=== PATIENT | female | born 1950 | race Caucasian/White ===

== ENCOUNTER 2023-02-06 12:56 | Outpatient (OUT) | payer OTHER, SELFPAY ==
--- NOTE | 2023-02-06 13:07 | CT_ITS ---
[address] [address] Patient Name: SIVA CASILLAS MRN: [id number] date: 1950 Sex: F Assigned Patient Location: CT Current Patient Location: Accession/Order Number: [id number] Exam Date: 02/06/2023 13:25 Report Date: 02/07/2023 01:29 At the request of: KRISTOPHER MELCHOR Procedure: CT lung screening low-dose EXAMINATION: CT lung screening low-dose HISTORY: History OF Tobacco Abuse Z87.891 COMPARISON: CT chest 02/14/2022 TECHNIQUE: Axial, Coronal, and Sagittal images were created without the administration of IV contrast material. Dose reduction techniques were achieved by using automated exposure control and/or adjustment of mA and/or kV according to patient size and/or use of iterative reconstruction technique. FINDINGS: LUNGS: Marked emphysematous changes. No acute infiltrates or suspicious nodules. PLEURA: No mass, effusion, or pneumothorax. VASCULATURE: No abnormality. TORIBIO: No mass or pathologic adenopathy. MEDIASTINUM: No mass or pathologic adenopathy. CARDIAC: No enlargement, pericardial thickening, or significant calcification. AORTA: No aneurysm or dissection. CHEST WALL: No mass or axillary adenopathy BONES: No bone lesion or fracture. LIMITED ABDOMEN: No suspicious findings. Limited images of the upper abdomen. OTHER: Negative. CT/CT lung screening low-dose IMPRESSION: 1. Lung-RADS Category 1 Negative. No nodules and definitely benign nodules. Continue annual screening with LDCT in 12 months. 2. Marked emphysematous changes. Electronically authenticated by: SVETLANA CHAPMAN Date: 02/07/2023 01:29
== END 2023-02-06 12:57 | disposition home or self-care (01) ==
LOC: CT 12:56
PROVIDERS: PCP Family Medicine; Visit Provider Internal Medicine
DX: Z87.891 Personal history of nicotine dependence (principal)
CPT/HCPCS: 71271

== ENCOUNTER 2024-02-13 10:15 | Outpatient (OUT) | payer OTHER, SELFPAY ==
--- NOTE | 2024-02-13 10:17 | CT_ITS ---
[address] [address] Patient Name: SIVA CASILLAS MRN: [id number] date: 1950 Sex: F Assigned Patient Location: CT Current Patient Location: Accession/Order Number: [id number] Exam Date: 02/13/2024 10:25 Report Date: 02/14/2024 06:15 At the request of: KRISTOPHER MELCHOR Procedure: CT lung screening low-dose EXAMINATION: CT lung screening low-dose HISTORY: Screening For Malignant Neoplasm Respiratory Organ COMPARISON: No relevant comparison available. TECHNIQUE: Axial, Coronal, and Sagittal images were created without the administration of IV contrast material. Dose reduction techniques were achieved by using automated exposure control and/or adjustment of mA and/or kV according to patient size and/or use of iterative reconstruction technique. FINDINGS: LUNGS: Marked emphysematous changes. No suspicious nodules or acute infiltrates. PLEURA: No mass, effusion, or pneumothorax. VASCULATURE: No abnormality. TORIBIO: No mass or pathologic adenopathy. MEDIASTINUM: No mass or pathologic adenopathy. CARDIAC: No enlargement, pericardial thickening, or pericardial effusion. Coronary Artery calcifications: Coronary calcifications are heavy. AORTA: No aneurysm or dissection. CHEST WALL: No mass or axillary adenopathy BONES: No bone lesion or fracture. LIMITED ABDOMEN: No suspicious findings. Limited images of the upper abdomen. OTHER: Negative. CT/CT lung screening low-dose IMPRESSION: 1. Lung-RADS Category 1 Negative. No nodules and definitely benign nodules. Continue annual screening with LDCT in 12 months. 2. Marked emphysematous changes. Electronically authenticated by: SVETLANA CHAPMAN Date: 02/14/2024 06:15
--- OUTSIDE RECORDS SUMMARY | 2024-02-13 10:33 | XMS_ITS | CCD ---
Author Organization [facility] Care Team Providers Care Motion Picture Projectionist Apprentice Name Role Phone Blackwell, Manju Forbes Admitting Unavailable CHANA OBRIEN Attending Unavailable NICOLE GUZMAN Unavailable NICOLE GUZMAN Primary Care Unavailable HARITHA HI Surgeon Unavailable TX Procedure Practitioner Unavailab Nicole Sprague Unavailable Unavailable Unavailable Unavailable Unavailable Renzo Hein Unavailable Nicole Guzman Unavailable DR SVETLANA CHAPMAN Consulting Unavailable THOMAS, DR NICOLE Thakkar Attending Unavailable THOMAS, DR NICOLE Thakkar Admitting Unavailable THOMAS, DR NICOLE Thakkar Primary Care Unavailable THOMAS, DR NICOLE Thakkar Consulting Unavailable THOMAS, DR NICOLE Thakkar Primary Care Unavailable SAMSA ., KRISTOPHER Admitting Unavailable SAMSA ., KRISTOPHER Attending Unavailable THOMAS, DR NICOLE Thakkar Primary Care Unavailable RENOZ HEIN Admitting Unavailable RENZO HEIN Attending Unavailable THOMAS, DR NICOLE Thakkar Primary Care Unavailable THOMAS, DR NICOLE Thakkar Attending Unavailable THOMAS, DR NICOLE Thakkar Admitting Unavailable SAMSA ., KRISTOPHER Admitting Unavailable SAMSA ., KRISTOPHER Consulting Unavailable SAM ., KRISTOPHER Attending Unavailable THOMAS, DR NICOLE Thakkar Primary Care Unavailable THOMAS, DR NICOLE Thakkar Primary Care Unavailable THOMAS, DR NICOLE Thakkar Consulting Unavailable THOMAS, DR NICOLE Thakkar Attending Unavailable THOMAS, DR NICOLE Thakkar Admitting Unavailable Damian Suh Consulting Unavailable THOMAS, DR NICOLE Thakkar Primary Care Unavailable THOMAS, DR NICOLE Thakkar Attending Unavailable THOMAS, DR NICOLE Tahkkar Admitting Unavailable THOMAS, DR NICOLE Thakkar Consulting Unavailable DR SVETLANA CHAPMAN Consulting Unavailable THOMAS, DR NICOLE Thakkar Primary Care Unavailable THOMAS, DR NICOLE Thakkar Attending Unavailable THOMAS, DR NICOLE Thakkar Admitting Unavailable THOMAS, DR NICOLE Thakkar Consulting Unavailable TRABOULFRANKI, DR DALEY Attending Unavailab le TRABOULFRANKI, DR DALEY Admitting Unavailab le EUGENEOULFRANKI, DR DALEY Consulting Unavailab le THOMAS, DR NICOLE Thakkar Primary Care Unavailable SAMSA ., KRISTOPHER Admitting Unavailable SAMSA ., KRISTOPHER Attending Unavailable ARI, DR SVETLANA Alfaro Consulting Unavailable THOMAS, DR NICOLE Thakkar Primary Care Unavailable SAMSA ., KRISTOPHER Consulting Unavailable Alea, Dr. Daley Referring Unavaila ble Traboulfranki, Dr. Daley Attending Unavaila ble Guzman, Dr. Nicole Charles Primary Care Unav ailable Guzman, Dr. Nicole Charles Primary Care Unav ailable Alea, Dr. Daley Referring Unavaila ble Trabizzy, Dr. Daley Attending Unavaila ble MD Jared Rodgers Attending Provider Unavailable MD Nicole Guzman Primary Care Provider MD Edi Cosby Attending Provider MD Nicole Guzman Attending Provider Nicole Guzman Admitting Unavailable Nicole Guzman Attending Unavailable Nicole Guzman Primary Care Unavailable Edi Cosby Admitting Unavailable Edi Cosby Attending Unavailable Nicole Guzman Primary Care Unavailable Nicole Guzman MD Primary Care Provider EDI COSBY Attending Unavailable NICOLE GUZMAN Primary Care Unavailable Allergies Allergy Classification Reported Allergen(s) Allergy Type Date of Onset Reaction(s) Facility (6 sources) Ibuprofen; 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: [IBUPROFEN] Drug Allergy 3 Rash [facility] Repository (3 sources) Naproxen Drug Allergy 5 [facility] Repository (20 sources) Ibuprofen; 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: [Advil] Drug Allergy 9 Rash [facility] 250 DO Work Phone: (20 sources) Naproxen; 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: [Aleve] Drug Allergy Unknown, Rash, Other [facility] 250 DO Work Phone: (1 source) Ibuprofen Drug Allergy 5 [facility] Repository (5 sources) Naproxen; 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: [naproxen] Drug Allergy 9 [facility] (4 sources) Alendronate Drug Allergy 9 [facility] Comment:Freete xt Needs Updated. [facility] Other (4 sources) Allergies Reconciled Propensity to adverse reactions Unknown [facility] Other (4 sources) patient allergy list reviewed by nurse or physicia Propensity to adverse reactions 9 Comment:Done [facility] Other (1 source) Ibuprofen Drug Allergy 9 [facility] Repository (2 sources) Naproxen; 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: [NAPROXEN SODIUM] Drug Allergy 4 [facility] Work Phone: Medications Current Medications Medication Drug Class(es) Dates Sig (Normalized) Sig (Original) 30 ACTUAT fluticasone furoate 0.2 MG/ACTUAT / umeclidinium 0.0625 MG/ACTUAT / vilanterol 0.025 MG/ACTUAT Dry Powder Inhaler [Trelegy] (4 sources) take 1 puff(s) by inhalation once daily Trelegy Ellipta 200-62.5-25 MCG/ACT 1 puff Inhalation Once a day for 90 days Active acetaminophen 325 mg / HYDROcodone bitartrate 5 mg oral tablet (15 sources) Opioid Agonist Start: 06-22-2021 take 1 tablet by mouth twice daily as needed HYDROcodone-Aceta minophen 5-325 MG 1 tablet as needed Orally twice daily for 30 days G89.29 Chronic pain Jun, Active Start: 06-07-2021 HYDROcodone-Ac etaminophen 5-325 MG Oral Tablet Quantity: 28 Refills: 0 Ordered: 07-Jun-2021 DO Start : 07-Jun-2021 Complete [id number] 200 actuat albuterol 0.09 mg/actuat metered dose inhaler (20 sources) beta2-Adrenergic Agonist albuter ol (Ventolin HFA) 90 mcg/actuation inhaler Inhale. As directed. Active Ventolin HFA 108 (90 Base) MCG/ACT Inhalation Aerosol Solution As directed. Quantity: 0 Refills: 0 Ordered: 19-Dec-2021 DO Active Ventolin HFA Act italia apixaban 5 mg oral tablet (20 sources) Factor Xa Inhibitor Start: 08-05-2023 Apixaban ( Eliquis) 5 mg tablet Active 0 .ROUTE .COMPLEX 180 August 05, 2023 11:07am TAKE 1 TABLET 2 TIMES DAILYAS DIRECTED Start: 06-21-2021 End: 08-05-2023 take 5 mg by mouth twice daily Apixaban Discontinued 5 MG PO Twice daily August 05, 2023 1:00am August 05, 2023 11:07am Aspir-81 (14 sources) Aspir-81 Active aspirin 81 mg delayed release oral tablet (12 sources) Platelet Aggregation Inhibitor, Nonsteroidal Anti-inflammatory Drug Start: 06-21-2021 aspirin 81 mg EC tablet Take by mouth 2 times a week. 06/21/2021 Active Start: 01-08-2019 take 81 mg by mouth once daily Aspirin Active 81 MG PO Daily 0 January 08, 2019 12:00am atorvastatin 80 mg oral tablet (20 sources) HMG-CoA Reductase Inhibitor Start: 01-06-2019 End: 11-18-2023 take 80 mg by mouth once daily Atorvastatin Active 80 MG PO Daily 90 November 18, 2023 8:29am Baclofen (9 sources) gamma-Aminobutyri c Acid-ergic Agonist Start: 10-07-2023 Baclofen Active 0 .ROUTE .COMPLEX 135 October 07, 2023 3:23pm TAKE 1 AND 1/2 TABLETS AT BEDTIME NEEDED FOR MUSCLE SPASM Start: 10-07-2023 End: 10-07-2023 take 15 mg by mouth once daily Baclofen Discontinued 1 5 MG PO Daily October 07, 2023 12:00am October 07, 2023 3:23pm Start: 02-02-2021 Baclofen 10 MG Oral Tablet Quantity: 30 Refills: 0 Ordered: 23-Apr-2021 DO Start : 02-Feb-2021 Complete Baclofen 10 MG T SUDARSHAN 1 AND 1/2 TABLETS AT BEDTIME NEEDED FOR MUSCLE SPASM for 90 Active 120 actuat budesonide 0.16 mg/actuat / formoterol fumarate 0.0045 mg/actuat metered dose inhaler (4 sources) Corticosteroid, beta2-Adrenergic Agonist Start: 01-06-2019 Budesonide-Formoterol Active 0 .ROUTE .COMPLEX January 06, 2019 12:00am 4.5 - 160 mcg inhaled cholecalciferol 0.05 mg oral capsule (2 sources) Vitamin D End: 10-08-2023 take 1 capsule by mouth once daily cholecalciferol (Vitamin D-3) 50,000 unit capsule Take 1 capsule (50,000 Units) by mouth once daily. 10/08/2023 Discontinued (Therapy completed) take 1 capsule by mouth in the m orning cholecalciferol (Vitamin D3) 50 mcg (2,000 unit) capsule Take 1 capsule (50 mcg) by mouth early in the morning.. Active oungorahwxo-vnmzueqir-cviqjl er (Trelegy Ellipta) 200-62.5-25 mcg blister with device (1 source) fluticasone-umec lidin-vilanter (Trelegy Ellipta) 200-62.5-25 mcg blister with device Inhale if needed. As directed Active furosemide 40 mg oral tablet (11 sources) Loop Diuretic St ar t: take 40 mg by mouth once daily Furosemide Active 40 MG PO Daily September 16, 2023 12:00am Start: 10-12-2021 take 1 tablet by danisha th once daily Furosemide 20 MG Oral Tablet TAKE 1 TABLET BY MOUTH DAILY Quantity: 7 Refills: 0 Ordered: 12-Oct-2021 DO Start : 12-Oct-2021 Complete hydroCHLOROthiazide 25 mg oral tablet (4 sources) Thiazide Diuretic Start: 01-06-2019 take 25 mg by mouth once daily Hydrochlorothiazide Active 25 MG PO Daily January 06, 2019 12:00am levothyroxine sodium 0.1 mg oral tablet (20 sources) l-Thyroxine Start: 10-29-2023 End: 11-18-2023 take 1 tablet by mouth once daily Levothyroxine (Synthroid) 100 mcg tablet Active 100 MCG PO Daily November 18, 2023 8:29am Start: 12-05-2021 take 1 tablet by danisha th once daily levothyroxine (Synthroid) 100 mcg tablet Take 1 tablet (100 mcg) by mouth once daily. 12/05/2021 Active Start: 12-05-2021 Synthroid 100 MCG Oral Tablet Quantity: 90 Refills: 0 Ordered: 05-Dec-2021 DO Start : 05-Dec-2021 Active Start: 06-08-2021 Levothyroxine Sodium 112 MCG Oral Tablet Quantity: 90 Refills: 0 Ordered: 08-Jun-2021 DO Start : 08-Jun-2021 Active Start: 01-06-2019 End: 10-30-2023 take 112 ug by mouth once daily Levothyroxine Disconti nued 112 MCG PO Daily January 06, 2019 12:00am October 30, 2023 8:46am Synthroid 100 MC G TAKE 1 TABLET DAILY for 90 Active take 1 tablet by danisha th once daily in the morning Levothyroxine Sodium 112 MCG 1 tablet in the morning on an empty stomach Orally daily Active losartan potassium 100 mg oral tablet (20 sources) Angiotensin 2 Receptor Elisabet Start: 12-17-2023 take 50 mg by mouth once daily Losartan Active 50 MG PO Daily December 17, 2023 2:03pm Start: 11-15-2023 End: 12-17-2023 take 100 mg by mouth once daily Losartan Discontinued 100 MG PO Daily December 10, 2023 8:44am December 17, 2023 2:03pm Start: 06-21-2021 take 1 tablet by danisha th once daily losartan (Cozaar) 100 mg tablet Take 1 tablet (100 mg) by mouth once daily. 06/21/2021 Active Start: 01-08-2019 End: 11-15-2023 take 100 mg by mouth once daily Losartan Discontinued 100 MG PO Daily January 08, 2019 12:00am November 15, 2023 4:16pm Losartan Potassi um 50 MG TAKE 1 TABLET DAILY for 90 Active 24 hr metoprolol succinate 25 mg extended release oral tablet (20 sources) beta-Adrenergic Elisabet Start: 09-16-2023 take 25 mg by mouth once daily Metoprolol Succinate Active 25 MG PO Daily September 16, 2023 12:00am Start: 01-08-2019 End: 09-16-2023 take 12.5 mg by mouth twice daily Metoprolol Tartrate Discontinued 12.5 MG PO Twice daily 30 January 08, 2019 12:00am September 16, 2023 2:57pm Start: 01-06-2019 End: 01-08-2019 take 50 mg by mouth twice daily Metoprolol Tartrate Discontinued 50 MG PO Twice daily January 06, 2019 12:00am January 08, 2019 10:00am multivitamin tablet (1 source) take 1 tablet by mouth once daily multivitamin tablet Take 1 tablet by mouth once daily. Active Nebulizer - (10 sources) Nebulizer - as directed Active ondansetron 4 mg disintegrating oral tablet (2 sources) Serotonin-3 Receptor Antagonist Start: 3 take 1 tablet by mouth three times daily as needed Ondansetron 4 MG 1 tablet on the tongue and allow to dissolve Orally tid prn for 5 Apr, Active oxygen (O2) gas therapy (1 source) oxygen (O2) gas therapy Inhale 1 each continuously. 2-3 LPM Active Ozempic (0.25 or 0.5 MG/DOSE) 2 MG/1.5ML (3 sources) Ozempic (0.25 or 0.5 MG/DOSE) 2 MG/1.5ML 1mg Subcutaneous weekly for 90 days Active Ozempic 0.25 mg or 0.5 mg (2 mg/3 mL) pen injector (1 source) Start: Ozempic 0.25 mg or 0.5 mg (2 mg/3 mL) pen injector 1 (one) time per week. 09/16/2023 Active 0.25 mg, 0.5 mg dose 1.5 ml semaglutide 1.34 mg/ml pen injector (6 sources) Start: Ozempic (0.25 or 0.5 MG/DOSE) 2 MG/1.5ML 0.25mg Subcutaneous weekly for 28 days Aug, Active Ozempic (0.25 or 0.5 MG/DOSE) 2 MG/1.5ML 1mg Subcutaneous weekly for 90 days Active Semaglutide (2 sources) Start: 09-16-2023 Semaglutide (Ozempic) 0.25 mg or 0.5 mg (2 mg/3 mL) pen injector Active 0.25 MG SUBCUT every week September 16, 2023 12:00am 0.25mg weekly spironolactone 25 mg oral tablet (20 sources) Aldosterone Antagonist Start: 10-29-2023 End: 11-18-2023 take 12.5 mg by mouth once daily Spironolactone Active 12.5 MG PO Daily November 18, 2023 8:29am take 0.5 tablet by mouth once da bill spironolactone (Aldactone) 25 mg tablet Take 0.5 tablets (12.5 mg) by mouth once daily. Active take 1 tablet by mouth once rupert y Spironolactone 25 MG Oral Tablet TAKE 1 TABLET DAILY. Quantity: 90 Refills: 3 Ordered: 21-Jun-2021 DO Active vit A/vit C/vit E/zinc/coppe r (PRESERVISION AREDS ORAL) (1 source) take 1 capsule by [facility] twice daily vit A/vit C/vit E/zinc/copper (PRESERVISION AREDS ORAL) 1 capsule 2 times a day. Active {20 (nirmatrelvir 150 MG Ora l Tablet) / 10 (ritonavir 100 MG Oral Tablet) } Pack [Paxlovid 5-Day] (2 sources) Paxlovid (300/10 0) 20 x 150 MG & 10 x 100MG as directed Orally for 5 days Active Completed/Discontinued Medications Medication Drug Class(es) Dates Sig (Normalized) Sig (Original) amoxicillin 875 mg / clavulanate 125 mg oral tablet (2 sources) Penicillin-class Antibacterial Start: 07-11-2021 take 1 tablet by mouth twice daily Amoxicillin-Pot Clavulanate 875-125 MG Oral Tablet TAKE 1 TABLET BY MOUTH TWICE A DAY Quantity: 20 Refills: 0 Ordered: 11-Jul-2021 DO Start : 11-Jul-2021 Complete arformoterol 0.0075 mg/ml inhalation solution (3 sources) beta2-Adrenergic Agonist Start: 05-03-2022 take 1 dose by inhalation twice daily in the morning Arformoterol Tartrate 15 MCG/2ML Inhalation Nebulization Solution INHALE THE CONTENTS OF 1 VIAL TWO TIMES DAILY IN THE MORNING AND EVENING VIA STANDARD JET NEBULIZER DIRECTED. Quantity: 0 Refills: 0 Ordered: 03-May-2022 DO Start : 03-May-2022 Active Start: 05-03-2022 Arformoterol T artrate 15 MCG/2ML Inhalation Nebulization Solution Quantity: 120 Refills: 0 Ordered: 03-May-2022 DO Start : 03-May-2022 Complete budesonide 0.25 mg/ml inhalation suspension (3 sources) Corticosteroid Start: 05-03-2022 take 1 [IU] by inhalation twice daily Budesonide 0.5 MG/2ML Inhalation Suspension USE 1 UNIT DOSE VIA NEBULIZER TWO TIMES A DAY Quantity: 0 Refills: 0 Ordered: 03-May-2022 DO Start : 03-May-2022 Active Start: 05-03-2022 Budesonide 0.5 MG/2ML Inhalation Suspension Quantity: 120 Refills: 0 Ordered: 03-May-2022 DO Start : 03-May-2022 Complete citalopram 40 mg oral tablet (20 sources) Serotonin Reuptake Inhibitor Start: 04-27-2022 Citalopram Hydrobrom sara 40 MG Oral Tablet Quantity: 90 Refills: 0 Ordered: 27-Apr-2022 DO Start : 27-Apr-2022 Complete take 1 tablet by mouth once rupert y citalopram (CeleXA) 40 mg tablet Take 1 tablet (40 mg) by mouth once daily. Active take 0.5 tablet by m outh every twenty-four hours Citalopram Hydrobromide 40 MG 0.5 tablet Orally Once a day Active take 1 tablet by mouth once rupert y Citalopram Hydrobromide 20 MG Oral Tablet TAKE 1 TABLET DAILY. Quantity: 0 Refills: 0 Ordered: 19-Dec-2021 DO Active clopidogrel 75 mg oral tablet (4 sources) [id number] Platelet Inhibitor Start: 01-08-2019 End: 09-16-2023 take 75 mg by mouth once daily Clopidogrel Discontinued 75 MG PO Daily January 08, 2019 12:00am September 16, 2023 2:56pm fluconazole 100 mg oral tablet (2 sources) Azole Antifungal Start: 04-16-2022 take 1 tablet by mouth once daily Fluconazole 100 MG Oral Tablet TAKE ONE TABLET BY MOUTH DAILY Quantity: 7 Refills: 0 Ordered: 16-Apr-2022 DO Start : 16-Apr-2022 Complete 30 actuat fluticasone furoate 0.1 mg/actuat / umeclidinium 0.0625 mg/actuat / vilanterol 0.025 mg/actuat dry powder inhaler (7 sources) Anticholinergic, Corticosteroid, beta2-Adrenergic Agonist Start: 06-07-2021 Trelegy Ellipta 100-62.5-25 MCG/INH Inhalation Aerosol Powder Breath Activated As directed. Quantity: 0 Refills: 0 Ordered: 07-Jun-2021 DO Start : 07-Jun-2021 Active take 1 puff(s) by inhalation onc e daily Trelegy Ellipta 100-62.5-25 MCG/INH 1 puff Inhalation Once a day Active metFORMIN hydrochloride 500 mg oral tablet (4 sources) Biguanide Start: 01-06-2019 End: 09-16-2023 take 500 mg by mouth once daily Metformin Discontinued 500 MG PO Daily January 06, 2019 12:00am September 16, 2023 2:55pm Multi Vitamin TABS (5 sources) Multi Vitamin TA BS TAKE 1 TABLET DAILY. Quantity: 0 Refills: 0 Ordered: 19-Dec-2021 DO Active pramipexole dihydrochloride 0.25 mg oral tablet (1 source) Nonergot Dopamine Agonist Start: 01-05-2021 Pramipexole Dihydrochloride 0.25 MG Oral Tablet Quantity: 30 Refills: 0 Ordered: 05-Jan-2021 DO Start : 05-Jan-2021 Complete pregabalin 50 mg oral capsule (15 sources) Start: 07-20-2021 take 1 capsule by mouth twice daily Pregabalin 50 MG Oral Capsule TAKE 1 CAPSULE BY MOUTH TWICE A DAY Quantity: 60 Refills: 0 Ordered: 21-Jul-2021 DO Start : 20-Jul-2021 Complete Trelegy Ellipta 200-62.5-25 MCG/ACT Inhalation Aerosol Powder Breath Activated (2 sources) Start: 12-18-2022 Trelegy Ellipta 200-62.5-25 MCG/ACT Inhalation Aerosol Powder Breath Activated Quantity: 60 Refills: 0 Ordered: 18-Dec-2022 DO Start : 18-Dec-2022 Active valACYclovir 1000 mg oral tablet (3 sources) Herpesvirus Nucleoside Analog DNA Polymerase Inhibitor, Herpes Simplex Virus Nucleoside Analog DNA Polymerase Inhibitor, Herpes Zoster Virus Nucleoside Analog DNA Polymerase Inhibitor Start: 07-20-2021 take 1 tablet by mouth three times daily valACYclovir HCl - 1 GM Oral Tablet TAKE 1 TABLET BY MOUTH 3 TIMES A DAY Quantity: 21 Refills: 0 Ordered: 20-Jul-2021 DO Start : 20-Jul-2021 Complete valACYclovir HCl Active Vitamin D3 CAPS (5 sources) Vitamin D3 CAPS TAKE 1 CAPSULE Daily Quantity: 0 Refills: 0 Ordered: 19-Jad-2022 DO Active warfarin sodium 5 mg oral tablet (8 sources) Vitamin K Antagonist take 1 tablet by mouth every twenty-four hours Warfarin Sodium 5 MG 1 tablet Orally Once a day Not-Taking Problems Active Problems Problem Classification Problem Date Documented Date Episodic/Chronic Abdominal pain (9 sources) Epigastric pain; 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: [Epigastric pain] Onset: 11-11-2021 Episodic Acute myocardial infarction (14 sources) Acute myocardial infarction; 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: [Acute myocardial infarction, unspecified] 01-06-2019 Chronic Aortic; peripheral; and visceral artery aneurysms (3 sources) Abdominal aortic aneurysm without rupture; 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: [Abdominal aortic aneurysm, without rupture, unspecified] Chronic Asthma (4 sources) Uncomplicated asthma; 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: [Unspecified asthma, uncomplicated] Chronic Cardiac dysrhythmias (20 sources) Paroxysmal atrial fibrillation; 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: [Atrial fibrillation] Onset: 01-19-2019 10-08-2023 Chronic Chronic obstructive pulmonary disease and bronchiectasis (20 sources) Chronic obstructive lung disease; 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: [Chronic airway obstruction, not elsewhere classified] Onset: 03-30-2022 Chronic Congestive heart failure; nonhypertensive (4 sources) Chronic systolic heart failure; 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: [Chronic systolic (congestive) heart failure] Chronic Coronary atherosclerosis and other heart disease (20 sources) Multi vessel coronary artery disease; 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: [Coronary atherosclerosis of unspecified type of vessel, [place] or graft] Onset: 08-13-2018 10-08-2023 Chronic Diabetes mellitus with complications (14 sources) Type 2 diabetes mellitus; 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: [Type 2 diabetes mellitus with hyperglycemia] Chronic Diabetes mellitus without complication (20 sources) Diabetes mellitus; 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: [Diabetes mellitus without mention of complication, type II or unspecified type, not stated as uncontrolled] Onset: 08-13-2018 09-16-2023 Chronic Disorders of lipid metabolism (20 sources) Hyperlipidemia; 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: [Other and unspecified hyperlipidemia] Onset: 07-12-2023 Chronic Diverticulosis and diverticulitis (15 sources) Diverticular disease of colon; 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: [Diverticulosis of intestine, part unspecified, without perforation or abscess without bleeding] Onset: 08-13-2018 Chronic Endometriosis (4 sources) Endometriosis, unspecified; 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: [Endometriosis] Onset: 08-13-2018 Chronic Esophageal disorders (14 sources) Gastroesophageal reflux disease; 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: [Gastro-esophageal reflux disease without esophagitis] Onset: 08-13-2018 Chronic Essential hypertension (20 sources) Hypertensive disorder; 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: [Unspecified essential hypertension] Onset: 08-13-2018 10-08-2023 Chronic Fracture of lower limb (10 sources) Closed fracture of ankle; 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: [Other fracture of left lower leg, initial encounter for closed fracture] Episodic Genitourinary symptoms and ill-defined conditions (4 sources) Urinary incontinence; 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: [Unspecified urinary incontinence] Onset: 08-13-2018 Chronic Mood disorders (14 sources) Depressive disorder; 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: [Major depressive disorder, single episode, unspecified] Chronic Mycoses (4 sources) Onychomycosis due to dermatophyte ; 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: [Tinea unguium] Episodic Nausea and vomiting (6 sources) Nausea with vomiting, unspecified; 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: [Nausea and vomiting] Onset: 11-11-2021 Episodic Nonmalignant breast conditions (4 sources) Fibrocystic disease of breast; 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: [Diffuse cystic mastopathy of unspecified breast] Onset: 08-13-2018 Chronic Osteoarthritis (18 sources) Bilateral arthritis of knees; 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: [Bilateral primary osteoarthritis of knee] Onset: 08-13-2018 Chronic Osteoporosis (8 sources) Age-related osteoporosis without current pathological fracture; 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: [Primary osteoporosis] Onset: 02-19-2022 Chronic Other aftercare (9 sources) Drug therapy finding; 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: [Long-term (current) use of anticoagulants] Onset: 07-12-2023 10-08-2023 Episodic Other aftercare (4 sources) Long-term current use of inhaled steroid; 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: [snf (current) use of 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] Episodic Other aftercare (4 sources) Long-term current use of anticoagulant; 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: [buttermaker (current) use of anticoagulants] Episodic Other aftercare (2 sources) snf (current) use of anticoagulants; 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: [snf (current) use of anticoagulants] Onset: 07-12-2023 Episodic Other circulatory disease (4 sources) Elevated blood-pressure reading without diagnosis of hypertension; 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: [Elevated blood-pressure reading, without diagnosis of hypertension] Episodic Other connective tissue disease (14 sources) Trochanteric bursitis; 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: [Trochanteric bursitis, unspecified hip] Episodic Other connective tissue disease (1 source) Radial styloid tenosynovitis [de Quervain] Episodic Other hereditary and degenerative nervous system conditions (4 sources) Restless legs; 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: [Restless legs syndrome] Chronic Other injuries and conditions due to external causes (4 sources) History of fall; 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: [History of falling] Episodic Other lower respiratory disease (4 sources) Solitary nodule of lung; 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: [Solitary pulmonary nodule] Episodic Other lower respiratory disease (4 sources) Pleuritic pain; 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: [Pleurodynia] Episodic Other nervous system disorders (14 sources) Chronic pain; 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: [Other chronic pain] Chronic Other nervous system disorders (4 sources) Other chronic pain Onset: 06-22-2021 Resolved: 08-31-2021 Chronic Other nervous system disorders (4 sources) Lesion of ulnar nerve; 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: [Lesion of ulnar nerve] Onset: 08-13-2018 Chronic Other non-traumatic joint disorders (4 sources) Lower limb joint arthritis; 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: [Osteoarthrosis, unspecified whether generalized or localized, lower leg] Onset: 08-13-2018 Chronic Other non-traumatic joint disorders (14 sources) Pain in right hip joint; 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: [Pain in right hip] Episodic Other nutritional; endocrine; and metabolic disorders (17 sources) Morbid obesity; 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: [Morbid obesity] Chronic Other nutritional; endocrine; and metabolic disorders (17 sources) Body mass index 40+ - severely obese; 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: [Morbid obesity] Onset: 10-08-2023 10-08-2023 Chronic Other nutritional; endocrine; and metabolic disorders (1 source) Morbid (severe) obesity due to excess calories Chronic Other nutritional; endocrine; and metabolic disorders (2 sources) Body mass index (BMI) 45.0-49.9, adult; 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: [Body mass index (BMI) 45.0-49.9, adult (Multi)] Onset: 10-08-2023 Chronic Other screening for suspected conditions (not mental disorders or infectious disease) (5 sources) Screening for malignant neoplasm of respiratory tract; 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: [Encounter for screening for malignant neoplasm of respiratory organs] Episodic Other upper respiratory infections (4 sources) Chronic sinusitis; 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: [Chronic sinusitis, unspecified] Chronic Prolapse of female genital organs (4 sources) Midline cystocele; 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: [Cystocele, midline] Chronic Residual codes; unclassified (12 sources) Sleep apnea; 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: [Unspecified sleep apnea] Onset: 08-13-2018 07-12-2023 Chronic Residual codes; unclassified (4 sources) Obstructive sleep apnea syndrome; 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: [Obstructive sleep apnea (adult) (pediatric)] Chronic Residual codes; unclassified (7 sources) Edema; 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: [Edema] Onset: 07-12-2023 07-12-2023 Episodic Residual codes; unclassified (5 sources) Localized edema; 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: [Localized edema] Onset: 11-11-2021 Episodic Residual codes; unclassified (4 sources) Amnesia; 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: [Other amnesia] Episodic Residual codes; unclassified (4 sources) Tobacco user; 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: [Tobacco use] Episodic Residual codes; unclassified (4 sources) Inadequate sleep hygiene; 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: [Inadequate sleep hygiene] Episodic Respiratory failure; insufficiency; arrest (adult) (4 sources) Chronic respiratory failure; 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: [Chronic respiratory failure with hypoxia] Chronic Retinal detachments; defects; vascular occlusion; and retinopathy (4 sources) Degenerative disorder of macula ; 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: [Unspecified macular degeneration] Chronic Screening and history of mental health and substance abuse codes (15 sources) Ex-smoker; 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: [Personal history of tobacco use] Onset: 10-08-2023 10-08-2023 Episodic Comment on above: quit 2011 1.5 ppd; Skin and subcutaneous tissue infections (4 sources) Cellulitis of right lower limb; 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: [Cellulitis of right lower limb] Episodic Spondylosis; intervertebral disc disorders; other back problems (20 sources) Solitary sacroiliitis; 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: [Sacroiliitis, not elsewhere classified] Onset: 08-13-2018 Resolved: 08-31-2021 Chronic Spondylosis; intervertebral disc disorders; other back problems (20 sources) Backache; 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: [Dorsalgia, unspecified] Onset: 08-13-2018 Resolved: 08-31-2021 Episodic Sprains and strains (14 sources) Sprain of ligament of lumbosacral joint; 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: [Sprain of ligaments of lumbar spine, initial encounter] Episodic Superficial injury; contusion (4 sources) Contusion of breast; 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: [Contusion of breast, unspecified breast, initial encounter] Episodic Thyroid disorders (20 sources) Hypothyroidism; 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: [Hypothyroidism, unspecified] Onset: 08-14-2018 Chronic Unclassified (3 sources) LOW BACK PAIN, UNSPECIFIED; 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: [LOW BACK PAIN, UNSPECIFIED] Onset: 09-06-2021 Unclassified (4 sources) Acute candidiasis of vulva and vagina; 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: [Acute candidiasis of vulva and vagina] Unclassified (1 source) Abdominal aortic aneurysm, without rupture, unspecified; 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: [Abdominal aortic aneurysm, without rupture, unspecified] Unclassified (1 source) Encounter for screening mammogram for malignant neoplasm of breast; 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: [Encounter for screening mammogram for malignant neoplasm of breast] Onset: 03-25-2023 Viral infection (4 sources) Herpes zoster with complication; 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: [Zoster with other complications] Episodic Past or Other Problems Problem Classification Problem Date Documented Da te Episodic/Chronic Allergic reactions (4 sources) Inflammatory dermatosis; 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: [Dermatitis, unspecified] Onset: 08-13-2018 Episodic Nonspecific chest pain (4 sources) Chest pain; 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: [Chest pain, unspecified] Onset: 01-06-2019 Episodic Other bone disease and musculoskeletal deformities (1 source) Other specified disorders of bone density and structure, unspecified site; 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: [OTH D/O BONE DEN STRUCT UNS SITE] Onset: 02-27-2022 Episodic Other bone disease and musculoskeletal deformities (4 sources) Bone density finding; 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: [Other specified disorders of bone density and structure, unspecified site] Onset: 08-13-2018 Episodic Other connective tissue disease (1 source) Abnormal posture; 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: [ABNORMAL POSTURE] Onset: 09-08-2021 Episodic Other connective tissue disease (4 sources) Spasm; 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: [Spasm of muscle] Onset: 09-26-2018 Episodic Other connective tissue disease (4 sources) Plantar fascial fibromatosis; 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: [Plantar fascial fibromatosis] Onset: 08-13-2018 Episodic Other lower respiratory disease (4 sources) Solitary pulmonary nodule; 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: [SOLITARY PULMONARY NODULE] Onset: 02-14-2022 Episodic Other lower respiratory disease (4 sources) Dyspnea; 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: [Other dyspnea and respiratory abnormalities] Onset: 01-06-2019 Episodic Other nervous system disorders (1 source) Other abnormalities of gait and mobility; 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: [OTHER ABNORMALITIES GAIT AND MOBILITY] Onset: 09-08-2021 Episodic Other nervous system disorders (1 source) Unspecified abnormalities of gait and mobility; 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: [UNS ABNORMALITIES GAIT AND MOBILITY] Onset: 04-08-2022 Episodic Residual codes; unclassified (1 source) Edema, unspecified; 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: [EDEMA UNSPECIFIED] Onset: 12-12-2021 Episodic Residual codes; unclassified (4 sources) Other amnesia; 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: [OTHER AMNESIA] Onset: 09-22-2021 Episodic Unclassified (1 source) LOW BACK PAIN, UNSPECIFIED; 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: [LOW BACK PAIN, UNSPECIFIED] Onset: 09-06-2021 Unclassified (4 sources) Urine finding; 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: [Other nonspecific finding on examination of urine] Onset: 01-22-2019 Resolved: 11-02-2020 Unclassified (1 source) Onset: 10-08-2023 10-08-2023 Viral infection (1 source) COVID-19 Results Test Name Value Interpretation Reference Range Facility MM screening mammo BI w/CADo n 03-26-2023 MM screening mammo BI w/CAD [facility] [place] [address] Mammography Report Signed Patient: Siva Nicolas MR#: [id number] : 1950 Acct:[id number] Age/Sex: 72 / F ADM Date: 03/25/23 Loc: [place] Room: Type: [facility] Attending Dr: Nicole Guzman MD Copies to: Nicole Guzman MD Ordering Provider: Nicole Guzman MD Date of Service: 03/25/23 MM/MM screening mammo BI w/CAD: Screening mammogram for breast cancer BILATERAL Screening Full Field digital mammogram with 3-D imaging. Full field digital CC and MLO imaging performed. CAD utilized. COMPARISON: 12/20/2017 HISTORY: Annual screening BREAST COMPOSITION: The breast parenchyma is heterogeneously dense. BENIGN BREAST CALCIFICATIONS: Present VASCULAR CALCIFICATIONS: None DEVELOPING ARCHITECTURAL DISTORTION: None DEVELOPING BREAST NODULE: None DEVELOPING MALIGNANT CALCIFICATIONS: None AXILLARY LYMPH NODES: Normal POSTSURGICAL CHANGES: None MM/MM screening mammo BI w/CAD IMPRESSION: No mammographic evidence of malignancy. Routine follow-up recommended in one year. RESULT CODE: 2 Benign Findings(s) DENSITY CODE: 3 (approximately 51-75% glandular) FOLLOW UP: 1YR THE FALSE-NEGATIVE RATE OF MAMMOGRAPHY IS APPROXIMATELY 10%. IMAGING OF A PALPABLE ABNORMALITY MUST BE BASED ON CLINICAL GROUNDS. PATIENT WAS ENTERED INTO A REMINDER SYSTEM WITH A TARGET DUE DATE FOR THE NEXT MAMMOGRAM. Impression dictated by: Betito Hampton M.D.03/26/2023 9:03 AM Dictation Location: [facility] Transcribed By: [facility] 03/26/23902 Dictated By: Betito Hampton DO 03/26/23856 Signed By: 03/26/23902 [facility] Office Visit (Cardiology)on 01-03-2023 Follow-up visit Diagnoses/Problems Assessed CAD, multiple vessel (414.00) (I25.10) Paroxysmal atrial fibrillation (427.31) (I48.0) Hyperlipidemia (272.4) (E78.5) Hypertension (401.9) (I10) Morbid obesity with BMI of 40.0-44.9, adult (278.01,V85.41) (E66.01,Z68.41) Sleep apnea (780.57) (G47.30) Edema (782.3) (R60.9) Former smoker (V15.82) (Z87.891) quit 2011 1.5 ppd Diabetes mellitus (250.00) (E11.9) COPD (chronic obstructive pulmonary disease) (496) (J44.9) Anticoagulated (V58.61) (Z79.01) Orders CAD, multiple vessel Renew: Aspirin 81 MG Oral Tablet Delayed Release; take one tablet on Sat and only CAD, multiple vessel, Hypertension Renew: Losartan Potassium 100 MG Oral Tablet; TAKE 1 TABLET DAILY Hyperlipidemia Renew: Atorvastatin Calcium 80 MG Oral Tablet; TAKE 1 TABLET AT BEDTIME Morbid obesity with BMI of 40.0-44.9, adult Healthy Weight Tips; Status:Complete - Retrospective Authorization; Done: [id number] Some eating tips that can help you lose weight.; Status:Complete - Retrospective Authorization; Done: [id number] Paroxysmal atrial fibrillation IO EKG Electrocardiogram- 12 Lead; Status:Complete; Done: [id number] SocHx: Former smoker Tobacco Use Screening; Status:Complete; Done: [id number] Patient Instructions Please bring all medicines, vitamins, and herbal supplements with you when you come to the office. Prescriptions will not be filled unless you are compliant with your follow up appointments or have a follow up appointment scheduled as per instruction of your physician. Refills should be requested at the time of your visit. Follow up in 9 months Same meds The provider reviewed the following test(s) and result(s) with the patient: ECG Chief Complaint SIVA NICOLAS is being seen for a 6 month follow-up of. History of Present Illness Patient is here for follow-up to management for history of coronary artery disease prior PCI to the circumflex, paroxysmal atrial fibrillation, morbid obesity, hyperlipidemia and hypertension. Since last time I saw her she reports she is feeling reasonably well. She denies lightheadedness, dizziness or syncope. She has been on diet and exercise and has lost more than 20 pounds. Recent laboratory data noted and reviewed with her. Assessment 1. Coronary artery disease with prior PCI to the left circumflex following presentation with ST segment elevation myocardial infarction with known diffuse disease of the LAD and left circumflex treated medically. She denies any chest pain 2. Paroxysmal atrial fibrillation currently in normal sinus rhythm on Eliquis 3. Morbid obesity with 20 pound weight loss 4. Hyperlipidemia is well controlled, we will continue with current medication. 5. Hypertension controlled 6. Long-term anticoagulation tolerating that without any side effect 7. Sleep apnea 8. COPD with shortness of breath continue to follow with pulmonary 9. Diabetes mellitus she report reasonable control 10. Previous complaint of edema resolved Plan 1. Patient was counseled regarding losing weight and exercise and risk factor modification 2. I reviewed her recent lab work with her 3. I will see Her back in 9 months 3.,, Benefits alternative anticoagulation reviewed with patient at length understood and agreed 4. I congratulated her on her weight loss Surgical History Problems History of Ankle surgery History of Colonoscopy History of Oophorectomy History of Percutaneous transluminal coronary angioplasty Current Meds Medication NameInstruction Aspirin 81 MG Oral Tablet Delayed Releasetake one tablet on Sat and only Atorvastatin Calcium 80 MG Oral TabletTAKE 1 TABLET AT BEDTIME. Citalopram Hydrobromide 40 MG Oral Tablettake 1 tablet by mouth once daily Eliquis 5 MG Oral TabletTAKE ONE TABLET TWO TIMES DAILY Furosemide 40 MG Oral TabletTake 1 tablet daily Losartan Potassium 100 MG Oral TabletTAKE 1 TABLET DAILY. Metoprolol Succinate ER 25 MG Oral Tablet Extended Release 24 HourTAKE 1 TABLET DAILY. Multi Vitamin TABSTAKE 1 TABLET DAILY. Spironolactone 25 MG Oral TabletTAKE 0.5 TABLET Daily Synthroid 100 MCG Oral TabletTAKE 1 TABLET DAILY DIRECTED. Trelegy Ellipta 200-62.5-25 MCG/ACT Inhalation Aerosol Powder Breath Activated Ventolin HFA 108 (90 Base) MCG/ACT Inhalation Aerosol SolutionAs directed. Vitamin D3 CAPSTAKE 1 CAPSULE Daily Patient did not bring medication list or bottles. Updated verbally with patient. Allergies Medication Advil Allergy; burning; Rash; Updated By: Rylee Cevallos; 05/14/2022 2:13:13 PM rash Aleve Allergy; burning; Rash; Updated By: Rylee Cevallos; 05/14/2022 2:13:13 PM rash Social History Problems Caffeine use (V49.89) (Z78.9) 1 cup of caffeine daily Former smoker (V15.82) (Z87.891) quit 2011 1.5 ppd No alcohol use No illicit drug use Vitals Vital Signs Recorded: 03Jan2023 02:50PM Heart Rate62, Apical [id number], LUE, Sitting [id number], LUE, Sit (more content not included)... Normal [facility] Tobacco Screening.on 023 Adult depression screening assessment No [facility] [employer] [facility] [address] DO Work Phone: Fall risk assessment a) No falls within the last year [facility] [address] DO Work Phone: Tobacco use status [facility] b) No [facility] [facility] [employer] [facility] [address] DO Work Phone: Alanine Aminotransferaseon 0 01-01-2023 ALT [Catalytic activity/Vol] 42 U/L Normal [facility] Comment on above: Performed By: #### C BC, AST, BMP, ALT, LIPID #### [facility] [address] Alanine aminotransferase [En zymatic activity/volume] in Serum or PlasmaOrdered By: Edi Cosby on 01-01-2023 ALT [Catalytic activity/Vol] 42 U/L [facility] Aspartate Amino Transferaseo n 01-01-2023 AST [Catalytic activity/Vol] 36 U/L Normal 13-39 [facility] Comment on above: Performed By: #### C BC, AST, BMP, ALT, LIPID #### [facility] [address] Aspartate aminotransferase [ Enzymatic activity/volume] in Serum or PlasmaOrdered By: Edi Cosby on 01-01-2023 AST [Catalytic activity/Vol] 36 U/L 13-39 [facility] Basic Metabolic Panelon 08-0 Anion gap [Moles/Vol] 8.6 mmol/L Normal 6.0-15.0 [facility] Comment on above: Performed By: #### C BC, AST, BMP, ALT, LIPID #### [facility] [address] Calcium [Mass/Vol] 9.4 mg/dL Normal 8.6-10.3 [facility] Comment on above: Performed By: #### C BC, AST, BMP, ALT, LIPID #### [address] Chloride [Moles/Vol] 109 mmol/L High 98-107 [facility] Comment on above: Performed By: #### C BC, AST, BMP, ALT, LIPID #### [address] CO2 [Moles/Vol] 27.0 mmol/L Normal 21.0-31.0 [facility] Comment on above: Performed By: #### C BC, AST, BMP, ALT, LIPID #### [facility] [address] [place] [address] Creatinine [Mass/Vol] 0.91 mg/dL Normal 0.60-1.20 [facility] Comment on above: Performed By: #### C BC, AST, BMP, ALT, LIPID #### [place] [address] [place] GFR/1.73 sq M.predicted MDRD (S/P/Bld) [Vol rate/Area] mL/min/{1.73_m2} [facility] Comment on above: Performed By: #### C BC, AST, BMP, ALT, LIPID #### [address] Glucose [Mass/Vol] 102 mg/dL High 70-100 [facility] Comment on above: Result Comment: [facility] [place] Glucose Reference Range is dependent on time and content of last meal. Glucose of more than 200 mg/dL in a nonstressed, ambulatory subject supports the diagnosis of Diabetes Mellitus. ADA recommended reference range Performed By: #### C BC, AST, BMP, ALT, LIPID #### [facility] [address] Potassium [Moles/Vol] 4.6 mmol/L Normal 3.5-5.1 [facility] Comment on above: Performed By: #### C BC, AST, BMP, ALT, LIPID #### [facility] [address] Sodium [Moles/Vol] 140 mmol/L Normal 136-145 [facility] Comment on above: Performed By: #### C BC, AST, BMP, ALT, LIPID #### [facility] [address] Urea nitrogen [Mass/Vol] 28 mg/dL High 7-25 [facility] Comment on above: Performed By: #### C BC, AST, BMP, ALT, LIPID #### [facility] [address] Basophils Auto (Bld) [#/Vol] Ordered By: Edi Cosby on 01-01-2023 Basophils (Bld) [#/Vol] 0.1 10*3/uL 0.0-0.2 [facility] Basophils/100 WBC Auto (Bld) Ordered By: Edi Cosby on 01-01-2023 Basophils/100 WBC (Bld) 0.6 % . [facility] Calcium [Mass/volume] in Ser um or PlasmaOrdered By: Edi Cosby on 01-01-2023 Calcium [Mass/Vol] 9.4 mg/dL 8.6-10.3 [facility] Carbon dioxide, total [Moles /volume] in Serum or PlasmaOrdered By: Edi Cosby on 01-01-2023 CO2 [Moles/Vol] 27.0 mmol/L 21.0-31.0 [facility] Chloride [Moles/volume] in S anirudh or PlasmaOrdered By: Edi Cosby on 01-01-2023 Chloride [Moles/Vol] 109 mmol/L 98-107 [facility] Cholesterol [Mass/volume] in Serum or PlasmaOrdered By: Edi Cosby on 01-01-2023 Cholesterol [Mass/Vol] 101 mg/dL 140-200 [facility] [place] [facility] Comment on above: Chol less than 200 m g/dl low riskChol 201-239 mg/dl borderline riskChol 240 mg/dl and greater high risk Cholesterol in LDL Calc [Mas s/Vol]Ordered By: Edi Cosby on 01-01-2023 Cholesterol in LDL [Mass/Vol] 43 mg/dL 0-100 [facility] Comment on above: LDL ATP III CLASSIFI CATIONLDL less than 100 mg/dL OptimalLDL 100-129 mg/dL Near or above optimalLDL 130-159 mg/dL Borderline highLDL 160-189 mg/dL HighLDL greater than 189 mg/dL Very high Cholesterol in VLDL Calc [Ma ss/Vol]Ordered By: Edi Cosby on 01-01-2023 Cholesterol in VLDL [Mass/Vol] 17 mg/dL [facility] Complete Blood Count Auto Di ffon 01-01-2023 Basophils (Bld) [#/Vol] 0.1 10*3/uL Normal 0.0-0.2 [facility] Comment on above: Result Comment: PERF ORMED BY: [place] [address] PATHOLOGIST [employer] EUGENE BORDEN M.D. Performed By: #### C BC, AST, BMP, ALT, LIPID #### [facility] [address] [place] [address] [place] Basophils/100 WBC (Bld) 0.6 % Normal . [facility] Comment on above: Performed By: #### C BC, AST, BMP, ALT, LIPID #### [facility] [address] [place] [address] [place] Eosinophils (Bld) [#/Vol] 0.3 10*3/uL Normal 0.0-0.45 [facility] Comment on above: Performed By: #### C BC, AST, BMP, ALT, LIPID #### [address] Eosinophils/100 WBC (Bld) 3.4 % Normal . [facility] Comment on above: Performed By: #### C BC, AST, BMP, ALT, LIPID #### [address] Erythrocyte distribution width (RBC) [Ratio] 14.4 % Normal 11.9-15.3 [facility] Comment on above: Performed By: #### C BC, AST, BMP, ALT, LIPID #### [address] Hematocrit (Bld) [Volume fraction] 40.1 % Normal 34.0-46.4 [facility] Comment on above: Performed By: #### C BC, AST, BMP, ALT, LIPID #### [address] Hemoglobin (Bld) [Mass/Vol] 13.4 g/dL Normal 11.8-15.4 [facility] Comment on above: Performed By: #### C BC, AST, BMP, ALT, LIPID #### [address] Lymphocytes (Bld) [#/Vol] 2.1 10*3/uL Normal 1.00-4.8 [facility] Comment on above: Performed By: #### C BC, AST, BMP, ALT, LIPID #### [place] [address] [place] Lymphocytes/100 WBC (Bld) 23.7 % Normal . [facility] Comment on above: Performed By: #### C BC, AST, BMP, ALT, LIPID #### [address] MCH (RBC) [Entitic mass] 30.1 pg Normal 24.7-34.3 [facility] Comment on above: Performed By: #### C BC, AST, BMP, ALT, LIPID #### [address] MCV (RBC) [Entitic vol] 90.0 fL Normal 80-100 [facility] Comment on above: Performed By: #### C BC, AST, BMP, ALT, LIPID #### [address] Mean Corpuscular HGB Conc 33.5 g/dL Normal 32.0-35.0 [facility] Comment on above: Performed By: #### C BC, AST, BMP, ALT, LIPID #### [address] Monocytes (Bld) [#/Vol] 0.8 10*3/uL Normal 0.0-0.8 [facility] Comment on above: Performed By: #### C BC, AST, BMP, ALT, LIPID #### [address] Monocytes/100 WBC (Bld) 9.3 % Normal . [facility] Comment on above: Performed By: #### C BC, AST, BMP, ALT, LIPID #### [address] Neutrophils (Bld) [#/Vol] 5.5 10*3/uL Normal 1.8-7.7 [facility] Comment on above: Performed By: #### C BC, AST, BMP, ALT, LIPID #### [address] Neutrophils/100 WBC (Bld) 63.0 % Normal . [facility] Comment on above: Performed By: #### C BC, AST, BMP, ALT, LIPID #### [address] NRBC% 0.0 /100{WBC} Normal 0-0.5 [facility] Comment on above: Performed By: #### C BC, AST, BMP, ALT, LIPID #### [address] [place] [address] [place] Platelet mean volume (Bld) [Entitic vol] 8.3 fL Normal 6.3-10.7 [facility] Comment on above: Performed By: #### C BC, AST, BMP, ALT, LIPID #### [facility] [address] Platelets (Bld) [#/Vol] 189 10*3/uL Normal 150-450 [facility] Comment on above: Performed By: #### C BC, AST, BMP, ALT, LIPID #### [facility] [address] RBC (Bld) [#/Vol] 4.45 10*6/uL Normal 3.60-5.00 [facility] Comment on above: Performed By: #### C BC, AST, BMP, ALT, LIPID #### [address] WBC (Bld) [#/Vol] 8.7 10*3/uL Normal 3.8-11.6 [facility] Comment on above: Performed By: #### C BC, AST, BMP, ALT, LIPID #### [address] Creatinine [Mass/volume] in Serum or PlasmaOrdered By: Edi Cosby on 01-01-2023 Creatinine [Mass/Vol] 0.91 mg/dL 0.60-1.20 [facility] Eosinophils Auto (Bld) [#/Vo l]Ordered By: Edi Cosby on 01-01-2023 Eosinophils (Bld) [#/Vol] 0.3 10*3/uL 0.0-0.45 [facility] Eosinophils/100 WBC Auto (Bl d)Ordered By: Edi Cosby on 01-01-2023 Eosinophils/100 WBC (Bld) 3.4 % . [facility] Erythrocyte distribution wid th Auto (RBC) [Ratio]Ordered By: Edi Cosby on 01-01-2023 Erythrocyte distribution width (RBC) [Ratio] 14.4 % 11.9-15.3 [facility] Glucose [Mass/volume] in Ser um or PlasmaOrdered By: Edi Cosby on 01-01-2023 Glucose [Mass/Vol] 102 mg/dL 70-100 [facility] Comment on above: ADA recommended refe rence rangeRandom Glucose Reference Range is dependent on time and content of last meal. Glucose of more than 200 mg/dL in a nonstressed, ambulatory subject supports the diagnosis of Diabetes Mellitus. Hematocrit Auto (Bld) [Volum e fraction]Ordered By: Edi Cosby on 01-01-2023 Hematocrit (Bld) [Volume fraction] 40.1 % 34.0-46.4 [facility] Hemoglobin [Mass/volume] in BloodOrdered By: Edi Cosby on 01-01-2023 Hemoglobin (Bld) [Mass/Vol] 13.4 g/dL 11.8-15.4 [facility] Laboratory - Chemistry and C hemistry - challengeon 01-01-2023 Cholesterol [Mass/Vol] 101\S\101 below low threshold 140-200 [facility] [place] 250 DO Work Phone: Comment on above: Chol less than 200 m g/dl low risk Chol 201-239 mg/dl borderline risk Chol 240 mg/dl and greater high risk Cholesterol in LDL [Mass/Vol] 43\S\43 Normal 0-100 [facility] [place] 250 DO Work Phone: Comment on above: LDL ATP III CLASSIFI CATION LDL less than 100 mg/dL Optimal LDL 100-129 mg/dL Near or above optimal LDL 130-159 mg/dL Borderline high LDL 160-189 mg/dL High LDL greater than 189 mg/dL Very high Leukocytes [#/volume] correc desmond for nucleated erythrocytes in Blood by Automated counOrdered By: Edi Cosby on 01-01-2023 WBC corrected for nucl RBC Auto (Bld) [#/Vol] 8.7 10*3/uL 3.8-11.6 [facility] Lipid Panelon 01-01-2023 Cholesterol [Mass/Vol] 101 mg/dL Low 140-200 [facility] [place] [facility] Comment on above: Result Comment: Chol less than 200 mg/dl low risk Chol 201-239 mg/dl borderline risk Chol 240 mg/dl and greater high risk Performed By: #### C BC, AST, BMP, ALT, LIPID #### [facility] [address] Cholesterol in HDL [Mass/Vol] 41 mg/dL Normal 23-92 [facility] Comment on above: Result Comment: HDL CHOL ATP-III CLASSIFICATION Cardiovascular Risk HDL > or equal to 60 mg/dL LOW HDL < 40 mg/dL HIGH Performed By: #### C BC, AST, BMP, ALT, LIPID #### [facility] [address] Cholesterol.total/Stacey sterol in HDL [Mass ratio] 2.5 {ratio} Normal <5.0 [facility] Comment on above: Result Comment: PERF ORMED BY: [place] [address] PATHOLOGIST [employer]OVERED [employer]SEMBLER EUGENE BORDEN M.D. Performed By: #### C BC, AST, BMP, ALT, LIPID #### [facility] [address] LDL Cholesterol,Calculated 43 mg/dL Normal 0-100 [facility] Comment on above: Result Comment: LDL ATP III CLASSIFICATION LDL less than 100 mg/dL Optimal LDL 100-129 mg/dL Near or above optimal LDL 130-159 mg/dL Borderline high LDL 160-189 mg/dL High LDL greater than 189 mg/dL Very high Performed By: #### C BC, AST, BMP, ALT, LIPID #### [facility] [address] Triglyceride w/Reflex 86 mg/dL Normal 0-149 [facility] Comment on above: Result Comment: TRIG ATP III CLASSIFICATION TRIG less than 150 mg/dL Normal TRIG 150-199 mg/dL Borderline high TRIG 200-500 mg/dL High TRIG greater than 500 mg/dL Very high Standard traceable to the Center for Disease Conrtrol and Prevention (CDC) test method. Performed By: #### C BC, AST, BMP, ALT, LIPID #### [facility] [address] [id number] [facility] VLDL CHOLESTEROL 17 mg/dL Normal [facility] Comment on above: Performed By: #### C BC, AST, BMP, ALT, LIPID #### [facility] [address] [id number] [facility] Lymphocytes Auto (Bld) [#/Vo l]Ordered By: Edi Cosby on 01-01-2023 Lymphocytes (Bld) [#/Vol] 2.1 10*3/uL 1.00-4.8 [facility] Lymphocytes/100 WBC Auto (Bl d)Ordered By: Edi Cosby on 01-01-2023 Lymphocytes/100 WBC (Bld) 23.7 % . [facility] MCH Auto (RBC) [Entitic mass ]Ordered By: Edi Cosby on 01-01-2023 MCH (RBC) [Entitic mass] 30.1 pg 24.7-34.3 [facility] MCHC Auto (RBC) [Mass/Vol]Or dered By: Edi Cosby on 01-01-2023 MCHC (RBC) [Mass/Vol] 33.5 g/dL 32.0-35.0 [facility] MCV Auto (RBC) [Entitic vol] Ordered By: Edi Cosby on 01-01-2023 MCV (RBC) [Entitic vol] 90.0 fL 80-100 [facility] Monocytes Auto (Bld) [#/Vol] Ordered By: Edi Cosby on 01-01-2023 Monocytes (Bld) [#/Vol] 0.8 10*3/uL 0.0-0.8 [facility] Monocytes/100 WBC Auto (Bld) Ordered By: Edi Cosby on 01-01-2023 Monocytes/100 WBC (Bld) 9.3 % . [facility] Neutrophils Auto (Bld) [#/Vo l]Ordered By: Edi Cosby on 01-01-2023 Neutrophils (Bld) [#/Vol] 5.5 10*3/uL 1.8-7.7 [facility] Neutrophils/100 WBC Auto (Bl d)Ordered By: Edi Cosby on 01-01-2023 Neutrophils/100 WBC (Bld) 63.0 % . [facility] No Panel InformationOrdered By: Edi Cosby on 01-01-2023 Estimated GFR (CKD-EPI) > 60.0 mL/Min [facility] Creatinine Clearance (Chem N/A [facility] No Panel Informationon 01-01 0.1\S\0.1 Normal 0.0-0.2 [facility] [address] DO Work Phone: [phone] Comment on above: PERFORMED BY:[address] [address] [place], [place] [id number] MEDICAL DIRECTOREUGENE BORDEN M.D. 0.3\S\0.3 Normal 0.0-0.45 [facility] [address] DO Work Phone: 0.8\S\0.8 Normal 0.0-0.8 [facility] [address] DO Work Phone: 2.1\S\2.1 Normal 1.00-4.8 [facility] [address] DO Work Phone: 5.5\S\5.5 Normal 1.8-7.7 [facility] [address] DO Work Phone: 0.0\S\0.0 Normal 0-0.5 [facility] [address] DO Work Phone: 0.6\S\0.6 Normal . [facility] [address] DO Work Phone: 3.4\S\3.4 Normal . [facility] [address] DO Work Phone: 9.3\S\9.3 Normal . [facility] [address] DO Work Phone: 23.7\S\23.7 Normal . [facility] [address] DO Work Phone: 63.0\S\63.0 Normal . [facility] [address] DO Work Phone: 8.3\S\8.3 Normal 6.3-10.7 [facility] [address] DO Work Phone: 189\S\189 Normal 150-450 [facility] [address] DO Work Phone: 14.4\S\14.4 Normal 11.9-15.3 [facility] [address] DO Work Phone: 33.5\S\33.5 Normal 32.0-35.0 [facility] [address] DO Work Phone: 30.1\S\30.1 Normal 24.7-34.3 [facility] [address] DO Work Phone: 90.0\S\90.0 Normal 80-100 [facility] [address] DO Work Phone: 40.1\S\40.1 Normal 34.0-46.4 [facility] [address] DO Work Phone: 13.4\S\13.4 Normal 11.8-15.4 [facility] [address] DO Work Phone: 4.45\S\4.45 Normal 3.60-5.00 [facility] [address] DO Work Phone: 8.7\S\8.7 Normal 3.8-11.6 [facility] [address] DO Work Phone: > 60.0 Normal [facility] [address] DO Work Phone: 8.6\S\8.6 Normal 6.0-15.0 [facility] [address] DO Work Phone: 9.4\S\9.4 Normal 8.6-10.3 [facility] [place] 250 DO Work Phone: 27.0\S\27.0 Normal 21.0-31.0 [facility] [place] [address] DO Work Phone: 109\S\109 above high threshold 98-107 -[facility] 250 DO Work Phone: 4.6\S\4.6 Normal 3.5-5.1 [facility] [place] 250 DO Work Phone: 140\S\140 Normal 136-145 [facility] Masha [place] 250 DO Work Phone: 0.91\S\0.91 Normal 0.60-1.20 [facility] Masha sibley 250 DO Work Phone: [phone] 28\S\28 above high threshold 7-25 -[facility] Masha s[place]y 250 DO Work Phone: 102\S\102 above high threshold 70-100 -[facility] Masha sibley 250 DO Work Phone: [phone] Comment on above: Random Glucose Refer ence Range is dependent on time and content of last meal. Glucose of more than 200 mg/dL in a nonstressed, ambulatory subject supports the diagnosis of Diabetes Mellitus. ADA recommended reference range 36\S\36 Normal 13-39 [facility] Masha [place]y 250 DO Work Phone: 42\S\42 Normal 7-52 [facility] [place]ha [place] 250 DO Work Phone: 2.5\S\2.5 Normal <5.0 [facility] Heart[facility]ime [place] 250 DO Work Phone: [phone] Comment on above: PERFORMED BY:[address] [address] [place] [id number] MEDICAL DIRECTOREUGENE BORDEN M.D. 17\S\17 Normal [facility] Masha sibley 250 DO Work Phone: 86\S\86 Normal 0-149 -[facility] [address] DO Work Phone: Comment on above: TRIG ATP III CLASSIF ICATION TRIG less than 150 mg/dL Normal TRIG 150-199 mg/dL Borderline high TRIG 200-500 mg/dL High TRIG greater than 500 mg/dL Very high Standard traceable to the Center for Disease Conrtrol and Prevention (CDC) test method. 41\S\41 Normal 23-92 -[facility] [address] DO Work Phone: Comment on above: HDL CHOL ATP-III CLA SSIFICATION Cardiovascular Risk HDL > or equal to 60 mg/dL LOW HDL < 40 mg/dL HIGH Nucleated erythrocytes [Pres ence] in Blood by Automated countOrdered By: Edi Cosby on 01-01-2023 Nucleated RBC Auto Ql (Bld) 0.0 /100{WBC} 0-0.5 [facility] Platelet mean volume Auto (B ld) [Entitic vol]Ordered By: Edi Cosby on 01-01-2023 Platelet mean volume (Bld) [Entitic vol] 8.3 fL 6.3-10.7 [facility] Platelets Auto (Bld) [#/Vol] Ordered By: Edi Cosby on 01-01-2023 Platelets (Bld) [#/Vol] 189 10*3/uL 150-450 [facility] Potassium [Moles/volume] in Serum or PlasmaOrdered By: Edi Cosby on 01-01-2023 Potassium [Moles/Vol] 4.6 mmol/L 3.5-5.1 [facility] RBC Auto (Bld) [#/Vol]Ordere d By: Edi Cosby on 01-01-2023 RBC (Bld) [#/Vol] 4.45 10*6/uL 3.60-5.00 [facility] Serum or plasma anion gap de terminationOrdered By: Edi Cosby on 01-01-2023 Anion gap [Moles/Vol] 8.6 mmol/L 6.0-15.0 [facility] Serum or plasma high density lipoprotein (HDL) cholesterol measurementOrdered By: Edi Cosby on 01-01-2023 Cholesterol in HDL [Mass/Vol] 41 mg/dL 23-92 [facility] Comment on above: HDL CHOL ATP-III CLA SSIFICATION Cardiovascular RiskHDL > or equal to 60 mg/dL LOWHDL < 40 mg/dL HIGH Serum or plasma total choles terol/high density lipoprotein (HDL) cholesterol mass ratOrdered By: Edi Cosby on 01-01-2023 Cholesterol.total/Stacey sterol in HDL [Mass ratio] 2.5 {ratio} <5.0 [facility] Sodium [Moles/volume] in Ser um or PlasmaOrdered By: Edi Cosby on 01-01-2023 Sodium [Moles/Vol] 140 mmol/L 136-145 [facility] Triglyceride [Mass/volume] i n Serum or PlasmaOrdered By: Edi Cosby on 01-01-2023 Triglyceride [Mass/Vol] 86 mg/dL 0-149 [facility] Comment on above: TRIG ATP III CLASSIF ICATIONTRIG less than 150 mg/dL NormalTRIG 150-199 mg/dL Borderline highTRIG 200-500 mg/dL High TRIG greater than 500 mg/dL Very highStandard traceable to the Center for Disease Conrtrol and Prevention (CDC) test method. Urea nitrogen [Mass/volume] in Serum or PlasmaOrdered By: Edi Cosby on 01-01-2023 Urea nitrogen [Mass/Vol] 28 mg/dL 7-25 [facility] WBC Auto (Bld) [#/Vol]Ordere d By: Edi Cosby on 01-01-2023 WBC (Bld) [#/Vol] 8.7 10*3/uL 3.8-11.6 [facility] Office Visit (Cardiology)on 05-14-2022 Follow-up visit Diagnoses/Problems Assessed CAD, multiple vessel (414.00) (I25.10) Paroxysmal atrial fibrillation (427.31) (I48.0) Anticoagulated (V58.61) (Z79.01) Sleep apnea (780.57) (G47.30) Morbid obesity with BMI of 45.0-49.9, adult (278.01,V85.42) (E66.01,Z68.42) Edema (782.3) (R60.9) Former smoker (V15.82) (Z87.891) Hyperlipidemia (272.4) (E78.5) Hypertension (401.9) (I10) COPD (chronic obstructive pulmonary disease) (496) (J44.9) Orders CAD, multiple vessel, Hyperlipidemia, Hypertension, Paroxysmal atrial fibrillation ALT - Alanine Aminotransferase, Serum; Status:Active - Retrospective Authorization; Requested for:[id number]; AST; Status:Active - Retrospective Authorization; Requested for:12Nov2022; Basic Metabolic Panel; Status:Active - Retrospective Authorization; Requested for:12Nov2022; Complete Blood Count; Status:Active - Retrospective Authorization; Requested for:12Nov2022; Lipid Panel; Status:Active - Retrospective Authorization; Requested for:12Nov2022; Morbid obesity with BMI of 45.0-49.9, adult Healthy Weight Tips; Status:Complete - Retrospective Authorization; Done: [id number] Some eating tips that can help you lose weight.; Status:Complete - Retrospective Authorization; Done: [id number] SocHx: Former smoker Tobacco Use Screening; Status:Complete; Done: [id number] Patient Instructions Please bring all medicines, vitamins, and herbal supplements with you when you come to the office. Prescriptions will not be filled unless you are compliant with your follow up appointments or have a follow up appointment scheduled as per instruction of your physician. Refills should be requested at the time of your visit. Follow up in 6 months with EKG labs prior to next Office visit. Chief Complaint SIVA NICOLAS is being seen for a 6 month follow-up of. History of Present Illness Patient is here for follow-up to management for coronary artery disease with prior PCI to the circumflex, paroxysmal atrial fibrillation, obesity, hypertension and hyperlipidemia. Since last time I saw her other than shortness of breath she denies any complaint of lightheadedness, dizziness or syncope. She remains reasonably active. She has maintained her weight. Recent laboratory data noted and reviewed with her. Assessment 1. Coronary artery disease with prior PCI to the left circumflex following presentation with ST segment elevation myocardial infarction with known diffuse disease of the LAD and left circumflex treated medically. She denies any chest pain 2. Paroxysmal atrial fibrillation currently in normal sinus rhythm on Eliquis 3. Morbid obesity with no weight changes 4. Hyperlipidemia is well controlled, we will continue with current medication. 5. Hypertension controlled but at home running a little bit on the higher range 6. Long-term anticoagulation tolerating that without any side effect 7. Sleep apnea 8. COPD with shortness of breath continue to follow with pulmonary 9. Diabetes mellitus she report reasonable control 10. Recent complaint of edema improved with increasing her diuretics Plan 1. Patient was counseled regarding losing weight and exercise and risk factor modification 2. I advised her to continue current medical regimen and to repeat her lab work prior to next office visit 3. will see Her back in 6 months we will plan to repeat her EKG 3.,, Benefits alternative anticoagulation reviewed with patient at length understood and agreed 4. We will see her back in 6-month Current Meds Medication NameInstruction Arformoterol Tartrate 15 MCG/2ML Inhalation Nebulization SolutionINHALE THE CONTENTS OF 1 VIAL TWO TIMES DAILY IN THE MORNING AND EVENING VIA STANDARD JET NEBULIZER DIRECTED. Aspirin 81 MG Oral Tablet Delayed Releasetake one tablet on Sat and only Atorvastatin Calcium 80 MG Oral TabletTAKE 1 TABLET AT BEDTIME. Budesonide 0.5 MG/2ML Inhalation SuspensionUSE 1 UNIT DOSE VIA NEBULIZER TWO TIMES A DAY Citalopram Hydrobromide 40 MG Oral Tablettake 1 tablet by mouth once daily Eliquis 5 MG Oral TabletTAKE ONE TABLET TWO TIMES DAILY Furosemide 40 MG Oral TabletTake 1 tablet daily Losartan Potassium 100 MG Oral TabletTAKE 1 TABLET DAILY. Metoprolol Succinate ER 25 MG Oral Tablet Extended Release 24 HourTAKE 1 TABLET DAILY. Multi Vitamin TABSTAKE 1 TABLET DAILY. Spironolactone 25 MG Oral TabletTAKE 0.5 TABLET Daily Synthroid 100 MCG Oral TabletTAKE 1 TABLET DAILY DIRECTED. Ventolin HFA 108 (90 Base) MCG/ACT Inhalation Aerosol SolutionAs directed. Vitamin D3 CAPSTAKE 1 CAPSULE Daily Allergies Medication Advil Allergy; burning; Rash; Updated By: Rylee Cevallos; 05/14/2022 2:13:13 PM rash Aleve Allergy; burning; Rash; Updated By: Rylee Cevallos; 05/14/2022 2:13:13 PM rash Social History Problems Caffeine use (V49.89) (Z78.9) 1 cup of caffeine daily Former smoker (V15.82) (Z87.891) No alcohol use No illicit drug use Review of Systems Constitu (more content not included)... Normal [facility] Tobacco Screening.on Fall risk assessment a) No falls within the last year [facility] [place] [address] DO Work Phone: Tobacco use status [facility] b) No M [facility] [place] [address] DO Work Phone: HEMOGLOBINon 03-30-2022 Hemoglobin (Bld) [Mass/Vol] 13.9 g/dL Normal 12.0-16.0 [facility] Comment on above: Performed By: #### H GB #### [facility] [address] [place] [address] Dr. Gena Lopes XR DEXA BONE DENSITYon 02-19 XR DEXA BONE DENSITY EXAMINATION: XR DEX A BONE DENSITY, 02/19/2022 9:51 AM EDT HISTORY: Senile osteoporosis COMPARISON: DEXA bone densitometry 10/12/2016 TECHNIQUE: Dual-energy X-ray absorptiometry (DEXA) bone density study performed for the axial skeleton. FINDINGS: FOREARM ANALYSIS: Average bone mineral density is 0.607 g/cm2. T-score (standard deviation relative to young adult mean): -1.5 . -4.8% change since prior study. HIP ANALYSIS: Lowest bone mineral density is within the right femoral neck, 0.703 g/cm2. T-score (standard deviation relative to young adult mean): -2.4 . -8.6% change since prior study. IMPRESSION: World Wei Organization Classification: Osteopenia - Moderate Fracture Risk Electronically authenticated by: SVETLANA CHAPMAN Date: 2022-02-19 10:41 Normal [facility] CT CHEST WO CONon 02-14-2022 CT CHEST WO CON EXAMINATION: CT CHES T WO CON HISTORY: Solitary nodule of lung ; chronic shortness of breath, lung nodule COMPARISON: CT chest 02/22/2021 TECHNIQUE: Axial, Coronal, and Sagittal images were created without the administration of IV contrast material. Dose reduction techniques were achieved by using automated exposure control and/or adjustment of mA and/or kV according to patient size and/or use of iterative reconstruction technique. FINDINGS: LUNGS: Marked emphysematous changes. Previously seen 6 mm nodule within superior segment of left lower lobe is no longer present. No acute infiltrates or new nodules. PLEURA: No mass, effusion, or pneumothorax. VASCULATURE: No abnormality. TORIBIO: No mass or adenopathy. MEDIASTINUM: No mass or adenopathy. CARDIAC: Atherosclerotic coronary artery disease. No enlargement or pericardial thickening. AORTA: Fusiform dilation of the descending thoracic aorta just above the diaphragm, 4.2 cm diameter. CHEST WALL: No mass or axillary adenopathy. BONES: No bone lesion or fracture. LIMITED ABDOMEN: No suspicious findings. Limited images of the upper abdomen. OTHER: Negative. IMPRESSION: 1. Lung-RADS Category 1 Negative. No nodules and definitely benign nodules. Continue annual screening with LDCT in 12 months. 2. Clearing of previously seen 6 mm nodule within left lower lobe superior segment. 3. Marked emphysematous changes.. Electronically authenticated by: SVETLANA CHAPMAN Date: 2022-02-14 14:33 Normal [facility] Tobacco Screening.on 022 Adult depression screening assessment No [facility] [place] [address] DO Work Phone: Fall risk assessment a) No falls within the last year [facility] [place] [facility] [place] Work Phone: Tobacco use status [facility] b) No M [facility] [address] DO Work Phone: BNPon 12-08-2021 Natriuretic peptide B (Bld) [Mass/Vol] 337.0 pg/mL Normal <=900.0 [facility] Comment on above: Performed By: #### B MP, BNP ####[facility] [address] [place] [address]DrAsuncion Lopes PROF CHEM 8 (BAS METB)on Anion gap [Moles/Vol] 10.8 mmol/L Normal [facility] Comment on above: Performed By: #### B MP, BNP ####[facility] [address] [place] [address]DrAsuncion Lopes Calcium [Mass/Vol] 9.1 mg/dL Normal 8.5-10.1 [facility] Comment on above: Performed By: #### B MP, BNP ####[facility] [address] [place] [address]Dr. Gena Lopes Chloride [Moles/Vol] 105 mmol/L Normal 98-107 [facility] Comment on above: Performed By: #### B MP, BNP ####[facility] [address] [place] [address]Dr. Gena Lopes CO2 [Moles/Vol] 27.1 mmol/L Normal 21.0-32.0 [facility] Comment on above: Performed By: #### B MP, BNP ####[facility] [address] [place], [place] [address]Dr. eGna Lopes Creatinine [Mass/Vol] 1.02 mg/dL Normal 0.55-1.02 [facility] Comment on above: Performed By: #### B MP, BNP ####[facility] [address] [place], [place] [address]Dr. Gena Lopes EGFR-AF IVORIAN >60 Normal >=60 [facility] Comment on above: Performed By: #### B MP, BNP ####[facility] [address] [place], [place] [address]Dr. Gena Lopes EGFR-NON AF IVORIAN 53 mL/min/1.73m2 Critically low >=60 [facility] Comment on above: Performed By: #### B MP, BNP ####[facility] [address] [place], [place] [address]Dr. Gena Lopes Glucose [Mass/Vol] 198 mg/dL Critically high 74-106 [facility] Comment on above: Performed By: #### B MP, BNP ####[facility] [address] [place], [place] [address]Dr. Gena Lopes Potassium [Moles/Vol] 3.9 mmol/L Normal 3.5-5.1 [facility] Comment on above: Performed By: #### B MP, BNP ####[facility] [address] [place], [place] [id number]. Gena Lopes Sodium [Moles/Vol] 139 mmol/L Normal 136-145 [facility] Comment on above: Performed By: #### B MP, BNP ####[facility] [address] [place], [place] [address]Hg. Gena Lopes Urea nitrogen [Mass/Vol] 18.0 mg/dL Normal 7.0-18.0 [facility] Comment on above: Performed By: #### B MP, BNP ####[facility] [address] [place], [place] [address]Xh. Gena Lopes Urea nitrogen/Creatinine [Mass ratio] 17.6 mg/mg Normal [facility] Comment on above: Performed By: #### B MP, BNP ####[facility] [address] [place], [place] [address]If. Gena Lopes CT ABD/PELV W CONon 11-18-19 CT ABD/PELV W CON EXAMINATION: CT ABD/PELV W CON HISTORY: Epigastric pain , nausea COMPARISON: CT abdomen and pelvis 03/26/2019 TECHNIQUE: Axial, Coronal, and Sagittal images were created with IV contrast. Dose reduction techniques were achieved by using automated exposure control and/or adjustment of mA and/or kV according to patient size and/or use of iterative reconstruction technique. FINDINGS: LUNG BASES: No visible pulmonary or pleural disease. LIVER: No enlargement, atrophy, suspicious density, or significant focal lesion. BILIARY: No dilatation or calcification. PANCREAS: No lesion, fluid collection, or abnormal duct dilatation. SPLEEN: No enlargement or focal lesion. ADRENALS: No mass or enlargement. KIDNEYS: Tiny benign-appearing cysts. Nonobstructing 2 mm stone within right kidney. BOWEL/MESENTERY: Diverticulosis of sigmoid colon without acute inflammatory changes. No visible mass, obstruction, or bowel wall thickening. AORTA/VASCULAR: No aneurysm or dissection. Moderate atherosclerotic disease. RETROPERITONEUM: No mass or adenopathy. LYMPH NODES: No adenopathy. URINARY BLADDER: No visible focal wall thickening, lesion, or calculus. PELVIC ORGANS: No visible mass. Pelvic organs appropriate for patient age. ABDOMINAL WALL: No mass or hernia. BONES: Posterior mechanical fusion L5-S1. Marked degenerative disc disease L2-L3, L5-S1. OTHER: Negative. IMPRESSION: 1. No acute findings to account for patient's symptoms. 2. Colonic diverticulosis. 3. Multilevel degenerative changes of the lumbar spine. Electronically authenticated by: SVETLANA CHAPMAN Date: 2021-11-17 17:29 Normal [facility] BNPon 11-08-2021 Natriuretic peptide B (Bld) [Mass/Vol] 188.0 pg/mL Normal <=900.0 [facility] Comment on above: Performed By: #### C MP, BNP, TSH #### [facility] [address] [place] [address] Dr. Gena Loeps CBC AUTO DIFFon 11-08-2021 BASO # 0.0 103/ul Normal 0.0-0.1 [facility] Comment on above: Performed By: #### C BC #### [facility] [address] [place] [address] Dr. Gena Lopes Basophils/100 WBC (Bld) 0.5 % Normal 0.2-2.0 [facility] Comment on above: Performed By: #### C BC #### [facility] [address] [place] [address] Dr. Gena Lopes EO # 0.3 103/ul Normal 0.0-0.7 [facility] Comment on above: Performed By: #### C BC #### [facility] [address] [place] [address] Dr. Gena Lopes Eosinophils/100 WBC (Bld) 3.9 % Normal 0.9-7.0 [facility] Comment on above: Performed By: #### C BC #### [facility] [address] [place] [address] Dr. Gena Lopes Erythrocyte distribution width (RBC) [Ratio] 13.2 % Normal 11.0-15.0 [facility] Comment on above: Performed By: #### C BC #### [facility] [address] [place] [address] Dr. Gena Lopes Hematocrit (Bld) [Volume fraction] 42.4 % Normal 36.0-48.0 [facility] Comment on above: Performed By: #### C BC #### [facility] [address] [place] [address] Dr. Gena Lopes Hemoglobin (Bld) [Mass/Vol] 13.6 g/dL Normal 12.0-16.0 [facility] Comment on above: Performed By: #### C BC #### [facility] [facility] [address] [place] [address] Dr. Gena Lopes IG # 0.03 10e3/ul Normal 0.00-0.03 [facility] Comment on above: Performed By: #### C BC #### [facility] [address] [place] [address] Dr. Gena Lopes IG % 0.4 % Normal 0.0-0.5 [facility] Comment on above: Performed By: #### C BC #### [facility] [address] [place] [address] Dr. Gena Lopes LYMPH # 1.7 103/ul Normal 1.2-3.8 [facility] Comment on above: Performed By: #### C BC #### [facility] [address] [place] [address] Dr. Gena Lopes Lymphocytes/100 WBC (Bld) 21.7 % Normal 20.5-60.0 [facility] Comment on above: Performed By: #### C BC #### [facility] [address] [place] [address] Dr. Gena Lopes MANUAL DIFF REQ NO Normal [facility] Comment on above: Performed By: #### C BC #### [facility] [address] [place] [address] Dr. Gena Lopes MCH (RBC) [Entitic mass] 29.8 pg Normal 26.7-34.0 [facility] Comment on above: Performed By: #### C BC #### [facility] [address] [place] [address] Dr. Gena Lopes MCHC (RBC) [Mass/Vol] 32.1 g/dL Normal 29.9-35.2 [facility] Comment on above: Performed By: #### C BC #### [facility] [address] [place] [address] Dr. Gena Lopes MCV (RBC) [Entitic vol] 92.8 fL Normal 81.0-99.0 [facility] Comment on above: Performed By: #### C BC #### [facility] [address] [place] [address] Dr. Gena Lopes MONO # 1.0 103/ul Critically high 0.3-0.8 [facility] Comment on above: Performed By: #### C BC #### [facility] [address] [address] [address] Gena Lopes Monocytes/100 WBC (Bld) 13.4 % Critically high 1.7-12. 0 [facility] Comment on above: Performed By: #### C BC #### [facility] [address] [place] [address] Dr. Gena Lopes NEUT # 4.7 103/ul Normal 1.4-6.5 [facility] Comment on above: Performed By: #### C BC #### [facility] [address] [place] [address] Dr. Gena Lopes Neutrophils/100 WBC (Bld) 60.1 % Normal 43.0-75.0 [facility] Comment on above: Performed By: #### C BC #### [facility] [address] [place] [address] Dr. Gena Lopes Platelet mean volume (Bld) [Entitic vol] 10.0 fL Normal 9.5-13.5 [facility] Comment on above: Performed By: #### C BC #### [facility] [address] [place] [address] Dr. Gena Lopes PLT 231 103/ul Normal 150-450 [facility] Comment on above: Performed By: #### C BC #### [facility] [address] [place] [address] Dr. Gena Lopes RBC 4.57 106/ul Normal 4.20-5.40 [facility] Comment on above: Performed By: #### C BC #### [facility] [address] [place] [address] Dr. Gena Lopes WBC 7.8 103/ul Normal 4.0-11.0 [facility] Comment on above: Performed By: #### C BC #### [facility] [address] [address] [address] Gena Lopes FREE T4on 11-08-2021 Free T4 [Mass/Vol] 2.04 ng/dL Critically high 0.76-1.46 [facility] Comment on above: Performed By: #### F T4 ####[facility] [id number] [address]Dr. Gena Lopes PROF 14(COMP METB)on 022 Albumin [Mass/Vol] 3.2 g/dL Critically low 3.4-5.0 [facility] Comment on above: Performed By: #### C MP, BNP, TSH #### [facility] [address] [place] [address] Dr. Gena Lopes Albumin/Globulin [Mass ratio] 0.8 {ratio} Normal [facility] Comment on above: Performed By: #### C MP, BNP, TSH #### [facility] [address] [place] [address] Dr. Gena Lopes ALP [Catalytic activity/Vol] 134 U/L Critically high 46-116 [facility] Comment on above: Performed By: #### C MP, BNP, TSH #### [facility] [address] [place] [address] Dr. Gena Lopes ALT [Catalytic activity/Vol] 67 U/L Critically high 14-59 [facility] Comment on above: Performed By: #### C MP, BNP, TSH #### [facility] [address] [place] [address] Dr. Gena Lopes Anion gap [Moles/Vol] 12.1 mmol/L Normal [facility] Comment on above: Performed By: #### C MP, BNP, TSH #### [facility] [address] [place] [address] Dr. Gena Lopes AST [Catalytic activity/Vol] 47 U/L Critically high 15-37 [facility] Comment on above: Performed By: #### C MP, BNP, TSH #### [facility] [address] [address] [address] Gena Lopes Bilirubin [Mass/Vol] 0.4 mg/dL Normal 0.2-1.0 [facility] Comment on above: Performed By: #### C MP, BNP, TSH #### [facility] [address] [address] [address] Gena Lopes Calcium [Mass/Vol] 9.5 mg/dL Normal 8.5-10.1 [facility] Comment on above: Performed By: #### C MP, BNP, TSH #### [facility] [address] [address] [address] Gena Lopes Chloride [Moles/Vol] 108 mmol/L Critically high 98-107 [facility] Comment on above: Performed By: #### C MP, BNP, TSH #### [facility] [address] [address] [address] Gena Lopes CO2 [Moles/Vol] 24.1 mmol/L Normal 21.0-32.[address] [facility] Comment on above: Performed By: #### C MP, BNP, TSH #### [facility] [address] [address] [address] eGna Lopes Creatinine [Mass/Vol] 0.98 mg/dL Normal 0.55-1.02 [facility] Comment on above: Performed By: #### C MP, BNP, TSH #### [facility] [address] [place] [address] Dr. Gena Lopes EGFR-AF IVORIAN >60 Normal >=[address] [facility] Comment on above: Performed By: #### C MP, BNP, TSH #### [facility] [address] [address] [address] Gena Lopes EGFR-NON AF IVORIAN 56 mL/min/1.73m2 Critically low >=60 [facility] Comment on above: Performed By: #### C MP, BNP, TSH #### [facility] [address] [address] [address] Gena Lopes Globulin (S) [Mass/Vol] 3.8 g/dL Normal T [facility] Comment on above: Performed By: #### C MP, BNP, TSH #### [facility] [address] [address]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 blacks MDRD (S/P/Bld) [Vol rate/Area] mL/min/{1.73_m2} Normal >=59 [facility] Comment on above: Order Comment: Order added by Discern Expert. Result Comment: eGFR is race adjusted. AA=. Performed By: #### 1 2792389, 82498568, 9561448, 4146989, 6631520, 9113071, 4740398, 1286363, 5165817 ####[address] [place] [address] GFR/1.73 sq M.predicted among non-blacks MDRD (S/P/Bld) [Vol rate/Area] mL/min/{1.73_m2} Normal >=59 [facility] Comment on above: Order Comment: Order added by Discern Expert. Result Comment: Project Leader swati kidney disease could be indicated at eGFR's of less than 60 mL/min/1.73m2. Kidney failure is indicated at less than 15 mL/min/1.73m2. Performed By: #### 1 3758527, 19107225, 7926702, 0191335, 9488384, 3958627, 9073979, 1776641, 7582343 ####[address] [place] [address] CT HEAD WO CONon 09-22-2021 CT HEAD WO CON EXAMINATION: CT HEAD WO CON HISTORY: Amnesia COMPARISON: None. TECHNIQUE: CT examination of the head without IV contrast. Dose reduction techniques were achieved by using automated exposure control and/or adjustment of mA and/or kV according to patient size and/or use of iterative reconstruction technique. FINDINGS: Mild low-density in the parietal-occipital white matter. The steele-white interface is normal. No evidence of mass or mass effect. The ventricles, sulci, and basilar cisterns are otherwise normal. The cerebral hemispheres, brainstem, and cerebellar hemispheres are otherwise normal. No evidence of acute infarct or hemorrhage. Osseous structures are intact. IMPRESSION: No evidence of acute intracranial disease. Electronically authenticated by: Damian SUH Date: 2021-09-22 16:13 Normal [facility] FREE T4on 09-22-2021 Free T4 [Mass/Vol] 1.26 ng/dL Normal 0.78-2.19 [facility] Comment on above: Performed By: #### F T4 ####[facility] [address] [address]Dr. Gena Lopes GLYCOHEMOGLOBIN A1Con 2021 ADA RECOMMENDATION ADA THERAPEUTIC TARGET 6.0 - 7.0 ACTION SUGGESTED > 7.0 Normal [facility] Comment on above: Performed By: #### A 1C #### [facility] [address] [address] [address] Gena Lopes Glucose [Mass/Vol] 128 mg/dL Normal [facility] Comment on above: Performed By: #### A 1C #### [facility] [address] [address] [address] Gena Lopes HbA1c (Bld) [Mass fraction] 6.1 % Critically high <=6.0 [facility] Comment on above: Performed By: #### A 1C #### [facility] [address] [address] [address] Gena Lopes PROF CHEM 8 (BAS METB)on Anion gap [Moles/Vol] 11.7 mmol/L Normal [facility] Comment on above: Performed By: #### T SH, BMP ####[facility] [address] [place] [address]Dr. Gena Lopes Calcium [Mass/Vol] 9.5 mg/dL Normal 8.5-10.1 [facility] Comment on above: Performed By: #### T SH, BMP ####[facility] [address] [place] [address]Dr. Gena Lopes Chloride [Moles/Vol] 104 mmol/L Normal 98-107 [facility] Comment on above: Performed By: #### T WILLIAN, BMP ####[facility] [address] [address]Dr. Gena Lopes CO2 [Moles/Vol] 26.7 mmol/L Normal 21.0-32.0 [facility] Comment on above: Performed By: #### T WILLIAN, BMP ####[facility] [address] [place], [place] [address]Dr. Gena Lopes Creatinine [Mass/Vol] 0.77 mg/dL Normal 0.55-1.02 [facility] Comment on above: Performed By: #### T WILLIAN, BMP ####[facility] [address] [place], [place] [address]Dr. Gena Lopes EGFR-AF IVORIAN >60 Normal >=60 [facility] Comment on above: Performed By: #### T WILLIAN, BMP ####[facility] [address] [place], [place] [address]Dr. Gena Lopes EGFR-NON AF IVORIAN >60 Normal >=60 [facility] Comment on above: Performed By: #### T WILLIAN, BMP ####[facility] [address] [place], [place] [address]Dr. Gena Lopes Glucose [Mass/Vol] 76 mg/dL Normal 74-106 [facility] Comment on above: Performed By: #### T WILLIAN, BMP ####[facility] [address] [place], [place] [address]Dr. Gena Lopes Potassium [Moles/Vol] 4.4 mmol/L Normal 3.4-5.0 [facility] Comment on above: Performed By: #### T WILLIAN, BMP ####[facility] [address] [place], [place] [address]Dr. Gena Lopes Sodium [Moles/Vol] 138 mmol/L Normal 137-145 [facility] Comment on above: Performed By: #### T WILLIAN, BMP ####[facility] [address] [place], [place] [address]Dr. Gena Lopes Urea nitrogen [Mass/Vol] 15.0 mg/dL Normal 7.0-18.0 [facility] Comment on above: Performed By: #### T WILLIAN, BMP ####[facility] [address] [place], [place] [address]Zr. Gena Lopes Urea nitrogen/Creatinine [Mass ratio] 19.5 mg/mg Normal [facility] Comment on above: Performed By: #### T WILLIAN, BMP ####[facility] [address] [place], [place] [address]Sv. Gena Lopes TSHon 09-22-2021 TSH 1.551 uIU/mL Normal 0.470-4.680 [facility] Comment on above: Performed By: #### T WILLIAN, BMP ####[facility] [address] [place], [place] [address]Ws. Gena Lopes TSH RANGE SEE BELOW Normal [facility] Comment on above: Result Comment: <0.3 4 UIU/ml HYPERTHYROID 0.34-5.60 UIU/ml EUTHYROID >5.60 UIU/ml HYPOTHYROID Performed By: #### T WILLIAN, BMP ####[facility] [address] [place], [place] [address]Ej. Gena Lopes Tobacco Screening.on 022 Fall risk assessment b) One or more fall s in the last year [facility] [address] DO Work Phone: Tobacco use status CP b) No M [facility] [address] DO Work Phone: Tobacco Screening. Large [facility] [address] DO Work Phone: POC GLUCOSE LABon 01-12-2019 Glucose [Mass/Vol] 144 mg/dL High 70-100 [facility] Comment on above: Performed By: #### 0 0071, 29207, 56165, 25482, 55260 #### [facility] [address] [place] [address], [place] Glucose [Mass/Vol] 141 mg/dL High 70-100 [facility] Comment on above: Performed By: #### 0 0071, 05414, 03075, 24996, 70267 #### [facility] [address] [place] [address], [place] APTTon 01-11-2019 aPTT Coag (Bld) [Time] 31.1 s Normal 25.0-35.0 Th e [facility] Comment on above: Order Comment: No: D o not add to previous draw Result Comment: ALL RESULTS MUST BE INTERPRETED WITH RESPECT TO BLOOD DRAWING ARTIFACT OR DILUTION ERROR OF ANTICOAGULANT AT THE TIME OF SAMPLING. THE APTT SHOULD NOT BE USED TO MONITOR UNFRACTIONATED HEPARIN THERAPY, THIS LABORATORY NO LONGER HAS AN ESTABLISHED THERAPEUTIC RANGE BASED ON THE APTT. IT IS RECOMMENDED THAT THE [facility] - HEPARIN ASSAY (ANTI-XA ACTIVITY) BE USED FOR THIS PURPOSE. Performed By: #### 0 0071, 23344, 71384, 07460, 67092 #### [facility] [address] [place] [address], [facility] BASIC METABOLIC PANELon 01-01 Calcium [Mass/Vol] 9.1 mg/dL Normal 8.6-10.3 The [facility] Comment on above: Order Comment: No: D o not add to previous draw Performed By: #### 0 0071, 95939, 42809, 38961, 36492 #### [facility] [address] [place] [address], [facility] Chloride [Moles/Vol] 105 mmol/L Normal 98-107 [facility] Comment on above: Order Comment: No: D o not add to previous draw Performed By: #### 0 0071, 74420, 99917, 83254, 74683 #### [facility] [address] [place] [address], [facility] CO2 [Moles/Vol] 24 mmol/L Normal 21-31 The [facility] Comment on above: Order Comment: No: D o not add to previous draw Performed By: #### 0 0071, 47837, 93336, 07630, 72298 #### [facility] [address] [place] [address], [facility] Creatinine [Mass/Vol] 0.85 mg/dL Normal 0.60-1.20 [facility] Comment on above: Order Comment: No: D o not add to previous draw Performed By: #### 0 0071, 93122, 88026, 36718, 01738 #### [facility] [address] [place] [address], [place] GFR/1.73 sq M predicted among blacks MDRD (S/P/Bld) [Vol rate/Area] mL/min/{1.73_m2} Normal >60 [facility] Comment on above: Order Comment: No: D o not add to previous draw Performed By: #### 0 0071, 40457, 45161, 80400, 79132 #### [facility] [address] [place] [address], [place] GFR/1.73 sq M predicted among non-blacks MDRD (S/P/Bld) [Vol rate/Area] mL/min/{1.73_m2} Normal >60 The [facility] Comment on above: Order Comment: No: D o not add to previous draw Performed By: #### 0 0071, 75708, 61867, 20640, 26857 #### [facility] [address] [place] [address], [place] Glucose [Mass/Vol] 115 mg/dL High 70-100 The [facility] Comment on above: Order Comment: No: D o not add to previous draw Performed By: #### 0 0071, 88060, 75928, 84840, 04136 #### [facility] [address] [place] [address], [place] Potassium [Moles/Vol] 4.0 mmol/L Normal 3.5-5.1 The [facility] Comment on above: Order Comment: No: D o not add to previous draw Performed By: #### 0 0071, 24185, 63137, 83169, 12475 #### [facility] [address] [place] [address], [place] Sodium [Moles/Vol] 135 mmol/L Low 136-145 The [facility] Comment on above: Order Comment: No: D o not add to previous draw Performed By: #### 0 0071, 76869, 19891, 28961, 33587 #### [facility] [address] [place] [address], [facility] Urea nitrogen [Mass/Vol] 24 mg/dL Normal 7-25 The [facility] Comment on above: Order Comment: No: D o not add to previous draw Performed By: #### 0 0071, 69150, 22268, 29981, 70659 #### [facility] [address] [place] [address], [facility] CBC COMPLETE BLOOD COUNTon 0 - Erythrocyte distribution width (RBC) [Ratio] 14.2 % Normal 11.5-15.0 The [facility] Comment on above: Order Comment: No: D o not add to previous draw Performed By: #### 0 0071, 36128, 69731, 80597, 40872 #### [facility] [address] [place] [address], [facility] Hematocrit (Bld) [Volume fraction] 35.5 % Low 36.0-45.0 The [facility] Comment on above: Order Comment: No: D o not add to previous draw Performed By: #### 0 0071, 37279, 24875, 45085, 37346 #### [facility] [address] [place] [address], [facility] Hemoglobin (Bld) [Mass/Vol] 11.2 g/dL Low 12.0-15.0 The [facility] Comment on above: Order Comment: No: D o not add to previous draw Performed By: #### 0 0071, 57033, 10719, 10569, 69655 #### [facility] [address] [place] [address], [facility] MCH (RBC) [Entitic mass] 28.1 pg Normal 27.0-33.0 The [facility] Comment on above: Order Comment: No: D o not add to previous draw Performed By: #### 0 0071, 75777, 76934, 03767, 89510 #### [facility] [address] [place] [address], [facility] MCHC (RBC) [Mass/Vol] 31.5 g/dL Low 32.0-35.0 The [facility] Comment on above: Order Comment: No: D o not add to previous draw Performed By: #### 0 0071, 40213, 31525, 58339, 58706 #### [facility] [address] [place] [address], [facility] MCV (RBC) [Entitic vol] 89.0 fL Normal 82.0-98.0 T [facility] Comment on above: Order Comment: No: D o not add to previous draw Performed By: #### 0 0071, 67945, 71213, 51669, 76690 #### [facility] [address] [place] [address], [facility] Nucleated RBC/100 WBC (Bld) [Ratio] 0 % Normal 0-0 The [facility] Comment on above: Order Comment: No: D o not add to previous draw Performed By: #### 0 0071, 18514, 17272, 48149, 92896 #### [facility] [address] [facility] [place] [address], [facility] PLAT CNT 257 10*3/uL Normal 150-400 [facility] Comment on above: Order Comment: No: D o not add to previous draw Performed By: #### 0 0071, 51597, 87713, 47061, 46907 #### [facility] [address] [facility] [place] [address], [facility] RBC (Bld) [#/Vol] 3.99 10*6/uL Normal 3.80-5.00 The [facility] Comment on above: Order Comment: No: D o not add to previous draw Performed By: #### 0 0071, 06209, 48736, 86758, 53068 #### [facility] [address] [place] [address], [place] WBC (Bld) [#/Vol] 8.64 10*3/uL Normal 4.00-10.60 [facility] Comment on above: Order Comment: No: D o not add to previous draw Performed By: #### 0 0071, 41994, 74585, 13369, 15677 #### [facility] [address] [place] [address], [place] POC GLUCOSE LABon 01-11-2019 Glucose [Mass/Vol] 117 mg/dL High 70-100 [facility] Comment on above: Performed By: #### 0 0071, 22938, 04674, 73820, 24150 #### [facility] [address] [place] [address], [place] Glucose [Mass/Vol] 104 mg/dL High 70-100 [facility] Comment on above: Performed By: #### 0 0071, 15740, 61322, 96082, 41487 #### [facility] [address] [place] [address], [place] Glucose [Mass/Vol] 100 mg/dL Normal 70-100 [facility] Comment on above: Performed By: #### 0 0071, 49506, 45465, 13691, 20285 #### [facility] [address] [place] [address], [place] Glucose [Mass/Vol] 106 mg/dL High 70-100 [facility] Comment on above: Performed By: #### 0 0071, 70418, 03112, 77305, 28791 #### [facility] [address] [place] [address], [facility] UFH HEPARIN ASSAYon 01-12-20 19 UNFRACTIONATED HEPARIN >1.00 Critically high 0.30-0.7 0 [facility] Comment on above: Result Comment: [place] roxaban and Apixaban will interfere with the anti Xa assay used to monitor UFH and LMWH. RESULTS CHECKED AND CALLED. ACCURATELY READ BACK BY LINA DAVIDSON RN AT 0540. UFH = 1.99; PATIENT ON ELIQUIS PER LINA JOHNSON AT 0542 Performed By: #### 0 0071, 22599, 00879, 01272, 97566 #### [facility] [address] [place] [address], [place] BASIC METABOLIC PANELon 01-01 Calcium [Mass/Vol] 9.0 mg/dL Normal 8.6-10.3 [facility] Comment on above: Order Comment: No: D o not add to previous draw Performed By: #### 0 0071, 60703, 17885, 48713, 00142 #### [facility] [address] [place] [address], [place] Chloride [Moles/Vol] 104 mmol/L Normal 98-107 [facility] Comment on above: Order Comment: No: D o not add to previous draw Performed By: #### 0 0071, 24067, 68548, 39146, 68801 #### [facility] [address] [place] [address], [place] CO2 [Moles/Vol] 23 mmol/L Normal 21-31 [facility] Comment on above: Order Comment: No: D o not add to previous draw Performed By: #### 0 0071, 04580, 16294, 83252, 74991 #### [facility] [address] [place] [address], [place] Creatinine [Mass/Vol] 1.03 mg/dL Normal 0.60-1.20 [facility] Comment on above: Order Comment: No: D o not add to previous draw Performed By: #### 0 0071, 80667, 20384, 76638, 56331 #### [facility] [address] [place] [address], [place] GFR/1.73 sq M predicted among blacks MDRD (S/P/Bld) [Vol rate/Area] mL/min/{1.73_m2} Normal >60 [facility] Comment on above: Order Comment: No: D o not add to previous draw Performed By: #### 0 0071, 95494, 54807, 90773, 24096 #### [facility] [address] [place] [address], [facility] GFR/1.73 sq M predicted among non-blacks MDRD (S/P/Bld) [Vol rate/Area] 53 ml/min/1.73sq m Abnormal >60 [facility] Comment on above: Order Comment: No: D o not add to previous draw Performed By: #### 0 0071, 44300, 20602, 41391, 55069 #### [facility] [address] [place] [address], [place] Glucose [Mass/Vol] 124 mg/dL High 70-100 [facility] Comment on above: Order Comment: No: D o not add to previous draw Performed By: #### 0 0071, 47136, 57414, 04991, 31796 #### [facility] [address] [place] [address], [place] Potassium [Moles/Vol] 4.4 mmol/L Normal 3.5-5.1 [facility] Comment on above: Order Comment: No: D o not add to previous draw Performed By: #### 0 0071, 13520, 92907, 66240, 67655 #### [facility] [address] [place] [address], [place] Sodium [Moles/Vol] 133 mmol/L Low 136-145 [facility] Comment on above: Order Comment: No: D o not add to previous draw Performed By: #### 0 0071, 23581, 05746, 71460, 61650 #### [facility] [address] [place] [address], [place] Urea nitrogen [Mass/Vol] 28 mg/dL High 7-25 [facility] Comment on above: Order Comment: No: D o not add to previous draw Performed By: #### 0 0071, 82603, 45451, 83267, 97393 #### [facility] [address] [place] [address], [facility] CBC W/DIFFon 01-10-2019 ABS BASOPHILS 0.1 10*3/uL Normal 0.0-0.2 [facility] Comment on above: Order Comment: No: D o not add to previous draw Performed By: #### 0 0071, 16983, 36722, 57572, 51608 #### [facility] [address] [place] [address], [facility] ABS IMM GRANS 0.0 10*3/uL Normal 0.0-0.2 [facility] Comment on above: Order Comment: No: D o not add to previous draw Performed By: #### 0 0071, 82482, 24956, 72242, 36815 #### [facility] [address] [place] [address], [facility] ABS NEUTROPHILS 5.6 10*3/uL Normal 1.6-7.6 [facility] Comment on above: Order Comment: No: D o not add to previous draw Performed By: #### 0 0071, 71734, 93745, 12618, 19628 #### [facility] [address] [place] [address], [facility] Basophils/100 WBC (Bld) 0.7 % Normal 0.0-1.0 T [facility] Comment on above: Order Comment: No: D o not add to previous draw Performed By: #### 0 0071, 91726, 23760, 09977, 08992 #### [facility] [address] [place] [address], [facility] Eosinophils (Bld) [#/Vol] 0.5 10*3/uL Normal 0.0-0.5 [facility] Comment on above: Order Comment: No: D o not add to previous draw Performed By: #### 0 0071, 30364, 60309, 45221, 75851 #### [facility] [address] [place] [address], [facility] Eosinophils/100 WBC (Bld) 5.2 % Normal 0.0-6.0 [facility] Comment on above: Order Comment: No: D o not add to previous draw Performed By: #### 0 0071, 68593, 47441, 47592, 98470 #### [facility] [address] Erythrocyte distribution width (RBC) [Ratio] 14.4 % Normal 11.5-15.0 [facility] Comment on above: Order Comment: No: D o not add to previous draw Performed By: #### 0 0071, 31072, 22949, 72848, 19073 #### [facility] [address] [place] [address], [facility] Hematocrit (Bld) [Volume fraction] 37.8 % Normal 36.0-45.0 [facility] Comment on above: Order Comment: No: D o not add to previous draw Performed By: #### 0 0071, 86280, 82965, 88956, 41918 #### [facility] [address] Hemoglobin (Bld) [Mass/Vol] 12.0 g/dL Normal 12.0-15.0 [facility] Comment on above: Order Comment: No: D o not add to previous draw Performed By: #### 0 0071, 95907, 02143, 18970, 70097 #### [facility] [address] [place] [address], [facility] IMMATURE GRANS 0.3 % Normal 0.0-1.0 [facility] Comment on above: Order Comment: No: D o not add to previous draw Performed By: #### 0 0071, 02684, 12569, 84499, 48250 #### [facility] [address] [place] [address], [facility] Lymphocytes (Bld) [#/Vol] 2.3 10*3/uL Normal 1.2-4.0 [facility] Comment on above: Order Comment: No: D o not add to previous draw Performed By: #### 0 0071, 06470, 27789, 39775, 09590 #### [facility] [address] [place] [address], [facility] Lymphocytes/100 WBC (Bld) 23.9 % Normal 20.0-45.0 [facility] Comment on above: Order Comment: No: D o not add to previous draw Performed By: #### 0 0071, 72295, 96453, 89619, 91795 #### [facility] [address] [place] [address], [facility] MCH (RBC) [Entitic mass] 28.1 pg Normal 27.0-33.0 [facility] Comment on above: Order Comment: No: D o not add to previous draw Performed By: #### 0 0071, 87649, 20183, 60611, 48039 #### [facility] [address] [facility] [place] [address], [facility] MCHC (RBC) [Mass/Vol] 31.7 g/dL Low 32.0-35.0 [facility] Comment on above: Order Comment: No: D o not add to previous draw Performed By: #### 0 0071, 41118, 08090, 32056, 25196 #### [facility] [address] [place] [address], [facility] MCV (RBC) [Entitic vol] 88.5 fL Normal 82.0-98.0 T [facility] Comment on above: Order Comment: No: D o not add to previous draw Performed By: #### 0 0071, 41007, 68548, 30325, 78342 #### [facility] [address] [place] [address], [facility] Monocytes (Bld) [#/Vol] 1.0 10*3/uL Normal 0.1-1.0 [facility] Comment on above: Order Comment: No: D o not add to previous draw Performed By: #### 0 0071, 60024, 52449, 45743, 56097 #### [facility] [address] [place] [address], [place] MONOS 10.9 % Normal 5.0-12.0 [facility] Comment on above: Order Comment: No: D o not add to previous draw Performed By: #### 0 0071, 79047, 66272, 41162, 92552 #### [facility] [address] [place] [address], [place] Neutrophils/100 WBC (Bld) 59.0 % Normal 40.0-72.0 [facility] Comment on above: Order Comment: No: D o not add to previous draw Performed By: #### 0 0071, 96265, 14516, 02518, 12585 #### [facility] [address] [place] [address], [place] Nucleated RBC/100 WBC (Bld) [Ratio] 0 % Normal 0-0 [facility] Comment on above: Order Comment: No: D o not add to previous draw Performed By: #### 0 0071, 46484, 82937, 77018, 97556 #### [facility] [address] [place] [address], [place] PLAT CNT 273 10*3/uL Normal 150-400 [facility] Comment on above: Order Comment: No: D o not add to previous draw Performed By: #### 0 0071, 22793, 79036, 36031, 66619 #### [facility] [address] [place] [address], [place] RBC (Bld) [#/Vol] 4.27 10*6/uL Normal 3.80-5.00 [facility] Comment on above: Order Comment: No: D o not add to previous draw Performed By: #### 0 0071, 98813, 42398, 35115, 84395 #### [facility] [address] [place] [address], [place] WBC (Bld) [#/Vol] 9.48 10*3/uL Normal 4.00-10.60 [facility] Comment on above: Order Comment: No: D o not add to previous draw Performed By: #### 0 0071, 48874, 85572, 64579, 61096 #### [facility] [address] Cardiovascular Lab Reporton 01-10-2019 Cardiovascular Lab Report [facility] Patient Name: Siva Nicolas [facility] MR #: [id number] Department of Physician: Haritha Catalan MD Division of Service Date: 01/09/2019 Cardiology Birthdate: 1950 Adult Cardiovascular Room #: 3AB 201901 [facility] [address] [facility] [place] [address] Cardiovascular Laboratory Report PROCEDURE PERFORMED: Transesophageal echocardiogram and cardioversion. INDICATION: Atrial fibrillation. FELLOW DOCTOR: Tawnya Navarrete M.D. PROCEDURE IN DETAIL: Informed consent was obtained from the patient after explaining indication, risks, benefits, and alternatives. The patient understood and agreed and signed the consent form. The patient was brought to the warehouse general laborer [facility]ELIS[facility]. Transesophageal echocardiogram was performed under conscious sedation. The patient obtained a total of 4 mg of Versed and 100 mcg of fentanyl intravenously during the procedure. Transesophageal echocardiogram did not show any thrombus in the left atrial appendage. Full MEL[facility] report in the chart. After the transesophageal echocardiogram, synchronized biphasic cardioversion was done with 360 joules of energy. The patient was successfully converted to sinus rhythm as evidenced by the EKG done post procedure. No complications throughout the procedure. Electronically Signed by: Haritha Catalan MD 01/10/2019 06:08 P Haritha Catalan MD I was present for the entire procedure. Date Dict: 01/09/2019/04:21 P/Lola Navarrete MD Date Trans: 01/10/2019 07:43 A/kel [id number] Normal [facility] MAGNESIUM BLOODon 01-10-2019 Magnesium [Mass/Vol] 2.2 mg/dL Normal 1.9-2.7 [facility] Comment on above: Order Comment: No: D o not add to previous draw Performed By: #### 0 0071, 41387, 61723, 91279, 54905 #### [facility] [address] [place] [address], [place] POC GLUCOSE LABon 01-10-2019 Glucose [Mass/Vol] 88 mg/dL Normal 70-100 [facility] Comment on above: Performed By: #### 0 0071, 60865, 03308, 72083, 77005 #### [facility] [address] [place] [address], [place] Glucose [Mass/Vol] 91 mg/dL Normal 70-100 [facility] Comment on above: Performed By: #### 0 0071, 34874, 21191, 56547, 56444 #### [facility] [address] [place] [address], [place] Glucose [Mass/Vol] 97 mg/dL Normal 70-100 [facility] Comment on above: Performed By: #### 0 0071, 23366, 22130, 35045, 77567 #### [facility] [address] [place] [address], [place] Glucose [Mass/Vol] 121 mg/dL High 70-100 [facility] Comment on above: Performed By: #### 0 0071, 80568, 99553, 24718, 27787 #### [facility] [address] [place] [address], [place] UFH HEPARIN ASSAYon 01-11-20 19 UNFRACTIONATED HEPARIN 0.55 IU/mL Normal 0.30-0.70 Th e [facility] Comment on above: Result Comment: [place] roxaban and Apixaban will interfere with the anti Xa assay used to monitor UFH and LMWH. Performed By: #### 0 0071, 68110, 40050, 18511, 20028 #### [facility] [address] [place] [address], [facility] APTTon 01-09-2019 aPTT Coag (Bld) [Time] 27.6 s Normal 25.0-35.0 Th e [facility] Comment on above: Order Comment: No: D o not add to previous draw Result Comment: ALL RESULTS MUST BE INTERPRETED WITH RESPECT TO BLOOD DRAWING ARTIFACT OR DILUTION ERROR OF ANTICOAGULANT AT THE TIME OF SAMPLING. THE APTT SHOULD NOT BE USED TO MONITOR UNFRACTIONATED HEPARIN THERAPY, THIS LABORATORY NO LONGER HAS AN ESTABLISHED THERAPEUTIC RANGE BASED ON THE APTT. IT IS RECOMMENDED THAT THE UFH - HEPARIN ASSAY (ANTI-XA ACTIVITY) BE USED FOR THIS PURPOSE. Performed By: #### 5 6101, 62625 #### [facility] [address] [place] [address], [facility] BASIC METABOLIC PANELon Calcium [Mass/Vol] 9.5 mg/dL Normal 8.6-10.3 [facility] Comment on above: Order Comment: No: D o not add to previous draw Performed By: #### 0 0071, 86198, 53670, 61321, 42020 #### [facility] [address] [place] [address], [facility] Chloride [Moles/Vol] 103 mmol/L Normal 98-107 [facility] Comment on above: Order Comment: No: D o not add to previous draw Performed By: #### 0 0071, 78216, 72666, 37847, 47683 #### [facility] [address] [place] [address], [place] CO2 [Moles/Vol] 23 mmol/L Normal 21-31 [facility] Comment on above: Order Comment: No: D o not add to previous draw Performed By: #### 0 0071, 76638, 26912, 42041, 72685 #### [facility] [address] [place] [address], [place] Creatinine [Mass/Vol] 1.04 mg/dL Normal 0.60-1.20 [facility] Comment on above: Order Comment: No: D o not add to previous draw Performed By: #### 0 0071, 20497, 42628, 44963, 46502 #### [facility] [address] [place] [address], [place] GFR/1.73 sq M predicted among blacks MDRD (S/P/Bld) [Vol rate/Area] mL/min/{1.73_m2} Normal >60 [facility] Comment on above: Order Comment: No: D o not add to previous draw Performed By: #### 0 0071, 43342, 89979, 77993, 55828 #### [facility] [address] [place] [address], [place] GFR/1.73 sq M predicted among non-blacks MDRD (S/P/Bld) [Vol rate/Area] 53 ml/min/1.73sq m Abnormal >60 [facility] Comment on above: Order Comment: No: D o not add to previous draw Performed By: #### 0 0071, 26670, 49366, 33764, 62579 #### [facility] [address] [place] [address], [place] Glucose [Mass/Vol] 93 mg/dL Normal 70-100 [facility] Comment on above: Order Comment: No: D o not add to previous draw Performed By: #### 0 0071, 52377, 71497, 34655, 72143 #### [facility] [address] [place] [address], [place] Potassium [Moles/Vol] 4.3 mmol/L Normal 3.5-5.1 [facility] Comment on above: Order Comment: No: D o not add to previous draw Performed By: #### 0 0071, 00803, 26055, 59608, 52158 #### [facility] [address] [place] [address], [place] Sodium [Moles/Vol] 134 mmol/L Low 136-145 [facility] Comment on above: Order Comment: No: D o not add to previous draw Performed By: #### 0 0071, 82415, 46726, 96234, 44729 #### [facility] [address] Urea nitrogen [Mass/Vol] 24 mg/dL Normal 7-25 [facility] Comment on above: Order Comment: No: D o not add to previous draw Performed By: #### 0 0071, 50792, 01073, 99106, 01952 #### [facility] [address] [facility] [address] BNP (B-TYPE NATRIURETIC PEPT SARA)on 01-09-2019 Natriuretic peptide B (Bld) [Mass/Vol] 123 pg/mL High 0-100 [facility] Comment on above: Order Comment: No: D o not add to previous draw Result Comment: Give n the appropriate clinical setting a BNP result of >100 pg/mL indicates congestive heart failure. Performed By: #### 8 5123, 29342 #### [facility] [address] [facility] [place] [place] [address], [facility] CBC W/DIFFon 01-09-2019 ABS BASOPHILS 0.0 10*3/uL Normal 0.0-0.2 [facility] Comment on above: Order Comment: No: D o not add to previous draw Performed By: #### 5 0103 #### [facility] [address] [facility]. [address] ABS IMM GRANS 0.0 10*3/uL Normal 0.0-0.2 [facility] Comment on above: Order Comment: No: D o not add to previous draw Performed By: #### 5 0103 #### [facility] [address] [place] [address], [facility] ABS NEUTROPHILS 6.3 10*3/uL Normal 1.6-7.6 [facility] Comment on above: Order Comment: No: D o not add to previous draw Performed By: #### 5 0103 #### [facility] [address] [place] [address], [facility] Basophils/100 WBC (Bld) 0.4 % Normal 0.0-1.0 T abraham [facility] Comment on above: Order Comment: No: D o not add to previous draw Performed By: #### 5 0103 #### [facility] [address] [place] [address], [facility] Eosinophils (Bld) [#/Vol] 0.4 10*3/uL Normal 0.0-0.5 [facility] Comment on above: Order Comment: No: D o not add to previous draw Performed By: #### 5 0103 #### [facility] [address] [place] [address], [facility] Eosinophils/100 WBC (Bld) 3.6 % Normal 0.0-6.0 [facility] Comment on above: Order Comment: No: D o not add to previous draw Performed By: #### 5 0103 #### [facility] [address] [place] [address], [facility] Erythrocyte distribution width (RBC) [Ratio] 14.5 % Normal 11.5-15.0 [facility] Comment on above: Order Comment: No: D o not add to previous draw Performed By: #### 5 0103 #### [facility] [address] [place] [id number], [facility] Hematocrit (Bld) [Volume fraction] 40.6 % Normal 36.0-45.0 [facility] Comment on above: Order Comment: No: D o not add to previous draw Performed By: #### 5 0103 #### [facility] [address] [place] [address], [facility] Hemoglobin (Bld) [Mass/Vol] 13.1 g/dL Normal 12.0-15.0 [facility] Comment on above: Order Comment: No: D o not add to previous draw Performed By: #### 5 0103 #### [facility] [address] [place] [address], [facility] IMMATURE GRANS 0.3 % Normal 0.0-1.0 [facility] Comment on above: Order Comment: No: D o not add to previous draw Performed By: #### 5 0103 #### [facility] [address] [place] [id number], [facility] Lymphocytes (Bld) [#/Vol] 2.6 10*3/uL Normal 1.2-4.0 [facility] Comment on above: Order Comment: No: D o not add to previous draw Performed By: #### 5 0103 #### [facility] [address] [place] [address], [facility] Lymphocytes/100 WBC (Bld) 24.4 % Normal 20.0-45.0 [facility] Comment on above: Order Comment: No: D o not add to previous draw Performed By: #### 5 0103 #### [facility] [address] [place] [address], [facility] MCH (RBC) [Entitic mass] 28.2 pg Normal 27.0-33.0 [facility] Comment on above: Order Comment: No: D o not add to previous draw Performed By: #### 5 0103 #### [facility] [address] [facility] [place] [address], [facility] MCHC (RBC) [Mass/Vol] 32.3 g/dL Normal 32.0-35.0 [facility] Comment on above: Order Comment: No: D o not add to previous draw Performed By: #### 5 0103 #### [facility] [address] [place] [id number], [facility] MCV (RBC) [Entitic vol] 87.3 fL Normal 82.0-98.0 T he [facility] Comment on above: Order Comment: No: D o not add to previous draw Performed By: #### 5 0103 #### [facility] [address] [facility] [place] [address], [facility] Monocytes (Bld) [#/Vol] 1.2 10*3/uL High 0.1-1.0 [facility] Comment on above: Order Comment: No: D o not add to previous draw Performed By: #### 5 0103 #### [facility] [address] [facility] [place] [address], [facility] MONOS 11.7 % Normal 5.0-12.0 [facility] Comment on above: Order Comment: No: D o not add to previous draw Performed By: #### 5 0103 #### [facility] [address] [place] [address], [facility] Neutrophils/100 WBC (Bld) 59.6 % Normal 40.0-72.0 [facility] Comment on above: Order Comment: No: D o not add to previous draw Performed By: #### 5 0103 #### [facility] [address] [facility] [place] [address], [facility] Nucleated RBC/100 WBC (Bld) [Ratio] 0 % Normal 0-0 [facility] Comment on above: Order Comment: No: D o not add to previous draw Performed By: #### 5 3 #### [facility] [address] [facility] [place] [place] [address], [facility] PLAT CNT 294 10*3/uL Normal 150-400 [facility] Comment on above: Order Comment: No: D o not add to previous draw Performed By: #### 5 3 #### [facility] [address] [facility] [place] [id number], [facility] RBC (Bld) [#/Vol] 4.65 10*6/uL Normal 3.80-5.00 [facility] Comment on above: Order Comment: No: D o not add to previous draw Performed By: #### 5 3 #### [facility] [address] [place] [address], [facility] WBC (Bld) [#/Vol] 10.52 10*3/uL Normal 4.00-10.60 [facility] Comment on above: Order Comment: No: D o not add to previous draw Performed By: #### 5 0103 #### [facility] [address] [place] [address], [facility] HEMOGLOBIN A1Con 01-09-2019 HbA1c (Bld) [Mass fraction] 111 mg/dL Normal 70-126 [facility] Comment on above: Order Comment: No: D o not add to previous draw Performed By: #### 8 5123, 89083 #### [facility] [address] [place] [id number], [facility] HbA1c (Bld) [Mass fraction] 5.5 % Normal 4.0-6.0 [facility] Comment on above: Order Comment: No: D o not add to previous draw Performed By: #### 8 5123, 14266 #### [facility] [address] [place] [address], [facility] LIVER BATTERYon 01-09-2019 Albumin [Mass/Vol] 3.5 g/dL Normal 3.5-5.7 [facility] Comment on above: Order Comment: No: D o not add to previous draw Performed By: #### 0 0071, 20639, 90115, 12486, 00029 #### [facility] [address] [place] [address], [facility] [facility] 84 IU/L Normal 34-104 [facility] Comment on above: Order Comment: No: D o not add to previous draw Performed By: #### 0 0071, 77062, 86664, 46460, 74618 #### [facility] [address] [place] [address], [place] ALT [Catalytic activity/Vol] 17 U/L Normal 7-52 [facility] Comment on above: Order Comment: No: D o not add to previous draw Performed By: #### 0 0071, 16664, 80192, 16322, 68117 #### [facility] [address] [place] [address], [facility] AST [Catalytic activity/Vol] 19 U/L Normal 13-39 [facility] Comment on above: Order Comment: No: D o not add to previous draw Performed By: #### 0 0071, 75889, 63921, 80169, 53052 #### [facility] [address] [place] [address], [place] Bilirubin [Mass/Vol] 0.6 mg/dL Normal 0.3-1.0 [facility] Comment on above: Order Comment: No: D o not add to previous draw Performed By: #### 0 0071, 53408, 59238, 51791, 63829 #### [facility] [address] [place] [address], [facility] Bilirubin.direct [Mass/Vol] 0.2 mg/dL Normal 0.0-0.2 [facility] Comment on above: Order Comment: No: D o not add to previous draw Performed By: #### 0 0071, 54997, 32772, 30054, 43971 #### [facility] [address] [place] [address], [facility] Protein [Mass/Vol] 7.0 g/dL Normal 6.0-8.3 [facility] Comment on above: Order Comment: No: D o not add to previous draw Performed By: #### 0 0071, 92722, 32077, 27544, 17039 #### [facility] [address] [place] [address], [place] MAGNESIUM BLOODon 01-09-2019 Magnesium [Mass/Vol] 2.1 mg/dL Normal 1.9-2.7 [facility] Comment on above: Order Comment: No: D o not add to previous draw Performed By: #### 0 0071, 07307, 80669, 90439, 20609 #### [facility] [address] [place] [address], [facility] POC GLUCOSE LABon 01-09-2019 Glucose [Mass/Vol] 147 mg/dL High 70-100 [facility] Comment on above: Performed By: #### 0 0071, 81322, 34339, 73301, 75858 #### [facility] [address] [place] [address], [place] Glucose [Mass/Vol] 88 mg/dL Normal 70-100 [facility] Comment on above: Performed By: #### 0 0071, 22748, 23223, 37599, 62670 #### [facility] [address] [place] [address], [facility] PORTABLE CHEST 1 VIEWon PORTABLE CHEST 1 VIEW [facility] [address] [place] [address] Patient Name: SIVA NICOLAS : 1950 Sex: F Age: Race: White Pt. Location: [id number] Patient Status: I Ordered Date: 01/09/2019 1:45:00 PM Completed Date: 01/09/2019 06:32 PM Requesting Provider: ELSA BRENNAN Attending Provider: MANJU BLACKWELL Report Copy To: Signs & Symptoms: Chest Pain History: See Comments Comments: R/O Infiltrates, common Exam: PORTABLE CHEST 1 VIEW PORTABLE CHEST 1 VIEW 01/09/2019 6:32 PM EDT SIGNS AND SYMPTOMS: Chest Pain TECHNOLOGIST COMMENTS: Pt. new admit for cough and SOB for always states patient. hx. of past smoking, COPD, HTN, diabetes, and pneumonia QUESTION FOR THE RADIOLOGIST: R/O Infiltrates, common PROTOCOL: AP(PA) view was obtained. COMPARISON: None FINDINGS: Cardiomediastinal silhouette is mildly enlarged, likely accentuated by AP technique. Trachea is midline. No focal parenchymal opacity, pleural effusion or pneumothorax. No acute osseous abnormality. No subdiaphragmatic free air. IMPRESSION: 1. Cardiomediastinal silhouette is mildly enlarged, likely accentuated by AP technique. No radiographic evidence of an infiltrate. Approved by:Linda Carpenter on 01/10/2019 1:03 AM EDT. I, Deneen Nicholas, have reviewed the images and report and concur with these findings. Electronically signed by:Deneen Nicholas. Transcribed by: [id number], User Resident: LINDA CARPENTER Electronically Signed by: DENEEN NICHOLAS @ 01/12/2019 08:56 AM I personally read this/these film(s) with this resident Normal [facility] Comment on above: Order Comment: No: D o not add to previous draw PROTHROMBIN TIMEon 9 INR Coag (PPP) [Relative time] 1.13 {INR} Normal 0.91-1.16 [facility] Comment on above: Order Comment: No: D o not add to previous draw Result Comment: ACCC P RECOMMENDED INR FOR WARFARIN THERAPY ------- CONDITION INR PROPHYLAXIS OF VENOUS THROMBOSIS 2-3 (HIGH-RISK SURGERY) TREATMENT OF VENOUS THROMBOSIS 2-3 TREATMENT OF PULMONARY EMBOLISM 2-3 PREVENTION OF SYSTEMIC EMBOLISM: 2-3 ACUTE MYOCARDIAL INFARCTION TISSUE HEART VALVES VALVULAR HEART DISEASE ATRIAL FIBRILLATION RECURRENT SYSTEMIC EMBOLISM MECHANICAL HEART VALVE 2.5-3.5 FROM: ORAL ANTICOAGULANTS. MECHANISM OF ACTION, CLINICAL EFFECTIVENESS, AND OPTIMAL THERAPEUTIC RANGE. CHEST 1995;108:231S-246S. Performed By: #### 5 6101, 66562 #### [facility] [address] PT Coag (PPP) [Time] 14.6 s Normal 12.3-14.8 [facility] Comment on above: Order Comment: No: D o not add to previous draw Result Comment: ALL RESULTS MUST BE INTERPRETED WITH RESPECT TO BLOOD DRAWING ARTIFACT OR DILUTION ERROR OF ANTICOAGULANT AT THE TIME OF SAMPLING. Performed By: #### 5 6101, 43525 #### [facility] [address] TROPONIN-Ion 01-09-2019 Troponin I.cardiac [Mass/Vol] 0.06 ng/mL High 0.00-0.04 [facility] Comment on above: Order Comment: No: D o not add to previous draw Result Comment: REFE RENCE RANGES: 0.00 - 0.04 ng/ml NORMAL 0.05 - 0.50 ng/ml INDETERMINATE > 0.50 ng/ml CONSISTENT WITH AN M.I. Performed By: #### 0 0071, 40657, 18741, 39341, 27734 #### [facility] [address] [place] [address], [facility] TSH3on 01-09-2019 TSH 3RD GENERATION 3.44 uIU/mL Normal 0.34-5.60 [facility] Comment on above: Order Comment: No: D o not add to previous draw Performed By: #### 0 0071, 35140, 66034, 97934, 88580 #### [facility] [address] UFH HEPARIN ASSAYon 01-10-20 19 UNFRACTIONATED HEPARIN 0.67 IU/mL Normal 0.30-0.70 Th e [facility] Comment on above: Result Comment: [place] roxaban and Apixaban will interfere with the anti Xa assay used to monitor UFH and LMWH. Performed By: #### 0 0071, 12599, 39587, 81511, 66046 #### [facility] [address] Vital Signs Date Time Vital Sign Value Performing Clinician Facility 12-17-2023 13:58-0400 Body height 156.21 cm MD Coleman [facility] 12-17-2023 13:58-0400 Body mass index (BMI) [Ratio] 46.3 kg/m2 [facility] 12-17-2023 13:58-0400 Body weight 112.[address] [facility] 12-17-2023 13:58-0400 Diastolic blood pressure 77 mm[Hg] [facility] 12-17-2023 13:58-0400 Heart rate 60 /min [facility] 12-17-2023 13:58-0400 Systolic blood pressure 130 mm[Hg] [facility] 10-08-2023 14:53-0400 Body height 157.5 cm Edi Cosby MD Work Phone: [facility] 10-08-2023 14:53-0400 Body mass index (BMI) [Ratio] 45.73 kg/m2 Edi Cosby MD Work Phone: [facility] 10-08-2023 14:53-0400 Body weight 113.4 kg Edi Cosby MD Work Phone: [facility] 10-08-2023 14:53-0400 Diastolic blood pressure 80 mm[Hg] Edi Cosby MD Work Phone: [facility] 10-08-2023 14:53-0400 Heart rate 52 /min Edi Cosby MD Work Phone: [facility] 10-08-2023 14:53-0400 Systolic blood pressure 120 mm[Hg] Edi Cosby MD Work Phone: [facility] 09-16-2023 14:33-0400 Body height 156.[address] [facility] 09-16-2023 14:33-0400 Body mass index (BMI) [Ratio] 46.4 kg/m2 [facility] 09-16-2023 14:33-0400 Body weight 113.[address] [facility] 09-16-2023 14:33-0400 Diastolic blood pressure 76 mm[Hg] [facility] 09-16-2023 14:33-0400 Heart rate 52 /min [facility] 09-16-2023 14:33-0400 Systolic blood pressure 118 mm[Hg] [facility] 01-03-2023 14:50-0400 Body height 157.48 cm Nicole Guzman Work Phone: [facility] [address] Work Phone: 01-03-2023 14:50-0400 Body mass index (BMI) [Ratio] 44.63 kg/m2 Nicole Guzman Work Phone: [facility] [address] DO Work Phone: 01-03-2023 14:50-0400 Body surface area Derived from formula 2.08 m2 Nicole Guzman Work Phone: [facility] [address] DO Work Phone: 01-03-2023 14:50-0400 Body weight 110.68 kg Nicole Guzman Work Phone: [facility] [address] DO Work Phone: 01-03-2023 14:50-0400 Diastolic blood pressure 62 mm[Hg] Nicole Guzman Work Phone: [facility] [address] DO Work Phone: 01-03-2023 14:50-0400 Heart rate 62 /min Nicole Guzman Work Phone: [facility] [employer] [address] DO Work Phone: 01-03-2023 14:50-0400 Systolic blood pressure 108 mm[Hg] Nicole Guzman Work Phone: [facility] [employer] [address] DO Work Phone: 11-26-2022 13:45-0400 Body height 156.21 cm Nicole Guzman Other [employer] Other 11-26-2022 13:45-0400 Body mass index (BMI) [Ratio] 46.28 kg/m2 Nicole Guzman Other [employer] Other 11-26-2022 13:45-0400 Body weight 112.95 kg Nicole Guzman Other [employer] Other 11-26-2022 13:45-0400 Diastolic blood pressure 79 mm[Hg] Nicole Guzman Other [employer] Other 11-26-2022 13:45-0400 SaO2% (BldA) [Mass fraction] 89 % Nicole Guzman Other [employer] Other 11-26-2022 13:45-0400 Systolic blood pressure 149 mm[Hg] Nicole Guzman Other [employer] Other 08-23-2022 14:45-0400 Body height 156.21 cm Nicole Guzman Other [employer] Other 08-23-2022 14:45-0400 Body mass index (BMI) [Ratio] 47.95 kg/m2 Nicole Guzman Other [employer] Other 08-23-2022 14:45-0400 Body weight 117.03 kg Nicole Guzman Other [employer] Other 08-23-2022 14:45-0400 Diastolic blood pressure 82 mm[Hg] Nicole Guzman Other [employer] Other 08-23-2022 14:45-0400 SaO2% (BldA) [Mass fraction] 90 % Nicole Guzman Other [employer] Other 08-23-2022 14:45-0400 Systolic blood pressure 114 mm[Hg] Nicole Guzman Other [employer] Other 06-18-2022 14:30-0500 Body height 156.21 cm Nicole Guzman Other [employer] Other 06-18-2022 14:30-0500 Body mass index (BMI) [Ratio] 47.77 kg/m2 Nicole Guzman Other [employer] Other 06-18-2022 14:30-0500 Body weight 116.58 kg Nicole Guzman Other [employer] Other 06-18-2022 14:30-0500 Diastolic blood pressure 70 mm[Hg] Nicole Guzman Other [employer] Other 06-18-2022 14:30-0500 SaO2% (BldA) [Mass fraction] 90 % Nicole Guzman Other [employer] Other 06-18-2022 14:30-0500 Systolic blood pressure 146 mm[Hg] Nicole Guzman Other [employer] Other 05-14-2022 14:14-0500 Body height 157.48 cm Nicole Guzman Work Phone: [facility] [address] DO Work Phone: 05-14-2022 14:14-0500 Body mass index (BMI) [Ratio] 47.74 kg/m2 Nicole Guzman Work Phone: [facility] [address] DO Work Phone: 05-14-2022 14:14-0500 Body surface area Derived from formula 2.14 m2 Nicole Guzman Work Phone: [facility] [address] DO Work Phone: 05-14-2022 14:14-0500 Body weight 118.39 kg Nicole Guzman Work Phone: [facility] [address] DO Work Phone: 05-14-2022 14:14-0500 Diastolic blood pressure 86 mm[Hg] Nicole Guzman Work Phone: [facility] [address] DO Work Phone: 05-14-2022 14:14-0500 Heart rate 62 /min Nicole Guzman Work Phone: [facility] [address] DO Work Phone: 05-14-2022 14:14-0500 Systolic blood pressure 122 mm[Hg] Nicole Guzman Work Phone: [facility] [address] DO Work Phone: 12-19-2021 13:42-0400 Body height 157.48 cm Nicole Guzman Work Phone: [facility] [address] DO Work Phone: 12-19-2021 13:42-0400 Body mass index (BMI) [Ratio] 45.73 kg/m2 Nicole Guzman Work Phone: [facility] [address] DO Work Phone: 12-19-2021 13:42-0400 Body surface area Derived from formula 2.1 m2 Nicole Guzman Work Phone: [facility] [address] DO Work Phone: 12-19-2021 13:42-0400 Body weight 113.4 kg Nicole Guzman Work Phone: [facility] [address] DO Work Phone: 12-19-2021 13:42-0400 Diastolic blood pressure 76 mm[Hg] Nicole Guzman Work Phone: [facility] [address] DO Work Phone: 12-19-2021 13:42-0400 Heart rate 61 /min Nicole Guzman Work Phone: [facility] [address] DO Work Phone: 12-19-2021 13:42-0400 Systolic blood pressure 130 mm[Hg] Nicole Guzman Work Phone: [facility] [address] DO Work Phone: 08-31-2021 16:00-0400 Body height 165.1 cm Renzo Hein Other [employer] [facility] [employer] Other 08-31-2021 16:00-0400 Body mass index (BMI) [Ratio] 41.66 kg/m2 Renzo Hein Other [employer] Other 08-31-2021 16:00-0400 Body weight 113.58 kg Renzo Hein Other [employer] Other 08-31-2021 16:00-0400 Diastolic blood pressure 88 mm[Hg] Renzo Hein Other [employer] Other 08-31-2021 16:00-0400 SaO2% (BldA) [Mass fraction] 88 % Renzo Hein Other [employer] Other 08-31-2021 16:00-0400 Systolic blood pressure 140 mm[Hg] Renzo Hein Other [employer] Other 08-14-2021 14:15-0400 Body height 165.1 cm Renzo Hein Other [employer] Other 08-14-2021 14:15-0400 Body mass index (BMI) [Ratio] 41.56 kg/m2 Renzo Hein Other [employer] Other 08-14-2021 14:15-0400 Body weight 113.31 kg Renzo Hein Other [employer] Other 08-14-2021 14:15-0400 Diastolic blood pressure 80 mm[Hg] Renzo Hein Other [employer] Other 08-14-2021 14:15-0400 SaO2% (BldA) [Mass fraction] 97 % Renzo Hein Other [employer] Other 08-14-2021 14:15-0400 Systolic blood pressure 130 mm[Hg] Renzo Hein Other [employer] Other 07-26-2021 14:15-0500 Body height 165.1 cm Renzo Hein Other [employer] Other 07-26-2021 14:15-0500 Body mass index (BMI) [Ratio] 41.93 kg/m2 Renzo Hein Other [employer] Other 07-26-2021 14:15-0500 Body weight 114.31 kg Renzo Hein Other [employer] Other 07-26-2021 14:15-0500 SaO2% (BldA) [Mass fraction] 91 % Renzo Hein Other [employer] Other 06-22-2021 16:00-0500 Body height 165.1 cm Renzo Hein Other [employer] Other 06-22-2021 16:00-0500 Body mass index (BMI) [Ratio] 42.26 kg/m2 Renzo Hein Other [employer] Other 06-22-2021 16:00-0500 Body weight 115.21 kg Renzo Hein Other [employer] Other 06-22-2021 16:00-0500 Diastolic blood pressure 90 mm[Hg] Renzo Hein Other [employer] Other 06-22-2021 16:00-0500 SaO2% (BldA) [Mass fraction] 93 % Renzo Hein Other [employer] Other 06-22-2021 16:00-0500 Systolic blood pressure 140 mm[Hg] Renzo Hein Other [employer] Other 06-21-2021 13:24-0500 Diastolic blood pressure 76 mm[Hg] Nicole Guzman Work Phone: [facility] 250 DO Work Phone: 06-21-2021 13:24-0500 Systolic blood pressure 139 mm[Hg] Nicole Guzman Work Phone: [facility] [address] DO Work Phone: 06-21-2021 13:11-0500 Body height 157.48 cm Nicole Guzman Work Phone: [facility] 250 DO Work Phone: 06-21-2021 13:11-0500 Body mass index (BMI) [Ratio] 46.46 kg/m2 Nicole Guzman Work Phone: [facility] [address] DO Work Phone: 06-21-2021 13:11-0500 Body surface area Derived from formula 2.12 m2 Nicole Guzman Work Phone: [facility] [address] DO Work Phone: 06-21-2021 13:11-0500 Body weight 115.21 kg Nicole Guzman Work Phone: [facility] 250 DO Work Phone: 06-21-2021 13:11-0500 Diastolic blood pressure 90 mm[Hg] Nicole Guzman Work Phone: [facility] [address] DO Work Phone: 06-21-2021 13:11-0500 Heart rate 55 /min Nicole Guzman Work Phone: [facility] 250 DO Work Phone: 06-21-2021 13:11-0500 Systolic blood pressure 142 mm[Hg] Nicole Guzman Work Phone: [facility] [address] DO Work Phone: Encounters Encounter Date Encounter Type Care Provider Facility Start: 12-17-2023 End: 12-17-2023 ambulatory MD Jared Rodgres [facility] Work Phone: Start: 12-17-2023 End: 12-17-2023 Patient encounter procedure MD Jared Rodgers [facility] Work Phone: Start: 10-08-2023 End: 10-08-2023 ambulatory [facility] Start: 10-08-2023 End: 10-08-2023 Office outpatient visit 25 minutes Edi Cosby MD Work Phone: [facility] Comment on above: CAD, multiple vessel (Primary Dx); Mixed hyperlipidemia; Essential hypertension; Paroxysmal atrial fibrillation (Multi); Anticoagulated; Chronic obstructive pulmonary disease, unspecified COPD type (Multi); BMI 45.0-49.9, adult (Multi); Former smoker Start: 09-16-2023 Patient encounter procedure MD Jared Rodgers [facility] Start: 09-16-2023 End: 09-16-2023 ambulatory MD Jared Rodgers [facility] Work Phone: Start: 09-16-2023 End: 09-16-2023 Patient encounter procedure MD Jared Rodgers [facility] Work Phone: Start: 08-05-2023 Non-patient / Non-visit MD Jared Rodgers [facility] [employer] Work Phone: Start: 04-24-2023 End: 04-24-2023 ambulatory Nicole Guzman [facility] [employer] Other Start: 04-24-2023 Telephone encounter Nicole Guzman [facility] Start: 03-25-2023 End: 03-25-2023 ambulatory Nicole Guzman Facility:[facility] Start: 03-25-2023 End: 03-25-2023 ambulatory MD Nicole Guzman Work Phone: [facility] Work Phone: Start: 03-25-2023 End: 03-25-2023 Patient encounter procedure MD Nicole Guzman Work Phone: [facility] Work Phone: Start: 02-27-2023 End: 02-27-2023 ambulatory Nicole Guzman [facility] [employer] Other Start: 02-27-2023 Telephone encounter Nicole Guzman [facility] Start: 02-13-2023 Rx Renewal Nicole Guzman Work Phone: [facility] 250 DO Work Phone: Start: 02-11-2023 End: 02-11-2023 ambulatory Nicole Guzman [facility] [employer] Other Start: 02-11-2023 Telephone encounter Nicole Guzman [facility] Start: 01-03-[address] Nicole Guzman Facility: Start: 01-03-2023 FUV, Provider: Edi Cosby, Status: Pen, Time: 2:10 PM Nicole Guzman Work Phone: [facility] [address] DO Work Phone: Start: 01-03-2023 Office outpatient vi sit 25 minutes Nicole Guzman Work Phone: [facility] [address] DO Work Phone: Start: 01-01-2023 Chart Update Nicole Guzman Work Phone: [facility] [address] DO Work Phone: Start: 01-01-2023 End: 01-01-2023 ambulatory Edi Cosby Facility:[facility] Start: 01-01-2023 End: 01-01-2023 ambulatory MD Nicole Guzman Work Phone: [facility] Work Phone: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 cough, no? orthopnea, no? wheezing. Cardiovascular: no? chest pain, no? palpitations, no? edema. Gastrointestinal: no? nausea, no? vomiting, no? diarrhea, n (more content not included)...[facility]:Result Comment: Electronically Signed By: Lori Francois PA-C\.br\Date and Time Signed: 09/27/21 13:31 EDT\.br\Electronically Co-Signed By: Param HO, Vesta Lyons\.br\Date and Time Co-Signed: 10/01/21 22:11 [id number] Evaluation note* Encounter Date Diagnosis Assessment Notes Treatment Notes Treatment Clinical Notes Aug, Lumbar radiculopathy (ICD-10 - M54.16) 70 year old female here for follow up status post left L4 and S1 transforaminal epidural steroid injection under fluoroscopic guidance. Patient reports 100% pain relief and improved walking, standing and daily functions following procedure. She voices complaints of tingling to the left lower extremity from the knee to the foot. Different treatment options were discussed in detail with the patient, overall, she appears to be doing very well and does not require further treatment at this time. I recommend she increase her activities as tolerated. She is counseled against any excessive bending or twisting. She is advised to call the office if her pain returns. In the meantime. I will refer her to physical therapy for core muscle strengthening Aug, Lumbosacral spondylosis (ICD-10 - M47.817) In the future if the pain persists, we can consider proceeding with a lumbar facet MBB followed by a RFA if applicable under fluoroscopic guidance. Aug, Chronic pain (ICD-10 - G89.29) Proceed with physical therapy at this time. [facility] Other 03-14-2022 Evaluation note* Encounter Date Diagnosis Assessment Notes Treatment Notes Treatment Clinical Notes Aug, Sacroiliitis (ICD-10 - M46.1) In the future if the pain persists, we can consider proceeding with a bilateral sacroiliac joint injection under fluoroscopic guidance Aug, Failed back syndrome (ICD-10 - M96.1) 70 year old female here for follow up status post caudal epidural steroid injection under fluoroscopic guidance. Patient reports 90% pain relief and improved walking, standing and daily functions for 2 days following the procedure. She voices complaints of low back pain with radiation down the left lower extremity to the foot. She feels her pain is aggravated with increased activity. Anatomy of spine, as well as recent imaging of the lumbar spine which shows degenerative changes as well as facet arthropathy discussed in detail with patient in regard to patients condition. Patient is a candidate for a caudal epidural steroid injection under fluoroscopic guidance. Risks and benefits of procedure explained to patient; patient verbalizes understanding. Aug, Lumbosacral spondylosis (ICD-10 - M47.817) In the future if the pain persists, we can consider proceeding with a bilateral lumbar facet medial branch nerve block followed by a RFA if applicable under fluoroscopic guidance. Aug, Chronic pain (ICD-10 - G89.29) Continue medications as prescribed [facility] Other 02-23-2022 Evaluation note* Encounter Date Diagnosis Assessment Notes Treatment Notes Treatment Clinical Notes Jul, Sacroiliitis (ICD-10 - M46.1) In the future if the pain persists, we can consider proceeding with a bilateral sacroiliac joint injection under fluoroscopic guidance Jul, Failed back syndrome (ICD-10 - M96.1) 70 year old female here for follow up for chronic pain. She voices complaints of low back pain with radiation down the posterior aspect of the left thigh to just below the knee. She feels pain in the leg significantly increases with standing/walking and can negatively impact her ADLs and sleeping pattern. Anatomy of spine, as well as recent imaging of the lumbar spine which shows degenerative changes as well as facet arthropathy discussed in detail with patient in regard to patients condition. Patient is a candidate for a caudal epidural steroid injection under fluoroscopic guidance. Risks and benefits of procedure explained to patient; patient verbalizes understanding. Jul, Lumbosacral spondylosis (ICD-10 - M47.817) In the future if the pain persists, we can consider proceeding with a bilateral lumbar facet medial branch nerve block followed by a RFA if applicable under fluoroscopic guidance. Jul, Chronic pain (ICD-10 - G89.29) Continue medications as prescribed [facility] Other 01-20-2022 Evaluation note* Encounter Date Diagnosis Assessment Notes Treatment Notes Treatment Clinical Notes Jun, Lumbar radiculopathy (ICD-10 - M54.16) 70 year old female here with complaints of low back pain with radiation down the left lower extremity to the foot. She also notes numbness/tingling to the left lower extremity starting below the knee to the foot. She states her pain started many years ago without any known inciting trauma, but has significantly increased in the last 2 months. She notes she is unable to take anti-inflammatory medications due to anti coagulant therapy. She has attempted an exercise program but could not continue due to significantly increased pain. She reports a prior surgery with Dr. Rodgers in 2004. She has been recently seeing pain management in [place] where she is receiving injections. Prior to examining the patient, I reviewed progress notes from patient referring provider Dr Nicole Guzman. I also independently reviewed previous imaging which shows moderate degenerative disc disease L4-L5. History, physical examination and available images are consistent with Lumbar Radiculopathy, Lumbar DDD, Failed back syndrome and Sacroiliitis. Anatomy of spine discussed in detail with patient in regard to patients condition. I will order updated imaging to further evaluate her pain. In the meantime, I will prescribe [place] 5325mg up to twice daily as needed. Jun, Failed back syndrome (ICD-10 - M96.1) Proceed with current treatment plan Jun, Lumbar degenerative disc disease (ICD-10 - M51.36) Continue with current treatment plan Jun, Sacroiliitis (ICD-10 - M46.1) In the future if the pain persists, we can consider proceeding with a bilateral sacroiliac joint injection under fluoroscopic guidance. Jun, Chronic pain (ICD-10 - G89.29) [facility], will await confirmatory results. Patient has continued need for [place]. OARRS report processed and reviewed and shows no violations. 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 Patient is compliant with opioid medication. The patient denies any opioid related side effects. Jun, Other Medical deci mino making shows a new problem to me with further workup planned or suggested with the potential for extensive treatment options that were considered with the most applicable given this patient's situation as noted above. Treatment options considered include a combination of physical therapy approaches, pharmacologic management, and interventional procedures. Those most applicable to the patient were discussed at this time. Risk of complications and/or morbidity and mortality is high given that acute and chronic pain poses a threat to life and bodily function if undertreated, poorly treated or with failure to maintain adequate treatment and timely followup. Given the serious and fluctuating nature of pain with extensive consideration for whenever pain changes, there always remains the possibility of prolonged functional impairment requiring constant patient reassessment and high-level medical decision making. The amount and complexity of data reviewed is high given that patient labs, radiology reports, and other test were obtained, reviewed and summarized as applicable from the physician portal and/or outside medical records. Pertinent positive and negative findings were considered in medical decision-making. [place] [employer] Other Evaluation noteNo assessment information available [facility] Work Phone: Evaluation noteNo InformationNortThomas [facility] Other Evaluation note* Diagnosis Onset Date Resolution Status Medicare annual wellness visit, subsequent acute Type II diabetes mellitus ac [facility] Work Phone: Evaluation note* Diagnosis CAD, multiple vessel- Primary Mixed hyperlipidemia Essential hypertension Unspecified essential hypertension Paroxysmal atrial fibrillation (Multi) Atrial fibrillation Anticoagulated Encounter for long-term (current) use of anticoagulants Chronic obstructive pulmonary disease, unspecified COPD type (Multi) BMI 45.0-49.9, adult (Multi) Former smoker Personal history of tobacco use, presenting hazards to health documented in this encounter [facility] Work Phone: History general Narrative - Reported* Type Description Date Medical History COPD Medical History Diabietes Medical History high cholestrol Medical History hypertension Medical History left ankle fracture Medical History GA Medical History DEPRESSION Medical History HYPERLIPIDEMIA Medical History MORBID OBESITY Medical History hypothyroidism Medical History GERD Medical History DIVERTICULOSIS Medical History OSTEOARTHRITIS KNEE Surgical History heart stents Surgical History right ankle Surgical History lumbar surgery Surgical History right ovary removed Surgical History left tubal removal Hospitalization History see above Hospitalization History GA Hospitalization History hypertension Hospitalization History dehydration [facility] Other History general Narrative - Reported* Type Description Date Medical History COPD (chronic obstructive pulmon hardy disease) Medical History Hypercholesteremia Medical History Hypertension Medical History Fracture of left ankle Medical History Acute myocardial infarction, uns pecified Medical History Depression Medical History Hyperlipidemia Medical History Morbid obesity Medical History Hypothyroidism Medical History GERD (gastroesophageal reflux di sease) Medical History Diverticulosis Medical History Osteoarthritis of both knees Surgical History heart stents Surgical History right ankle Surgical History lumbar surgery Surgical History right ovary removed Surgical History left tubal removal Hospitalization History see above Hospitalization History GA Hospitalization History hypertension Hospitalization History dehydration [facility] Other History of Present illness Narrative* Patient is here for follow-up continue management for history of coronary artery disease with priorPCI to the circumflex and known disease of the LAD treated conservatively, paroxysmal atrial fibrillation, morbid obesity, hypertension and hyperlipidemia. Since last time I saw her she reports has been feeling reasonably well. She denies complaint of chest pain, palpitation, lightheadedness, dizziness or syncope. She described functional class II. * Assessment * 1. Coronary artery disease with prior PCI to the left circumflex following presentation with ST segment elevation myocardial infarction with known diffuse disease of the LAD and left circumflex treated medically. She denies any chest pain * 2. Paroxysmal atrial fibrillation currently in normal sinus rhythm on Coumadin. He had been on Coumadin but request to switch to Eliquis * 3. Morbid obesity with no weight changes * 4. Hyperlipidemia is well controlled, we will continue with current medication. * 5. Hypertension controlled but at home running a little bit on the higher range * 6. Long-term anticoagulation tolerating that without any side effect * 7. Sleep apnea * 8. COPD * 9. Diabetes mellitus she report reasonable control * Plan * 1. Patient was counseled regarding losing weight and exercise and risk factor modification * 2. Patient will be switched from Coumadin to Eliquis. Risk, benefit and alternatives reviewed with patient * 3. I recommended her to continue present medical therapy except increasing losartan to 100 mg dailyto optimize blood pressure control * 3., Advised to repeat her lab work as ordered * 4. We will see her back in 6-month [facility] 250 DO Work Phone: History of Present illness Narrative* Patient is here for follow-up continue management for history of coronary artery disease prior PCI to the left circumflex with known moderate disease of the LAD, paroxysmal atrial fibrillation on Eliquis obesity and hyperlipidemia. She recently called complaining of mild edema and her Lasix was increased with improvement of her edema. She did have her labs done at [facility]. She denies com plaint of chest pain, palpitation, lightheadedness, dizziness or syncope * Assessment * 1. Coronary artery disease with prior PCI to the left circumflex following presentation with ST segment elevation myocardial infarction with known diffuse disease of the LAD and left circumflex treated medically. She denies any chest pain * 2. Paroxysmal atrial fibrillation currently in normal sinus rhythm on Eliquis * 3. Morbid obesity with no weight changes * 4. Hyperlipidemia is well controlled, we will continue with current medication. * 5. Hypertension controlled but at home running a little bit on the higher range * 6. Long-term anticoagulation tolerating that without any side effect * 7. Sleep apnea * 8. COPD * 9. Diabetes mellitus she report reasonable control * 10. Recent complaint of edema improved with increasing her diuretics * Plan * 1. Patient was counseled regarding losing weight and exercise and risk factor modification * 2. Try to retrieve her recent lab work * 3. I recommended her to continue present medical therapy * 3.,, Benefits alternative anticoagulation reviewed with patient at length understood and agreed * 4. We will see her back in 6-month [facility] 250 DO Work Phone: History of Present illness Narrative* Patient is here for follow-up to management for coronary artery disease with prior PCI to the circumflex, paroxysmal atrial fibrillation, obesity, hypertension and hyperlipidemia. Since last time I saw her other than shortness of breath she denies any complaint of lightheadedness, dizziness or syncope. She remains reasonably active. She has maintained her weight. Recent laboratory data noted and reviewed with her. * Assessment * 1. Coronary artery disease with prior PCI to the left circumflex following presentation with ST segment elevation myocardial infarction with known diffuse disease of the LAD and left circumflex treated medically. She denies any chest pain * 2. Paroxysmal atrial fibrillation currently in normal sinus rhythm on Eliquis * 3. Morbid obesity with no weight changes * 4. Hyperlipidemia is well controlled, we will continue with current medication. * 5. Hypertension controlled but at home running a little bit on the higher range * 6. Long-term anticoagulation tolerating that without any side effect * 7. Sleep apnea * 8. COPD with shortness of breath continue to follow with pulmonary * 9. Diabetes mellitus she report reasonable control * 10. Recent complaint of edema improved with increasing her diuretics * Plan * 1. Patient was counseled regarding losing weight and exercise and risk factor modification * 2. I advised her to continue current medical regimen and to repeat her lab work prior to next office visit * 3. will see Her back in 6 months we will plan to repeat her EKG * 3.,, Benefits alternative anticoagulation reviewed with patient at length understood and agreed * 4. We will see her back in 6-month [facility] 250 DO Work Phone: History of Present illness Narrative* Patient is here for follow-up to management for history of coronary artery disease prior PCI to thecircumflex, paroxysmal atrial fibrillation, morbid obesity, hyperlipidemia and hypertension. Since last time I saw her she reports she is feeling reasonably well. She denies lightheadedness, dizziness or syncope. She has been on diet and exercise and has lost more than 20 pounds. Recent laboratory data noted and reviewed with her. * Assessment * 1. Coronary artery disease with prior PCI to the left circumflex following presentation with ST segment elevation myocardial infarction with known diffuse disease of the LAD and left circumflex treated medically. She denies any chest pain * 2. Paroxysmal atrial fibrillation currently in normal sinus rhythm on Eliquis * 3. Morbid obesity with 20 pound weight loss * 4. Hyperlipidemia is well controlled, we will continue with current medication. * 5. Hypertension controlled * 6. Long-term anticoagulation tolerating that without any side effect * 7. Sleep apnea * 8. COPD with shortness of breath continue to follow with pulmonary * 9. Diabetes mellitus she report reasonable control * 10. Previous complaint of edema resolved * Plan * 1. Patient was counseled regarding losing weight and exercise and risk factor modification * 2. I reviewed her recent lab work with her * 3. I will see Her back in 9 months * 3.,, Benefits alternative anticoagulation reviewed with patient at length understood and agreed * 4. I congratulated her on her weight loss -[facility] 250 DO Work Phone: Reason for referral (narrative)* Consultation (Routine) - Authorized Specialty Diagnoses / Procedures Referred By Contac t Referred To Contact Cardiology Diagnoses CAD, multiple vessel Procedures Follow Up In Cardiology Edi Cosby MD [address] [facility] [address], [address] [address] Edi Cosby MD [address] [facility] [address], [address] [address] Referral ID Status Reason Start Date Expiration Date V isits Requested Visits Authorized [id number] Authorized 10/08/2023 10/07/2024 1 1 [facility] Work Phone: Summary Purpose Family History Unknown Family Member Name Dates Details No pertinent family history: Mother(V49.89, Z78.9) Status:Active Unknown Family Member Name Dates Details No pertinent family history: Mother(V49.89, Z78.9) Status:Active Unknown Family Member Name Dates Details No pertinent family history: Mother(V49.89, Z78.9) Status:Active Unknown Family Member Name Dates Details No pertinent family history: Mother(V49.89, Z78.9) Status:Active Unknown Family Member Name Dates Details No pertinent family history: Mother(V49.89, Z78.9) Status:Active Unknown Family Member Name Dates Details No pertinent family history: Mother(V49.89, Z78.9) Status:Active Unknown Family Member Name Dates Details No pertinent family history: Mother(V49.89, Z78.9) Status:Active Relationship Condition Age at Onset Recorded Date/T eddie brother Chronic obstructive pulmonary disease Unk nown Diabetes mellitus Unknown Hypertension Unknown father Unknown Not Specified Unknown Malignant neoplasm Unknown Relationship Condition Age at Onset Recorded Date/T eddie brother Chronic obstructive pulmonary disease Unk nown Diabetes mellitus Unknown Hypertension Unknown father Unknown mother Unknown Malignant neoplasm Unknown Advance Directives Advance Directive Response Recorded Date/ Time Advance Directives No September 25, 019 9:21am Hospital Course Note MR#: [id number] I [facility] Pt. Name: Siav Nicolas Admitted: 01/09/2019 Discharged: 01/12/2019 Date of : 1950 Physician: Chana Obrien MD DISCHARGE SUMMARY PRIMARY DIAGNOSES: 1. Atrial fibrillation with rapid ventricular rate. 2. Recent STEMI with stent placement. 3. Diabetes mellitus type 2. 4. Asthma/chronic obstructive pulmonary disease. 5. Essential hypertension. 6. Hyperlipidemia. 7. Heart failure with reduced ejection fraction. HOSPITAL COURSE: The patient is a 68-year-old female who was recently hospitalized at outside hospital for a STEMI and had cath and stents done. The patient was at Cardiology followup with Dr. Garza for followup and was found to be in atrial fibrillation. She had difficulty breathing, so the patient was sent in for cardioversion, which was done on 01/09/2019. The patient was then started on Eliquis and heparin drip was stopped. The patient's metoprolol was increased to 25 twice a day and the patient's hydrochl (more content not included)... Chief Complaint SIVA NICOLAS is being seen for a 9 month follow-up of.SIVA NICOLAS is being seen for a 6 +EKG month follow-up of.SIVA NICOLAS is being seen for a 6 month follow-up of.SIVA NICOLAS is being seen for a 6 month follow-up of. 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) Referral Organization [facility] Referring Provider First Name Nicoel Referring Provider Last Name Thomas Referring Provider Specialty Family [facility] Referred Organization [facility] Referred Provider Margot Valles Referred Address [address] [facility] [place],[address] Referred Provider Specialty Orthopedic S urgery Referral Priority Routine Referral Appointment Date 2022-11-21 General Notes Mimi Gama 11:11:50 AM >received today, sent P2P Mimi Gama 06/21/2022 08:52:39 AM >pt scheduled Chief Complaint and Reason for Visit Chief Complaint ^ I25.10 E78.5 I48.0 I10 Chief Complaint ^ I25.10 E78.5 I48.0 I10 Z12.31 Chief Complaint ^ Amb Documentation Wellness Reason for Visit Medicare annual well ness visit, subsequent Type II diabetes mellitus Chief Complaint ^ 3 month follow up Additional Source Comments INFORMATION SOURCE (unrecogn ized section and content) DATE CREATED AUTHOR 02/20/2019 [facility] DATE CREATED AUTHOR AUTHOR'S ORGANIZ ATION 10/09/2021 [facility] DATE CREATED AUTHOR AUTHOR'S ORGANIZ ATION 09/05/2022 [facility] DATE CREATED AUTHOR AUTHOR'S ORGANIZ ATION 01/04/2023 [facility] DATE CREATED AUTHOR AUTHOR'S ORGANIZ ATION 01/04/2023 [employer] DATE CREATED AUTHOR AUTHOR'S ORGANIZ ATION 04/06/2023 [facility] DATE CREATED AUTHOR AUTHOR'S ORGANIZ ATION 10/10/2023 [facility] REASON FOR VISIT (unrecogniz ed section and content) Reason Comments Follow-up 9 months Care Teams (unrecognized sec tion and content) Team Status: Active Member Role Status Dates Nicole Guzman MD Primary Care Provider Active Team Status: Active Member Role Status Dates Jared Rodgers MD Attending Provider Active Team Status: Inactive Member Role Status Dates Nicole Guzman MD Primary Care Provider Active Edi Cosby MD Attending Provider Active Team Status: Inactive Member Role Status Dates Nicole Guzman MD Primary Care Provider, Attending Edwardo perez Active Team Status: Active Member Role Status Dates Jared Rodgers MD Attending Provider Active Start: 2003 Team Status: Active Member Role Status Dates Nicole Guzman MD Primary Care Provider Active Start: August 05, 2023 TRISTON Ross Attending Provider Active Start : August 05, 2023 Team Status: Inactive Member Role Status Dates Nicole Guzman MD Primary Care Provide r, Attending Provider Active Start: September 16, 2023 End: September 16, 2023 [employer] 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 This clinical summary was aggregated from multiple sources. Caution should be exercised in using it in the provision of clinical care. This summary normalizes information from multiple sources, and as a consequence, information in this document may materially change the coding, format and clinical context of patient data. In addition, data may be omitted in some cases. CLINICAL DECISIONS SHOULD BE BASED ON THE PRIMARY CLINICAL RECORDS. [facility]. provides no warranty or guarantee of the accuracy or completeness of information in this document.
== END 2024-02-13 10:16 | disposition home or self-care (01) ==
LOC: CT 10:15
PROVIDERS: PCP Family Medicine; Visit Provider Internal Medicine
DX: J43.9 Emphysema, unspecified (principal); Z12.2 Encounter for screening for malignant neoplasm of respiratory organs; Z87.891 Personal history of nicotine dependence
CPT/HCPCS: 71271

== ENCOUNTER 2024-08-13 10:19 | Outpatient (OUT) | payer MEDICARE, SELFPAY ==
--- OUTSIDE RECORDS SUMMARY | 2024-08-13 10:29 | XMS_ITS | CCD ---
Author Organization [facility] CliniSyme Care Team Providers Care Annual Giving Director Name Role Phone Manju Blackwell Admitting Unavailable CHANA OBRIEN Attending Unavailable NICOLE GUZMAN Unavailable NICOLE GUZMAN Primary Care Unavailable HARITHA HI Surgeon Unavailable CO Procedure Practitioner Unavailab Nicole Sprague Unavailable Unavailable Unavailable Unavailable Unavailable Renzo Hein Unavailable Nicole Guzman Unavailable DR SVETLANA CHAPMAN Consulting Unavailable THOMAS, DR NICOLE Thakkar Attending Unavailable THOMAS, DR NICOLE Thakkar Admitting Unavailable THOMAS, DR NICOLE Thakkar Primary Care Unavailable THOMAS, DR NICOLE Thakkar Consulting Unavailable THOMAS, DR NICOLE Thakkar Primary Care Unavailable RUIZ ., KRISTOPHER Admitting Unavailable RUIZ .KRISTOPHER Attending Unavailable THOMAS, DR NICOLE Thakkar Primary Care Unavailable RENZO HEIN Admitting Unavailable RENZO HEIN Attending Unavailable THOMAS, DR NICOLE Thakkar Primary Care Unavailable THOMAS, DR NICOLE Thakkar Attending Unavailable THOMAS, DR NICOLE Thakkar Admitting Unavailable SAMSA ., KRISTOPHER Admitting Unavailable SAMSA .KRISTOPHER Consulting Unavailable RUIZ .KRISTOPHER Attending Unavailable THOMAS, DR NICOLE Thakkar Primary Care Unavailable THOMAS, DR NICOLE Thakkar Primary Care Unavailable THOMAS, DR NICOLE Thakkar Consulting Unavailable THOMAS, DR NICOLE Thakkar Attending Unavailable THOMAS, DR NICOLE Thakkar Admitting Unavailable Damian Suh Consulting Unavailable THOMAS, DR NICOLE Thakkar Primary Care Unavailable THOMAS, DR NICOLE Thakkar Attending Unavailable THOMAS, DR NICOLE Thakkar Admitting Unavailable THOMAS, DR NICOLE Thakkar Consulting Unavailable ARI, DR SVETLANA Alfaro Consulting Unavailable THOMAS, DR NICOLE Thakkar Primary Care Unavailable THOMAS, DR NICOLE Thakkar Attending Unavailable THOMAS, DR NICOLE Thakkar Admitting Unavailable THOMAS, DR NICOLE Thakkar Consulting Unavailable TRABDR EDI BRISENO Attending Unavailab le TRABOULFRANKI, DR DALEY Admitting Unavailab le TRABOULPRIETOI, DR DALEY Consulting Unavailab le THOMAS, DR NICOLE Thakkar Primary Care Unavailable SAMSA ., KRISTOPHER Admitting Unavailable SAMSA ., KRISTOPHER Attending Unavailable ZIEBER, DR SVETLANA Alfaro Consulting Unavailable THOMAS, DR NICOLE Thakkar Primary Care Unavailable SAMSA ., KRISTOPHER Consulting Unavailable Traboulfranki, Dr. Daley Referring Unavaila ble Alea, Dr. Daley Attending Unavaila ble Thomas, Dr. Nicole Charles Primary Care Unav ailable Guzman, Dr. Nicole Charles Primary Care Unav ailable Alea, Dr. Daley Referring Unavaila ble Trabizzy, Dr. Daley Attending Unavaila MD Jared Carlos Attending Provider Unavailable MD Nicole Guzman Primary Care Provider MD Edi Cosby Attending Provider MD Nicole Guzman Attending Provider Nicole Guzman Admitting Unavailable Nicole Guzman Attending Unavailable Nicole Guzman Primary Care Unavailable Edi Cosby Admitting Unavailable Edi Cosby Attending Unavailable Nicole Guzman Primary Care Unavailable Nicole Guzman MD Primary Care Provider Nicole Guzman MD Primary Care Provider EDI COSBY Attending Unavailable NICOLE GUZMAN Primary Care Unavailable EDI COSBY Attending Unavailable EDI COSBY Referring Unavailable NICOLE GUZMAN Primary Care Unavailable Allergies Allergy Classification Reported Allergen(s) Allergy Type Date of Onset Reaction(s) Facility (6 sources) Ibuprofen; 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: [IBUPROFEN] Drug Allergy 3 Rash [facility] Repository (3 sources) Naproxen Drug Allergy 5 [facility] Repository (20 sources) Ibuprofen; 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: [Advil] Drug Allergy 9 [place] [address] DO Work Phone: (20 sources) Naproxen; 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: [Aleve] Drug Allergy Unknown, Rash, Other [facility] [address] DO Work Phone: (1 source) Ibuprofen Drug Allergy 5 [facility] Repository (5 sources) Naproxen; 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: [naproxen] Drug Allergy 9 [facility] (4 sources) Alendronate Drug Allergy 9 [facility] Comment:Freete xt Needs Updated. [employer] Other (4 sources) Allergies Reconciled Propensity to adverse reactions Unknown [employer] Other (4 sources) patient allergy list reviewed by nurse or physicia Propensity to adverse reactions 9 Comment:Done [employer] Other (1 source) Ibuprofen Drug Allergy 9 [facility] Repository (3 sources) Naproxen; 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: [NAPROXEN SODIUM] Drug Allergy 4 [facility] Work Phone: Medications Current Medications Medication [...] Ordered: 07-Jun-2021 DO Start : 07-Jun-2021 Complete [id number] actuat albuterol 0.09 mg/actuat metered dose [...] TIMES DAILYAS DIRECTED Start: 06-21-2021 End: 08-05-2023 apixaban (Eliquis) 5 mg tabl et Take by mouth 2 times a day. 06/21/2021 Active Aspir-81 (14 sources) Aspir-81 Active aspirin 81 mg delayed release oral tablet (13 sources) Platelet Aggregation Inhibitor, Nonsteroidal Anti-inflammatory Drug [...] mcg inhaled cholecalciferol 0.05 mg oral capsule (3 sources) Vitamin D take 1 capsule by mouth in the morning cholecalciferol (Vitamin D3) 50 mcg (2,000 unit) capsule Take 1 capsule (50 mcg) by mouth early in the morning.. Active End: 10-08-2023 take 1 capsule by mouth once daily cholecalciferol (Vitamin D-3) 50,000 unit capsule Take 1 capsule (50,000 Units) by mouth once daily. 10/08/2023 Discontinued (Therapy completed) lrdupnkrgqc-nvgevxexy-prssbv er (Trelegy Ellipta) 200-62.5-25 mcg blister with device (2 sources) fluticasone-umec lidin-vilanter (Trelegy Ellipta) 200-62.5-25 mcg blister with device Inhale if needed. As directed Active furosemide 40 mg oral tablet (12 sources) Loop Diuretic St ar t: take 1 tablet by mouth once daily furosemide (Lasix) 40 mg tablet Take 1 tablet (40 mg) by mouth once daily. 11/14/2021 Active Start: 10-12-2021 take 1 tablet by danisha once daily Furosemide 20 MG Oral Tablet TAKE 1 TABLET BY MOUTH DAILY Quantity: 7 Refills: 0 Ordered: 12-Oct-2021 DO Start : 12-Oct-2021 Complete hydroCHLOROthiazide 25 mg oral tablet (4 sources) Thiazide Diuretic Start: 01-06-2019 take 25 mg by mouth once daily Hydrochlorothiazide Active 25 MG PO Daily January 06, 2019 12:00am levothyroxine sodium 0.1 mg oral tablet (20 sources) l-Thyroxine Start: 12-05-2021 End: 11-18-2023 take 1 tablet by mouth once daily Levothyroxine (Synthroid) 100 mcg tablet Active 100 MCG PO Daily November 18, 2023 8:29am Start: 12-05-2021 Synthroid 100 MCG Oral Tablet [...] PO Daily December 17, 2023 2:03pm Start: 06-21-2021 End: 12-17-2023 take 100 mg by mouth once daily Losartan Discontinued 100 MG PO Daily December 10, 2023 8:44am December 17, 2023 2:03pm Start: 01-08-2019 End: 11-15-2023 take 100 mg by mouth once daily Losartan Discontinued 100 MG PO Daily January 08, 2019 12:00am November 15, 2023 4:16pm Losartan Potassi um 50 MG TAKE 1 TABLET DAILY for 90 Active 24 hr metoprolol succinate 25 mg extended release oral tablet (20 sources) beta-Adrenergic Elisabet Start: 08-10-2024 End: 08-10-2025 take 0.5 tablet by mouth once daily metoprolol succinate XL (Toprol-XL) 25 mg 24 hr tablet Indications: CAD, multiple vessel , Paroxysmal atrial fibrillation (Multi) , Essential hypertension Take 0.5 tablets (12.5 mg) by mouth once daily. 45 tablet 3 08/10/2024 08/10/2025 Active Start: 09-16-2023 End: 08-10-2024 take 25 mg by mouth once daily Metoprolol Succinate Ac tive 25 MG PO Daily September 16, 2023 12:00am Start: 01-08-2019 End: 09-16-2023 take 12.5 mg by mouth twice daily Metoprolol Tartrate Discontinued 12.5 MG PO Twice daily January 08, 2019 12:00am September 16, 2023 2:57pm Start: 01-06-2019 End: 01-08-2019 take 50 mg by mouth twice daily Metoprolol Tartrate Discontinued 50 MG PO Twice daily January 06, 2019 12:00am January 08, 2019 10:00am multivitamin tablet (2 sources) take 1 tablet by mouth once daily [...] 5 Apr, Active oxygen (O2) gas therapy (2 sources) oxygen (O2) gas therapy Inhale 1 each continuously. 2-3 LPM Active Ozempic (0.25 or 0.5 MG/DOSE) 2 MG/1.5ML (3 sources) Ozempic (0.25 or 0.5 MG/DOSE) 2 MG/1.5ML 1mg Subcutaneous weekly for 90 days Active Ozempic 0.25 mg or 0.5 mg (2 mg/3 mL) pen injector (2 sources) Start: End: 5 Ozempic 0.25 mg or 0.5 mg (2 mg/3 mL) pen injector 1 (one) time per week. 09/16/2023 08/10/2024 Discontinued (Discontinued by another clinician) Start: 09-16-2023 Ozempic 0.25 m g or 0.5 mg (2 mg/3 mL) pen injector 1 (one) time per week. 09/16/2023 Active 0.25 mg, 0.5 mg dose 1.5 ml semaglutide 1.34 mg/ml pen injector (6 sources) Start: 08-23-2022 Ozempic (0.25 or 0.5 MG/DOSE) 2 MG/1.5ML 0.25mg Subcutaneous weekly for 28 days Aug, Active Ozempic (0.25 or 0.5 MG/DOSE) 2 MG/1.5ML 1mg Subcutaneous weekly for 90 days Active Semaglutide (2 sources) Start: 09-16-2023 Semaglutide (Ozempic) 0.25 mg or 0.5 mg (2 mg/3 mL) pen injector Active 0.25 MG SUBCUT every week 3 September 16, 2023 12:00am 0.25mg weekly spironolactone [...] A/vit C/vit E/zinc/coppe r (PRESERVISION AREDS ORAL) (2 sources) take [address] [facility] twice daily vit A/vit C/vit E/zinc/copper (PRESERVISION [...] CAPSULE Daily Quantity: 0 Refills: 0 Ordered: 19-Dec-2021 DO Active warfarin sodium 5 mg oral [...] 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: [Atrial fibrillation] Onset: 01-19-2019 10-08-2023 Chronic Cardiac dysrhythmias (4 sources) Bradycardia; 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: [Bradycardia, unspecified] Onset: 08-10-2024 08-10-2024 Episodic Chronic obstructive pulmonary disease and bronchiectasis (20 sources) Chronic obstructive lung disease; 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: [Chronic airway obstruction, not elsewhere classified] Onset: 03-30-2022 Chronic Congestive heart failure; nonhypertensive (4 sources) Chronic systolic heart failure; 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: [Chronic systolic (congestive) heart failure] Chronic Coronary atherosclerosis and other heart disease (20 sources) Multi vessel coronary artery disease; 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: [Coronary atherosclerosis of unspecified type of vessel, [place] or graft] Onset: 08-13-2018 10-08-2023 Chronic Diabetes [...] [Primary osteoporosis] Onset: 02-19-2022 Chronic Other aftercare (11 sources) Drug therapy finding; 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: [Long-term (current) use of anticoagulants] Onset: 07-12-2023 10-08-2023 Episodic Other aftercare (4 sources) Long-term current use of inhaled steroid; 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: [oil 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] Episodic Other aftercare (4 sources) Long-term current use of anticoagulant; 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: [snf (current) use of anticoagulants] Episodic Other circulatory disease (4 sources) Elevated [...] Chronic Other nutritional; endocrine; and metabolic disorders (19 sources) Body mass index 40+ - severely [...] 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: [Cystocele, midline] Chronic Residual codes; unclassified (13 sources) Sleep apnea; 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: [Unspecified sleep apnea] Onset: 08-13-2018 07-12-2023 Chronic Residual codes; unclassified (4 sources) Obstructive sleep apnea syndrome; 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: [Obstructive sleep apnea (adult) (pediatric)] Chronic Residual codes; unclassified (7 sources) Localized edema; 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: [Localized edema] Onset: 11-11-2021 Episodic Residual codes; unclassified (4 sources) Amnesia; 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: [Other amnesia] Episodic Residual codes; unclassified (4 sources) Tobacco user; 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: [Tobacco use] Episodic Residual codes; unclassified (4 sources) Inadequate sleep hygiene; 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: [Inadequate sleep hygiene] Episodic Residual codes; unclassified (1 source) Localized edema; 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: [Localized edema] 08-10-2024 Episodic Respiratory failure; insufficiency; arrest (adult) (4 sources) Chronic respiratory failure; 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: [Chronic respiratory failure with hypoxia] Chronic Retinal detachments; defects; vascular occlusion; and retinopathy (4 sources) Degenerative disorder of macula ; 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: [Unspecified macular degeneration] Chronic Skin and subcutaneous tissue infections (4 sources) [...] [Chest pain, unspecified] Onset: 01-06-2019 Episodic Other aftercare (2 sources) 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; 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: [snf (current) use of anticoagulants] Onset: 07-12-2023 Episodic Other bone disease and musculoskeletal deformities [...] 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: [UNS ABNORMALITIES GAIT AND MOBILITY] Onset: 09-08-2021 Episodic Residual codes; unclassified (8 sources) Edema; 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: [Edema] Onset: 07-12-2023 07-12-2023 Episodic Residual codes; unclassified (1 source) Edema, unspecified; 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: [EDEMA UNSPECIFIED] Onset: 12-12-2021 Episodic Residual codes; unclassified (4 sources) Other amnesia; 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: [OTHER AMNESIA] Onset: 09-22-2021 Episodic Screening and history of mental health and substance abuse codes (17 sources) Ex-smoker; 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: [Personal history of tobacco use] Onset: 10-08-2023 10-08-2023 Episodic Comment on above: quit 2011 1.5 ppd; Unclassified (1 source) LOW BACK PAIN, UNSPECIFIED; 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: [LOW BACK PAIN, UNSPECIFIED] Onset: 09-06-2021 Unclassified (4 sources) Urine finding; 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: [Other nonspecific finding on examination of urine] Onset: 01-22-2019 Resolved: 11-02-2020 Unclassified (2 sources) Onset: 10-08-2023 10-08-2023 Viral infection (1 source) COVID-19 Results Test Name Value Interpretation Reference Range Facility ECG 12 Leadon 08-10-2024 Sinus bradycardia with heart rate 48 [facility] Work Phone: MM screening mammo BI w/CADo n 03-26-2023 MM screening mammo BI w/CAD [facility] [place] [address] Mammography Report Signed Patient: Siva Nicolas MR#: [id number] : 1950 Acct:[id number] Age/Sex: 72 / F ADM Date: 03/25/23 Loc: [place] [facility]: [facility] Attending Dr: Nicole Guzman MD Copies to: [...] Betito Hampton M.D.03/26/2023 9:03 AM Dictation Location: [facility] Transcribed By: [facility] 03/26/23902 Dictated By: Betito Hampton DO 03/26/23 0857 Signed By: 03/26/23 0903 [facility] Office Visit (Cardiology)on 01-03-2023 Follow-up visit [...] Weight Tips; Status:Complete - Retrospective Authorization; Done: 03Jan2023 Some eating tips that can help you lose weight.; Status:Complete - Retrospective Authorization; Done: 03Jan2023 Paroxysmal atrial fibrillation IO EKG Electrocardiogram- 12 Lead; Status:Complete; Done: 03Jan2023 SocHx: Former smoker Tobacco Use Screening; Status:Complete; Done: 03Jan2023 Patient Instructions Please bring all medicines, vitamins, [...] illicit drug use Vitals Vital Signs Recorded: [id number] 02:50PM Heart Rate62, Apical [id number], LUE, Sitting [id number], LUE, Sit (more content not included)... Normal [employer] Tobacco Screening.on 023 Adult depression screening assessment No [facility] [place] 250 DO Work Phone: Fall risk assessment a) No falls within the last year [facility] [place] 250 DO Work Phone: Tobacco use status [facility] b) No [facility] 250 DO Work Phone: [phone] Alanine Aminotransferaseon 0 01-01-2023 ALT [Catalytic activity/Vol] 42 U/L Normal [facility] Comment on above: Performed By: #### C BC, AST, BMP, ALT, LIPID #### [facility] [address] Alanine aminotransferase [En zymatic activity/volume] in Serum or PlasmaOrdered By: Edi Cosby on 01-01-2023 ALT [Catalytic activity/Vol] 42 U/L [facility] Aspartate Amino Transferaseo n 01-01-2023 AST [Catalytic activity/Vol] 36 U/L Normal [facility] Comment on above: Performed By: #### C BC, AST, BMP, ALT, LIPID #### [facility] [address] Aspartate aminotransferase [ Enzymatic activity/volume] in Serum or PlasmaOrdered By: Edi Cosby on 01-01-2023 AST [Catalytic activity/Vol] 36 U/L [facility] Basic Metabolic Panelon Anion gap [Moles/Vol] 8.6 mmol/L Normal 6.0-15.0 [facility] Comment on above: Performed By: #### C BC, AST, BMP, ALT, LIPID #### [facility] [address] [place] [id number] [place] Calcium [Mass/Vol] 9.4 mg/dL Normal 8.6-10.3 [facility] Comment on above: Performed By: #### C BC, AST, BMP, ALT, LIPID #### [facility] [address] [place] [id number] [place] Chloride [Moles/Vol] 109 mmol/L High 98-107 [facility] Comment on above: Performed By: #### C BC, AST, BMP, ALT, LIPID #### [facility] [address] [place] [id number] [place] CO2 [Moles/Vol] 27.0 mmol/L Normal 21.0-31.0 [facility] Comment on above: Performed By: #### C BC, AST, BMP, ALT, LIPID #### [address] Creatinine [Mass/Vol] 0.91 mg/dL Normal 0.60-1.20 [facility] Comment on above: Performed By: #### C BC, AST, BMP, ALT, LIPID #### [place] [address] [place] GFR/1.73 sq M.predicted MDRD (S/P/Bld) [Vol rate/Area] mL/min/{1.73_m2} Normal [facility] Comment on above: Performed By: #### C BC, AST, BMP, ALT, LIPID #### [address] Glucose [Mass/Vol] 102 mg/dL High 70-100 [facility] Comment on above: Result Comment: [place] Glucose Reference Range is dependent on time and content of last meal. Glucose of more than 200 mg/dL in a nonstressed, ambulatory subject supports the diagnosis of Diabetes Mellitus. ADA recommended reference range Performed By: #### C BC, AST, BMP, ALT, LIPID #### [address] Potassium [Moles/Vol] 4.6 mmol/L Normal 3.5-5.1 [facility] Comment on above: Performed By: #### C BC, AST, BMP, ALT, LIPID #### [address] Sodium [Moles/Vol] 140 mmol/L Normal 136-145 [facility] Comment on above: Performed By: #### C BC, AST, BMP, ALT, LIPID #### [address] Urea nitrogen [Mass/Vol] 28 mg/dL High 7-25 [facility] Comment on above: Performed By: #### C BC, AST, BMP, ALT, LIPID #### [address] [place] [address] [facility] Basophils Auto (Bld) [#/Vol] Ordered By: Edi Cosby on 01-01-2023 Basophils (Bld) [#/Vol] 0.1 10*3/uL 0.0-0.2 [facility] Basophils/100 WBC Auto (Bld) Ordered By: Edi Cosby on 01-01-2023 Basophils/100 WBC (Bld) 0.6 % . F [facility] Calcium [Mass/volume] in Ser um or PlasmaOrdered By: Edi Cosby on 01-01-2023 Calcium [Mass/Vol] 9.4 mg/dL 8.6-10.3 [facility] Carbon dioxide, total [Moles /volume] in Serum or PlasmaOrdered By: Edi Cosby on 01-01-2023 CO2 [Moles/Vol] 27.0 mmol/L 21.0-31.0 [facility] Chloride [Moles/volume] in S anirudh or PlasmaOrdered By: Edi Cosby on 01-01-2023 Chloride [Moles/Vol] 109 mmol/L 98-107 [facility] Cholesterol [Mass/volume] in Serum or PlasmaOrdered By: Edi Cosby on 01-01-2023 Cholesterol [Mass/Vol] 101 mg/dL 140-200 [facility] Comment on above: Chol less than 200 m g/dl low riskChol 201-239 mg/dl borderline riskChol 240 mg/dl and greater high risk Cholesterol in LDL Calc [Mas s/Vol]Ordered By: Edi Cosby on 01-01-2023 Cholesterol in LDL [Mass/Vol] 43 mg/dL 0-100 [facility] Comment on above: LDL ATP III CLASSIFI CATIONLDL less than 100 mg/dL OptimalLDL 100-129 mg/dL Near or above optimalLDL 130-159 mg/dL Borderline highLDL 160-189 mg/dL HighLDL greater than 189 mg/dL Very high Cholesterol in VLDL Calc [Ma ss/Vol]Ordered By: Edi Cosby on 01-01-2023 Cholesterol in VLDL [Mass/Vol] 17 mg/dL [facility] Complete Blood Count Auto Di ffon 01-01-2023 Basophils (Bld) [#/Vol] 0.1 10*3/uL Normal 0.0-0.2 [facility] Comment on above: Result Comment: PERF ORMED BY: [place] [address] PATHOLOGIST DISTANCE EDUCATION COORDINATOR EUGENE BORDEN M.D. Performed By: #### C BC, AST, BMP, ALT, LIPID #### [facility] [address] [place] [address] Basophils/100 WBC (Bld) 0.6 % Normal . F [facility] Comment on above: Performed By: #### C BC, AST, BMP, ALT, LIPID #### [facility] [address] [place] [address] Eosinophils (Bld) [#/Vol] 0.3 10*3/uL Normal 0.0-0.45 [facility] Comment on above: Performed By: #### C BC, AST, BMP, ALT, LIPID #### [facility] [address] [place] [address] Eosinophils/100 WBC (Bld) 3.4 % Normal . [facility] Comment on above: Performed By: #### C BC, AST, BMP, ALT, LIPID #### [facility] [address] [place] [address] Erythrocyte distribution width (RBC) [Ratio] 14.4 % Normal 11.9-15.3 [facility] Comment on above: Performed By: #### C BC, AST, BMP, ALT, LIPID #### [facility] [address] [place] [address] Hematocrit (Bld) [Volume fraction] 40.1 % Normal 34.0-46.4 [facility] Comment on above: Performed By: #### C BC, AST, BMP, ALT, LIPID #### [facility] [address] [place] [address] Hemoglobin (Bld) [Mass/Vol] 13.4 g/dL Normal 11.8-15.4 [facility] Comment on above: Performed By: #### C BC, AST, BMP, ALT, LIPID #### [address] Lymphocytes (Bld) [#/Vol] 2.1 10*3/uL Normal 1.00-4.8 [facility] Comment on above: Performed By: #### C BC, AST, BMP, ALT, LIPID #### [address] Lymphocytes/100 WBC (Bld) 23.7 % Normal . [facility] Comment on above: Performed By: #### C BC, AST, BMP, ALT, LIPID #### [address] MCH (RBC) [Entitic mass] 30.1 pg Normal 24.7-34.3 [facility] Comment on above: Performed By: #### C BC, AST, BMP, ALT, LIPID #### [address] MCV (RBC) [Entitic vol] 90.0 fL Normal 80-100 [facility] Comment on above: Performed By: #### C BC, AST, BMP, ALT, LIPID #### [address] Mean Corpuscular HGB Conc 33.5 g/dL Normal 32.0-35.0 [facility] Comment on above: Performed By: #### C BC, AST, BMP, ALT, LIPID #### [address] Monocytes (Bld) [#/Vol] 0.8 10*3/uL Normal 0.0-0.8 [facility] Comment on above: Performed By: #### C BC, AST, BMP, ALT, LIPID #### [address] Monocytes/100 WBC (Bld) 9.3 % Normal . F [facility] Comment on above: Performed By: #### C BC, AST, BMP, ALT, LIPID #### [facility] [address] Neutrophils (Bld) [#/Vol] 5.5 10*3/uL Normal 1.8-7.7 [facility] Comment on above: Performed By: #### C BC, AST, BMP, ALT, LIPID #### [address] Neutrophils/100 WBC (Bld) 63.0 % Normal . [facility] Comment on above: Performed By: #### C BC, AST, BMP, ALT, LIPID #### [address] NRBC% 0.0 /100{WBC} Normal 0-0.5 [facility] Comment on above: Performed By: #### C BC, AST, BMP, ALT, LIPID #### [address] Platelet mean volume (Bld) [Entitic vol] 8.3 fL Normal 6.3-10.7 [facility] Comment on above: Performed By: #### C BC, AST, BMP, ALT, LIPID #### [place] [address] [place] Platelets (Bld) [#/Vol] 189 10*3/uL Normal 150-450 [facility] Comment on above: Performed By: #### C BC, AST, BMP, ALT, LIPID #### [address] RBC (Bld) [#/Vol] 4.45 10*6/uL Normal 3.60-5.00 [facility] Comment on above: Performed By: #### C BC, AST, BMP, ALT, LIPID #### [place] [address] [place] WBC (Bld) [#/Vol] 8.7 10*3/uL Normal 3.8-11.6 [facility] Comment on above: Performed By: #### C BC, AST, BMP, ALT, LIPID #### [address] Creatinine [Mass/volume] in Serum or PlasmaOrdered By: Edi Cosby on 01-01-2023 Creatinine [Mass/Vol] 0.91 mg/dL 0.60-1.20 [facility] Eosinophils Auto (Bld) [#/Vo l]Ordered By: Edi Cosby on 01-01-2023 Eosinophils (Bld) [#/Vol] 0.3 10*3/uL 0.0-0.45 [facility] Eosinophils/100 WBC Auto (Bl d)Ordered By: Edi Cosby on 01-01-2023 Eosinophils/100 WBC (Bld) 3.4 % . [facility] Erythrocyte distribution wid th Auto (RBC) [Ratio]Ordered By: Edi Cosby on 01-01-2023 Erythrocyte distribution width (RBC) [Ratio] 14.4 % 11.9-15.3 [facility] Glucose [Mass/volume] in Ser um or PlasmaOrdered By: Edi Cosby on 01-01-2023 Glucose [Mass/Vol] 102 mg/dL 70-100 [facility] Comment on above: ADA recommended refe rence rangeRandom Glucose Reference Range is dependent on time and content of last meal. Glucose of more than 200 mg/dL in a nonstressed, ambulatory subject supports the diagnosis of Diabetes Mellitus. Hematocrit Auto (Bld) [Volum e fraction]Ordered By: Edi Cosby on 01-01-2023 Hematocrit (Bld) [Volume fraction] 40.1 % 34.0-46.4 [facility] Hemoglobin [Mass/volume] in BloodOrdered By: Edi Cosby on 01-01-2023 Hemoglobin (Bld) [Mass/Vol] 13.4 g/dL 11.8-15.4 [facility] Laboratory - Chemistry and C hemistry - challengeon 01-01-2023 Cholesterol [Mass/Vol] 101\S\101 below low threshold 140-200 [facility] [address] DO Work Phone: Comment on above: Chol less than 200 m g/dl low risk Chol 201-239 mg/dl borderline risk Chol 240 mg/dl and greater high risk Cholesterol in LDL [Mass/Vol] 43\S\43 Normal 0-100 -[facility] [address] DO Work Phone: [...] RBC Auto (Bld) [#/Vol] 8.7 10*3/uL 3.8-11.6 [facility] Lipid Panelon 01-01-2023 Cholesterol [Mass/Vol] 101 mg/dL Low 140-200 [facility] Comment on above: Result Comment: Chol less than 200 mg/dl low risk Chol 201-239 mg/dl borderline risk Chol 240 mg/dl and greater high risk Performed By: #### C BC, AST, BMP, ALT, LIPID #### [facility] [address] Cholesterol in HDL [Mass/Vol] 41 mg/dL Normal 23-92 [facility] Comment on above: Result Comment: HDL CHOL ATP-III CLASSIFICATION Cardiovascular Risk HDL > or equal to 60 mg/dL LOW HDL < 40 mg/dL HIGH Performed By: #### C BC, AST, BMP, ALT, LIPID #### [facility] [address] Cholesterol.total/Stacey sterol in HDL [Mass ratio] 2.5 {ratio} Normal <5.0 [facility] Comment on above: Result Comment: PERF ORMED BY: [facility] [address] [place] [address] PATHOLOGIST DISTANCE EDUCATION COORDINATOR EUGENE BORDEN M.D. Performed By: #### C BC, AST, BMP, ALT, LIPID #### [facility] [address] LDL Cholesterol,Calculated 43 mg/dL Normal 0-100 [facility] Comment on above: Result Comment: LDL ATP III CLASSIFICATION LDL less than 100 mg/dL Optimal LDL 100-129 mg/dL Near or above optimal LDL 130-159 mg/dL Borderline high LDL 160-189 mg/dL High LDL greater than 189 mg/dL Very high Performed By: #### C BC, AST, BMP, ALT, LIPID #### [facility] [address] Triglyceride w/Reflex 86 mg/dL Normal 0-149 [facility] Comment on above: Result Comment: TRIG ATP III CLASSIFICATION TRIG less than 150 mg/dL Normal TRIG 150-199 mg/dL Borderline high TRIG 200-500 mg/dL High TRIG greater than 500 mg/dL Very high Standard traceable to the Center for Disease Conrtrol and Prevention (CDC) test method. Performed By: #### C BC, AST, BMP, ALT, LIPID #### [facility] [address] VLDL CHOLESTEROL 17 mg/dL Normal [facility] Comment on above: Performed By: #### C BC, AST, BMP, ALT, LIPID #### [facility] [address] Lymphocytes Auto (Bld) [#/Vo l]Ordered By: Edi Cosby on 01-01-2023 Lymphocytes (Bld) [#/Vol] 2.1 10*3/uL 1.00-4.8 [facility] Lymphocytes/100 WBC Auto (Bl d)Ordered By: Edi Cosby on 01-01-2023 Lymphocytes/100 WBC (Bld) 23.7 % . [facility] MCH Auto (RBC) [Entitic mass ]Ordered By: Edi Cosby on 01-01-2023 MCH (RBC) [Entitic mass] 30.1 pg 24.7-34.3 [facility] MCHC Auto (RBC) [Mass/Vol]Or dered By: dEi Cosby on 01-01-2023 MCHC (RBC) [Mass/Vol] 33.5 g/dL 32.0-35.0 [facility] MCV Auto (RBC) [Entitic vol] Ordered By: Edi Cosby on 01-01-2023 MCV (RBC) [Entitic vol] 90.0 fL 80-100 [facility] Monocytes Auto (Bld) [#/Vol] Ordered By: Edi Cosby on 01-01-2023 Monocytes (Bld) [#/Vol] 0.8 10*3/uL 0.0-0.8 [facility] Monocytes/100 WBC Auto (Bld) Ordered By: Edi Cosby on 01-01-2023 Monocytes/100 WBC (Bld) 9.3 % . [facility] Neutrophils Auto (Bld) [#/Vo l]Ordered By: Edi Cosby on 01-01-2023 Neutrophils (Bld) [#/Vol] 5.5 10*3/uL 1.8-7.7 [facility] Neutrophils/100 WBC Auto (Bl d)Ordered By: Edi Cosby on 01-01-2023 Neutrophils/100 WBC (Bld) 63.0 % . [facility] No Panel InformationOrdered By: Edi Cosby on 01-01-2023 Estimated GFR (CKD-EPI) > 60.0 mL/Min [facility] Creatinine Clearance (Chem N/A [facility] No Panel Informationon 01-01 0.1\S\0.1 Normal 0.0-0.2 [facility] [address] DO Work Phone: Comment on above: PERFORMED BY:[facility] [place] [id number] MEDICAL DIRECTOREUGENE BORDEN M.D. 0.3\S\0.3 Normal 0.0-0.45 [facility] [address] DO Work Phone: 0.8\S\0.8 Normal 0.0-0.8 [facility] [address] DO Work Phone: 2.1\S\2.1 Normal 1.00-4.8 [facility] [address] DO Work Phone: 5.5\S\5.5 Normal 1.8-7.7 [facility] [address] DO Work Phone: 0.0\S\0.0 Normal 0-0.5 [facility] [address] DO Work Phone: 0.6\S\0.6 Normal . [facility] [address] DO Work Phone: 3.4\S\3.4 Normal . [facility] [address] DO Work Phone: 9.3\S\9.3 Normal . [facility] [address] DO Work Phone: 23.7\S\23.7 Normal . [facility] [address] DO Work Phone: 63.0\S\63.0 Normal . [facility] [address] DO Work Phone: 8.3\S\8.3 Normal 6.3-10.7 [facility] [address] DO Work Phone: 189\S\189 Normal 150-450 [facility] [address] DO Work Phone: 14.4\S\14.4 Normal 11.9-15.3 [facility] [address] DO Work Phone: 33.5\S\33.5 Normal 32.0-35.0 [facility] [address] DO Work Phone: 30.1\S\30.1 Normal 24.7-34.3 [facility] [address] DO Work Phone: 90.0\S\90.0 Normal 80-100 [facility] [address] DO Work Phone: 40.1\S\40.1 Normal 34.0-46.4 [facility] [address] DO Work Phone: 13.4\S\13.4 Normal 11.8-15.4 [facility] [address] DO Work Phone: 4.45\S\4.45 Normal 3.60-5.00 [facility] [place] 250 DO Work Phone: 8.7\S\8.7 Normal 3.8-11.6 [facility] [place] 250 DO Work Phone: > 60.0 Normal [facility] [place] 250 DO Work Phone: 8.6\S\8.6 Normal 6.0-15.0 [facility] [place] 250 DO Work Phone: 9.4\S\9.4 Normal 8.6-10.3 [facility] [place] 250 DO Work Phone: 27.0\S\27.0 Normal 21.0-31.0 [facility] [place] 250 DO Work Phone: 109\S\109 above high threshold 98-107 [facility] [place] 250 DO Work Phone: 4.6\S\4.6 Normal 3.5-5.1 [facility] [place] 250 DO Work Phone: 140\S\140 Normal 136-145 [facility] [place] 250 DO Work Phone: 0.91\S\0.91 Normal 0.60-1.20 [facility] [place] 250 DO Work Phone: 28\S\28 above high threshold 7-25 -[facility] [address] DO Work Phone: [phone] 102\S\102 above high threshold 70-100 [facility]aryjo 250 DO Work Phone: Comment on above: Random Glucose Refer ence Range is dependent on time and content of last meal. Glucose of more than 200 mg/dL in a nonstressed, ambulatory subject supports the diagnosis of Diabetes Mellitus. ADA recommended reference range 36\S\36 Normal 13-39 [facility] [employer]orgAyesha sibley 250 DO Work Phone: [phone] 42\S\42 Normal 7-52 [facility] maryjo 250 DO Work Phone: [phone] 2.5\S\2.5 Normal <5.0 [facility] Work Phone: Comment on above: PERFORMED BY:[facility] [place] [phone] MEDICAL DIRECTOREUGENE BORDEN M.D. 17\S\17 Normal [facility] DO Work Phone: 86\S\86 Normal 0-149 [facility] Sachin DO Work Phone: Comment on above: TRIG ATP III CLASSIF ICATION TRIG less than 150 mg/dL Normal TRIG 150-199 mg/dL Borderline high TRIG 200-500 mg/dL High TRIG greater than 500 mg/dL Very high Standard traceable to the Center for Disease Conrtrol and Prevention (CDC) test method. 41\S\41 Normal 23-92 [facility] Work Phone: Comment on above: HDL CHOL ATP-III CLA SSIFICATION Cardiovascular Risk HDL > or equal to 60 mg/dL LOW HDL < 40 mg/dL HIGH Nucleated erythrocytes [Pres ence] in Blood by Automated countOrdered By: Edi Cosby on 01-01-2023 Nucleated RBC Auto Ql (Bld) 0.0 /100{WBC} 0-0.5 [facility] Platelet mean volume Auto (B ld) [Entitic vol]Ordered By: Edi Cosby on 01-01-2023 Platelet mean volume (Bld) [Entitic vol] 8.3 fL 6.3-10.7 [facility] Platelets Auto (Bld) [#/Vol] Ordered By: Edi Cosby on 01-01-2023 Platelets (Bld) [#/Vol] 189 10*3/uL 150-450 [facility] Potassium [Moles/volume] in Serum or PlasmaOrdered By: Edi Cosby on 01-01-2023 Potassium [Moles/Vol] 4.6 mmol/L 3.5-5.1 [facility] RBC Auto (Bld) [#/Vol]Ordere d By: Edi Cosby on 01-01-2023 RBC (Bld) [#/Vol] 4.45 10*6/uL 3.60-5.00 [facility] Serum or plasma anion gap de terminationOrdered By: Edi Cosby on 01-01-2023 Anion gap [Moles/Vol] 8.6 mmol/L 6.0-15.0 [facility] Serum or plasma high density lipoprotein (HDL) cholesterol measurementOrdered By: Edi Cosby on 01-01-2023 Cholesterol in HDL [Mass/Vol] 41 mg/dL 23-92 [facility] Comment on above: HDL CHOL ATP-III CLA SSIFICATION Cardiovascular RiskHDL > or equal to 60 mg/dL LOWHDL < 40 mg/dL HIGH Serum or plasma total choles terol/high density lipoprotein (HDL) cholesterol mass ratOrdered By: Edi Cosby on 01-01-2023 Cholesterol.total/Stacey sterol in HDL [Mass ratio] 2.5 {ratio} <5.0 [facility] Sodium [Moles/volume] in Ser um or PlasmaOrdered By: Edi Cosby on 01-01-2023 Sodium [Moles/Vol] 140 mmol/L 136-145 [facility] Triglyceride [Mass/volume] i n Serum or PlasmaOrdered By: Edi Cosby on 01-01-2023 Triglyceride [Mass/Vol] 86 mg/dL 0-149 F [facility] Comment on above: TRIG ATP III CLASSIF ICATIONTRIG less than 150 mg/dL NormalTRIG 150-199 mg/dL Borderline highTRIG 200-500 mg/dL High TRIG greater than 500 mg/dL Very highStandard traceable to the Center for Disease Conrtrol and Prevention (CDC) test method. Urea nitrogen [Mass/volume] in Serum or PlasmaOrdered By: Edi Cosby on 01-01-2023 Urea nitrogen [Mass/Vol] 28 mg/dL 12-25 [facility] WBC Auto (Bld) [#/Vol]Ordere d By: Edi Cosby on 01-01-2023 WBC (Bld) [#/Vol] 8.7 10*3/uL 3.8-11.6 [facility] Office Visit (Cardiology)on 05-14-2022 Follow-up visit Diagnoses/Problems [...] Aminotransferase, Serum; Status:Active - Retrospective Authorization; Requested for:12Nov2022; AST; Status:Active - Retrospective Authorization; Requested for:12Nov2022; Basic Metabolic Panel; Status:Active - Retrospective Authorization; Requested for:12Nov2022; Complete Blood Count; Status:Active - Retrospective Authorization; Requested for:12Nov2022; Lipid Panel; Status:Active - Retrospective Authorization; Requested for:12Nov2022; Morbid obesity with BMI of 45.0-49.9, adult Healthy Weight Tips; Status:Complete - Retrospective Authorization; Done: 14May2022 Some eating tips that can help you lose weight.; Status:Complete - Retrospective Authorization; Done: 14May2022 SocHx: Former smoker Tobacco Use Screening; Status:Complete; Done: [id number] Patient Instructions Please bring all medicines, vitamins, [...] Systems Constitu (more content not included)... Normal [employer] Tobacco Screening.on 022 Fall risk assessment a) No falls within the last year [facility] [employer] 250 DO Work Phone: Tobacco use status CPHS b) No M [facility] [place] 250 DO Work Phone: HEMOGLOBINon 03-30-2022 Hemoglobin (Bld) [Mass/Vol] 13.9 g/dL Normal 12.0-16.0 [facility] Comment on above: Performed By: #### H GB #### [facility] [address] [address] [address] Gena Lopes XR DEXA BONE DENSITYon [...] by: SVETLANA CHAPMAN Date: 2022-02-19 10:41 Normal [facility] CT CHEST WO CONon 02-14-2022 CT CHEST [...] by: SVETLANA CHAPMAN Date: 2022-02-14 14:33 Normal [facility] Tobacco Screening.on 022 Adult depression screening assessment No [facility] [employer] [place] 250 DO Work Phone: Fall risk assessment a) No falls within the last year [facility] [facility] DO Work Phone: Tobacco use status CPHS b) No M [facility] [address] DO Work Phone: BNPon 12-08-2021 Natriuretic peptide B (Bld) [Mass/Vol] 337.0 pg/mL Normal <=900.0 [facility] Comment on above: Performed By: #### B MP, BNP ####[facility] [address] [address]Dr. Gena Lopes PROF CHEM 8 (BAS METB)on Anion gap [Moles/Vol] 10.8 mmol/L Normal [facility] Comment on above: Performed By: #### B MP, BNP ####[facility] [address] [place], [place] [address]Dr. Gena Lopes Calcium [Mass/Vol] 9.1 mg/dL Normal 8.5-10.1 [facility] Comment on above: Performed By: #### B MP, BNP ####[facility] [address] [place], [place] [address]Dr. Gena Lopes Chloride [Moles/Vol] 105 mmol/L Normal 98-107 [facility] Comment on above: Performed By: #### B MP, BNP ####[facility] [address] [place], [place] [address]Dr. Gena Lopes CO2 [Moles/Vol] 27.1 mmol/L Normal 21.0-32.0 [facility] Comment on above: Performed By: #### B MP, BNP ####[facility] [address] [address]Dr. Gena Lopes Creatinine [Mass/Vol] 1.02 mg/dL Normal 0.55-1.02 [facility] Comment on above: Performed By: #### B MP, BNP ####[facility] [address] [place], [place] [address]Dr. Gena Lopes EGFR-AF CAMEROONIAN >60 Normal >=60 [facility] Comment on above: Performed By: #### B MP, BNP ####[facility] [address] [address]Dr. Gena Lopes EGFR-NON AF CAMEROONIAN 53 mL/min/1.73m2 Critically low >=60 [facility] Comment on above: Performed By: #### B MP, BNP ####[facility] [address] [address]Dr. Gena Lopes Glucose [Mass/Vol] 198 mg/dL Critically high 74-106 [facility] Comment on above: Performed By: #### B MP, BNP ####[facility] [address] [place], [place] [address]Dr. Gena Lopes Potassium [Moles/Vol] 3.9 mmol/L Normal 3.5-5.1 [facility] Comment on above: Performed By: #### B MP, BNP ####[facility] [address] [place], [place] [address]Dr. Gena Lopes Sodium [Moles/Vol] 139 mmol/L Normal 136-145 [facility] Comment on above: Performed By: #### B MP, BNP ####[facility] [address] [place], [place] [address]Dr. Doradacia Lopes Urea nitrogen [Mass/Vol] 18.0 mg/dL Normal 7.0-18.0 [facility] Comment on above: Performed By: #### B MP, BNP ####[facility] [address] [place], [place] [address]Dr. Gena Lopes Urea nitrogen/Creatinine [Mass ratio] 17.6 mg/mg Normal [facility] Comment on above: Performed By: #### B MP, BNP ####[facility] [address] [place], [place] [address]Dr. Doradacia Lopes CT ABD/PELV W CONon 11-18-19 CT [...] by: SVETLANA CHAPMAN Date: 2021-11-17 17:29 Normal [facility] BNPon 11-08-2021 Natriuretic peptide B (Bld) [Mass/Vol] 188.0 pg/mL Normal <=900.0 [facility] Comment on above: Performed By: #### C MP, BNP, TSH #### [facility] [address] [address] [address] Gena Lopes CBC AUTO DIFFon 11-08-2021 BASO # 0.0 103/ul Normal 0.0-0.1 [facility] Comment on above: Performed By: #### C BC #### [facility] [address] [address] [address] Gena Lopes Basophils/100 WBC (Bld) 0.5 % Normal 0.2-2.0 [facility] Comment on above: Performed By: #### C BC #### [facility] [address] [address] [address] Gena Lopes EO # 0.3 103/ul Normal 0.0-0.7 [facility] Comment on above: Performed By: #### C BC #### [facility] [address] [place] [address] Dr. Gena Lopes Eosinophils/100 WBC (Bld) 3.9 % Normal 0.9-7.0 [facility] Comment on above: Performed By: #### C BC #### [facility] [address] [place] [address] Dr. Gena Lopes Erythrocyte distribution width (RBC) [Ratio] 13.2 % Normal 11.0-15.0 [facility] Comment on above: Performed By: #### C BC #### [facility] [address] [place] [address] Dr. Gena Lopes Hematocrit (Bld) [Volume fraction] 42.4 % Normal 36.0-48.0 [facility] Comment on above: Performed By: #### C BC #### [facility] [address] [place] [address] Dr. Gena Lopes Hemoglobin (Bld) [Mass/Vol] 13.6 g/dL Normal 12.0-16.0 [facility] Comment on above: Performed By: #### C BC #### [facility] [address] [place] [address] Dr. Gena Lopes IG # 0.03 10e3/ul Normal 0.00-0.03 [facility] Comment on above: Performed By: #### C BC #### [facility] [address] [place] [address] Dr. Gena Lopes IG % 0.4 % Normal 0.0-0.5 [facility] Comment on above: Performed By: #### C BC #### [facility] [address] [place] [address] Dr. Gena Lopes LYMPH # 1.7 103/ul Normal 1.2-3.8 [facility] Comment on above: Performed By: #### C BC #### [facility] [address] [place] [address] Dr. Gena Lopes Lymphocytes/100 WBC (Bld) 21.7 % Normal 20.5-60.0 [facility] Comment on above: Performed By: #### C BC #### [facility] [address] [place] [address] Dr. Gena Lopes MANUAL DIFF REQ NO Normal [facility] Comment on above: Performed By: #### C BC #### [facility] [address] [place] [address] Dr. Gena Lopes MCH (RBC) [Entitic mass] 29.8 pg Normal 26.7-34.0 [facility] Comment on above: Performed By: #### C BC #### [facility] [address] [place] [address] Dr. Gena Lopes MCHC (RBC) [Mass/Vol] 32.1 g/dL Normal 29.9-35.2 [facility] Comment on above: Performed By: #### C BC #### [facility] [address] [place] [address] Dr. Gena Lopes MCV (RBC) [Entitic vol] 92.8 fL Normal 81.0-99.0 [facility] Comment on above: Performed By: #### C BC #### [facility] [address] [place] [address] Dr. Gena Lopes MONO # 1.0 103/ul Critically high 0.3-0.8 [facility] Comment on above: Performed By: #### C BC #### [facility] [address] [place] [address] Dr. Gena Lopes Monocytes/100 WBC (Bld) 13.4 % Critically high 1.7-12. 0 [facility] Comment on above: Performed By: #### C BC #### [facility] [address] [place] [address] Dr. Gena Lopes NEUT # 4.7 103/ul Normal 1.4-6.5 [facility] Comment on above: Performed By: #### C BC #### [facility] [address] [place] [address] Dr. Gena Lopes Neutrophils/100 WBC (Bld) 60.1 % Normal 43.0-75.0 [facility] Comment on above: Performed By: #### C BC #### [facility] [address] [address] [address] Gena Lopes Platelet mean volume (Bld) [Entitic vol] 10.0 fL Normal 9.5-13.5 [facility] Comment on above: Performed By: #### C BC #### [facility] [address] [address] [address] Gena Lopes PLT 231 103/ul Normal 150-450 [facility] Comment on above: Performed By: #### C BC #### [facility] [address] [address] [address] Gena Lopes RBC 4.57 106/ul Normal 4.20-5.40 [facility] Comment on above: Performed By: #### C BC #### [facility] [address] [address] [address] Gena Lopes WBC 7.8 103/ul Normal 4.0-11.0 [facility] Comment on above: Performed By: #### C BC #### [facility] [address] [address] [address] Gena Lopes FREE T4on 11-08-2021 Free T4 [Mass/Vol] 2.04 ng/dL Critically high 0.76-1.46 [facility] Comment on above: Performed By: #### F T4 ####[facility] [address] [address]Dr. Gena Lopes PROF 14(COMP METB)on 022 Albumin [Mass/Vol] 3.2 g/dL Critically low 3.4-5.0 [facility] Comment on above: Performed By: #### C MP, BNP, TSH #### [facility] [address] [address] [address] Gena Lopes Albumin/Globulin [Mass ratio] 0.8 {ratio} Normal [facility] Comment on above: Performed By: #### C MP, BNP, TSH #### [facility] [address] [address] [address] Gena Lopes ALP [Catalytic activity/Vol] 134 U/L Critically high 46-116 [facility] Comment on above: Performed By: #### C MP, BNP, TSH #### [facility] [address] [address] [address] Gena Lopes ALT [Catalytic activity/Vol] 67 U/L Critically high 14-59 [facility] Comment on above: Performed By: #### C MP, BNP, TSH #### [facility] [address] [address] [address] Gena Lopes Anion gap [Moles/Vol] 12.1 mmol/L Normal [facility] Comment on above: Performed By: #### C MP, BNP, TSH #### [facility] [address] [address] [address] Gena Lopes AST [Catalytic activity/Vol] 47 U/L Critically high 15-37 [facility] Comment on above: Performed By: #### C MP, BNP, TSH #### [facility] [address] [place] [address] Dr. Gena Lopes Bilirubin [Mass/Vol] 0.4 mg/dL Normal 0.2-1.0 [facility] Comment on above: Performed By: #### C MP, BNP, TSH #### [facility] [address] [place] [address] Dr. Gena Lopes Calcium [Mass/Vol] 9.5 mg/dL Normal 8.5-10.1 [facility] Comment on above: Performed By: #### C MP, BNP, TSH #### [facility] [address] [place] [address] Dr. Gena Lopes Chloride [Moles/Vol] 108 mmol/L Critically high 98-107 [facility] Comment on above: Performed By: #### C MP, BNP, TSH #### [facility] [address] [place] [address] Dr. Gena Lopes CO2 [Moles/Vol] 24.1 mmol/L Normal 21.0-32.0 [facility] Comment on above: Performed By: #### C MP, BNP, TSH #### [facility] [address] [place] [address] Dr. Gena Lopes Creatinine [Mass/Vol] 0.98 mg/dL Normal 0.55-1.02 [facility] Comment on above: Performed By: #### C MP, BNP, TSH #### [facility] [address] [address] [address] Gena Lopes EGFR-AF CAMEROONIAN >60 Normal >=60 [facility] Comment on above: Performed By: #### C MP, BNP, TSH #### [facility] [address] [address] [address] Gena Lopes EGFR-NON AF CAMEROONIAN 56 mL/min/1.73m2 Critically low >=60 [facility] Comment on above: Performed By: #### C MP, BNP, TSH #### [facility] [address] [place] [address] Dr. Gena Lopes Globulin (S) [Mass/Vol] 3.8 g/dL Normal [facility] Comment on above: Performed By: #### C MP, BNP, TSH #### [facility] [address] [address] [address] Gena Lopes Glucose [Mass/Vol] 107 mg/dL Critically high 74-106 [facility] Comment on above: Performed By: #### C MP, BNP, TSH #### [facility] [address] [place] [address] Dr. Gena Lopes Potassium [Moles/Vol] 4.2 mmol/L Normal 3.5-5.1 [facility] Comment on above: Performed By: #### C MP, BNP, TSH #### [facility] [address] [place] [address] Dr. Gena Lopes Protein [Mass/Vol] 7.0 g/dL Normal 6.4-8.[address] [facility] Comment on above: Performed By: #### C MP, BNP, TSH #### [facility] [address] [place] [address] Dr. Gena Lopes Sodium [Moles/Vol] 140 mmol/L Normal 136-145 [facility] Comment on above: Performed By: #### C MP, BNP, TSH #### [facility] [address] [address] [address] Gena Lopes Urea nitrogen [Mass/Vol] 19.0 mg/dL Critically high 7.0-18.0 [facility] Comment on above: Performed By: #### C MP, BNP, TSH #### [facility] [address] [address] [address] Gena Lopes Urea nitrogen/Creatinine [Mass ratio] 19.4 mg/mg Normal [facility] Comment on above: Performed By: #### C MP, BNP, TSH #### [facility] [address] [address] [address] Gena Lopes TSHon 11-08-2021 TSH 0.010 uIU/mL Critically low 0.358-3.740 [facility] Comment on above: Performed By: #### C MP, BNP, TSH #### [facility] [address] [place] [address] Dr. Gena Lopes TSH RANGE SEE BELOW Normal [facility] Comment on above: Result Comment: <0.3 4 UIU/ml HYPERTHYROID 0.34-5.60 UIU/ml EUTHYROID >5.60 UIU/ml HYPOTHYROID Performed By: #### C MP, BNP, TSH #### [facility] [address] [place] [address] Dr. Gena Lopes Coding Summary.on 10-06-2021 Coding Summary. CD:[id number] G h0bWw+PGhlYWQ+JU5NFKZ uH12vrAEwaX8ZU6iQOH2O YSFIKBPOOB4ATX6taNR8Y JzoE3IikpGp RjwtxKPyQB70JIv7TRE4m EyqNQughA9ycSOxC4z8Ue AsSS76dA72PNprLYLuNwV 3LjZpbjsgbWFy V8jlLcIucXCgHxr+PHRhY mxlIHdpZHRoPScxMDAlJy AlkJjnWC3rEe9iABGkVUI vbGxhcHNlOiBj f0vtANNfJAftVL3vuFhaX 3UwjER0YVXkv0z8Zd10yW I+JQOsYIU0lNqjDSrad35 8JnTfx0dmKAL0 nKWiABwaSKR8S75gs1O7N IXxXIUhJVM0lWH2wC9hxV bkaropR9XdvPTxKoZ1ZFS 2qAEsfZ5hbDys qasqlM1vKah+W63QGT9CZ FLDKF0EVda3R6NwTikblR I+XM24OFNgCG37iVDpeDZ di1klzUk7IeOu MKOdCVV4iVwxJXdjb1EkQ GSpY04vgUNze3H3ZRZmfI obeHOoRiUupZC4mT2pENy okscfn7xyssvy Tgkkh8mtkl91yL91W40jZ RjsXPIwONW9QNKjLEFrcC wvlp5xkU5vEa7+RBwue2e wr0lrkJt3AjEs CGJjeqRmyJcjLAC9h9LcI d90Y1HqjMesn3YuYzc2gr 58tGKvu9N5xRR7URwvLBH yuM0gSQxaYkS8 GRYaUqLbeQ38kCQtMPxbD k9rtBcvxVydQI3yXBTmzi uqTBVseQ0cUESkqINnrBf bSN8cZCInaimt j410RgYpTMC1QZDlfUHdW 0HhtF1cDeKwWDLbKNYpV5 QhsBSzXFgaQ107KHdaTbH 3WYNcybVzY4Ar WGDduAsvBzE8e5P7Jm6Sh 7MpvwbbWJL1LCzsGPQ4Ku G9JmMxUyB4G0WsNoq8LDV leIyqYW4zP2Jq DJOnesovmagmnVT0GDJmS KGoqB84zUPjQJseTo4dl8 U1z749KONqLRDbwY48Cd6 udDogMTBwdCBU bP2hftnnl1lcbitrIjEoZ VVrGIr1ZBg9ZCUlzUqiDz JlWJU5BpV5SNA8cQQqrK8 pdIkjszqwoA3u Oyc+Y81jsU6bVYG4BII5c gqhKUGcofMsSX01TU81N9 RyPjwvdGFibGU+PGRpdiB okWgzII7pHpIc l8eep4ZqFGzgL1VkLXMyM JtvYlh2VLOaDXH7bYM4iU 1oEMElTDkrw4T5nKC0I1C qurWitv0sf9ad MBIlNNvdI64ycDBtb7K2M GUbgQK7KNSgrYsbHoOpkP 93Oyc+TOVhkNjqc2HzNhf wg9tum7glsXr0 NnXtZWQjeqJymVamIHM9l 8ByBc29X52wQVdaPNZgIU RySIArIRJghQvglg1wiT9 wIi8+PGNvbCB3 sBF1wY1tJWMyOrB7TMflP 202UsZoyBNvBryzk3xea2 hncBl5JmGxSKYlzzXmcRh vLHZ9b2PoSs07 B10eMYeqCWSdKUZwTVRwQ EAivMmmbj2wqW6iLq3+PC 4rv9kmzn48sZ89cEC+PHR yWBM7eShvMVyt AAAevR1gGMxzNjE7WBNuF yYynH41uGCyVBhtRi5ulN kwxUckAS3pYWEiqstov18 0OoStx0esVXMx sNBcUVlqHKC0M69co8W6R QDaKSReDGK7pCQ1yB7vdE lnbjogbGVmdDsgdmVydGl uKWquYCpzP847 IHRvcDsnPlBhdGllbnQgT mLnNAx7J3AhQtg4PVXqpL pmVQ7hmDGbAQrhGe5xdZb mlZuaFW9kWLVt oyzco149FxAov3exTNGnp TGsJYirQIC7W95hu6S3RQ EhUQQePPV6gPU7sR5hiUf nbjogbGVmdDsg yoWwiLupDLvzNYuzU212T HRvcDsnPkJpcnRoIERhdG X0OP20DY22vPZsq2B8gUZ 3E7QbKPFzepsm eadiaQT3PDKgXJKjkM05S h9qrLlqKn3aTDLsBZW3HH BjvMPxR6BowK2rHqNqVKC fKQWyK2XkbMJg HAecA231EJuhFwV5JVIas tEeY7EhYFOxqEmvSeS5g6 U2Ng7MX4S3UL74EX64lIV sd3L3tKT4U6Ji THFuchprsucueJS4CFPvM GKvqZ66Tf3btMhhWp4rFC UfSSW9XWLsbTWlX0JaoV5 yOiAjMDAwMDAw O9RgsZGfPKblI695DUmwX gP8WCMchiHlB2FwPQPgbK hyNaY6r0A1Mo6UGAr9HS4 3EI54kJUiv6Z9 mPT5I1IoEDRzwsvdbgnac FG8BHGvSAZhjA20Mp2waZ udDx4uUEEkXWR7RPNyeDY oI0JdvF3jOkIp OMZnRNYuJ2VdiZSzURryH 458SGspNfL0SUMlonIsP3 IdVJVkfMpwYoV0n0I6Jo6 BAWGbSY13TQN5 aLO5IF37CA06Y3FjBkbre GFibGU+PHRhYmxlIHdpZH RoPScxMDAlJyBzdHlsZT0 xNo9lWMOuFEXq vHefjCVnLvJgz1wfTRKdG LioUY4ajYbcX7BjlEC7UV Jmf4q6Jm41T31bO4IadTI +EFWdmHY5mBY0 bM8bVmGcFqC7DHfvM218D fXqgKPlSwwkb2qdm7boxF z2DpG6IQMmgwPvmByeKFQ 7j6MaUp24F76f IHdpZHRoPSIxNSUiIHZhb Tzyov5syA0eNn5+PGNvbC U7rKI8sP1vMxZvAlD5AOk jS120LgYaaUIg Rwpho2tok0ujfNq8KdIjO IWymkXksJzkMCL2z2FvWz 95H2HxsMsbn7HiRoj6wb6 5wIMij0E6bXP6 J5ObUOVswoffyXCxlTgeW P3vIXZwnrunQWMohT8nRJ NdG8q0FkApPhI9WGyqL7T oioC2JXSmrSEc UYmxLWL8H93zd1L5XYAcI PWqYMT1tAB5tI0zrXyykg ogbGVmdDsgdmVydGljYWw cJPkxR662AWRt jHenFMWtqH0mIKWetRHia ZzxMO3pLGThnypdBvxHIR 0YL87hWRLIRaTDTS59U1O zUrc6UBDekCeo GH9arGCtHTyvWm4pbMpuq NmnMB7yAGOxsarzSMJigL 1sBKAfcLQnxGppHK0hPKR zszcfh147OtWq AZP3MAQqgXDlQ8KhqP6dK mQkYRBvIHFwR5PvcEEaNK dkK843QOjeRyZ8SPTrikD zF6EaIWGcfItw MiH6a9Z8Ri4vUf8oWD3kP ZT5MO03BC72eKYcg0R7xX K1Y7IkYZVsnfepgmzisUN 6WIPlICNslG33 cBRnQAgmFw1yw0M8x450L YBbDACbdT96Lm7wvXpdQX DscGCGiF6abwdne6qyrwh gIzAwMDAwMDt0 FKf2CPMcjJpkShRdAAG8K gQ6NGD8wRWxnJ9krBmhzx lkkR2mDsu+NzIgWWVhcnM 8P0JdSvu3DLYb pEjmXW5zfXZsKTqpQd9av XiqtHntLF5sIHAtmjetLH TgxH7yDNCjqKPwxWafGH0 wMMSnyqial009 DkNuRST7VCVnyYTbA2Cil T1qAzRbKIHfPRImN2IjdF GkOCyxJ096LTohZfR5QIF fkoSpV1DeHXBr eCdzAsK4d0B8Wj1SGD8ek JL8N1SuWeh4OTCfcDjgXE 9mtYGoBTepLg6joIbuwLo nRC5rTJZauuyp DVVaxJ4qVIIanQJscVllR F1iORPufpukx694IhDoQR K4KOTfiHNzR2MvyN5eUoS dIPXwFRAfB6Xh iFNwLMnsH663UOhmFkT6H HDcoxGiQ9EcJAYyyDjlDn H9f0A1El2UxEAhH2ZhS3m 9U6IvRozjdZZ+ DZ31QHHuFG89eWIrpWLcv 2vkfOx3MxGqQESlUAU0eN yhVRhmf3WlYKMtM54vgTU fm1J9DXLzeQwy lESnOzUfeRW0pG3gGZtjf aplo7wsrvnqFbmzd4qcii 82iZ47Y61fANoeECBgNFF zMCUiIHZhbGln qb9olG9xIr9+OAHtlBY6c EW1cR6dHpCxNuB8AGdwB5 03ZvGcoBYuTnuae3mjq7k hqWy1GxTdJMEd xhLmbAjaHVT5l9JqIf20X 29sIHdpZHRoPSIyMCUiIH PxzZbvyr5tbZ8bBb7+PC9 by0hbgo02lD85 dHI+ZQQgRPL3rEwnLYeoR ENfcH3oCTowXfK1JDOdMr UvfZ65jNLaAGltEp9xmVv amLvvFP1sFYTl rrccc852MfQub1orWTGrl JNbWGxtTAW6L31wi7I6RJ AnPCNuWYH3qSA8uB1ohTf nbjogbGVmdDsg bgVgzVfrIJvoQVglF497K PVhyJbpSrJcnBPwF1kkhv MTXC7dYyeejRE+PHRkIHN 0eWxlPSdwYWRk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 8.6-10.3 [facility] Comment on above: Order Comment: No: D o not add to previous draw Performed By: #### 0 0071, 38595, 50715, 82948, 91302 #### [facility] [address] [place] [address], [facility] Chloride [Moles/Vol] 105 mmol/L Normal 98-107 [facility] Comment on above: Order Comment: No: D o not add to previous draw Performed By: #### 0 0071, 71397, 16489, 59552, 32693 #### [facility] [address] [place] [address], [place] CO2 [Moles/Vol] 24 mmol/L Normal 21-31 [facility] Comment on above: Order Comment: No: D o not add to previous draw Performed By: #### 0 0071, 07450, 90560, 28128, 29644 #### [facility] [address] [place] [address], [place] Creatinine [Mass/Vol] 0.85 mg/dL Normal 0.60-1.20 [facility] Comment on above: Order Comment: No: D o not add to previous draw Performed By: #### 0 0071, 25933, 37445, 01075, 96622 #### [facility] [address] [place] [address], [place] GFR/1.73 sq M predicted among blacks MDRD (S/P/Bld) [Vol rate/Area] mL/min/{1.73_m2} Normal >60 [facility] Comment on above: Order Comment: No: D o not add to previous draw Performed By: #### 0 0071, 31788, 31932, 47571, 86092 #### [facility] [address] [place] [address], [place] GFR/1.73 sq M predicted among non-blacks MDRD (S/P/Bld) [Vol rate/Area] mL/min/{1.73_m2} Normal >60 [facility] Comment on above: Order Comment: No: D o not add to previous draw Performed By: #### 0 0071, 62264, 68763, 16169, 90553 #### [facility] [address] [place] [address], [place] Glucose [Mass/Vol] 115 mg/dL High 70-100 [facility] Comment on above: Order Comment: No: D o not add to previous draw Performed By: #### 0 0071, 39420, 20089, 78808, 55518 #### [facility] [address] [place] [address], [facility] Potassium [Moles/Vol] 4.0 mmol/L Normal 3.5-5.1 [facility] Comment on above: Order Comment: No: D o not add to previous draw Performed By: #### 0 0071, 70771, 32210, 13219, 06748 #### [facility] [address] [place] [address], [facility] Sodium [Moles/Vol] 135 mmol/L Low 136-145 [facility] Comment on above: Order Comment: No: D o not add to previous draw Performed By: #### 0 0071, 94496, 64658, 06965, 23862 #### [facility] [address] [place] [address], [facility] Urea nitrogen [Mass/Vol] 24 mg/dL Normal 7-25 [facility] Comment on above: Order Comment: No: D o not add to previous draw Performed By: #### 0 0071, 90486, 90226, 77602, 32811 #### [facility] [address] CBC COMPLETE BLOOD COUNTon 0 - Erythrocyte distribution width (RBC) [Ratio] 14.2 % Normal 11.5-15.0 [facility] Comment on above: Order Comment: No: D o not add to previous draw Performed By: #### 0 0071, 18313, 71664, 11826, 10506 #### [facility] [address] [place] [id number], [facility] Hematocrit (Bld) [Volume fraction] 35.5 % Low 36.0-45.0 [facility] Comment on above: Order Comment: No: D o not add to previous draw Performed By: #### 0 0071, 71361, 19096, 05517, 87725 #### [facility] [address] [place] [address], [facility] Hemoglobin (Bld) [Mass/Vol] 11.2 g/dL Low 12.0-15.0 [facility] Comment on above: Order Comment: No: D o not add to previous draw Performed By: #### 0 0071, 97984, 19426, 69692, 52027 #### [facility] [address] [place] [address], [facility] MCH (RBC) [Entitic mass] 28.1 pg Normal 27.0-33.0 [facility] Comment on above: Order Comment: No: D o not add to previous draw Performed By: #### 0 0071, 85505, 56787, 51713, 19560 #### [facility] [address] [place] [address], [facility] MCHC (RBC) [Mass/Vol] 31.5 g/dL Low 32.0-35.0 [facility] Comment on above: Order Comment: No: D o not add to previous draw Performed By: #### 0 0071, 91025, 82046, 88578, 04536 #### [facility] [address] [place] [address], [facility] MCV (RBC) [Entitic vol] 89.0 fL Normal 82.0-98.0 [facility] Comment on above: Order Comment: No: D o not add to previous draw Performed By: #### 0 0071, 82670, 02560, 80239, 37874 #### [facility] [address] [place] [address], [facility] Nucleated RBC/100 WBC (Bld) [Ratio] 0 % Normal 0-0 [facility] Comment on above: Order Comment: No: D o not add to previous draw Performed By: #### 0 0071, 21391, 85016, 18093, 56524 #### [facility] [address] [place] [address], [facility] PLAT CNT 257 10*3/uL Normal 150-400 [facility] Comment on above: Order Comment: No: D o not add to previous draw Performed By: #### 0 0071, 21565, 16035, 03925, 88210 #### [facility] [address] [place] [address], [facility] RBC (Bld) [#/Vol] 3.99 10*6/uL Normal 3.80-5.00 [facility] Comment on above: Order Comment: No: D o not add to previous draw Performed By: #### 0 0071, 40517, 76306, 38738, 72735 #### [facility] [address] [place] [address], [facility] WBC (Bld) [#/Vol] 8.64 10*3/uL Normal 4.00-10.60 [facility] Comment on above: Order Comment: No: D o not add to previous draw Performed By: #### 0 0071, 02021, 83622, 98596, 17431 #### [facility] [address] [facility] [place] [address], [facility] POC GLUCOSE LABon 01-11-2019 Glucose [Mass/Vol] 117 mg/dL High 70-100 [facility] Comment on above: Performed By: #### 0 0071, 15435, 41687, 44654, 43044 #### [facility] [address] [facility] [place] [place] [address], [place] Glucose [Mass/Vol] 104 mg/dL High 70-100 [facility] Comment on above: Performed By: #### 0 0071, 26896, 15065, 32209, 61656 #### [facility] [address] [place] [address], [place] Glucose [Mass/Vol] 100 mg/dL Normal 70-100 [facility] Comment on above: Performed By: #### 0 0071, 45675, 40194, 66253, 97321 #### [facility] [address] [place] [address], [facility] Glucose [Mass/Vol] 106 mg/dL High 70-100 [facility] Comment on above: Performed By: #### 0 0071, 90368, 66188, 89899, 75861 #### [facility] [address] [place] [id number], [facility] UFH HEPARIN ASSAYon 01-12-20 19 UNFRACTIONATED HEPARIN >1.00 Critically high 0.30-0.7 0 [facility] Comment on above: Result Comment: [place] roxaban and Apixaban will interfere with the anti Xa assay used to monitor UFH and LMWH. RESULTS CHECKED AND CALLED. ACCURATELY READ BACK BY LINA DAVIDSON RN AT 0540. UFH = 1.99; PATIENT ON ELIQUIS PER LINA RN AT 0542 Performed By: #### 0 0071, 63597, 47791, 29732, 54244 #### [facility] [address] [place] [address], [facility] BASIC METABOLIC PANELon 01-01 Calcium [Mass/Vol] 9.0 mg/dL Normal 8.6-10.3 [facility] Comment on above: Order Comment: No: D o not add to previous draw Performed By: #### 0 0071, 52219, 46585, 19499, 35892 #### [facility] [address] [place] [address], [place] Chloride [Moles/Vol] 104 mmol/L Normal 98-107 [facility] Comment on above: Order Comment: No: D o not add to previous draw Performed By: #### 0 0071, 08824, 34219, 54723, 40338 #### [facility] [address] [place] [address], [place] CO2 [Moles/Vol] 23 mmol/L Normal 21-31 [facility] Comment on above: Order Comment: No: D o not add to previous draw Performed By: #### 0 0071, 94502, 84976, 69344, 76852 #### [facility] [address] [place] [address], [place] Creatinine [Mass/Vol] 1.03 mg/dL Normal 0.60-1.20 [facility] Comment on above: Order Comment: No: D o not add to previous draw Performed By: #### 0 0071, 04363, 36684, 64636, 34807 #### [facility] [address] [place] [address], [place] GFR/1.73 sq M predicted among blacks MDRD (S/P/Bld) [Vol rate/Area] mL/min/{1.73_m2} Normal >60 [facility] Comment on above: Order Comment: No: D o not add to previous draw Performed By: #### 0 0071, 41660, 29572, 33831, 68016 #### [facility] [address] [place] [address], [facility] GFR/1.73 sq M predicted among non-blacks MDRD (S/P/Bld) [Vol rate/Area] 53 ml/min/1.73sq m Abnormal >60 [facility] Comment on above: Order Comment: No: D o not add to previous draw Performed By: #### 0 0071, 74440, 58136, 21770, 48148 #### [facility] [address] [place] [address], [place] Glucose [Mass/Vol] 124 mg/dL High 70-100 [facility] Comment on above: Order Comment: No: D o not add to previous draw Performed By: #### 0 0071, 11112, 32406, 52173, 50354 #### [facility] [address] [place] [address], [place] Potassium [Moles/Vol] 4.4 mmol/L Normal 3.5-5.1 [facility] Comment on above: Order Comment: No: D o not add to previous draw Performed By: #### 0 0071, 29982, 33557, 89831, 51743 #### [facility] [address] Sodium [Moles/Vol] 133 mmol/L Low 136-145 [facility] Comment on above: Order Comment: No: D o not add to previous draw Performed By: #### 0 0071, 70227, 08647, 69138, 60993 #### [facility] [address] Urea nitrogen [Mass/Vol] 28 mg/dL High 7-25 [facility] Comment on above: Order Comment: No: D o not add to previous draw Performed By: #### 0 0071, 49900, 11915, 04314, 73375 #### [facility] [address] [facility]. [address] CBC W/DIFFon 01-10-2019 ABS BASOPHILS 0.1 10*3/uL Normal 0.0-0.2 [facility] Comment on above: Order Comment: No: D o not add to previous draw Performed By: #### 0 0071, 37140, 01267, 00480, 19254 #### [facility] [address] [facility]. [address] ABS IMM GRANS 0.0 10*3/uL Normal 0.0-0.2 [facility] Comment on above: Order Comment: No: D o not add to previous draw Performed By: #### 0 0071, 96837, 95239, 59947, [id number] #### [facility] [address] [facility]. [address] ABS NEUTROPHILS 5.6 10*3/uL Normal 1.6-7.6 [facility] Comment on above: Order Comment: No: D o not add to previous draw Performed By: #### 0 0071, 64205, 45394, 73448, 88783 #### [facility] [address] [facility] [place] [address], [facility] Basophils/100 WBC (Bld) 0.7 % Normal 0.0-1.0 T abraham [facility] Comment on above: Order Comment: No: D o not add to previous draw Performed By: #### 0 0071, 47640, 85093, 68158, 90275 #### [facility] [address] [place] [address], [facility] Eosinophils (Bld) [#/Vol] 0.5 10*3/uL Normal 0.0-0.5 [facility] Comment on above: Order Comment: No: D o not add to previous draw Performed By: #### 0 0071, 09166, 15601, 85681, 87698 #### [facility] [address] [place] [address], [facility] Eosinophils/100 WBC (Bld) 5.2 % Normal 0.0-6.0 [facility] Comment on above: Order Comment: No: D o not add to previous draw Performed By: #### 0 0071, 14246, 49000, 21930, 49771 #### [facility] [address] [facility] [place] [address], [facility] Erythrocyte distribution width (RBC) [Ratio] 14.4 % Normal 11.5-15.0 [facility] Comment on above: Order Comment: No: D o not add to previous draw Performed By: #### 0 0071, 29175, 29517, 23254, 67504 #### [facility] [address] [place] [address], [facility] Hematocrit (Bld) [Volume fraction] 37.8 % Normal 36.0-45.0 [facility] Comment on above: Order Comment: No: D o not add to previous draw Performed By: #### 0 0071, 39613, 04172, 14029, 68878 #### [facility] [address] [place] [address], [facility] Hemoglobin (Bld) [Mass/Vol] 12.0 g/dL Normal 12.0-15.0 [facility] Comment on above: Order Comment: No: D o not add to previous draw Performed By: #### 0 0071, 60003, 00993, 65648, 25523 #### [facility] [address] [place] [address], [facility] IMMATURE GRANS 0.3 % Normal 0.0-1.0 [facility] Comment on above: Order Comment: No: D o not add to previous draw Performed By: #### 0 0071, 92319, 91209, 14310, 51005 #### [facility] [address] [facility] [place] [address], [facility] Lymphocytes (Bld) [#/Vol] 2.3 10*3/uL Normal 1.2-4.0 [facility] Comment on above: Order Comment: No: D o not add to previous draw Performed By: #### 0 0071, 25100, 72703, 28797, 96053 #### [facility] [address] [facility] [place] [address], [facility] Lymphocytes/100 WBC (Bld) 23.9 % Normal 20.0-45.0 [facility] Comment on above: Order Comment: No: D o not add to previous draw Performed By: #### 0 0071, 54292, 52512, 34554, 18539 #### [facility] [address] [facility] [place] [place] [address], [facility] MCH (RBC) [Entitic mass] 28.1 pg Normal 27.0-33.0 [facility] Comment on above: Order Comment: No: D o not add to previous draw Performed By: #### 0 0071, 46618, 96231, 82633, 72196 #### [facility] [address] [facility] [place] [place] [address], [facility] MCHC (RBC) [Mass/Vol] 31.7 g/dL Low 32.0-35.0 [facility] Comment on above: Order Comment: No: D o not add to previous draw Performed By: #### 0 0071, 46347, 12976, 92825, 02275 #### [facility] [address] [place] [address], [facility] MCV (RBC) [Entitic vol] 88.5 fL Normal 82.0-98.0 T abraham [facility] Comment on above: Order Comment: No: D o not add to previous draw Performed By: #### 0 0071, 35387, 60210, 16675, 31819 #### [facility] [address] [place] [address], [facility] Monocytes (Bld) [#/Vol] 1.0 10*3/uL Normal 0.1-1.0 [facility] Comment on above: Order Comment: No: D o not add to previous draw Performed By: #### 0 0071, 77745, 25992, 28714, 62269 #### [facility] [address] [place] [address], [facility] MONOS 10.9 % Normal 5.0-12.0 [facility] Comment on above: Order Comment: No: D o not add to previous draw Performed By: #### 0 0071, 80904, 48939, 90552, 32852 #### [facility] [address] [place] [address], [facility] Neutrophils/100 WBC (Bld) 59.0 % Normal 40.0-72.0 [facility] Comment on above: Order Comment: No: D o not add to previous draw Performed By: #### 0 0071, 84390, 66173, 82475, 05502 #### [facility] [address] [place] [address], [facility] Nucleated RBC/100 WBC (Bld) [Ratio] 0 % Normal 0-0 [facility] Comment on above: Order Comment: No: D o not add to previous draw Performed By: #### 0 0071, 78214, 89547, 87614, 43534 #### [facility] [address] PLAT CNT 273 10*3/uL Normal 150-400 [facility] Comment on above: Order Comment: No: D o not add to previous draw Performed By: #### 0 0071, 23222, 89726, 07759, 67012 #### [facility] [address] RBC (Bld) [#/Vol] 4.27 10*6/uL Normal 3.80-5.00 [facility] Comment on above: Order Comment: No: D o not add to previous draw Performed By: #### 0 0071, 47117, 55338, 27066, 21413 #### [address] WBC (Bld) [#/Vol] 9.48 10*3/uL Normal 4.00-10.60 [facility] Comment on above: Order Comment: No: D o not add to previous draw Performed By: #### 0 0071, 23103, 63799, 74521, 18340 #### [facility] [address] Cardiovascular Lab Reporton 01-10-2019 Cardiovascular Lab Report [facility] MR #: [id number] Department of Physician: Haritha Catalan MD Division of Service Date: 01/09/2019 Cardiology Birthdate: 1950 Adult Cardiovascular Room #: 3AB 390989 Services [place] [address] Cardiovascular Laboratory Report PROCEDURE PERFORMED: Transesophageal echocardiogram and cardioversion. INDICATION: Atrial fibrillation. FELLOW DOCTOR: Tawnya Navarrete M.D. PROCEDURE IN DETAIL: Informed consent was obtained from the patient after explaining indication, risks, benefits, and alternatives. The patient understood and agreed and signed the consent form. The patient was brought to the laboratory administrative director MELISSA. Transesophageal echocardiogram was performed under conscious [...] Navarrete MD Date Trans: 01/10/2019 07:43 A/kel [id number] Normal [facility] MAGNESIUM BLOODon 01-10-2019 Magnesium [Mass/Vol] 2.2 mg/dL Normal 1.9-2.7 [facility] Comment on above: Order Comment: No: D o not add to previous draw Performed By: #### 0 0071, 57855, 04768, 83613, 14155 #### [facility] [address] [place] [address], [place] POC GLUCOSE LABon 01-10-2019 Glucose [Mass/Vol] 88 mg/dL Normal 70-100 [facility] Comment on above: Performed By: #### 0 0071, 11514, 93595, 48100, 29512 #### [facility] [address] [place] [address], [place] Glucose [Mass/Vol] 91 mg/dL Normal 70-100 [facility] Comment on above: Performed By: #### 0 0071, 05694, 93739, 88686, 26597 #### [facility] [address] [place] [address], [place] Glucose [Mass/Vol] 97 mg/dL Normal 70-100 [facility] Comment on above: Performed By: #### 0 0071, 48778, 09809, 27817, 91544 #### [facility] [address] Glucose [Mass/Vol] 121 mg/dL High 70-100 [facility] Comment on above: Performed By: #### 0 0071, 84920, 86647, 09529, 55126 #### [facility] [address] UFH HEPARIN ASSAYon 01-11-20 19 UNFRACTIONATED HEPARIN 0.55 IU/mL Normal 0.30-0.70 Th e [facility] Comment on above: Result Comment: [place] roxaban and Apixaban will interfere with the anti Xa assay used to monitor UFH and LMWH. Performed By: #### 0 0071, 01955, 11499, 53241, 99076 #### [facility] [address] APTTon 01-09-2019 aPTT Coag (Bld) [Time] 27.6 s Normal 25.0-35.0 Th e [facility] Comment on above: Order Comment: No: D [...] THIS PURPOSE. Performed By: #### 5 6101, 50434 #### [facility] [address] BASIC METABOLIC PANELon Calcium [Mass/Vol] 9.5 mg/dL Normal 8.6-10.3 [facility] Comment on above: Order Comment: No: D o not add to previous draw Performed By: #### 0 0071, 10943, 05559, 80428, 16887 #### [facility] [address] [place] [address], [place] Chloride [Moles/Vol] 103 mmol/L Normal 98-107 [facility] Comment on above: Order Comment: No: D o not add to previous draw Performed By: #### 0 0071, 97461, 86808, 28664, 17666 #### [facility] [address] [place] [address], [place] CO2 [Moles/Vol] 23 mmol/L Normal 21-31 [facility] Comment on above: Order Comment: No: D o not add to previous draw Performed By: #### 0 0071, 56496, 98052, 41997, 44019 #### [facility] [address] [place] [address], [place] Creatinine [Mass/Vol] 1.04 mg/dL Normal 0.60-1.20 [facility] Comment on above: Order Comment: No: D o not add to previous draw Performed By: #### 0 0071, 19297, 74302, 18979, 98320 #### [facility] [address] [place] [address], [place] GFR/1.73 sq M predicted among blacks MDRD (S/P/Bld) [Vol rate/Area] mL/min/{1.73_m2} Normal >60 [facility] Comment on above: Order Comment: No: D o not add to previous draw Performed By: #### 0 0071, 40764, 78075, 14428, 44493 #### [facility] [address] [place] [address], [place] GFR/1.73 sq M predicted among non-blacks MDRD (S/P/Bld) [Vol rate/Area] 53 ml/min/1.73sq m Abnormal >60 [facility] Comment on above: Order Comment: No: D o not add to previous draw Performed By: #### 0 0071, 57024, 64679, 48843, 85638 #### [facility] [address] [place] [address], [facility] Glucose [Mass/Vol] 93 mg/dL Normal 70-100 [facility] Comment on above: Order Comment: No: D o not add to previous draw Performed By: #### 0 0071, 96301, 66511, 16052, 49669 #### [facility] [address] [place] [id number], [facility] Potassium [Moles/Vol] 4.3 mmol/L Normal 3.5-5.1 [facility] Comment on above: Order Comment: No: D o not add to previous draw Performed By: #### 0 0071, 68980, 88724, 79664, 01006 #### [facility] [address] [place] [address], [facility] Sodium [Moles/Vol] 134 mmol/L Low 136-145 [facility] Comment on above: Order Comment: No: D o not add to previous draw Performed By: #### 0 0071, 77538, 21824, 34841, 17827 #### [facility] [address] [place] [address], [facility] Urea nitrogen [Mass/Vol] 24 mg/dL Normal 7-25 [facility] Comment on above: Order Comment: No: D o not add to previous draw Performed By: #### 0 0071, 54484, 76923, 51882, 06330 #### [facility] [address] [place] [address], [facility] BNP (B-TYPE NATRIURETIC PEPT SARA)on 01-09-2019 Natriuretic peptide B (Bld) [Mass/Vol] 123 pg/mL High 0-100 [facility] Comment on above: Order Comment: No: D o not add to previous draw Result Comment: Give n the appropriate clinical setting a BNP result of >100 pg/mL indicates congestive heart failure. Performed By: #### 8 5123, 12026 #### [facility] [address] [place] [id number], [facility] CBC W/DIFFon 01-09-2019 ABS BASOPHILS 0.0 10*3/uL Normal 0.0-0.2 [facility] Comment on above: Order Comment: No: D o not add to previous draw Performed By: #### 5 0103 #### [facility] [address] [place] [address], [facility] ABS IMM GRANS 0.0 10*3/uL Normal 0.0-0.2 [facility] Comment on above: Order Comment: No: D o not add to previous draw Performed By: #### 5 0103 #### [facility] [address] [place] [address], [facility] ABS NEUTROPHILS 6.3 10*3/uL Normal 1.6-7.6 [facility] Comment on above: Order Comment: No: D o not add to previous draw Performed By: #### 5 0103 #### [facility] [address] [place] [address], [facility] Basophils/100 WBC (Bld) 0.4 % Normal 0.0-1.0 T he [facility] Comment on above: Order Comment: No: D o not add to previous draw Performed By: #### 5 0103 #### [facility] [address] [place] [address], [facility] Eosinophils (Bld) [#/Vol] 0.4 10*3/uL Normal 0.0-0.5 [facility] Comment on above: Order Comment: No: D o not add to previous draw Performed By: #### 5 0103 #### [facility] [address] [place] [address], [facility] Eosinophils/100 WBC (Bld) 3.6 % Normal 0.0-6.0 [facility] Comment on above: Order Comment: No: D o not add to previous draw Performed By: #### 5 0103 #### [facility] [address] [place] [address], [facility] Erythrocyte distribution width (RBC) [Ratio] 14.5 % Normal 11.5-15.0 [facility] Comment on above: Order Comment: No: D o not add to previous draw Performed By: #### 5 0103 #### [facility] [address] [place] [address], [facility] Hematocrit (Bld) [Volume fraction] 40.6 % Normal 36.0-45.0 [facility] Comment on above: Order Comment: No: D o not add to previous draw Performed By: #### 5 0103 #### [facility] [address] [place] [address], [facility] Hemoglobin (Bld) [Mass/Vol] 13.1 g/dL Normal 12.0-15.0 [facility] Comment on above: Order Comment: No: D o not add to previous draw Performed By: #### 5 0103 #### [facility] [address] [place] [address], [facility] IMMATURE GRANS 0.3 % Normal 0.0-1.0 [facility] Comment on above: Order Comment: No: D o not add to previous draw Performed By: #### 5 0103 #### [facility] [address] [place] [address], [facility] Lymphocytes (Bld) [#/Vol] 2.6 10*3/uL Normal 1.2-4.0 [facility] Comment on above: Order Comment: No: D o not add to previous draw Performed By: #### 5 0103 #### [facility] [address] [place] [address], [facility] Lymphocytes/100 WBC (Bld) 24.4 % Normal 20.0-45.0 [facility] Comment on above: Order Comment: No: D o not add to previous draw Performed By: #### 5 3 #### [facility] [address] [place] [address], [facility] MCH (RBC) [Entitic mass] 28.2 pg Normal 27.0-33.0 [facility] Comment on above: Order Comment: No: D o not add to previous draw Performed By: #### 5 0103 #### [facility] [address] [place] [id number], [facility] MCHC (RBC) [Mass/Vol] 32.3 g/dL Normal 32.0-35.0 [facility] Comment on above: Order Comment: No: D o not add to previous draw Performed By: #### 5 0103 #### [facility] [address] [place] [address], [facility] MCV (RBC) [Entitic vol] 87.3 fL Normal 82.0-98.0 T he [facility] Comment on above: Order Comment: No: D o not add to previous draw Performed By: #### 5 0103 #### [facility] [address] [place] [address], [facility] Monocytes (Bld) [#/Vol] 1.2 10*3/uL High 0.1-1.0 [facility] Comment on above: Order Comment: No: D o not add to previous draw Performed By: #### 5 0103 #### [facility] [address] [place] [address], [facility] MONOS 11.7 % Normal 5.0-12.0 [facility] Comment on above: Order Comment: No: D o not add to previous draw Performed By: #### 5 0103 #### [facility] [address] [place] [id number], [facility] Neutrophils/100 WBC (Bld) 59.6 % Normal 40.0-72.0 [facility] Comment on above: Order Comment: No: D o not add to previous draw Performed By: #### 5 0103 #### [facility] [address] [place] [id number], [facility] Nucleated RBC/100 WBC (Bld) [Ratio] 0 % Normal 0-0 [facility] Comment on above: Order Comment: No: D o not add to previous draw Performed By: #### 5 0103 #### [facility] [address] [place] [address], [facility] PLAT CNT 294 10*3/uL Normal 150-400 [facility] Comment on above: Order Comment: No: D o not add to previous draw Performed By: #### 5 0103 #### [facility] [address] [place] [address], [facility] RBC (Bld) [#/Vol] 4.65 10*6/uL Normal 3.80-5.00 [facility] Comment on above: Order Comment: No: D o not add to previous draw Performed By: #### 5 0103 #### [facility] [address] [place] [address], [place] WBC (Bld) [#/Vol] 10.52 10*3/uL Normal 4.00-10.60 [facility] Comment on above: Order Comment: No: D o not add to previous draw Performed By: #### 5 0103 #### [facility] [address] [place] [address], [facility] HEMOGLOBIN A1Con 01-09-2019 HbA1c (Bld) [Mass fraction] 111 mg/dL Normal 70-126 [facility] Comment on above: Order Comment: No: D o not add to previous draw Performed By: #### 8 5123, 47536 #### [facility] [address] [place] [address], [facility] HbA1c (Bld) [Mass fraction] 5.5 % Normal 4.0-6.0 [facility] Comment on above: Order Comment: No: D o not add to previous draw Performed By: #### 8 5123, 57991 #### [facility] [address] [place] [address], [place] LIVER BATTERYon 01-09-2019 Albumin [Mass/Vol] 3.5 g/dL Normal 3.5-5.7 [facility] Comment on above: Order Comment: No: D o not add to previous draw Performed By: #### 0 0071, 76117, 24662, 10786, 06293 #### [facility] [address] [place] [address], [place] ALKALINE PHOSPH 84 IU/L Normal 34-104 [facility] Comment on above: Order Comment: No: D o not add to previous draw Performed By: #### 0 0071, 38931, 56256, 67379, 13909 #### [facility] [address] [place] [address], [place] ALT [Catalytic activity/Vol] 17 U/L Normal 7-52 [facility] Comment on above: Order Comment: No: D o not add to previous draw Performed By: #### 0 0071, 26661, 81185, 67579, 67272 #### [facility] [address] [place] [address], [place] AST [Catalytic activity/Vol] 19 U/L Normal 13-39 [facility] Comment on above: Order Comment: No: D o not add to previous draw Performed By: #### 0 0071, 92972, 48680, 83297, 34560 #### [facility] [address] [place] [address], [place] Bilirubin [Mass/Vol] 0.6 mg/dL Normal 0.3-1.0 [facility] Comment on above: Order Comment: No: D o not add to previous draw Performed By: #### 0 0071, 88513, 26182, 29933, 50952 #### [facility] [address] [place] [address], [place] Bilirubin.direct [Mass/Vol] 0.2 mg/dL Normal 0.0-0.2 [facility] Comment on above: Order Comment: No: D o not add to previous draw Performed By: #### 0 0071, 09347, 95699, 57871, 75969 #### [facility] [address] [place] [address], [facility] Protein [Mass/Vol] 7.0 g/dL Normal 6.0-8.3 [facility] Comment on above: Order Comment: No: D o not add to previous draw Performed By: #### 0 0071, 86043, 36047, 23840, 85241 #### [facility] [address] [facility] [place] [address], [facility] MAGNESIUM BLOODon 01-09-2019 Magnesium [Mass/Vol] 2.1 mg/dL Normal 1.9-2.7 [facility] Comment on above: Order Comment: No: D o not add to previous draw Performed By: #### 0 0071, 62626, 30913, 35071, 04662 #### [facility] [address] [facility] [place] [address], [facility] POC GLUCOSE LABon 01-09-2019 Glucose [Mass/Vol] 147 mg/dL High 70-100 [facility] Comment on above: Performed By: #### 0 0071, 34376, 34360, 66929, 19815 #### [facility] [address] [facility] [place] [address], [facility] Glucose [Mass/Vol] 88 mg/dL Normal 70-100 [facility] Comment on above: Performed By: #### 0 0071, 95325, 64597, 08719, 19776 #### [facility] [address] [facility] [place] [address], [facility] PORTABLE CHEST 1 VIEWon PORTABLE CHEST 1 VIEW [facility] Department of Radiology [address] [place] [address] Patient Name: SIVA NICOLAS : 1950 Sex: F Age: Race: White Pt. Location: [id number] Patient Status: I Ordered Date: 01/09/2019 1:45:00 [...] findings. Electronically signed by:Deneen Nicholas. Transcribed by: [email or web address], User Resident: LINDA CARPENTER Electronically Signed by: DENEEN NICHOLAS @ 01/12/2019 08:56 AM I personally read this/these film(s) with this resident Normal [facility] Comment on above: Order Comment: No: D o not add to previous draw PROTHROMBIN TIMEon 9 INR Coag (PPP) [Relative time] 1.13 {INR} Normal 0.91-1.16 [facility] Comment on above: Order Comment: No: D [...] CHEST 1995;[id number]. Performed By: #### 5 6101, 05476 #### [facility] [address] PT Coag (PPP) [Time] 14.6 s Normal 12.3-14.8 [facility] Comment on above: Order Comment: No: D o not add to previous draw Result Comment: ALL RESULTS MUST BE INTERPRETED WITH RESPECT TO BLOOD DRAWING ARTIFACT OR DILUTION ERROR OF ANTICOAGULANT AT THE TIME OF SAMPLING. Performed By: #### 5 6101, 63240 #### [facility] [address] [place] [address], [facility] TROPONIN-Ion 01-09-2019 Troponin I.cardiac [Mass/Vol] 0.06 ng/mL High 0.00-0.04 [facility] Comment on above: Order Comment: No: D o not add to previous draw Result Comment: REFE RENCE RANGES: 0.00 - 0.04 ng/ml NORMAL 0.05 - 0.50 ng/ml INDETERMINATE > 0.50 ng/ml CONSISTENT WITH AN M.I. Performed By: #### 0 0071, 48336, 47152, 79828, 81897 #### [facility] [address] TSH3on 01-09-2019 TSH 3RD GENERATION 3.44 uIU/mL Normal 0.34-5.60 [facility] Comment on above: Order Comment: No: D o not add to previous draw Performed By: #### 0 0071, 43701, 52460, 56860, 00147 #### [facility] [address] UFH HEPARIN ASSAYon 01-10-20 19 UNFRACTIONATED HEPARIN 0.67 IU/mL Normal 0.30-0.70 Th e [facility] Comment on above: Result Comment: [place] roxaban and Apixaban will interfere with the anti Xa assay used to monitor UFH and LMWH. Performed By: #### 0 0071, 00218, 40572, 16056, 26908 #### [facility] [address] Vital Signs Date Time Vital Sign Value Performing Clinician Facility 08-10-2024 11:04-0400 Body height 157.5 cm Edi Cosby MD Work Phone: [facility] 08-10-2024 11:04-0400 Body mass index (BMI) [Ratio] 46.2 kg/m2 Edi Cosby MD Work Phone: [facility] 08-10-2024 11:04-0400 Body weight 114.58 kg Edi Cosby MD Work Phone: [facility] 08-10-2024 11:04-0400 Diastolic blood pressure 70 mm[Hg] Edi Cosby MD Work Phone: [facility] 08-10-2024 11:04-0400 Heart rate 48 /min Edi Cosby MD Work Phone: [facility] 08-10-2024 11:04-0400 Systolic blood pressure 120 mm[Hg] Edi Cosby MD Work Phone: [facility] 12-17-2023 13:58-0400 Body height 156.21 cm [facility] 12-17-2023 13:58-0400 Body mass index (BMI) [Ratio] 46.3 kg/m2 [facility] 12-17-2023 13:58-0400 Body weight 112.94 kg [facility] 12-17-2023 13:58-0400 Diastolic blood pressure 77 mm[Hg] [facility] 12-17-2023 13:58-0400 Heart rate 60 /min [facility] 12-17-2023 13:58-0400 Systolic blood pressure 130 mm[Hg] [facility] 10-08-2023 14:53-0400 Body height 157.5 cm Edi Cosby MD Work Phone: [facility] 10-08-2023 14:53-0400 Body mass index (BMI) [Ratio] 45.73 kg/m2 Edi Cosby MD Work Phone: [facility] 10-08-2023 14:53-0400 Body weight 113.4 kg Edi Cosby MD Work Phone: [facility] 10-08-2023 14:53-0400 Diastolic blood pressure 80 mm[Hg] Eid Cosby MD Work Phone: [facility] 10-08-2023 14:53-0400 Heart rate 52 /min Edi Cosby MD Work Phone: [facility] 10-08-2023 14:53-0400 Systolic blood pressure 120 mm[Hg] Edi Cosby MD Work Phone: [facility] 09-16-2023 14:33-0400 Body height 156.21 cm [facility] 09-16-2023 14:33-0400 Body mass index (BMI) [Ratio] 46.4 kg/m2 [facility] 09-16-2023 14:33-0400 Body weight 113.39 kg [facility] 09-16-2023 14:33-0400 Diastolic blood pressure 76 mm[Hg] [facility] 09-16-2023 14:33-0400 Heart rate 52 /min [facility] 09-16-2023 14:33-0400 Systolic blood pressure 118 mm[Hg] [facility] 01-03-2023 14:50-0400 Body height 157.48 cm Nicole Guzman Work Phone: [facility] 250 DO Work Phone: 01-03-2023 14:50-0400 Body mass index (BMI) [Ratio] 44.63 kg/m2 Nicole Guzman Work Phone: [facility] 250 DO Work Phone: 01-03-2023 14:50-0400 Body surface area Derived from formula 2.08 m2 Nicole Guzman Work Phone: [facility] 250 DO Work Phone: 01-03-2023 14:50-0400 Body weight 110.68 kg Nicole Guzman Work Phone: [facility] 250 DO Work Phone: 01-03-2023 14:50-0400 Diastolic blood pressure 62 mm[Hg] Nicole Guzman Work Phone: [facility] 250 DO Work Phone: 01-03-2023 14:50-0400 Heart rate 62 /min Nicole Guzman Work Phone: [facility] [employer] 250 DO Work Phone: 01-03-2023 14:50-0400 Systolic blood pressure 108 mm[Hg] Nicole Guzman Work Phone: [facility] [employer] 250 DO Work Phone: 11-26-2022 13:45-0400 Body height 156.21 cm Nicole Guzman Other [employer] Other 11-26-2022 13:45-0400 Body mass index (BMI) [Ratio] 46.28 kg/m2 Nicole Guzman Other [employer] Other 11-26-2022 13:45-0400 Body weight 112.95 kg Nicole Guzman Other [employer] Other 11-26-2022 13:45-0400 Diastolic blood pressure 79 mm[Hg] Nicole Guzman Other [employer] Other 11-26-2022 13:45-0400 SaO2% (BldA) [Mass fraction] 89 % Nicole Guzman Other [employer] Other 11-26-2022 13:45-0400 Systolic blood pressure 149 mm[Hg] Nicole Guzman Other [employer] Other 08-23-2022 14:45-0400 Body height 156.21 cm Nicole Guzman Other [employer] Other 08-23-2022 14:45-0400 Body mass index (BMI) [Ratio] 47.95 kg/m2 Nicole Guzman Other [employer] Other 08-23-2022 14:45-0400 Body weight 117.03 kg Nicole Guzman Other [facility] [email or web address] Other 08-23-2022 14:45-0400 Diastolic blood pressure 82 mm[Hg] Nicole Guzman Other [employer] Other 08-23-2022 14:45-0400 SaO2% (BldA) [Mass fraction] 90 % Nicole Guzman Other [employer] Other 08-23-2022 14:45-0400 Systolic blood pressure 114 mm[Hg] Nicole Guzman Other [employer] Other 06-18-2022 14:30-0500 Body height 156.21 cm Nicole Guzman Other [employer] Other 06-18-2022 14:30-0500 Body mass index (BMI) [Ratio] 47.77 kg/m2 Nicole Guzman Other [employer] Other 06-18-2022 14:30-0500 Body weight 116.58 kg Nicole Guzman Other [employer] Other 06-18-2022 14:30-0500 Diastolic blood pressure 70 mm[Hg] Nicole Guzman Other [employer] Other 06-18-2022 14:30-0500 SaO2% (BldA) [Mass fraction] 90 % Nicole Guzman Other [facility] [email or web address] Other 06-18-2022 14:30-0500 Systolic blood pressure 146 mm[Hg] Nicole Guzman Other [employer] Other 05-14-2022 14:14-0500 Body height 157.48 cm Nicole Guzman Work Phone: [facility] 250 DO Work Phone: 05-14-2022 14:14-0500 Body mass index (BMI) [Ratio] 47.74 kg/m2 Nicole Guzman Work Phone: [facility] 250 DO Work Phone: 05-14-2022 14:14-0500 Body surface area Derived from formula 2.14 m2 Nicole Guzman Work Phone: [facility] 250 DO Work Phone: 05-14-2022 14:14-0500 Body weight 118.39 kg Nicole Guzman Work Phone: [facility] 250 DO Work Phone: 05-14-2022 14:14-0500 Diastolic blood pressure 86 mm[Hg] Nicole Guzman Work Phone: [facility] 250 DO Work Phone: 05-14-2022 14:14-0500 Heart rate 62 /min Nicole Guzman Work Phone: [facility] 250 DO Work Phone: 05-14-2022 14:14-0500 Systolic blood pressure 122 mm[Hg] Nicole Guzman Work Phone: [facility] 250 DO Work Phone: 12-19-2021 13:42-0400 Body height 157.48 cm Nicole Guzman Work Phone: [facility] 250 DO Work Phone: 12-19-2021 13:42-0400 Body mass index (BMI) [Ratio] 45.73 kg/m2 Nicole Guzman Work Phone: [facility] 250 DO Work Phone: 12-19-2021 13:42-0400 Body surface area Derived from formula 2.1 m2 Nicole Guzman Work Phone: [facility] [employer] 250 DO Work Phone: 12-19-2021 13:42-0400 Body weight 113.4 kg Nicole Guzman Work Phone: [facility] [employer] 250 DO Work Phone: 12-19-2021 13:42-0400 Diastolic blood pressure 76 mm[Hg] Nicole Guzman Work Phone: [facility] [employer] 250 DO Work Phone: 12-19-2021 13:42-0400 Heart rate 61 /min Nicole Guzman Work Phone: [facility] [employer] 250 DO Work Phone: 12-19-2021 13:42-0400 Systolic blood pressure 130 mm[Hg] Nicole Guzman Work Phone: [facility] [employer] 250 DO Work Phone: 08-31-2021 16:00-0400 Body height 165.1 cm Renzo Hein Other [employer] Other 08-31-2021 16:00-0400 Body mass index (BMI) [Ratio] 41.66 kg/m2 Renzo Hein Other [employer] Other 08-31-2021 16:00-0400 Body weight 113.58 kg Renzo Hein Other [employer] Other 08-31-2021 16:00-0400 Diastolic blood pressure 88 mm[Hg] Renzo Hein Other [employer] Other 08-31-2021 16:00-0400 SaO2% (BldA) [Mass fraction] 88 % Renzo Hein Other [employer] Other 08-31-2021 16:00-0400 Systolic blood pressure 140 mm[Hg] Renzo Hein Other [employer] Other 08-14-2021 14:15-0400 Body height 165.1 cm Renzo Hein Other [employer] Other 08-14-2021 14:15-0400 Body mass index (BMI) [Ratio] 41.56 kg/m2 Renzo Hein Other [employer] Other 08-14-2021 14:15-0400 Body weight 113.31 kg Renzo Hein Other [employer] Other 08-14-2021 14:15-0400 Diastolic blood pressure 80 mm[Hg] Renzo Hein Other [employer] Other 08-14-2021 14:15-0400 SaO2% (BldA) [Mass fraction] 97 % Renzo Hein Other [employer] Other 08-14-2021 14:15-0400 Systolic blood pressure 130 mm[Hg] Renzo Hein Other [employer] Other 07-26-2021 14:15-0500 Body height 165.1 cm Renzo Hein Other [employer] Other 07-26-2021 14:15-0500 Body mass index (BMI) [Ratio] 41.93 kg/m2 Renzo Hein Other [employer] Other 07-26-2021 14:15-0500 Body weight 114.31 kg Renzo Hein Other [employer] Other 07-26-2021 14:15-0500 SaO2% (BldA) [Mass fraction] 91 % Renzo Hein Other [employer] Other 06-22-2021 16:00-0500 Body height 165.1 cm Renzo Hein Other [employer] Other 06-22-2021 16:00-0500 Body mass index (BMI) [Ratio] 42.26 kg/m2 Renzo Hein Other [employer] Other 06-22-2021 16:00-0500 Body weight 115.21 kg Renzo Hein Other [employer] Other 06-22-2021 16:00-0500 Diastolic blood pressure 90 mm[Hg] Renzo Hein Other [employer] Other 06-22-2021 16:00-0500 SaO2% (BldA) [Mass fraction] 93 % Renzo Hein Other [employer] Other 06-22-2021 16:00-0500 Systolic blood pressure 140 mm[Hg] Renzo Hein Other [employer] Other 06-21-2021 13:24-0500 Diastolic blood pressure 76 mm[Hg] Nicole Guzman Work Phone: [facility] [employer] 250 DO Work Phone: 06-21-2021 13:24-0500 Systolic blood pressure 139 mm[Hg] Nicole Guzman Work Phone: [facility] 250 DO Work Phone: 06-21-2021 13:11-0500 Body height 157.48 cm Nicole Guzman Work Phone: [facility] 250 DO Work Phone: 06-21-2021 13:11-0500 Body mass index (BMI) [Ratio] 46.46 kg/m2 Nicole Guzman Work Phone: [facility] 250 DO Work Phone: 06-21-2021 13:11-0500 Body surface area Derived from formula 2.12 m2 Nicole Guzman Work Phone: [facility] 250 DO Work Phone: 06-21-2021 13:11-0500 Body weight 115.21 kg Nicole Guzman Work Phone: [facility] 250 DO Work Phone: 06-21-2021 13:11-0500 Diastolic blood pressure 90 mm[Hg] Nicole Guzman Work Phone: [facility] 250 DO Work Phone: 06-21-2021 13:11-0500 Heart rate 55 /min Nicole Guzman Work Phone: [facility] 250 DO Work Phone: 06-21-2021 13:11-0500 Systolic blood pressure 142 mm[Hg] Nicole Guzman Work Phone: [facility] 250 DO Work Phone: Encounters Encounter Date Encounter Type Care Provider Facility Start: 08-10-2024 End: 08[facility]10[facility] Start: 08-10-2024 End: 08-10-2024 Office outpatient visit 25 minutes Edi Cosby MD Work Phone: [facility] Comment on above: Paroxysmal atrial fi brillation (Multi) (Primary Dx); CAD, multiple vessel; Mixed hyperlipidemia; Essential hypertension; Anticoagulated; Localized edema; Bradycardia; BMI 45.0-49.9, adult (Multi); Former smoker Start: 12-17-2023 End: 12-17-2023 ambulatory MD Jared Rodgers [facility] Work Phone: Start: 12-17-2023 End: 12-17-2023 Patient encounter procedure MD Jared Rodgers [facility] Work Phone: Start: 10-08-2023 End: 10-08-2023 Office outpatient visit 25 minutes Edi Cosby MD Work Phone: [facility] Comment on above: CAD, multiple vessel (Primary Dx); Mixed hyperlipidemia; Essential hypertension; Paroxysmal atrial fibrillation (Multi); Anticoagulated; Chronic obstructive pulmonary disease, unspecified COPD type (Multi); BMI 45.0-49.9, adult (Multi); Former smoker Start: 10-08-2023 End: 10-08-2023 ambulatory [facility] Ambulatory Start: 09-16-2023 Patient encounter procedure MD Jared Rodgers [facility] Start: 09-16-2023 End: 09-16-2023 ambulatory MD Jared Rodgers [facility] Work Phone: Start: 09-16-2023 End: 09-16-2023 Patient encounter procedure MD Jared Rodgers [facility] Work Phone: Start: 08-05-2023 Non-patient / [facility] Otto Clave Work Phone: Start: 04-24-2023 End: 04-24-2023 ambulatory Nicole Guzman Other [facility] [employer] Other Start: 04-24-2023 Telephone encounter Nicole Guzman [facility] Start: 03-25-2023 End: 03-25-2023 ambulatory Nicole Guzman Facility:[facility] Start: 03-25-2023 End: 03-25-2023 ambulatory MD Nicole Guzman Work Phone: [facility] Work Phone: Start: 03-25-2023 End: 03-25-2023 Patient encounter procedure MD Nicole Guzman Work Phone: [facility] Work Phone: Start: 02-27-2023 End: 02-27-2023 ambulatory Nicole Guzman Other [employer] Other Start: 02-27-2023 Telephone encounter Nicole Guzman [facility] Start: 02-13-2023 Rx Renewal Nicole Guzman Work Phone: [facility] 250 DO Work Phone: Start: 02-11-2023 End: 02-11-2023 ambulatory Nicole Guzman Other [employer] Other Start: 02-11-2023 Telephone encounter Nicole Guzman [facility] Start: 01-03-[address] Nicole Guzman Facility: Start: 01-03-2023 FUV, Provider: Edi Cosby, Status: Pen, Time: 2:10 PM Nicole Guzman Work Phone: [facility] 250 DO Work Phone: Start: 01-03-2023 Office outpatient vi sit 25 minutes Nicole Guzman Work Phone: [facility] 250 DO Work Phone: Start: 01-01-2023 Chart Update Nicole Guzman Work Phone: [facility] 250 DO Work Phone: Start: 01-01-2023 End: 01-01-2023 ambulatory Edi Cosby Facility:[facility] Start: 01-01-2023 End: 01-01-2023 ambulatory MD Nicole Guzman Work Phone: [facility] Work Phone: Start: 01-01-2023 End: 01-01-2023 Patient encounter procedure MD Nicole Guzman Work Phone: [facility] [place] Work Phone: Start: 11-27-2022 End: 11-27-2022 ambulatory Nicole Guzman Other [employer] Other Start: 11-27-2022 Telephone encounter Nicole Guzman [facility] Start: 11-26-2022 End: 11-26-2022 ambulatory Nicole Guzman Other [employer] Other Start: 11-26-2022 Office outpatient vi sit 15 minutes Nicole Guzman [facility] Start: 11-01-[address] NICOLE GUZMAN Facil ity:[facility]1 Start: 10-11-2022 End: 10-11-2022 ambulatory Nicole Guzman Other [employer] Other Start: 10-11-2022 Telephone encounter Nicole Guzman [facility] Start: 10-09-2022 End: 10-09-2022 ambulatory Nicole Guzman Other [employer] Other Start: 10-09-2022 Telephone encounter Nicole Guzman [facility] Start: 08-23-2022 End: 08-23-2022 ambulatory Nicole Guzman Other [employer] Other Start: 08-23-2022 Office outpatient vi sit 15 minutes Nicole Guzman [facility] Start: 06-18-2022 End: 06-18-2022 ambulatory Nicole Guzman Other [employer] Other Start: 06-18-2022 Office outpatient vi sit 15 minutes Nicole Guzman [facility] Start: 05-14-2022 Office outpatient vi sit 25 minutes [facility] Work Phone: Start: 05-14-[address] Edi Cosby Facility: Start: 04-16-[address] NICOLE GUZMAN [facility] ity:[facility] Start: 03-30-2022 End: 03-31-2022 ambulatory KRISTOPHERLIONEL MELCHOR . Facility:[facility] Start: 03-27-2022 Adult health examination Nicole Guzman Other [facility] [employer] Other Start: 02-19-2022 End: 02-19-[address] SVETLANA CHAPMAN Facility:[facility] Start: 02-14-2022 End: 02-15-2022 ambulatory KRISTOPHERLIONEL MELCHOR . Facility:[facility] Start: 12-19-2021 Office outpatient vi sit 25 minutes Nicole Guzman Work Phone: [facility] 250 DO Work Phone: Start: 12-12-2021 Encounter for genera l adult medical examination without abnormal findings DR EDI COSBY [facility] Start: 12-08-2021 End: 12-09-[address] EDI COSBY Facility:[facility] Start: 12-08-2021 End: 12-09-2021 Encounter for general adult medical examination without abnormal findings DR EDI COSBY Facility:[facility] Start: 11-17-2021 End: 11-18-[address] SVETLANA CHAPMAN Facility:[facility] Start: 11-14-2021 Telephone encounter [facility] [place] Work Phone: Start: 11-08-2021 End: 11-09-[address] NICOLE GUZMAN Facility:[facility] Start: 09-22-2021 End: 09-23-[address] NICOLE GUZMAN Facility:[facility] Start: 09-06-2021 End: 09-23-[address] NICOLE GUZMAN Facility:[facility] Start: 08-31-2021 End: 08-31-2021 ambulatory Renzo Angel Luis Other [employer] Other Start: 08-31-2021 Office outpatient vi sit 25 minutes Renzo Angel Luis [facility] Start: 08-14-2021 End: 08-14-2021 ambulatory Renzo Angel Luis Other [employer] Other Start: 08-14-2021 Office outpatient vi sit 25 minutes Renzo Angel Luis [facility] Start: 07-26-2021 End: 07-26-2021 ambulatory Renzo Angel Luis Other [employer] Other Start: 07-26-2021 Office outpatient vi sit 25 minutes Renzo Angel Luis [facility] Start: 06-22-2021 End: 06-22-2021 ambulatory Renzo Angel Luis Other [employer] Other Start: 06-22-2021 Office consultation new/estab patient 60 min Renzo Angel Luis [facility] Start: 06-21-2021 Office outpatient vi sit 25 minutes Nicole Guzman Work Phone: [facility] 250 DO Work Phone: Start: 01-09-2019 End: 01-12-2019 Evaluation and management of inpatient Manju Blackwell Facility:[facility] Start: 12-20-2003 Evaluation and management of inpatient MD Nicole Guzman Work Phone: [facility] Work Phone: Procedures Date Procedure Procedure Detail Performing Clinician Start: 08-10-2024 Ecg routine ecg w/le ast 12 lds w/i&r Edi Cosby MD Work Phone: Start: 01-09-2019 Buddhism of Cardi ac Rhythm, Single MOSHRIK ABD [...] (2 - Td or Tdap) [facility] Start: 06-18-2025 End: 06-18-2025 Patient encounter procedure 06/18/2025 10:20 AM EST Office Visit [facility] [address] [place] [id number] Edi Cosby MD [address] [place] [address] [facility] Start: 07-17-2024 End: 07-17-2024 Patient encounter procedure 07/17/2024 11:20 AM EST Office Visit [facility] [address] [place] [id number] Edi Cosby MD [address] [place] [address] [facility] Start: 02-02-2024 COVID-19 Vaccine () COVID-19 Vaccine () [facility] Start: 10-08-2023 FUV, Provider: Edi Cosby, Status: Pen, Time: 2:40 PM FUV, Provider: Edi Cosby, Status: Pen, Time: 2:40 PM [facility] 250 DO Work Phone: Start: 08-03-2023 COVID-19 Vaccine () COVID-19 Vaccine () [facility] Start: 03-25-2023 Screening mammography of bilateral breasts MM screening mammo BI w/CAD [facility] Start: 11-13-2022 FUV, Provider: Edi Cosby, Status: Pen, Time: 2:50 PM FUV, Provider: Edi Cosby, Status: Pen, Time: 2:50 PM [facility] [employer] 250 DO Work Phone: Start: 05-22-2022 FUV, Provider: Edi Cosby, Status: Pen, Time: 2:20 PM FUV, Provider: Edi Cosby, Status: Pen, Time: 2:20 PM [facility] [employer] 250 DO Work Phone: Start: 12-19-2021 FUV, Provider: Edi Cosby, Status: Pen, Time: 1:30 PM FUV, Provider: Edi Cosby, Status: Pen, Time: 1:30 PM [facility] [employer] 250 DO Work Phone: Start: 1998 Zoster Vaccines (1 of 2) Zoster Vaccines (1 of 2) [facility] Start: 1988 Screening for malignant neoplasm of breast Mammogram [facility] Start: 11-21-1967 Urine screening for protein Diabetes: Urine Protein Screening [facility] Start: 1966 Hepatitis C screening Hepatitis C Screening [facility] Start: 1958 Diabetic foot examination Diabetes: Foot Exam [facility] Start: 1958 Glaucoma screening Diabetes: Retinopathy Screening [facility] Start: 1948 Hemoglobin A1c measurement Diabetes: Hemoglobin A1C [facility] Start: 1948 Lipid panel Lipid Panel [facility] Start: 1948 Medicare Annual Wellness Visit Medicare Annual Wellness Visit (AWV) [facility] Start: 1948 Screening for malignant neoplasm of colon [facility] Start: 1948 Screening for osteoporosis Bone Density Scan [facility] Start: 1948 Thyroid stimulating hormone measurement TSH Level [facility] Start: 1948 Urine screening for protein Diabetes: Urine Protein Screening [facility] Immunizations Immunization Date Immunization Notes Care Provider Rodrick maier 03-03-2024 influenza, seasonal, injectable Edi Cosby MD Work Phone: [facility] 03-13-2022 COVID-19 Pfizer (Pediatric) Nicole Guzman Other [facility] 03-13-2022 Pfizer COVID-19 Vac Bivalent 30 MCG/0.3ML Intramuscular Suspension Nicole E Guzman Work Phone: [facility] 250 DO Work Phone: 03-09-2022 Fluad Quadrivalent 0 .5 ML Intramuscular Prefilled Syringe Nicole E Guzman Work Phone: [facility] 250 DO Work Phone: 03-09-2022 influenza virus vaccine, split virus (incl. purified surface antigen) Nicole Guzman Other [facility] [employer] Other 03-09-2022 influenza virus vaccine, unspecified formulation MD Coleman [facility] 04-17-2021 Moderna COVID-19 Vaccine 100 MCG/0.5ML Intramuscular Suspension Nicole E Guzman Work Phone: [facility] 250 DO Work Phone: 02-21-2021 Fluad Quadrivalent 0 .5 ML Intramuscular Prefilled Syringe Nicole E Guzman Work Phone: [facility] 250 DO Work Phone: 02-21-2021 influenza virus vaccine, split virus (incl. purified surface antigen) Nicole Guzman Other [facility] [employer] Other 02-21-2021 influenza virus vaccine, unspecified formulation MD Coleman [facility] 08-09-2020 Moderna COVID-19 Vaccine 100 MCG/0.5ML Intramuscular Suspension Nicole E Guzman Work Phone: [place] [address] DO Work Phone: 07-11-2020 Moderna COVID-19 Vaccine 100 MCG/0.5ML Intramuscular Suspension Nicole Guzman Work Phone: [place] [address] DO Work Phone: 02-15-2020 influenza virus vaccine, split virus (incl. purified surface antigen) Nicole Guzman Other [facility] [employer] Other 02-15-2020 influenza virus vaccine, unspecified formulation MD Coleman [facility] 02-15-2020 influenza, injectabl e, quadrivalent, preservative free Nicole Guzman Work Phone: [place] [address] DO Work Phone: 02-02-2020 influenza, high dose seasonal, preservative-free Nicole Guzman Work Phone: [place] [address] DO Work Phone: 03-20-2019 Seasonal trivalent influenza vaccine, adjuvanted, preservative free Nicole Guzman Work Phone: [place] [address] DO Work Phone: 05-05-2018 influenza virus vaccine, split virus (incl. purified surface antigen) Nicole Guzman Other [facility] [employer] Other 05-05-2018 influenza virus vaccine, unspecified formulation MD Coleman [facility] 05-05-2018 pneumococcal polysaccharide vaccine, 23 valent Nicole Guzman Work Phone: [facility] 05-05-2018 Seasonal trivalent influenza vaccine, adjuvanted, preservative free Nicole Guzman Work Phone: [place] [address] DO Work Phone: 03-02-2018 pneumococcal conjuga te vaccine, 13 valent Nicole Guzman Work Phone: [facility] 250 DO Work Phone: 04-02-2017 pneumococcal conjuga te vaccine, 13 valjaqueline Guzman Other [facility] 03-15-2017 influenza, high dose seasonal, preservative-free Nicole Guzman Work Phone: [facility] DO Work Phone: 03-15-2017 pneumococcal conjuga te vaccine, 13 valent Nicole Thakkar Guzman Work Phone: [facility] DO Work Phone: 03-15-2016 influenza, high dose seasonal, preservative-free Nicole Guzman Work Phone: [facility] 250 DO Work Phone: Payers Date Payer Category Payer Medicare (Managed Care) [facility] MEDICARE [id number] 2024 Medicare [id number] 2023 Unknown 2023 Self-pay [id number] 2020 Unknown [id number] 1959 Medicare [id number] [id number] 1959 Self-pay [id number] 1948 Unknown [id number] 2.16.840.1.641096.3.579.2. 647 1948 Unknown [id number] 2.16.840.1.733546.3.579.2. 593 1948 Unknown [id number] 2.16.840.1.336785.3.579.2. 593 1948 Unknown [id number] 2.16.840.1.442072.3.579.2. 593 1948 Unknown [id number] 2.16.840.1.589877.3.579.2. 593 1948 Unknown [id number] 2.16.840.1.114048.3.579.2. 593 1948 Unknown [id number] 2..840.1.699469.3.579.2. 593 1948 Unknown [id number] 2..840.1.782290.3.579.2. 593 1948 Unknown [id number] 2.840.1.744378.3.579.2. 593 1948 Unknown [id number] 2..840.1.566873.3.579.2. 593 1948 Unknown [id number] 2..840.1.925096.3.579.2. 356 1948 Unknown [id number] 2.16.840.1.058994.3.579.2. 356 1948 Unknown [id number] 2.16.840.1.114457.3.579.2. 1244 1948 Unknown [id number] 2.16.840.1.233055.3.579.2. 1244 Medicare [id number] Medicare [id number] 2.16.840.1.812195.19 Unknown [id number] Unknown [id number] 2.16.840.1.102803.3.579.2. 593 Unknown [id number] 2.16840.1.694578.3.579.2. 531 Unknown [id number] 2.16.840.1.385599.3.579.2. 531 Unknown Regular Insurance [id number] Social History Date Type Detail Facility Start: 10-08-2023 Social alcohol use Social alcohol us e -[facility] [address] DO Work Phone: Comment on above: 1 cup of caffeine da bill; quit 2011 1.5 ppd; Start: 10-08-2023 Sex Assigned At N [facility] [email or web address] Other Start: 01-06-2019 End: 10-08-2023 Tobacco smoking status NHIS Ex-smoker (finding) [facility] Start: 1950 Sex Assigned At Female F [facility] History of tobacco use Current smoker [facility] Work Phone: History of tobacco use Cigarette Smoker [facility] Work Phone: Start: 10-08-2023 Tobacco use and exposure Smokeless tobacco non-user [facility] Work Phone: Start: 10-08-2023 End: 08-10-2024 Alcoholic beverage intake Lifetime non-drinker (finding) [facility] Work Phone: Start: 1950 Sex assigned at Not on file [facility] Work Phone: Start: 09-28-2023 End: 08-10-2024 Exposure to SARS-CoV-2 (event) Not sure [facility] Medical Equipment Procedure Code Equipment Code Equipment Origin al Text Equipment Identifier Dates CL STENT YUDI 3.5 X 18 FDA Start: 01-06-2019 CL STENT YUDI 3.5 X 18 FDA Start: 01-06-2019 CL STENT YUDI 3.5 X 18 FDA Start: 01-06-2019 CL STENT YUDI 3.5 X 18 FDA Start: 01-06-2019 Clinical Notes 06-22-2021 to 08-10-2024 Edi Cosby MD - 08/10/2024 10:00 AM EDTPatient InstructionsAttachmentsEdi Cosby MD - 10/08/2023 2:40 PM EDTPatient Instructions Note Date & Type Note Facility 08-10-2024 History of Present illness Narrative Subjective Siva Nicolas is a 73 y.o. female Chief Complaint Follow-up HPI Patient is here for follow-up to management for coronary artery disease prior PCI to the circumflex, paroxysmal atrial fibrillation, morbid obesity hypertension hyperlipidemia. Since last time I saw her she denies any change in cardiac status or symptoms. She gained a little bit of weight. No recent lab available. She denies chest pain, lightheadedness, dizziness or syncope. On examination the patient noted to be bradycardic with heart rate of 48. Assessment 1. Coronary artery disease with prior PCI to the left circumflex following presentation with ST segment elevation myocardial infarction with known diffuse disease of the LAD and left circumflex treated medically. She denies any chest pain. Remained stable 2. Paroxysmal atrial fibrillation currently in sinus bradycardia she reports she could not tolerate Ozempic on Eliquis. No recent recurrence 3. Morbid [...] for the next few month 3. I advised her to cut down her metoprolol ER by half 4.,, Benefits alternative anticoagulation reviewed with patient at length understood and agreed 5 I will see her in 9 months and follow-up with an EKG 6. Patient reports she scheduled to have her lab work through her PCP next month Review of Systems Respiratory: Positive for shortness of breath. All other systems reviewed and are negative. Vitals: 08/10/24 1104 BP: 120/70 BP Location: Left arm Patient Position: Sitting Pulse: (!) 48 Weight: 115 kg (252 lb 9.6 oz) Height: 1.575 m (5' 2 ) Objective Physical Exam Constitutional: Appearance: Normal appearance. HENT: Nose: Nose normal. Neck: Vascular: No carotid bruit. Cardiovascular: Rate and Rhythm: Bradycardia present. Pulses: Normal pulses. Heart sounds: Normal heart [...] by mouth once daily., Disp: , Rfl: ystyifzzcxc-viufuyqrc-nlhsmxsx (Trelegy Ellipta) 200-62.5-25 mcg blister with device, [...] each continuously. 2-3 LPM, Disp: , Rfl: spironolactone (Aldactone) 25 mg tablet, Take 0.5 tablets (12.5 mg) by mouth once daily., Disp: , Rfl: vit A/vit C/vit E/zinc/copper (PRESERVISION AREDS ORAL), 1 capsule 2 times a day., Disp: , Rfl: Assessment/Plan 1. Paroxysmal atrial fibrillation (Multi) 2. CAD, multiple vessel Follow Up In Cardiology 3. Mixed hyperlipidemia 4. Essential hypertension 5. Anticoagulated 6. Localized edema 7. Bradycardia 8. BMI 45.0-49.9, adult (Multi) 9. Former smoker Scribe Attestation By signing my name below, I anne M , Scribe attest that this documentation has been prepared [...] plan. documented in this encounter [facility] Work Phone: 08-10-2024 Instructions Rylee Cevallos LPN - 08/10/2024 10:00 AM EDT Please bring all medicines, vitamins, and herbal supplements with you when you come to the office. Prescriptions will not be filled unless you are compliant with your follow up appointments or have a follow up appointment scheduled as per instruction of your physician. Refills should be requested at the time of your visit. BMI was above normal measurement. Current weight: 115 kg (252 lb 9.6 oz) Weight change since last visit (-) denotes wt loss 2.6 lbs Weight loss needed to achieve BMI 25: 116.2 Lbs Weight loss needed to achieve BMI 30: 88.9 Lbs Provided instructions on dietary changes. The following attachments cannot be sent through Care Everywhere.Heart Healthy Diet (Eritrean)documented in this encounter [facility] Work Phone: 10-08-2023 History of Present illness Narrative Subjective [...] by mouth once daily., Disp: , Rfl: klhmkggylrt-fczzusvpb-vrciteqo (Trelegy Ellipta) 200-62.5-25 mcg blister with device, [...] Scribe Attestation By signing my name below, Carey Valerio LPN, Scribe attest that this documentation has been prepared [...] plan. documented in this encounter [facility] Work Phone: 10-08-2023 Instructions Carey Portillo LPN [...] changes. documented in this encounter [facility] Work Phone: 04-24-2023 Evaluation note Encounter Date Diagnosis Assessment Notes Apr, COVID-19 (ICD-10 - U07.1) Apr, Nausea (ICD-10 - R11.0) [employer] Other 09-27-2023 Evaluation note* Encounter Date Diagnosis Assessment Notes Treatment Notes Treatment Clinical Notes Feb, Screening mammogram for breast cancer (ICD-10 - Z12.31) [employer] Other 06-27-2023 Evaluation note* Encounter Date Diagnosis Assessment Notes Treatment Notes Treatment Clinical Notes Nov, Type 2 diabetes mellitus with hyperglycemia, without long-term current use of insulin (ICD-10 - E11.65) [employer] Other 06-26-2023 Evaluation note* Encounter Date Diagnosis [...] exercising at [facility] and as tolerated. [employer] Other 05-11-2023 Evaluation note* Encounter Date Diagnosis Assessment Notes Treatment Notes Treatment Clinical Notes October, Type 2 diabetes mellitus with hyperglycemia, without long-term current use of insulin (ICD-10 - E11.65) [employer] Other 05-09-2023 Evaluation note* Encounter Date Diagnosis Assessment Notes Treatment Notes Treatment Clinical Notes October, Type 2 diabetes mellitus with hyperglycemia, without long-term current use of insulin (ICD-10 - E11.65) [employer] Other 03-23-2023 Evaluation note* Encounter Date Diagnosis Assessment Notes Treatment Notes Treatment Clinical Notes Aug, Type 2 diabetes mellitus with hyperglycemia, without long-term current use of insulin (ICD-10 - E11.65) Start new med - f/u [address] to adminster ozedwinic and gave instructions Aug, Hypothyroidism (ICD-10 - E03.9) due for labs - chronic problem Aug, Hyperlipidemia (ICD-10 - E78.5) has improved diet - check lab Aug, COPD (chronic obstructive pulmonary disease) (ICD-10 - J44.9) doing pulm rehab 3x/week - on O2 - keep followup appt w Dr. Melchor [employer] Other 01-16-2023 Evaluation note* Encounter Date Diagnosis Assessment Notes Treatment Notes Treatment Clinical Notes Jun, De Quervain's tenosynovitis, left (ICD-10 - M65.4) Potential injection and thumb would be helpful Jun, COPD (chronic obstructive pulmonary disease) (ICD-10 - J44.9) Clear on present medicines continue pulmonary rehab as able. Jun, Morbid obesity (ICD-10 - E66.01) Encouraged healthy diet and exercise for weight loss [employer] Other 05-02-2022 NoteTRAUMA CONSULT / H&P Patient [...] Last Charted Temp Oral 36.6 DegC (SEP 27:10) Heart Rate Peripheral L 55bpm (SEP 27:10) SBP H 146mmHg (SEP 27:10) DBP H 91mmHg (SEP 27:10) SpO2 91 % (SEP 27:) Weight 118.7 kg (SEP 27 11:10) BMI [...] quit smoking in 2011 (03/24/2019 14:13 - Varun, Cynthia [employer]) Psychosocial History No active psychosocial history has [...] diarrhea, n (more content not included)...[facility] Center[facility]:Result Comment: Electronically Signed By: Lori Francois PA-C\.br\Date and Time Signed: 09/27/21 13:31 EDT\.br\Electronically Co-Signed By: Param HO, Vesta Lyons\.br\Date and Time Co-Signed: 10/01/21 22:11 [id number] Evaluation note* Encounter Date Diagnosis Assessment Notes [...] Proceed with physical therapy at this time. [employer] Other 03-14-2022 Evaluation note* Encounter Date Diagnosis [...] (ICD-10 - G89.29) Continue medications as prescribed [employer] Other 02-23-2022 Evaluation note* Encounter Date Diagnosis [...] (ICD-10 - G89.29) Continue medications as prescribed [employer] Other 01-20-2022 Evaluation note* Encounter Date Diagnosis [...] has been recently seeing pain management in [place] where she is receiving injections. Prior to [...] pain. In the meantime, I will prescribe Berlin 5325mg up to twice daily as needed. 20 Ray, 2022 Failed back syndrome (ICD-10 - M96.1) Proceed with current treatment plan Jun, Lumbar degenerative disc disease (ICD-10 - M51.36) Continue with current treatment plan Jun, Sacroiliitis (ICD-10 - M46.1) In the future if the pain persists, we can consider proceeding with a bilateral sacroiliac joint injection under fluoroscopic guidance. Jun, Chronic pain (ICD-10 - G89.29) UDS performed through [facility] lab today, will await confirmatory results. Patient has continued need for Berlin. OARRS report processed and reviewed and shows no violations. Patient was educated on the risks and benefits of mcfp opioid use.Berlin was refilled today, opioid risk assessment was [...] negative findings were considered in medical decision-making. [employer] Other Evaluation noteNo assessment information available [facility] Work Phone: Evaluation noteNo InformationNort [email or web address] Other Evaluation note* Diagnosis Onset Date Resolution Status Medicare annual wellness visit, subsequent acute Type II diabetes mellitus ac ryan [facility] Work Phone: Evaluation note* Diagnosis CAD, multiple vessel- Primary Mixed hyperlipidemia Essential hypertension Unspecified essential hypertension Paroxysmal atrial fibrillation (Multi) Atrial fibrillation Anticoagulated Encounter for long-term (current) use of anticoagulants Chronic obstructive pulmonary disease, unspecified COPD type (Multi) BMI 45.0-49.9, adult (Multi) Former smoker Personal history of tobacco use, presenting hazards to health documented in this encounter [facility] Work Phone: Evaluation note* Diagnosis Paroxysmal atrial fibrillation (Multi)- Primary Atrial fibrillation CAD, multiple vessel Mixed hyperlipidemia Essential hypertension Unspecified essential hypertension Anticoagulated Encounter for long-term (current) use of anticoagulants Localized edema Edema Bradycardia Other specified cardiac dysrhythmias BMI 45.0-49.9, adult (Multi) Former smoker Personal history of tobacco use, presenting hazards to health documented in this encounter [facility] Work Phone: History general Narrative - Reported* Type Description Date Medical History COPD Medical History Diabietes Medical History high cholestrol Medical History hypertension Medical History left ankle fracture Medical History SD Medical History DEPRESSION Medical History HYPERLIPIDEMIA Medical History MORBID OBESITY Medical History hypothyroidism Medical History GERD Medical History DIVERTICULOSIS Medical History OSTEOARTHRITIS KNEE Surgical History heart stents Surgical History right ankle Surgical History lumbar surgery Surgical History right ovary removed Surgical History left tubal removal Hospitalization History see above Hospitalization History SD Hospitalization History hypertension Hospitalization History dehydration [employer] Other Hisdcqw general Narrative - Reported* Type Description Date [...] removal Hospitalization History see above Hospitalization History SD Hospitalization History hypertension Hospitalization History dehydration [employer] Other History of Present illness Narrative* Patient [...] We will see her back in 6-month [place] [address] DO Work Phone: History of Present illness [...] She did have her labs done at [facility]. She denies com plaint of chest pain, [...] We will see her back in 6-month [facility] [employer] DO Work Phone: History of Present illness [...] We will see her back in 6-month [facility] 250 DO Work Phone: History of Present [...] I congratulated her on her weight loss [facility] DO Work Phone: Reason for referral (narrative)* Consultation (Routine) - Authorized Specialty Diagnoses / Procedures Referred By Brianna romano Referred To Contact Cardiology Diagnoses CAD, multiple vessel Procedures Follow Up In Cardiology Edi Cosby MD [address] [place] [address] 2, [address] [address] Edi Cosby MD [address] [facility] 2, [address] [address] Referral ID Status Reason Start Date Expiration Date V isits Requested Visits Authorized [id number] Authorized 10/08/2023 10/07/2024 1 1 [facility] Work Phone: Summary Purpose Family History No Family History Records FoundUnknown Family Member Name Dates Details No pertinent [...] mother Unknown Malignant neoplasm Unknown Advance Directives No Advanced Directives Records Found Advance Directive Response Recorded Date/ Time Advance Directives No September 25 019 9:21am Hospital Course Note MR#: [id number] [facility] Pt. Name: Siva Nicolas Admitted: 01/09/2019 Discharged: 01/12/2019 Date of [...] Quervain's tenosy novitis, left (M65.4) Referral Organization [facility] Referring Provider First Name Nicole Referring Provider Last Name Thomas Referring Provider Specialty Family [facility] Referred Organization [facility] Referred Provider Margot Valles Referred Address [address] [place],[phone] Referred Provider Specialty Orthopedic S urgery Referral [...] and content) DATE CREATED AUTHOR 02/20/2019 [facility] DATE CREATED AUTHOR AUTHOR'S ORGANIZ ATION 10/09/2021 [facility] DATE CREATED AUTHOR AUTHOR'S ORGANIZ ATION 09/05/2022 [facility] DATE CREATED AUTHOR AUTHOR'S ORGANIZ ATION 01/04/2023 [facility] DATE CREATED AUTHOR AUTHOR'S ORGANIZ ATION 01/04/2023 [employer] DATE CREATED AUTHOR AUTHOR'S ORGANIZ ATION 04/06/2023 [facility] DATE CREATED AUTHOR AUTHOR'S ORGANIZ ATION 08/11/2024 [facility] REASON FOR VISIT (unrecogniz ed section and content) Reason Comments Follow-up 9 months Reason Comments Follow-up 9m with EKG for CAD Specialty Diagnoses / Procedures Referred By Contac t Referred To Contact Cardiology Diagnoses CAD, multiple vessel Procedures Follow Up In Cardiology Edi Cosby MD [address] [place] [address] [address], [address] [address] Phone: tel: fax: Edi Csoby MD 703 [facility] 2, [address] [address] Phone: tel: fax: Referral ID Status Reason Start Date Expiration Date V isits Requested Visits Authorized [id number] Pending Review 10/08/2023 10/07/2024 1 1 Care Teams (unrecognized sec tion and content) [...] Jared Rodgers MD Attending Provider Active Start: Jesus Manuel [facility] 2003 Team Status: Active Member Role Status Dates Nicole Guzman MD Primary Care Provider Active Start: August 05, 2023 TRISTON Ross Attending Provider Active Start : August 05, 2023 Team Status: Inactive Member Role Status Dates Nicole Guzman MD Primary Care Provide r, Attending Provider Active Start: September 16, 2023 End: September 16, 2023 Annual Giving Director Relationship Specialty Start Date End Date Nicole Guzman MD PCP - General 06/03/99 Team Status: Inactive Member Role Status Dates Nicole Guzman MD Primary Care Provide r, Attending Provider Active Start: December 17, 2023 End: December 17, 2023 Annual Giving Director Relationship Specialty Start Date End Date Nicole Guzman MD [address] [place], [place] [id number] PCP - General 06/03/99 Goals (unrecognized section and content) Goals may [...] BE BASED ON THE PRIMARY CLINICAL RECORDS. [facility] [employer] [facility]. provides no warranty or guarantee of the accuracy or completeness of information in this document.
[2024-08-13 10:53] LABS: Basophils Absolute Auto 0.1 10^3/uL (0.0-0.1); Basophils Percent Auto 0.8 % (0.2-2.0); Eosinophils Absolute Auto 0.3 10^3/uL (0.0-0.7); Hemoglobin 14.3 g/dL (12.0-16.0); Immature Granulocytes Abs Auto 0.03 10^3/uL (0.00-0.03); Immature Granulocytes Pct Auto 0.4 % (0.0-0.5); Lymphocytes Absolute Auto 2.4 10^3/uL (1.2-3.8); Lymphocytes Percent Auto 28.3 % (20.5-60.0); Mean Corpuscular HGB Conc 31.8 g/dL (29.9-35.2); Mean Corpuscular Volume 91.3 fL (81.0-99.0); Mean Platelet Volume 9.7 fL (9.5-13.5); Monocytes Absolute Auto 0.9 10^3/uL (0.3-0.8); Neutrophils Absolute Auto 4.9 10^3/uL (1.4-6.5); Neutrophils Percent Auto 57.5 % (43.0-75.0); Platelet Count 242 10^3/uL (150-450); Red Blood Count 4.93 10^6/uL (4.20-5.40); Red Cell Distribution Width 13.9 % (11.0-15.0); White Blood Count 8.5 10^3/uL (4.0-11.0)
[2024-08-13 11:04] LABS: Estimated Average Glucose 131 mg/dL; Glycohemoglobin A1C 6.2 % (4.5-6.2)
[2024-08-13 11:14] LABS: Creatinine Urine Random 188.99 mg/dL (20.00-300.00); Microalbum Creatinine Ratio Ur 9.5 mg/g (0.0-29.9); Microalbumin Urine Random 1.8 mg/dL (<=30.0)
[2024-08-13 11:35] LABS: Free T4 0.96 ng/dL (0.76-1.46)
[2024-08-13 11:37] LABS: Alanine Aminotransferase 30 U/L (14-59); Albumin Globulin Ratio 0.9; Albumin Level 3.6 g/dL (3.4-5.0); Alkaline Phosphatase 127 U/L (46-116); Anion Gap 13.1; Aspartate Amino Transferase 26 U/L (15-37); BUN Creatinine Ratio 23.6; Bilirubin Total 0.5 mg/dL (0.2-1.0); Calcium 9.5 mg/dL (8.5-10.1); Carbon Dioxide 25.1 mmol/L (21.0-32.0); Chloride 105 mmol/L (98-107); Chol HDL Ratio 2.1; Cholesterol 120 mg/dL (<=200); Estimated GFR (African America >60 (>=60 mL/min/1.73m^2); Estimated GFR (Non-African Ame 51 (>=60 mL/min/1.73m^2); Globulin 3.9 g/dL; Glucose 94 mg/dL (74-106); HDL Cholesterol 58 mg/dL (40-60); Potassium 4.2 mmol/L (3.5-5.1); Sodium 139 mmol/L (136-145); Thyroid Stimulating Hormone 2.553 uIU/mL (0.358-3.740); Total Protein 7.5 g/dL (6.4-8.2); Triglycerides 85 mg/dL (<=150)
== END 2024-08-13 10:20 | disposition home or self-care (01) ==
LOC: LAB 10:23
PROVIDERS: PCP Family Medicine; Visit Provider Family Medicine
DX: Z00.00 Encounter for general adult medical examination without abnormal findings (principal); I10 Essential (primary) hypertension; E11.9 Type 2 diabetes mellitus without complications; E03.9 Hypothyroidism, unspecified
CPT/HCPCS: 36415; 80053; 80061; 82043; 82570; 83036; 84439; 84443; 85025

== ENCOUNTER 2024-08-28 08:51 | Outpatient (OUT) | payer MEDICARE, SELFPAY ==
--- OUTSIDE RECORDS SUMMARY | 2024-08-28 09:15 | XMS_ITS | CCD ---
Author Organization [facility] Care Team Providers Care Cutter Inspector Name Role Phone Blackwell, Manju Forbes Admitting Unavailable CHANA OBRIEN Attending Unavailable NICOLE GUZMAN Unavailable NICOLE GUZMAN Primary Care Unavailable HARITHA HI Surgeon Unavailable [place] Procedure Practitioner Unavailab Nicole Sprague Unavailable Unavailable [...] NICOLE Thakkar Primary Care Unavailable THOMAS, DR NCIOLE Thakkar Attending Unavailable THOMAS, DR NICOLE Thakkar Admitting Unavailable SAMSA ., KRISTOPHER Admitting Unavailable SAMSA ., KRISTOPHER Consulting Unavailable SAMSA ., KRISTOPHER Attending Unavailable THOMAS, [...] le TRABOULFRANKI, DR DALEY Admitting Unavailab le TRABOULFRANKI, DR DALEY Consulting Unavailab le THOMAS, DR [...] ailable Alea, Dr. Daley Referring Unavaila ble Traboulfranki, Dr. Daley Attending Unavaila ble MD Jared Rodgers Attending Provider Unavailable MD Nicole Guzman Primary Care Provider [phone] MD Edi Cosby Attending Provider MD Nicole Guzman Attending Provider [phone] Nicole Guzman Admitting Unavailable Nicole Guzman Attending Unavailable Nicole Guzman Primary Care Unavailable Edi Cosby Admitting Unavailable Edi Cosby Attending Unavailable Nicole Guzman Primary Care Unavailable Nicole Guzman MD Primary Care Provider Nicole Guzman MD Primary Care Provider EDI COSBY Attending Unavailable NICOLE GUZMAN Primary Care Unavailable EDI COSBY Attending Unavailable EDI COSBY Referring Unavailable NICOLE GUZMAN Primary Care Unavailable Jared Rodgers MD Attending Provider Unavailable Allergies Allergy Classification Reported Allergen(s) Allergy Type Date of Onset Reaction(s) Facility (7 sources) Ibuprofen; 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: [IBUPROFEN] Drug Allergy 3 Rash [facility] Repository (3 sources) Naproxen Drug Allergy 5 [facility] Repository (20 sources) Ibuprofen; 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: [Advil] Drug Allergy 9 [facility] Work Phone: (20 sources) Naproxen; 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: [Aleve] Drug Allergy Unknown, Rash, Other [facility] 250 DO Work Phone: (1 source) Ibuprofen Drug Allergy 5 [facility] Repository (6 sources) Naproxen; 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: [naproxen] Drug Allergy 9 [facility] (4 sources) Alendronate Drug Allergy 9 [facility] Comment:Freete xt Needs Updated. [email or web address] Other (4 sources) Allergies Reconciled Propensity to adverse reactions Unknown [email or web address] Other (4 sources) patient allergy list reviewed by nurse or physicia Propensity to adverse reactions 9 Comment:Done [email or web address] Other (1 source) Ibuprofen Drug Allergy 9 [facility] Repository (3 sources) Naproxen; 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: [NAPROXEN SODIUM] Drug Allergy 4 [facility] Work Phone: Medications Current Medications Medication Drug [...] Ordered: 07-Jun-2021 DO Start : 07-Jun-2021 Complete [id number] 200 actuat albuterol 0.09 mg/actuat metered dose inhaler (20 sources) beta2-Adrenergic Agonist albuter ol (Ventolin HFA) 90 mcg/actuation inhaler Inhale. As directed. Active Ventolin HFA 108 (90 Base) MCG/ACT Inhalation Aerosol Solution As directed. Quantity: 0 Refills: 0 Ordered: 19-Dec-2021 DO Active Ventolin HFA Act italia apixaban 5 mg oral tablet (20 sources) Factor Xa Inhibitor Start: 08-05-2023 End: 07-07-2024 Apixaban (Eliquis) 5 mg tablet Active 0 .ROUTE .COMPLEX 180 July 07, 2024 3:35pm TAKE 1 TABLET 2 TIMES DAILYAS DIRECTED Start: 06-21-2021 End: 08-05-2023 take 1 tablet by mouth twice daily Apixaban 5 mg tablet Discontinued 5 MG PO Twice daily August 05, 2023 1:00am August 05, 2023 11:07am Aspir-81 (14 sources) Aspir-81 Active aspirin 81 mg delayed release oral tablet (14 sources) Platelet Aggregation Inhibitor, Nonsteroidal Anti-inflammatory Drug Start: 06-21-2021 aspirin 81 mg EC tablet Take by mouth 2 times a week. 06/21/2021 Active Start: 01-08-2019 take 1 tablet by danisha th once daily Aspirin 81 mg Tablet,Delayed Release (Dr/Ec) Active 81 MG PO Daily 0 January 08, 2019 12:00am atorvastatin 80 mg oral tablet (20 sources) HMG-CoA Reductase Inhibitor Start: 01-06-2019 End: 05-04-2024 take 1 tablet by mouth once daily Atorvastatin 80 mg tablet Active 80 MG PO Daily May 04, 2024 9:41am baclofen 10 mg oral tablet (13 sources) gamma-Aminobutyr ic Acid-ergic Agonist Start: 07-23-2024 End: 08-06-2024 Baclofen 10 mg tablet Active 0 .ROUTE .COMPLEX 90 August 06, 2024 1:58pm TAKE 1 AND 1/2 TABLETS AT BEDTIME NEEDED FOR MUSCLE SPASM Start: 10-07-2023 End: 07-23-2024 Baclofen 10 mg tablet Discon tinued 0 .ROUTE .COMPLEX 135 October 07, 2023 3:23pm July 23, 2024 3:35pm TAKE 1 AND 1/2 TABLETS AT BEDTIME NEEDED FOR MUSCLE SPASM Start: 10-07-2023 Baclofen Activ e 0 .ROUTE .COMPLEX 135 October 07, 2023 3:23pm TAKE 1 AND 1/2 TABLETS AT BEDTIME NEEDED FOR MUSCLE SPASM Start: 10-07-2023 End: 10-07-2023 Baclofen 10 mg tablet Discon tinued 15 MG PO Daily October 07, 2023 12:00am October 07, 2023 3:23pm Start: 10-07-2023 End: 10-07-2023 take 15 mg by mouth once daily Baclofen Discontinued 1 5 MG PO Daily October 07, 2023 12:00am October 07, 2023 3:23pm Start: 02-02-2021 Baclofen 10 MG Oral Tablet Quantity: 30 Refills: 0 Ordered: 23-Apr-2021 DO Start : 02-Feb-2021 Complete Baclofen 10 MG T SUDARSHAN 1 AND 1/2 TABLETS AT BEDTIME NEEDED FOR MUSCLE SPASM for 90 Active Blood-Glucose Sensor (Freest yle Gale 2 Plus Sensor) device (2 sources) Start: 07-07-2024 Blood-Glucose Sensor (Freestyle Gale 2 Plus Sensor) device Active 0 .Route 1 July 07, 2024 3:35pm As directed Start: 07-07-2024 End: 07-07-2024 Blood-Glucose Sensor (Freest yle Gale 2 Plus Sensor) device Discontinued 0 .Route 1 July 07, 2024 1:00am July 07, 2024 3:35pm As directed 120 actuat budesonide 0.16 mg/actuat / formoterol fumarate 0.0045 mg/actuat metered dose inhaler (5 sources) Corticosteroid, beta2-Adrenergic Agonist Start: 01-06-2019 Budesonide-Formoterol 160-4.5 mcg/actuation HFA aerosol inhaler Active 0 .ROUTE .COMPLEX January 06, 2019 12:00am 4.5 - 160 mcg inhaled cefdinir 300 mg oral capsule (1 source) Cephalosporin Antibacterial Start: 05-04-2024 take 1 capsule by mouth twice daily Cefdinir 300 mg capsule Active 300 MG PO Twice daily May 04, 2024 1:00am cholecalciferol 0.05 mg oral capsule (3 sources) [...] mouth once daily. 10/08/2023 Discontinued (Therapy completed) citalopram 40 mg oral tablet (20 sources) Serotonin Reuptake Inhibitor Start: 12-24-2023 Citalopram 40 mg tablet Active 0 .ROUTE .COMPLEX 90 December 24, 2023 10:41am TAKE 1 TABLET DAILY Start: 12-24-2023 End: 12-24-2023 take 1 tablet by mouth once daily Citalopram 40 mg tablet Discontinued 40 MG PO Daily December 24, 2023 12:00am December 24, 2023 10:41am Start: 04-27-2022 Citalopram Hyd robromide 40 MG Oral Tablet Quantity: 90 Refills: 0 Ordered: 27-Apr-2022 DO Start : 27-Apr-2022 Complete take 0.5 tablet by m outh every twenty-four hours Citalopram Hydrobromide 40 MG 0.5 tablet Orally Once a day Active take 1 tablet by danisha th once daily Citalopram Hydrobromide 20 MG Oral Tablet TAKE 1 TABLET DAILY. Quantity: 0 Refills: 0 Ordered: 19-Dec-2021 DO Active Flash Glucose Scanning Reade r (Freestyle Gale 2 [place]) misc (2 sources) Start: 08-11-2024 Flash Glucose Scanning [place] (Freestyle Gale 2 [place]) misc Active 0 .ROUTE .COMPLEX 2 August 11, 2024 10:18am USE DIRECTED Start: 08-10-2024 End: 08-11-2024 Flash Glucose Scanning Reade r (Freestyle Gale 2 [place]) misc Discontinued 0 .Route August 10, 2024 12:00am August 11, 2024 10:18am As directed Flash Glucose Sensor (Freest yle Gale 2 Sensor) kit (1 source) Start: 07-07-2024 Flash Glucose Sensor (Freestyle Gale 2 Sensor) kit Active 0 .Route 1 July 07, 2024 1:00am change q 15 days Fmyzwxstsws-Eqxvsdnnu-Lqrebd er (2 sources) Start: 12-18-2023 Fluticasone-Um eclidin-Vilanter (Trelegy Ellipta) 200-62.5-25 mcg blister with device Active 0 .ROUTE .COMPLEX 60 December 18, 2023 2:17pm USE 1 INHALATION ORALLY DAILY Start: 12-18-2023 End: 12-18-2023 Yhaellhykqd-Kmvtlyamk-Yhdbux er (Trelegy Ellipta) 200-62.5-25 mcg blister with device Discontinued 1 INH INHALATION Daily December 18, 2023 12:00am December 18, 2023 2:17pm wbljwgppuji-hxvedvfqh-fihnlo er (Trelegy Ellipta) 200-62.5-25 mcg blister with device (2 sources) fluticasone-umec lidin-vilanter (Trelegy Ellipta) 200-62.5-25 mcg blister with device Inhale if needed. As directed Active furosemide 40 mg oral tablet (15 sources) Loop Diuretic St ar t: En d: take 1 tablet by mouth once daily Furosemide 40 mg tablet Active 0 .ROUTE .COMPLEX 90 June 24, 2024 9:34am TAKE 1 TABLET BY MOUTH EVERY DAY Start: 11-14-2021 End: 02-21-2024 take 1 tablet by mouth once daily Furosemide 40 mg tablet Discontinued 40 MG PO Daily September 16, 2023 12:00am February 21, 2024 8:21am Start: 10-12-2021 take 1 tablet by danisha th once daily Furosemide 20 MG Oral Tablet TAKE 1 TABLET BY MOUTH DAILY Quantity: 7 Refills: 0 Ordered: 12-Oct-2021 DO Start : 12-Oct-2021 Complete hydroCHLOROthiazide 25 mg oral tablet (5 sources) Thiazide Diuretic Start: 01-06-2019 take 1 tablet by mouth once daily Hydrochlorothiazide 25 mg tablet Active 25 MG PO Daily January 06, 2019 12:00am levothyroxine sodium 0.1 mg oral tablet (20 sources) l-Thyroxine Start: 02-04-2024 End: 05-04-2024 Levothyroxine (Synthroid) 100 mcg tablet Active 0 .ROUTE .COMPLEX 90 May 04, 2024 9:41am TAKE 1 TABLET DAILY Start: 12-05-2021 End: 02-04-2024 take 1 tablet by mouth once daily Levothyroxine (Synthroid) 100 mcg tablet Discontinued 100 MCG PO Daily November 18, 2023 8:29am February 04, 2024 1:14pm Start: 12-05-2021 Synthroid 100 MCG Oral Tablet Quantity: 90 Refills: 0 Ordered: 05-Dec-2021 DO Start : 05-Dec-2021 Active Start: 06-08-2021 Levothyroxine Sodium 112 MCG Oral Tablet Quantity: 90 Refills: 0 Ordered: 08-Jun-2021 DO Start : 08-Jun-2021 Active Start: 01-06-2019 End: 10-30-2023 take 1 tablet by mouth once daily Levothyroxine 112 mcg tablet Discontinued 112 MCG PO Daily January 06, 2019 12:00am October 30, 2023 8:46am Synthroid 100 MC G TAKE 1 TABLET DAILY for 90 Active take 1 tablet by danisha th once daily in the morning Levothyroxine Sodium 112 MCG 1 tablet in the morning on an empty stomach Orally daily Active losartan potassium 100 mg oral tablet (20 sources) Angiotensin 2 Receptor Elisabet Start: 08-13-2024 Losartan 100 mg tablet Active 50 MG PO Daily August 13, 2024 9:33am Start: 05-25-2024 End: 08-13-2024 Losartan 100 mg tablet Disco ntinued 0 .ROUTE .COMPLEX May 25, 2024 10:38pm August 13, 2024 9:34am TAKE 1 TABLET DAILY Start: 12-17-2023 End: 05-25-2024 Losartan 100 mg tablet Disco ntinued 50 MG PO Daily December 17, 2023 2:03pm May 25, 2024 10:38pm Start: 12-17-2023 take 50 mg by mouth once daily Losartan Active 50 MG PO Daily December 17, 2023 2:03pm Start: 06-21-2021 End: 12-17-2023 take 1 tablet by mouth once daily Losartan 100 mg tablet Discontinued 100 MG PO Daily December 10, 2023 8:44am December 17, 2023 2:03pm Start: 01-08-2019 End: 11-15-2023 take 2 tablets by mouth once daily Losartan 50 mg Tablet Discontinued 100 MG PO Daily January 08, 2019 12:00am November 15, 2023 4:16pm Start: 01-08-2019 End: 11-15-2023 take 100 mg by mouth once daily Losartan Discontinued 100 MG PO Daily 60 January 08, 2019 12:00am November 15, 2023 4:16pm Losartan Potassi um 50 MG TAKE 1 TABLET DAILY for 90 Active 24 hr metoprolol succinate 25 mg extended release oral tablet (20 sources) beta-Adrenergic Elisabet Start: 08-13-2024 take 2 tablets by mouth once daily Metoprolol Succinate 25 mg tablet extended release 24 hr Active 12.5 MG PO Daily August 13, 2024 9:33am Start: 08-10-2024 End: 08-10-2025 take 0.5 tablet by mouth once daily metoprolol succinate XL (Toprol-XL) 25 mg 24 hr tablet Indications: CAD, multiple vessel , Paroxysmal atrial fibrillation (Multi) , Essential hypertension Take 0.5 tablets (12.5 mg) by mouth once daily. 45 tablet 3 08/10/2024 08/10/2025 Active Start: 09-16-2023 End: 08-13-2024 take 1 tablet by mouth once daily Metoprolol Succinate 25 mg tablet extended release 24 hr Discontinued 25 MG PO Daily 90 June 24, 2024 9:34am August 13, 2024 9:34am Start: 01-08-2019 End: 09-16-2023 Metoprolol Tartrate 25 mg Ta blet Discontinued 12.5 MG PO Twice daily 30 January 08, 2019 12:00am September 16, 2023 2:57pm Start: 01-08-2019 End: 09-16-2023 take 12.5 mg by mouth twice daily Metoprolol Tartrate Discontinued 12.5 MG PO Twice daily 30 January 08, 2019 12:00am September 16, 2023 2:57pm Start: 01-06-2019 End: 01-08-2019 take 1 tablet by mouth twice daily Metoprolol Tartrate 50 mg tablet Discontinued 50 MG PO Twice daily January [...] 1mg Subcutaneous weekly for 90 days Active spironolactone 25 mg oral tablet (20 sources) Aldosterone Antagonist Start: 10-29-2023 End: 05-04-2024 Spironolactone 25 mg tablet Active 12.5 MG PO Daily May 04, 2024 9:41am Start: 10-29-2023 End: 11-18-2023 take 12.5 mg by mouth once daily Spironolactone Active 12.5 MG PO Daily November 18, 2023 8:29am take 0.5 tablet by m outh once daily spironolactone (Aldactone) 25 mg tablet Take 0.5 tablets (12.5 mg) by mouth once daily. Active take 1 tablet by danisha th once daily Spironolactone 25 MG Oral Tablet TAKE 1 TABLET DAILY. Quantity: 90 Refills: 3 Ordered: 21-Jun-2021 DO Active vit A/vit C/vit E/zinc/coppe r (PRESERVISION AREDS ORAL) (2 sources) take [address] [facility] twice daily vit A/vit C/vit E/zinc/copper (PRESERVISION [...] Ordered: 03-May-2022 DO Start : 03-May-2022 Complete clopidogrel 75 mg oral tablet (5 sources) [id number] Platelet Inhibitor Start: 01-08-2019 End: 09-16-2023 take 1 tablet by mouth once daily Clopidogrel 75 mg Tablet Discontinued 75 MG PO Daily 30 January 08, 2019 12:00am September 16, [...] Active metFORMIN hydrochloride 500 mg oral tablet (5 sources) Biguanide Start: 01-06-2019 End: 09-16-2023 take 1 tablet by mouth once daily Metformin 500 mg tablet Discontinued 500 MG PO Daily January 06, [...] Ordered: 21-Jul-2021 DO Start : 20-Jul-2021 Complete Semaglutide (7 sources) Start: 03-16-2024 End: 05-04-2024 Semaglutide (Ozempic) 0.25 mg or 0.5 mg (2 mg/3 mL) pen injector Discontinued 0.5 MG SUBCUT every week March 16, 2024 12:33pm May 04, 2024 11:14am Start: 01-24-2024 End: 03-16-2024 Semaglutide (Ozempic) 0.25 m g or 0.5 mg (2 mg/3 mL) pen injector Discontinued 0.5 MG SUBCUT every week January 24, 2024 11:32am March 16, 2024 12:33pm Start: 01-03-2024 End: 01-24-2024 Semaglutide (Ozempic) 0.25 m g or 0.5 mg (2 mg/3 mL) pen injector Discontinued 0.25 MG SUBCUT every week January 03, 2024 8:27am January 24, 2024 11:33am 0.25mg weekly Start: 01-03-2024 End: 01-03-2024 Semaglutide (Ozempic) 0.25 m g or 0.5 mg (2 mg/3 mL) pen injector Discontinued 0.25 MG SUBCUT every week January 03, 2024 8:26am January 03, 2024 8:27am 0.25mg weekly Start: 09-16-2023 End: 01-03-2024 Semaglutide (Ozempic) 0.25 m g or 0.5 mg (2 mg/3 mL) pen injector Discontinued 0.25 MG SUBCUT every week September 16, 2023 12:00am January 03, 2024 8:26am 0.25mg weekly Start: 09-16-2023 Semaglutide (O zempic) 0.25 mg or 0.5 mg (2 mg/3 mL) pen injector Active 0.25 MG SUBCUT every week 3 September 16, 2023 12:00am 0.25mg weekly Trelegy Ellipta 200-62.5-25 MCG/ACT Inhalation Aerosol Powder Breath Activated (2 sources) Start: 12-18-2022 Trelegy Ellipt a 200-62.5-25 MCG/ACT Inhalation Aerosol Powder Breath Activated [...] pain] Onset: 11-11-2021 Episodic Acute myocardial infarction (15 sources) Acute myocardial infarction; 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: [Acute myocardial [...] obstruction, not elsewhere classified] Onset: 03-30-2022 Chronic Chronic obstructive pulmonary disease and bronchiectasis (1 source) Bronchitis; 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: [Bronchitis, not specified as acute or chronic] 05-13-2024 Episodic Congestive heart failure; nonhypertensive (4 sources) Chronic systolic heart failure; 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: [Chronic systolic (congestive) heart failure] Chronic Coronary atherosclerosis and other heart disease (20 sources) Multi vessel coronary artery disease; 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: [Coronary atherosclerosis of unspecified type of vessel, [place] or graft] Onset: 08-13-2018 10-08-2023 Chronic Diabetes [...] Long-term current use of inhaled steroid; 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: [FDC (current) use of 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] Episodic Other aftercare (4 sources) Long-term current use of anticoagulant; 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: [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] Episodic Other circulatory [...] conditions (not mental disorders or infectious disease) (6 sources) Screening for malignant neoplasm of respiratory [...] Onset: 01-06-2019 Episodic Other aftercare (2 sources) 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; 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: [FDC (current) use of anticoagulants] Onset: 07-12-2023 Episodic [...] 10-08-2023 10-08-2023 Episodic Comment on above: quit 2012 1.5 ppd; Unclassified (1 source) LOW BACK PAIN, UNSPECIFIED; 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: [LOW BACK PAIN, UNSPECIFIED] Onset: 09-06-2021 Unclassified (4 sources) Urine finding; 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: [Other nonspecific finding on examination of urine] Onset: 01-22-2019 Resolved: 11-02-2020 Unclassified (2 sources) Onset: 10-08-2023 10-08-2023 Viral infection (1 source) COVID-19 Results Test Name Value Interpretation Reference Range Facility ECG 12 [place] 08-10-2024 Sinus bradycardia with heart rate 48 [facility] Work Phone: MM screening mammo BI w/CADo n 03-26-2023 MM screening mammo BI w/CAD [facility] Main [facility] [address] [place] [address] Mammography Report Signed Patient: Siva Nicolas MR#: [id number] : 1950 Acct:[id number] Age/Sex: 72 / F ADM Date: 03/25/23 Loc: [place] Room: Type: [facility] Attending Dr: Nicole Guzman MD Copies to: [...] Betito Hampton M.D.03/26/2023 9:03 AM Dictation Location: [facility] Transcribed By: [facility] 03/26/23902 Dictated By: Betito Hampton DO 03/26/23856 Signed By: 03/26/23902 [facility] Office Visit (Cardiology)on 01-03-2023 Follow-up visit Diagnoses/Problems Assessed CAD, multiple vessel (414.00) (I25.10) Paroxysmal atrial fibrillation (427.31) (I48.0) Hyperlipidemia (272.4) (E78.5) Hypertension (401.9) (I10) Morbid obesity with BMI of 40.0-44.9, adult (278.01,V85.41) (E66.01,Z68.41) Sleep apnea (780.57) (G47.30) Edema (782.3) (R60.9) Former smoker (V15.82) (Z87.891) quit 2012 1.5 ppd Diabetes mellitus (250.00) (E11.9) COPD [...] Weight Tips; Status:Complete - Retrospective Authorization; Done: [id number] Some eating tips that can help you lose weight.; Status:Complete - Retrospective Authorization; Done: [id number] Paroxysmal atrial fibrillation IO EKG Electrocardiogram- 12 Lead; Status:Complete; Done: [id number] SocHx: Former smoker Tobacco Use Screening; Status:Complete; Done: [id number] Patient Instructions Please bring all medicines, vitamins, [...] Signs Recorded: 03Jan2023 02:50PM Heart Rate62, Apical Neufrkxj134, LUE, Sitting Mjbxriaqv89, LUE, Sit (more content not included)... Normal [employer] Tobacco Screening.on 023 Adult depression screening assessment No [facility] [employer] [place] 250 DO Work Phone: Fall risk assessment a) No falls within the last year [facility] [employer] 250 DO Work Phone: Tobacco use status CP b) No [facility] [employer] [place] [facility] DO Work Phone: Alanine Aminotransferaseon 0 01-01-2023 ALT [Catalytic activity/Vol] 42 U/L Normal [facility] Comment on above: Performed By: #### C BC, AST, BMP, ALT, LIPID #### [facility] [address] Alanine aminotransferase [En zymatic activity/volume] in Serum or PlasmaOrdered By: Edi Cosby on 01-01-2023 ALT [Catalytic activity/Vol] 42 U/L [facility] Aspartate Amino Transferaseo n 01-01-2023 AST [Catalytic activity/Vol] 36 U/L Normal [facility] Comment on above: Performed By: #### C BC, AST, BMP, ALT, LIPID #### [facility] [address] Aspartate aminotransferase [ Enzymatic activity/volume] in Serum or PlasmaOrdered By: Edi Cosby on 01-01-2023 AST [Catalytic activity/Vol] 36 U/L [facility] Basic Metabolic Panelon 08 Anion gap [Moles/Vol] 8.6 mmol/L Normal 6.0-15.0 [facility] Comment on above: Performed By: #### C BC, AST, BMP, ALT, LIPID #### [facility] [address] Calcium [Mass/Vol] 9.4 mg/dL Normal 8.6-10.3 [facility] Comment on above: Performed By: #### C BC, AST, BMP, ALT, LIPID #### [facility] [address] Chloride [Moles/Vol] 109 mmol/L High 98-107 [facility] Comment on above: Performed By: #### C BC, AST, BMP, ALT, LIPID #### [facility] [address] CO2 [Moles/Vol] 27.0 mmol/L Normal 21.0-31.0 [facility] Comment on above: Performed By: #### C BC, AST, BMP, ALT, LIPID #### [facility] [address] Creatinine [Mass/Vol] 0.91 mg/dL Normal 0.60-1.20 [facility] Comment on above: Performed By: #### C BC, AST, BMP, ALT, LIPID #### [facility] [address] [place] [address] [place] GFR/1.73 sq M.predicted MDRD (S/P/Bld) [Vol rate/Area] mL/min/{1.73_m2} [facility] Comment on above: Performed By: #### C BC, AST, BMP, ALT, LIPID #### [facility] [address] Glucose [Mass/Vol] 102 mg/dL High 70-100 [facility] Comment on above: Result Comment: [place] Glucose Reference Range is dependent on time and content of last meal. Glucose of more than 200 mg/dL in a nonstressed, ambulatory subject supports the diagnosis of Diabetes Mellitus. ADA recommended reference range Performed By: #### C BC, AST, BMP, ALT, LIPID #### [facility] [address] Potassium [Moles/Vol] 4.6 mmol/L Normal 3.5-5.1 [facility] Comment on above: Performed By: #### C BC, AST, BMP, ALT, LIPID #### [facility] [address] Sodium [Moles/Vol] 140 mmol/L Normal 136-145 [facility] Comment on above: Performed By: #### C BC, AST, BMP, ALT, LIPID #### [facility] [address] Urea nitrogen [Mass/Vol] 28 mg/dL High 7-25 [facility] Comment on above: Performed By: #### C BC, AST, BMP, ALT, LIPID #### [facility] [address] Basophils Auto (Bld) [#/Vol] Ordered By: Edi Cosby on 01-01-2023 Basophils (Bld) [#/Vol] 0.1 10*3/uL 0.0-0.2 [facility] Basophils/100 WBC Auto (Bld) Ordered By: Edi Cosby on 01-01-2023 Basophils/100 WBC (Bld) 0.6 % . [facility] Calcium [Mass/volume] in Ser um or PlasmaOrdered By: Edi Cosby on 01-01-2023 Calcium [Mass/Vol] 9.4 mg/dL 8.6-10.3 [facility] Carbon dioxide, total [Moles /volume] in Serum or PlasmaOrdered By: Edi Cosby on 01-01-2023 CO2 [Moles/Vol] 27.0 mmol/L 21.0-31.0 [facility] Chloride [Moles/volume] in S anirudh or PlasmaOrdered By: Edi Cosby on 01-01-2023 Chloride [Moles/Vol] 109 mmol/L 98-107 [facility] Cholesterol [Mass/volume] in Serum or PlasmaOrdered By: Edi Cosby on 01-01-2023 Cholesterol [Mass/Vol] 101 mg/dL 140-200 [place] Comment on above: Chol less than 200 m g/dl low riskChol 201-239 mg/dl borderline riskChol 240 mg/dl and greater high risk Cholesterol in LDL Calc [Mas s/Vol]Ordered By: Edi Cosby on 01-01-2023 Cholesterol in LDL [Mass/Vol] 43 mg/dL 0-100 [facility] Comment on above: LDL ATP III CLASSIFI CATIONLDL less than 100 mg/dL OptimalLDL 100-129 mg/dL Near or above optimalLDL 130-159 mg/dL Borderline highLDL 160-189 mg/dL HighLDL greater than 189 mg/dL Very high Cholesterol in VLDL Calc [Ma ss/Vol]Ordered By: Edi Cosby on 01-01-2023 Cholesterol in VLDL [Mass/Vol] 17 mg/dL [facility] Complete Blood Count Auto Di ffon 01-01-2023 Basophils (Bld) [#/Vol] 0.1 10*3/uL Normal 0.0-0.2 [facility] Comment on above: Result Comment: PERF ORMED BY: [place] [address] PATHOLOGIST MAINTENANCE CHIEF EUGENE BORDEN M.D. Performed By: #### C BC, AST, BMP, ALT, LIPID #### [address] Basophils/100 WBC (Bld) 0.6 % Normal . [facility] Comment on above: Performed By: #### C BC, AST, BMP, ALT, LIPID #### [facility] [address] [place] [address] [place] Eosinophils (Bld) [#/Vol] 0.3 10*3/uL Normal 0.0-0.45 [facility] Comment on above: Performed By: #### C BC, AST, BMP, ALT, LIPID #### [place] [address] [place] Eosinophils/100 WBC (Bld) 3.4 % Normal . [facility] Comment on above: Performed By: #### C BC, AST, BMP, ALT, LIPID #### [address] Erythrocyte distribution width (RBC) [Ratio] 14.4 % Normal 11.9-15.3 [facility] Comment on above: Performed By: #### C BC, AST, BMP, ALT, LIPID #### [address] Hematocrit (Bld) [Volume fraction] 40.1 % Normal 34.0-46.4 [facility] Comment on above: Performed By: #### C BC, AST, BMP, ALT, LIPID #### [address] Hemoglobin (Bld) [Mass/Vol] 13.4 g/dL Normal 11.8-15.4 [facility] Comment on above: Performed By: #### C BC, AST, BMP, ALT, LIPID #### [address] Lymphocytes (Bld) [#/Vol] 2.1 10*3/uL Normal 1.00-4.8 [facility] Comment on above: Performed By: #### C BC, AST, BMP, ALT, LIPID #### [address] Lymphocytes/100 WBC (Bld) 23.7 % Normal . [facility] Comment on above: Performed By: #### C BC, AST, BMP, ALT, LIPID #### [address] MCH (RBC) [Entitic mass] 30.1 pg Normal 24.7-34.3 [facility] Comment on above: Performed By: #### C BC, AST, BMP, ALT, LIPID #### [address] MCV (RBC) [Entitic vol] 90.0 fL Normal 80-100 F [facility] Comment on above: Performed By: #### C BC, AST, BMP, ALT, LIPID #### [address] Mean Corpuscular HGB Conc 33.5 g/dL Normal 32.0-35.0 [facility] Comment on above: Performed By: #### C BC, AST, BMP, ALT, LIPID #### [facility] [address] [place] [address] [place] Monocytes (Bld) [#/Vol] 0.8 10*3/uL Normal 0.0-0.8 [facility] Comment on above: Performed By: #### C BC, AST, BMP, ALT, LIPID #### [address] Monocytes/100 WBC (Bld) 9.3 % Normal . [facility] Comment on above: Performed By: #### C BC, AST, BMP, ALT, LIPID #### [address] Neutrophils (Bld) [#/Vol] 5.5 10*3/uL Normal 1.8-7.7 [facility] Comment on above: Performed By: #### C BC, AST, BMP, ALT, LIPID #### [address] Neutrophils/100 WBC (Bld) 63.0 % Normal . [facility] Comment on above: Performed By: #### C BC, AST, BMP, ALT, LIPID #### [place] [address] [place] NRBC% 0.0 /100{WBC} Normal 0-0.5 [facility] Comment on above: Performed By: #### C BC, AST, BMP, ALT, LIPID #### [place] [address] [place] Platelet mean volume (Bld) [Entitic vol] 8.3 fL Normal 6.3-10.7 [facility] Comment on above: Performed By: #### C BC, AST, BMP, ALT, LIPID #### [place] [address] [place] Platelets (Bld) [#/Vol] 189 10*3/uL Normal 150-450 [facility] Comment on above: Performed By: #### C BC, AST, BMP, ALT, LIPID #### [facility] [address] RBC (Bld) [#/Vol] 4.45 10*6/uL Normal 3.60-5.00 [facility] Comment on above: Performed By: #### C BC, AST, BMP, ALT, LIPID #### [facility] [address] WBC (Bld) [#/Vol] 8.7 10*3/uL Normal 3.8-11.6 [facility] Comment on above: Performed By: #### C BC, AST, BMP, ALT, LIPID #### [facility] [address] Creatinine [Mass/volume] in Serum or PlasmaOrdered By: Edi Cosby on 01-01-2023 Creatinine [Mass/Vol] 0.91 mg/dL 0.60-1.20 [facility] Eosinophils Auto (Bld) [#/Vo l]Ordered By: Edi Cosby on 01-01-2023 Eosinophils (Bld) [#/Vol] 0.3 10*3/uL 0.0-0.45 [facility] Eosinophils/100 WBC Auto (Bl d)Ordered By: Edi Cosby on 01-01-2023 Eosinophils/100 WBC (Bld) 3.4 % . [facility] Erythrocyte distribution wid th Auto (RBC) [Ratio]Ordered By: Edi Cosby on 01-01-2023 Erythrocyte distribution width (RBC) [Ratio] 14.4 % 11.9-15.3 [facility] Glucose [Mass/volume] in Ser um or PlasmaOrdered By: Edi Cosby on 01-01-2023 Glucose [Mass/Vol] 102 mg/dL 70-100 [facility] Comment on above: ADA recommended refe rence rangeRandom Glucose Reference Range is dependent on time and content of last meal. Glucose of more than 200 mg/dL in a nonstressed, ambulatory subject supports the diagnosis of Diabetes Mellitus. Hematocrit Auto (Bld) [Volum e fraction]Ordered By: Edi Cosby on 01-01-2023 Hematocrit (Bld) [Volume fraction] 40.1 % 34.0-46.4 [facility] Hemoglobin [Mass/volume] in BloodOrdered By: Edi Cosby on 01-01-2023 Hemoglobin (Bld) [Mass/Vol] 13.4 g/dL 11.8-15.4 [facility] Laboratory - Chemistry and C hemistry - challengeon 01-01-2023 Cholesterol [Mass/Vol] 101\S\101 below low threshold 140-200 [facility] [place] [facility] Work Phone: Comment on above: Chol less than 200 m g/dl low risk Chol 201-239 mg/dl borderline risk Chol 240 mg/dl and greater high risk Cholesterol in LDL [Mass/Vol] 43\S\43 Normal 0-100 [facility] [place] [facility] [place] Work Phone: Comment on [...] RBC Auto (Bld) [#/Vol] 8.7 10*3/uL 3.8-11.6 [facility] Lipid Panelon 01-01-2023 Cholesterol [Mass/Vol] 101 mg/dL Low 140-200 [place] Comment on above: Result Comment: Chol less than 200 mg/dl low risk Chol 201-239 mg/dl borderline risk Chol 240 mg/dl and greater high risk Performed By: #### C BC, AST, BMP, ALT, LIPID #### [facility] [address] Cholesterol in HDL [Mass/Vol] 41 mg/dL Normal 23-92 [facility] Comment on above: Result Comment: HDL CHOL ATP-III CLASSIFICATION Cardiovascular Risk HDL > or equal to 60 mg/dL LOW HDL < 40 mg/dL HIGH Performed By: #### C BC, AST, BMP, ALT, LIPID #### [facility] [address] Cholesterol.total/Stacey sterol in HDL [Mass ratio] 2.5 {ratio} Normal <5.0 [facility] Comment on above: Result Comment: PERF ORMED BY: [place] [address] PATHOLOGIST MAINTENANCE CHIEF EUGENE BORDEN M.D. Performed By: #### C BC, AST, BMP, ALT, LIPID #### [facility] [address] LDL Cholesterol,Calculated 43 mg/dL Normal 0-100 [facility] Comment on above: Result Comment: LDL ATP III CLASSIFICATION LDL less than 100 mg/dL Optimal LDL 100-129 mg/dL Near or above optimal LDL 130-159 mg/dL Borderline high LDL 160-189 mg/dL High LDL greater than 189 mg/dL Very high Performed By: #### C BC, AST, BMP, ALT, LIPID #### [facility] [address] Triglyceride w/Reflex 86 mg/dL Normal 0-149 [facility] Comment on above: Result Comment: TRIG ATP III CLASSIFICATION TRIG less than 150 mg/dL Normal TRIG 150-199 mg/dL Borderline high TRIG 200-500 mg/dL High TRIG greater than 500 mg/dL Very high Standard traceable to the Center for Disease Conrtrol and Prevention (CDC) test method. Performed By: #### C BC, AST, BMP, ALT, LIPID #### [facility] [address] VLDL CHOLESTEROL 17 mg/dL Normal [facility] Comment on above: Performed By: #### C BC, AST, BMP, ALT, LIPID #### [address] Lymphocytes Auto (Bld) [#/Vo l]Ordered By: Edi Cosby on 01-01-2023 Lymphocytes (Bld) [#/Vol] 2.1 10*3/uL 1.00-4.8 [facility] Lymphocytes/100 WBC Auto (Bl d)Ordered By: Edi Cosby on 01-01-2023 Lymphocytes/100 WBC (Bld) 23.7 % . [facility] MCH Auto (RBC) [Entitic mass ]Ordered By: Edi Cosby on 01-01-2023 MCH (RBC) [Entitic mass] 30.1 pg 24.7-34.3 [facility] MCHC Auto (RBC) [Mass/Vol]Or dered By: Edi Cosby on 01-01-2023 MCHC (RBC) [Mass/Vol] 33.5 g/dL 32.0-35.0 [facility] MCV Auto (RBC) [Entitic vol] Ordered By: Edi Cosby on 01-01-2023 MCV (RBC) [Entitic vol] 90.0 fL 80-100 F [facility] Monocytes Auto (Bld) [#/Vol] Ordered By: Edi Cosby on 01-01-2023 Monocytes (Bld) [#/Vol] 0.8 10*3/uL 0.0-0.8 [facility] Monocytes/100 WBC Auto (Bld) Ordered By: Edi Cosby on 01-01-2023 Monocytes/100 WBC (Bld) 9.3 % . [facility] Neutrophils Auto (Bld) [#/Vo l]Ordered By: Edi Cosby on 01-01-2023 Neutrophils (Bld) [#/Vol] 5.5 10*3/uL 1.8-7.7 [facility] Neutrophils/100 WBC Auto (Bl d)Ordered By: Edi Cosby on 01-01-2023 Neutrophils/100 WBC (Bld) 63.0 % . [facility] No Panel InformationOrdered By: Edi Cosby on 01-01-2023 Estimated GFR (CKD-EPI) > 60.0 mL/Min [facility] Creatinine Clearance (Chem N/A [facility] No Panel Informationon 01-01 0.1\S\0.1 Normal 0.0-0.2 [facility] [address] DO Work Phone: Comment on above: PERFORMED BY:[facility] [place], [place] [id number] MEDICAL DIRECTOREUGENE BORDEN M.D. 0.3\S\0.3 Normal 0.0-0.45 [facility] [address] DO Work Phone: 0.8\S\0.8 Normal 0.0-0.8 [facility] [address] DO Work Phone: 2.1\S\2.1 Normal 1.00-4.8 [facility] [address] DO Work Phone: 5.5\S\5.5 Normal 1.8-7.7 [facility] [address] DO Work Phone: 0.0\S\0.0 Normal 0-0.5 [facility] [address] DO Work Phone: 0.6\S\0.6 Normal . [facility] [address] DO Work Phone: 3.4\S\3.4 Normal . [facility] [address] DO Work Phone: 9.3\S\9.3 Normal . [facility] [place] [address] DO Work Phone: 23.7\S\23.7 Normal . [facility] [place] [address] DO Work Phone: 63.0\S\63.0 Normal . [facility] [place] [address] DO Work Phone: 8.3\S\8.3 Normal 6.3-10.7 [facility] [place] [address] DO Work Phone: 189\S\189 Normal 150-450 [facility] [address] DO Work Phone: 14.4\S\14.4 Normal 11.9-15.3 [facility] [place] [address] DO Work Phone: 33.5\S\33.5 Normal 32.0-35.0 [facility] [address] DO Work Phone: 30.1\S\30.1 Normal 24.7-34.3 [facility] [place] [address] DO Work Phone: 90.0\S\90.0 Normal 80-100 [facility] [place] [address] DO Work Phone: 40.1\S\40.1 Normal 34.0-46.4 [facility] [place] [address] DO Work Phone: 13.4\S\13.4 Normal 11.8-15.4 [facility] [place] [address] DO Work Phone: 4.45\S\4.45 Normal 3.60-5.00 [facility] [place] [address] DO Work Phone: 8.7\S\8.7 Normal 3.8-11.6 [facility] [place] [address] DO Work Phone: > 60.0 Normal [facility] [place] [address] DO Work Phone: 8.6\S\8.6 Normal 6.0-15.0 [facility] [place] [address] DO Work Phone: 9.4\S\9.4 Normal 8.6-10.3 [facility] [place] [address] DO Work Phone: 27.0\S\27.0 Normal 21.0-31.0 [facility] [place] [address] DO Work Phone: 109\S\109 above high threshold 98-107 [facility] [place] [address] DO Work Phone: 4.6\S\4.6 Normal 3.5-5.1 [facility] Masha sibley 250 DO Work Phone: 140\S\140 Normal 136-145 [facility] Masha sibley 250 DO Work Phone: 0.91\S\0.91 Normal 0.60-1.20 [facility] Masha sibley 250 DO Work Phone: [phone] 28\S\28 above high threshold 7-25 [facility] Masha sibley 250 DO Work Phone: [phone] 102\S\102 above high threshold 70-100 [facility] Masha sibley 250 DO Work Phone: [phone] Comment on above: Random Glucose Refer ence Range is dependent on time and content of last meal. Glucose of more than 200 mg/dL in a nonstressed, ambulatory subject supports the diagnosis of Diabetes Mellitus. ADA recommended reference range 36\S\36 Normal 13-39 [facility] Masha sibley 250 DO Work Phone: [phone] 42\S\42 Normal 7-52 [facility] Masha Stephenson DO Work Phone: [phone] 2.5\S\2.5 Normal <5.0 [facility] Masha Stephenson DO Work Phone: [phone] Comment on above: PERFORMED BY:[address] [place] [address] [place], [place] [id number] MEDICAL DIRECTOREUGENE BORDEN M.D. 17\S\17 Normal [facility] Masha sibley 250 DO Work Phone: [phone] 86\S\86 Normal 0-149 [facility] Masha sibley 250 DO Work Phone: [phone] Comment on above: TRIG ATP III CLASSIF ICATION TRIG less than 150 mg/dL Normal TRIG 150-199 mg/dL Borderline high TRIG 200-500 mg/dL High TRIG greater than 500 mg/dL Very high Standard traceable to the Center for Disease Conrtrol and Prevention (CDC) test method. 41\S\41 Normal 23-92 [facility] Masha sibley 250 DO Work Phone: Comment on above: HDL CHOL ATP-III CLA SSIFICATION Cardiovascular Risk HDL > or equal to 60 mg/dL LOW HDL < 40 mg/dL HIGH Nucleated erythrocytes [Pres ence] in Blood by Automated countOrdered By: Edi Cosby on 01-01-2023 Nucleated RBC Auto Ql (Bld) 0.0 /100{WBC} 0-0.5 [facility] Platelet mean volume Auto (B ld) [Entitic vol]Ordered By: Edi Cosby on 01-01-2023 Platelet mean volume (Bld) [Entitic vol] 8.3 fL 6.3-10.7 [facility] Platelets Auto (Bld) [#/Vol] Ordered By: Edi Cosby on 01-01-2023 Platelets (Bld) [#/Vol] 189 10*3/uL 150-450 [facility] Potassium [Moles/volume] in Serum or PlasmaOrdered By: Edi Cosby on 01-01-2023 Potassium [Moles/Vol] 4.6 mmol/L 3.5-5.1 [facility] RBC Auto (Bld) [#/Vol]Ordere d By: Edi Cosby on 01-01-2023 RBC (Bld) [#/Vol] 4.45 10*6/uL 3.60-5.00 [facility] Serum or plasma anion gap de terminationOrdered By: Edi Cosby on 01-01-2023 Anion gap [Moles/Vol] 8.6 mmol/L 6.0-15.0 [facility] Serum or plasma high density lipoprotein (HDL) cholesterol measurementOrdered By: Edi Cosyb on 01-01-2023 Cholesterol in HDL [Mass/Vol] 41 mg/dL 23-92 [facility] Comment on above: HDL CHOL ATP-III CLA SSIFICATION Cardiovascular RiskHDL > or equal to 60 mg/dL LOWHDL < 40 mg/dL HIGH Serum or plasma total choles terol/high density lipoprotein (HDL) cholesterol mass ratOrdered By: Edi Cosby on 01-01-2023 Cholesterol.total/Tsacey sterol in HDL [Mass ratio] 2.5 {ratio} <5.0 [facility] Sodium [Moles/volume] in Ser um or PlasmaOrdered By: Edi Cosby on 01-01-2023 Sodium [Moles/Vol] 140 mmol/L 136-145 [facility] Triglyceride [Mass/volume] i n Serum or PlasmaOrdered By: Edi Cosby on 01-01-2023 Triglyceride [Mass/Vol] 86 mg/dL 0-149 F [facility] Comment on above: TRIG ATP III CLASSIF ICATIONTRIG less than 150 mg/dL NormalTRIG 150-199 mg/dL Borderline highTRIG 200-500 mg/dL High TRIG greater than 500 mg/dL Very highStandard traceable to the Center for Disease Conrtrol and Prevention (CDC) test method. Urea nitrogen [Mass/volume] in Serum or PlasmaOrdered By: Edi Cosby on 01-01-2023 Urea nitrogen [Mass/Vol] 28 mg/dL 7-25 [facility] WBC Auto (Bld) [#/Vol]Ordere d By: Edi Cosby on 01-01-2023 WBC (Bld) [#/Vol] 8.7 10*3/uL 3.8-11.6 [facility] Office Visit (Cardiology)on 05-14-2022 Follow-up visit Diagnoses/Problems [...] Former smoker Tobacco Use Screening; Status:Complete; Done: [id number] Patient Instructions Please bring all medicines, vitamins, [...] Systems Constitu (more content not included)... Normal [place] Tobacco Screening.on 022 Fall risk assessment a) No falls within the last year [facility] [place] [address] DO Work Phone: Tobacco use status [facility] b) No [facility] [place] [address] DO Work Phone: HEMOGLOBINon 03-30-2022 Hemoglobin (Bld) [Mass/Vol] 13.9 g/dL Normal 12.0-16.0 [facility] Comment on above: Performed By: #### H GB #### [facility] [address] [address] [address] Gena Lopes XR DEXA BONE DENSITYon [...] by: SVETLANA CHAPMAN Date: 2022-02-19 10:41 Normal [facility] CT CHEST WO CONon 02-14-2022 CT [...] by: SVETLANA CHAPMAN Date: 2022-02-14 14:33 Normal [facility] Tobacco Screening.on 022 Adult depression screening assessment No [facility] [place] [address] DO Work Phone: Fall risk assessment a) No falls within the last year [facility] [place] [address] DO Work Phone: Tobacco use status [facility] b) No [facility] [place] [place] [address] DO Work Phone: BNPon 12-08-2021 Natriuretic peptide B (Bld) [Mass/Vol] 337.0 pg/mL Normal <=900.0 [facility] Comment on above: Performed By: #### B MP, BNP ####[facility] [address] [address]DrAsuncion Lopes PROF CHEM 8 (BAS METB)on Anion gap [Moles/Vol] 10.8 mmol/L Normal [facility] Comment on above: Performed By: #### B MP, BNP ####[facility] [address] [address]DrAsuncion Lopes Calcium [Mass/Vol] 9.1 mg/dL Normal 8.5-10.1 [facility] Comment on above: Performed By: #### B MP, BNP ####[facility] [address] [address]DrAsuncion Lopes Chloride [Moles/Vol] 105 mmol/L Normal 98-107 [facility] Comment on above: Performed By: #### B MP, BNP ####[facility] [address] [address]Dr. Gena Lopes CO2 [Moles/Vol] 27.1 mmol/L Normal 21.0-32.0 [facility] Comment on above: Performed By: #### B MP, BNP ####[facility] [address] [address]Dr. Gena Lopes Creatinine [Mass/Vol] 1.02 mg/dL Normal 0.55-1.02 [facility] Comment on above: Performed By: #### B MP, BNP ####[facility] [address] [address]Dr. Gena Lopes EGFR-AF GEORGIAN >60 Normal >=60 [facility] Comment on above: Performed By: #### B MP, BNP ####[facility] [address] [place], [place] [address]Dr. Doradacia Moses EGFR-NON AF GEORGIAN 53 mL/min/1.73m2 Critically low >=60 [facility] Comment on above: Performed By: #### B MP, BNP ####[facility] [address] [place], [place] [address]Dr. Gena Lopes Glucose [Mass/Vol] 198 mg/dL Critically high 74-106 T [facility] Comment on above: Performed By: #### B MP, BNP ####[facility] [address] [place], [place] [address]Dr. Gena Lopes Potassium [Moles/Vol] 3.9 mmol/L Normal 3.5-5.1 [facility] Comment on above: Performed By: #### B MP, BNP ####[facility] [address] [address]Dr. Gena Lopes Sodium [Moles/Vol] 139 mmol/L Normal 136-145 [facility] Comment on above: Performed By: #### B MP, BNP ####[facility] [address] [place], [place] [address]Dr. Doradacia Moses Urea nitrogen [Mass/Vol] 18.0 mg/dL Normal 7.0-18.0 [facility] Comment on above: Performed By: #### B MP, BNP ####[facility] [address] [place], [place] [address]PtAsuncion Lopes Urea nitrogen/Creatinine [Mass ratio] 17.6 mg/mg Normal [facility] Comment on above: Performed By: #### B MP, BNP ####[facility] [address] [place], [place] [address]Wm[address] CT ABD/PELV W CONon 11-18-19 CT [...] SVETLANA CHAPMAN Date: 2021-11-17 17:29 Normal [facility] BNPon 11-08-2021 Natriuretic peptide B (Bld) [Mass/Vol] 188.0 pg/mL Normal <=900.0 [facility] Comment on above: Performed By: #### C MP, BNP, TSH #### [facility] [address] [place] [address] Dr. Gena Lopes CBC AUTO DIFFon 11-08-2021 BASO # 0.0 103/ul Normal 0.0-0.1 [facility] Comment on above: Performed By: #### C BC #### [facility] [address] [place] [address] Dr. Gena Lopes Basophils/100 WBC (Bld) 0.5 % Normal 0.2-2.0 [facility] Comment on above: Performed By: #### C BC #### [facility] [address] [place] [address] Dr. Gena Lopes EO # 0.3 103/ul Normal 0.0-0.7 [facility] Comment on above: Performed By: #### C BC #### [facility] [address] [place] [address] Dr. Gena Lopes Eosinophils/100 WBC (Bld) 3.9 % Normal 0.9-7.0 [facility] Comment on above: Performed By: #### C BC #### [facility] [address] [place] [address] Dr. Gena Lopes Erythrocyte distribution width (RBC) [Ratio] 13.2 % Normal 11.0-15.0 [facility] Comment on above: Performed By: #### C BC #### [facility] [address] [place] [address] Dr. Gena Lopes Hematocrit (Bld) [Volume fraction] 42.4 % Normal 36.0-48.0 [facility] Comment on above: Performed By: #### C BC #### [facility] [address] [place] [address] Dr. Gena Lopes Hemoglobin (Bld) [Mass/Vol] 13.6 g/dL Normal 12.0-16.0 [facility] Comment on above: Performed By: #### C BC #### [facility] [address] [place] [address] Dr. Gena Lopes IG # 0.03 10e3/ul Normal 0.00-0.03 [facility] Comment on above: Performed By: #### C BC #### [facility] [address] [place] [address] Dr. Gena Lopes IG % 0.4 % Normal 0.0-0.5 [facility] Comment on above: Performed By: #### C BC #### [facility] [address] [place] [address] Dr. Gena Lopes LYMPH # 1.7 103/ul Normal 1.2-3.8 [facility] Comment on above: Performed By: #### C BC #### [facility] [address] [place] [address] Dr. Gena Lopes Lymphocytes/100 WBC (Bld) 21.7 % Normal 20.5-60.0 [facility] Comment on above: Performed By: #### C BC #### [facility] [address] [place] [address] Dr. Gena Lopes MANUAL DIFF REQ NO Normal [facility] Comment on above: Performed By: #### C BC #### [facility] [address] [place] [address] Dr. Gena Lopes MCH (RBC) [Entitic mass] 29.8 pg Normal 26.7-34.0 [facility] Comment on above: Performed By: #### C BC #### [facility] [address] [place] [address] Dr. Gena Lopes MCHC (RBC) [Mass/Vol] 32.1 g/dL Normal 29.9-35.2 [facility] Comment on above: Performed By: #### C BC #### [facility] [address] [place] [address] Dr. Gena Lopes MCV (RBC) [Entitic vol] 92.8 fL Normal 81.0-99.0 [facility] Comment on above: Performed By: #### C BC #### [facility] [address] [place] [address] Dr. Gena Lopes MONO # 1.0 103/ul Critically high 0.3-0.8 [facility] Comment on above: Performed By: #### C BC #### [facility] [address] [place] [address] Dr. Gena Lopes Monocytes/100 WBC (Bld) 13.4 % Critically high 1.7-12. 0 [facility] Comment on above: Performed By: #### C BC #### [facility] [address] [place] [address] Dr. Gena Lopes NEUT # 4.7 103/ul Normal 1.4-6.5 [facility] Comment on above: Performed By: #### C BC #### [facility] [address] [place] [address] Dr. Gena Lopes Neutrophils/100 WBC (Bld) 60.1 % Normal 43.0-75.0 [facility] Center Comment on above: Performed By: #### C BC #### [facility] [address] [place] [address] Dr. Gena Lopes Platelet mean volume (Bld) [Entitic vol] 10.0 fL Normal 9.5-13.5 [facility] Comment on above: Performed By: #### C BC #### [facility] [address] [place] [address] Dr. Gena Lopes PLT 231 103/ul Normal 150-450 [facility] Comment on above: Performed By: #### C BC #### [facility] [address] [place] [address] Dr. Gena Lopes RBC 4.57 106/ul Normal 4.20-5.40 [facility] Comment on above: Performed By: #### C BC #### [facility] [address] [place] [address] Dr. Gena Lopes WBC 7.8 103/ul Normal 4.0-11.0 [facility] Comment on above: Performed By: #### C BC #### [facility] [address] [place] [address] Dr. Gena Lopes FREE T4on 11-08-2021 Free T4 [Mass/Vol] 2.04 ng/dL Critically high 0.76-1.46 [facility] Comment on above: Performed By: #### F T4 ####[facility] [address] [address]Dr. Gena Lopes PROF 14(COMP METB)on 022 Albumin [Mass/Vol] 3.2 g/dL Critically low 3.4-5.0 [facility] Comment on above: Performed By: #### C MP, BNP, TSH #### [facility] [address] [address] [address] Gena Lopes Albumin/Globulin [Mass ratio] 0.8 {ratio} Normal [facility] Comment on above: Performed By: #### C MP, BNP, TSH #### [facility] [address] [address] [address] Gena Lopes ALP [Catalytic activity/Vol] 134 U/L Critically high 46-116 [facility] Comment on above: Performed By: #### C MP, BNP, TSH #### [facility] [address] [address] [address] Gena Lopes ALT [Catalytic activity/Vol] 67 U/L Critically high 14-59 [facility] Comment on above: Performed By: #### C MP, BNP, TSH #### [facility] [address] [address] [address] Gena Lopes Anion gap [Moles/Vol] 12.1 mmol/L Normal [facility] Comment on above: Performed By: #### C MP, BNP, TSH #### [facility] [address] [address] [address] Gena Lopes AST [Catalytic activity/Vol] 47 U/L Critically high 15-37 [facility] Comment on above: Performed By: #### C MP, BNP, TSH #### [facility] [address] [address] [address] Gena Lopes Bilirubin [Mass/Vol] 0.4 mg/dL Normal 0.2-1.0 [facility] Comment on above: Performed By: #### C MP, BNP, TSH #### [facility] [address] [address] [address] Gena Lopes Calcium [Mass/Vol] 9.5 mg/dL Normal 8.5-10.1 [facility] Comment on above: Performed By: #### C MP, BNP, TSH #### [facility] [address] [address] [address] Gena Lopes Chloride [Moles/Vol] 108 mmol/L Critically high 98-107 [facility] Comment on above: Performed By: #### C MP, BNP, TSH #### [facility] [address] [address] [address] Gena Lopes CO2 [Moles/Vol] 24.1 mmol/L Normal 21.0-32.0 [facility] Comment on above: Performed By: #### C MP, BNP, TSH #### [facility] [address] [address] [address] Gena Lopes Creatinine [Mass/Vol] 0.98 mg/dL Normal 0.55-1.02 [facility] Comment on above: Performed By: #### C MP, BNP, TSH #### [facility] [address] [place] [address] Dr. Gena Lopes EGFR-AF GEORGIAN >60 Normal >=60 [facility] Comment on above: Performed By: #### C MP, BNP, TSH #### [facility] [address] [address] [address] Gena Lopes EGFR-NON AF GEORGIAN 56 mL/min/1.73m2 Critically low >=60 [facility] Comment on above: Performed By: #### C MP, BNP, TSH #### [facility] [address] [address] [address] Gena Lopes Globulin (S) [Mass/Vol] 3.8 g/dL Normal [facility] Comment on above: Performed By: #### C MP, BNP, TSH #### [facility] [address] [place] [address] Dr. Gena Lopes Glucose [Mass/Vol] 107 mg/dL Critically high 74-106 [facility] Comment on above: Performed By: #### C MP, BNP, TSH #### [facility] [address] [place] [address] Dr. Gena Lopes Potassium [Moles/Vol] 4.2 mmol/L Normal 3.5-5.1 [facility] Comment on above: Performed By: #### C MP, BNP, TSH #### [facility] [address] [place] [address] Dr. Gena Lopes Protein [Mass/Vol] 7.0 g/dL Normal 6.4-8.2 [facility] Comment on above: Performed By: #### C MP, BNP, TSH #### [facility] [address] [place] [address] Dr. Gena Lopes Sodium [Moles/Vol] 140 mmol/L Normal 136-145 [facility] Comment on above: Performed By: #### C MP, BNP, TSH #### [facility] [address] [place] [address] Dr. Gena Lopes Urea nitrogen [Mass/Vol] 19.0 mg/dL Critically high 7.0-18.0 [facility] Comment on above: Performed By: #### C MP, BNP, TSH #### [facility] [address] [place] [address] Dr. Gena Lopes Urea nitrogen/Creatinine [Mass ratio] 19.4 mg/mg Normal [facility] Comment on above: Performed By: #### C MP, BNP, TSH #### [facility] [address] [place] [address] Dr. Gena Lopes TSHon 11-08-2021 TSH 0.010 uIU/mL Critically low 0.358-3.740 [facility] Comment on above: Performed By: #### C MP, BNP, TSH #### [facility] [address] [place] [address] Dr. Gena Lopes TSH RANGE SEE BELOW Normal [facility] Comment on above: Result Comment: <0.3 4 UIU/ml HYPERTHYROID 0.34-5.60 UIU/ml EUTHYROID >5.60 UIU/ml HYPOTHYROID Performed By: #### C MP, BNP, TSH #### [facility] [address] [place] [address] Dr. Gena Lopes Coding Summary.on 10-06-2021 Coding Summary. CD:[id number] G h0bWw+PGhlYWQ+HG5UDFJ yY61fdNMdcY6UT5mDUW7K WJIONEGQTU9HUR0kwQQ5E FtsX9CixqOr BbdivHJtCG43BRw2GDC0e VaiPOrxgO1ioDFpV5t2Fc ZsYQ77bF90ZNesFZWjMgS 3LjZpbjsgbWFy E7iaIyIinIMjVaq+PHRhY mxlIHdpZHRoPScxMDAlJy WxkXkrPH6lXv2hMIToSIH vbGxhcHNlOiBj j0jwXMXiSGtiAM0okQdqG 2CirFV6KDJsc9z3Tv58hJ I+FJVeFUJ6uSnnCBhtc65 6NwVnt9wjOLJ8 cGYkUVfgCKM0D65bz3H1W STpELNyWZJ1yFR7yO2grG llitzgV4RgfBUvGlR2GAI 1xTBezU5emZcw jpyepU4oYld+P53VOM1IZ GBUYZ9AJiu4L7HyLwdnoF I+QI66DJVvWE43lCOstPL rv9wbrTd5EbKv ZJYbBPB7nKnbWQmqz8PqZ YUeT40lwNRky5K1JZTpoJ ecxOIkUnNtcEA8vQ9vKUh jznmnk1lbqubw Iqdfw4ipij72oW28P13zS PypSEOhRHD6MTXmDCLxuG ywsa5wsZ0uVa7+LNfep1p ee8ixaLd8FcUu KTNhqdDxzZnkMYK2w2YeI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 ADA THERAPEUTIC TARGET 6.0 - 7.0 ACTION SUGGESTED > 7.0 Normal [facility] Comment on above: Performed By: #### A 1C #### [facility] [address] [address] [address] Gena Lopes Glucose [Mass/Vol] 128 mg/dL Normal [facility] Comment on above: Performed By: #### A 1C #### [facility] [address] [address] [address] Gena Lopes HbA1c (Bld) [Mass fraction] 6.1 % Critically high <=6.0 [facility] Comment on above: Performed By: #### A 1C #### [facility] [address] [address] [address] Gena Lopes PROF CHEM 8 (BAS METB)on Anion gap [Moles/Vol] 11.7 mmol/L Normal [facility] Comment on above: Performed By: #### T WILLIAN, BMP ####[facility] [address] [place] [address] [address]DrAsuncion Lopes Calcium [Mass/Vol] 9.5 mg/dL Normal 8.5-10.1 [facility] Comment on above: Performed By: #### T WILLIAN, BMP ####[facility] [address] [place] [address]DrAsuncion Lopes Chloride [Moles/Vol] 104 mmol/L Normal 98-107 [facility] Comment on above: Performed By: #### T WILLIAN, BMP ####[facility] [address] [address]DrAsuncion Lopes CO2 [Moles/Vol] 26.7 mmol/L Normal 21.0-32.0 [facility] Comment on above: Performed By: #### T WILLIAN, BMP ####[facility] [address] [address]DrAsuncion Lopes Creatinine [Mass/Vol] 0.77 mg/dL Normal 0.55-1.02 [facility] Comment on above: Performed By: #### T WILLIAN, BMP ####[facility] [address] [place] [address] [address]Dr. Gena Lopes EGFR-AF GEORGIAN >60 Normal >=60 [facility] Comment on above: Performed By: #### T WILLIAN, BMP ####[facility] [address] [place] [address]Dr. Gena Lopes EGFR-NON AF GEORGIAN >60 Normal >=60 [facility] Comment on above: Performed By: #### T WILLIAN, BMP ####[facility] [address] [place] [address]Dr. Gena Lopes Glucose [Mass/Vol] 76 mg/dL Normal 74-106 [facility] Comment on above: Performed By: #### T WILLIAN, BMP ####[facility] [address] [place] [address]Dr. Gena Lopes Potassium [Moles/Vol] 4.4 mmol/L Normal 3.4-5.0 [facility] Comment on above: Performed By: #### T WILLIAN, BMP ####[facility] [address] [place], [place] [address]Dr. Gena Lopes Sodium [Moles/Vol] 138 mmol/L Normal 137-145 [facility] Comment on above: Performed By: #### T WILLIAN, BMP ####[facility] [address] [place], [place] [address]Dr. Gena Lopes Urea nitrogen [Mass/Vol] 15.0 mg/dL Normal 7.0-18.0 [facility] Comment on above: Performed By: #### T WILLIAN, BMP ####[facility] [address] [place] [address] [address]Dr. Gena Lopes Urea nitrogen/Creatinine [Mass ratio] 19.5 mg/mg Normal [facility] Comment on above: Performed By: #### T WILLIAN, BMP ####[facility] [address] [place] [address]Dr. Gena Lopes TSHon 09-22-2021 TSH 1.551 uIU/mL Normal 0.470-4.680 [facility] Comment on above: Performed By: #### T WILLIAN, BMP ####[facility] [address] [place], [place] [address]Px. Gena Lopes TSH RANGE SEE BELOW Normal [facility] Comment on above: Result Comment: <0.3 4 UIU/ml HYPERTHYROID 0.34-5.60 UIU/ml EUTHYROID >5.60 UIU/ml HYPOTHYROID Performed By: #### T SH, BMP ####[facility] [address] [place], [place] [address]Cn. Gena Lopes Tobacco Screening.on 022 Fall risk assessment b) One or more fall s in the last year -[facility] [address] DO Work Phone: Tobacco use status CPHS b) No M -[facility] [address] DO Work Phone: Tobacco Screening. Large MP-[facility] [address] DO Work Phone: POC GLUCOSE LABon 01-12-2019 Glucose [Mass/Vol] 144 mg/dL High 70-100 [facility] Comment on above: Performed By: #### 0 0071, 06341, 69869, 85314, 35378 #### [facility] [address] [place] [address], [facility] Glucose [Mass/Vol] 141 mg/dL High 70-100 [facility] Comment on above: Performed By: #### 0 0071, 00239, 21723, 05233, 11863 #### [facility] [address] [facility] [place] [address], [facility] APTTon 01-11-2019 aPTT Coag (Bld) [Time] 31.1 s Normal 25.0-35.0 [facility] Comment on above: Order Comment: No: [...] THIS PURPOSE. Performed By: #### 0 0071, 34883, 36770, 47829, 25365 #### [facility] [address] [place] [address], [facility] BASIC METABOLIC PANELon 01-01 Calcium [Mass/Vol] 9.1 mg/dL Normal 8.6-10.3 [facility] Comment on above: Order Comment: No: D o not add to previous draw Performed By: #### 0 0071, 18801, 15562, 34815, 75063 #### [facility] [address] [place] [address], [facility] Chloride [Moles/Vol] 105 mmol/L Normal 98-107 [facility] Comment on above: Order Comment: No: D o not add to previous draw Performed By: #### 0 0071, 94412, 34500, 27878, 39818 #### [facility] [address] [place] [address], [facility] CO2 [Moles/Vol] 24 mmol/L Normal 21-31 [facility] Comment on above: Order Comment: No: D o not add to previous draw Performed By: #### 0 0071, 66048, 62842, 33126, 82368 #### [facility] [address] [place] [address], [facility] Creatinine [Mass/Vol] 0.85 mg/dL Normal 0.60-1.20 [facility] Comment on above: Order Comment: No: D o not add to previous draw Performed By: #### 0 0071, 01496, 95476, 93817, 67451 #### [facility] [address] [place] [address], [facility] GFR/1.73 sq M predicted among blacks MDRD (S/P/Bld) [Vol rate/Area] mL/min/{1.73_m2} Normal >60 [facility] Comment on above: Order Comment: No: D o not add to previous draw Performed By: #### 0 0071, 50057, 25293, 82236, 03492 #### [facility] [address] [place] [address], [facility] GFR/1.73 sq M predicted among non-blacks MDRD (S/P/Bld) [Vol rate/Area] mL/min/{1.73_m2} Normal >60 [facility] Comment on above: Order Comment: No: D o not add to previous draw Performed By: #### 0 0071, 40019, 93245, 28414, 33415 #### [facility] [address] [place] [address], [place] Glucose [Mass/Vol] 115 mg/dL High 70-100 [facility] Comment on above: Order Comment: No: D o not add to previous draw Performed By: #### 0 0071, 34113, 59576, 56249, 48852 #### [facility] [address] [place] [address], [place] Potassium [Moles/Vol] 4.0 mmol/L Normal 3.5-5.1 [facility] Comment on above: Order Comment: No: D o not add to previous draw Performed By: #### 0 0071, 20149, 94327, 50134, 22618 #### [facility] [address] [place] [address], [place] Sodium [Moles/Vol] 135 mmol/L Low 136-145 [facility] Comment on above: Order Comment: No: D o not add to previous draw Performed By: #### 0 0071, 21929, 03793, 81591, 92820 #### [facility] [address] [place] [address], [place] Urea nitrogen [Mass/Vol] 24 mg/dL Normal 7-25 [facility] Comment on above: Order Comment: No: D o not add to previous draw Performed By: #### 0 0071, 82422, 15346, 70537, 09249 #### [facility] [address] CBC COMPLETE BLOOD COUNTon 0 01-11-2019 Erythrocyte distribution width (RBC) [Ratio] 14.2 % Normal 11.5-15.0 [facility] Comment on above: Order Comment: No: D o not add to previous draw Performed By: #### 0 0071, 48304, 93229, 75519, 48026 #### [facility] [address] [place] [address], [facility] Hematocrit (Bld) [Volume fraction] 35.5 % Low 36.0-45.0 [facility] Comment on above: Order Comment: No: D o not add to previous draw Performed By: #### 0 0071, 41882, 13573, 27470, 07685 #### [facility] [address] [place] [address], [facility] Hemoglobin (Bld) [Mass/Vol] 11.2 g/dL Low 12.0-15.0 [facility] Comment on above: Order Comment: No: D o not add to previous draw Performed By: #### 0 0071, 13732, 21498, 56811, 74562 #### [facility] [address] [facility] [place] [address], [facility] MCH (RBC) [Entitic mass] 28.1 pg Normal 27.0-33.0 [facility] Comment on above: Order Comment: No: D o not add to previous draw Performed By: #### 0 0071, 79861, 40149, 96836, 38074 #### [facility] [address] [place] [address], [facility] MCHC (RBC) [Mass/Vol] 31.5 g/dL Low 32.0-35.0 [facility] Comment on above: Order Comment: No: D o not add to previous draw Performed By: #### 0 0071, 90639, 60793, 53020, 89942 #### [facility] [address] MCV (RBC) [Entitic vol] 89.0 fL Normal 82.0-98.0 [facility] Comment on above: Order Comment: No: D o not add to previous draw Performed By: #### 0 0071, 95143, 64747, 97563, 98488 #### [facility] [address] [place] [address], [facility] Nucleated RBC/100 WBC (Bld) [Ratio] 0 % Normal 0-0 [facility] Comment on above: Order Comment: No: D o not add to previous draw Performed By: #### 0 0071, 82402, 90334, 74792, 05595 #### [facility] [address] PLAT CNT 257 10*3/uL Normal 150-400 [facility] Comment on above: Order Comment: No: D o not add to previous draw Performed By: #### 0 0071, 84073, 45230, 50325, 22452 #### [facility] [address] [place] [address], [facility] RBC (Bld) [#/Vol] 3.99 10*6/uL Normal 3.80-5.00 [facility] Comment on above: Order Comment: No: D o not add to previous draw Performed By: #### 0 0071, 09655, 92731, 23856, 36385 #### [facility] [address] [place] [address], [facility] WBC (Bld) [#/Vol] 8.64 10*3/uL Normal 4.00-10.60 [facility] Comment on above: Order Comment: No: D o not add to previous draw Performed By: #### 0 0071, 81143, 33328, 35420, 23850 #### [facility] [address] POC GLUCOSE LABon 01-11-2019 Glucose [Mass/Vol] 117 mg/dL High 70-100 [facility] Comment on above: Performed By: #### 0 0071, 53791, 11380, 51239, 02882 #### [facility] [address] [place] [address], [facility] Glucose [Mass/Vol] 104 mg/dL High 70-100 [facility] Comment on above: Performed By: #### 0 0071, 03994, 29720, 72219, 60971 #### [facility] [address] [place] [address], [facility] Glucose [Mass/Vol] 100 mg/dL Normal 70-100 [facility] Comment on above: Performed By: #### 0 0071, 44622, 83744, 25939, 88173 #### [facility] [address] [place] [address], [facility] Glucose [Mass/Vol] 106 mg/dL High 70-100 [facility] Comment on above: Performed By: #### 0 0071, 50336, 65025, 87033, 32053 #### [facility] [address] [place] [address], [facility] UFH HEPARIN ASSAYon 01-12-20 19 UNFRACTIONATED HEPARIN >1.00 Critically high 0.30-0.7 0 [facility] Comment on above: Result Comment: [place] roxaban and Apixaban will interfere with the anti Xa assay used to monitor UFH and LMWH. RESULTS CHECKED AND CALLED. ACCURATELY READ BACK BY LINA DAVIDSON RN AT 0540. UFH = 1.99; PATIENT ON ELIQUIS PER LINA JOHNSON AT 0542 Performed By: #### 0 0071, 72437, 84050, 06747, 83680 #### [facility] [address] [place] [address], [facility] BASIC METABOLIC PANELon 01-01 Calcium [Mass/Vol] 9.0 mg/dL Normal 8.6-10.3 [facility] Comment on above: Order Comment: No: D o not add to previous draw Performed By: #### 0 0071, 24350, 85261, 84429, 64855 #### [facility] [address] [place] [address], [place] Chloride [Moles/Vol] 104 mmol/L Normal 98-107 [facility] Comment on above: Order Comment: No: D o not add to previous draw Performed By: #### 0 0071, 52327, 75528, 10305, 56541 #### [facility] [address] [place] [address], [place] CO2 [Moles/Vol] 23 mmol/L Normal 21-31 [facility] Comment on above: Order Comment: No: D o not add to previous draw Performed By: #### 0 0071, 16866, 88978, 85015, 50690 #### [facility] [address] [place] [address], [place] Creatinine [Mass/Vol] 1.03 mg/dL Normal 0.60-1.20 [facility] Comment on above: Order Comment: No: D o not add to previous draw Performed By: #### 0 0071, 21338, 13938, 99919, 69229 #### [facility] [address] [place] [address], [place] GFR/1.73 sq M predicted among blacks MDRD (S/P/Bld) [Vol rate/Area] mL/min/{1.73_m2} Normal >60 [facility] Comment on above: Order Comment: No: D o not add to previous draw Performed By: #### 0 0071, 19503, 01209, 65892, 67086 #### [facility] [address] [place] [address], [place] GFR/1.73 sq M predicted among non-blacks MDRD (S/P/Bld) [Vol rate/Area] 53 ml/min/1.73sq m Abnormal >60 [facility] Comment on above: Order Comment: No: D o not add to previous draw Performed By: #### 0 0071, 23424, 92455, 57263, 55171 #### [facility] [address] [place] [address], [facility] Glucose [Mass/Vol] 124 mg/dL High 70-100 [facility] Comment on above: Order Comment: No: D o not add to previous draw Performed By: #### 0 0071, 73996, 42730, 79604, 30646 #### [facility] [address] [place] [address], [facility] Potassium [Moles/Vol] 4.4 mmol/L Normal 3.5-5.1 [facility] Comment on above: Order Comment: No: D o not add to previous draw Performed By: #### 0 0071, 97228, 08866, 80557, 46937 #### [facility] [address] [place] [address], [facility] Sodium [Moles/Vol] 133 mmol/L Low 136-145 [facility] Comment on above: Order Comment: No: D o not add to previous draw Performed By: #### 0 0071, 01389, 03264, 16096, 34189 #### [facility] [address] [facility] [place] [address], [facility] Urea nitrogen [Mass/Vol] 28 mg/dL High 7-25 [facility] Comment on above: Order Comment: No: D o not add to previous draw Performed By: #### 0 0071, 53758, 68238, 87149, 72674 #### [facility] [address] [facility] [place] [id number], [facility] CBC W/DIFFon 01-10-2019 ABS BASOPHILS 0.1 10*3/uL Normal 0.0-0.2 [facility] Comment on above: Order Comment: No: D o not add to previous draw Performed By: #### 0 0071, 15505, 05199, 66175, 16702 #### [facility] [address] [place] [address], [facility] ABS IMM GRANS 0.0 10*3/uL Normal 0.0-0.2 [facility] Comment on above: Order Comment: No: D o not add to previous draw Performed By: #### 0 0071, 89060, 47935, 78458, 51475 #### [facility] [address] [place] [address], [facility] ABS NEUTROPHILS 5.6 10*3/uL Normal 1.6-7.6 [facility] Comment on above: Order Comment: No: D o not add to previous draw Performed By: #### 0 0071, 60992, 08690, 77879, 54545 #### [facility] [address] [facility] [place] [address], [facility] Basophils/100 WBC (Bld) 0.7 % Normal 0.0-1.0 [facility] Comment on above: Order Comment: No: D o not add to previous draw Performed By: #### 0 0071, 91933, 15166, 53387, 90469 #### [facility] [address] [facility] [place] [address], [facility] Eosinophils (Bld) [#/Vol] 0.5 10*3/uL Normal 0.0-0.5 [facility] Comment on above: Order Comment: No: D o not add to previous draw Performed By: #### 0 0071, 46493, 15520, 81220, 28560 #### [facility] [address] [place] [address], [facility] Eosinophils/100 WBC (Bld) 5.2 % Normal 0.0-6.0 [facility] Comment on above: Order Comment: No: D o not add to previous draw Performed By: #### 0 0071, 16339, 00565, 65861, 95834 #### [facility] [address] [place] [address], [place] Erythrocyte distribution width (RBC) [Ratio] 14.4 % Normal 11.5-15.0 [facility] Comment on above: Order Comment: No: D o not add to previous draw Performed By: #### 0 0071, 63835, 35141, 29138, 33270 #### [facility] [address] [place] [address], [facility] Hematocrit (Bld) [Volume fraction] 37.8 % Normal 36.0-45.0 [facility] Comment on above: Order Comment: No: D o not add to previous draw Performed By: #### 0 0071, 17212, 89642, 62114, 62072 #### [facility] [address] [place] [address], [facility] Hemoglobin (Bld) [Mass/Vol] 12.0 g/dL Normal 12.0-15.0 [facility] Comment on above: Order Comment: No: D o not add to previous draw Performed By: #### 0 0071, 79210, 67400, 27477, 84404 #### [facility] [address] IMMATURE GRANS 0.3 % Normal 0.0-1.0 [facility] Comment on above: Order Comment: No: D o not add to previous draw Performed By: #### 0 0071, 35638, 75547, 59228, 21977 #### [facility] [address] [place] [address], [facility] Lymphocytes (Bld) [#/Vol] 2.3 10*3/uL Normal 1.2-4.0 [facility] Comment on above: Order Comment: No: D o not add to previous draw Performed By: #### 0 0071, 36777, 66448, 82746, 63639 #### [facility] [address] [place] [address], [facility] Lymphocytes/100 WBC (Bld) 23.9 % Normal 20.0-45.0 [facility] Comment on above: Order Comment: No: D o not add to previous draw Performed By: #### 0 0071, 05453, 72262, 31304, 66774 #### [facility] [address] [place] [address], [facility] MCH (RBC) [Entitic mass] 28.1 pg Normal 27.0-33.0 [facility] Comment on above: Order Comment: No: D o not add to previous draw Performed By: #### 0 0071, 80722, 81053, 25789, 18927 #### [facility] [address] [place] [address], [facility] MCHC (RBC) [Mass/Vol] 31.7 g/dL Low 32.0-35.0 [facility] Comment on above: Order Comment: No: D o not add to previous draw Performed By: #### 0 0071, 59728, 61094, 08172, 94928 #### [facility] [address] [facility] [place] [address], [facility] MCV (RBC) [Entitic vol] 88.5 fL Normal 82.0-98.0 T [facility] Comment on above: Order Comment: No: D o not add to previous draw Performed By: #### 0 0071, 73269, 58755, 96472, 81335 #### [facility] [address] [facility] [place] [address], [facility] Monocytes (Bld) [#/Vol] 1.0 10*3/uL Normal 0.1-1.0 [facility] Comment on above: Order Comment: No: D o not add to previous draw Performed By: #### 0 0071, 32247, 94453, 30875, 38013 #### [facility] [address] [facility] [place] [address], [facility] MONOS 10.9 % Normal 5.0-12.0 [facility] Comment on above: Order Comment: No: D o not add to previous draw Performed By: #### 0 0071, 57045, 37882, 57922, 04353 #### [facility] [address] [place] [id number], [facility] Neutrophils/100 WBC (Bld) 59.0 % Normal 40.0-72.0 [facility] Comment on above: Order Comment: No: D o not add to previous draw Performed By: #### 0 0071, 29271, 76679, 40834, 30893 #### [facility] [address] [place] [address], [place] Nucleated RBC/100 WBC (Bld) [Ratio] 0 % Normal 0-0 [facility] Comment on above: Order Comment: No: D o not add to previous draw Performed By: #### 0 0071, 19307, 65433, 92643, 55005 #### [facility] [address] [place] [id number], [facility] PLAT CNT 273 10*3/uL Normal 150-400 [facility] Comment on above: Order Comment: No: D o not add to previous draw Performed By: #### 0 0071, 22458, 10583, 83237, 19392 #### [facility] [address] [place] [id number], [facility] RBC (Bld) [#/Vol] 4.27 10*6/uL Normal 3.80-5.00 [facility] Comment on above: Order Comment: No: D o not add to previous draw Performed By: #### 0 0071, 33649, 02099, 82907, 58795 #### [facility] [address] [place] [address], [place] WBC (Bld) [#/Vol] 9.48 10*3/uL Normal 4.00-10.60 [facility] Comment on above: Order Comment: No: D o not add to previous draw Performed By: #### 0 0071, 64072, 36088, 95343, 93992 #### [facility] [address] [place] [id number], [facility] Cardiovascular Lab Reporton 01-10-2019 Cardiovascular Lab Report [facility] Patient Name: [facility] MR #: [id number] Department of Physician: Haritha Catalan MD Division of Service Date: 01/09/2019 Cardiology Birthdate: 1950 Adult Cardiovascular Room #: 3AB [id number] [facility] [address] [facility] [place] [address] Cardiovascular Laboratory Report PROCEDURE PERFORMED: Transesophageal echocardiogram and cardioversion. INDICATION: Atrial fibrillation. FELLOW DOCTOR: Tawnya Navarrete M.D. PROCEDURE IN DETAIL: Informed consent was obtained from the patient after explaining indication, risks, benefits, and alternatives. The patient understood and agreed and signed the consent form. The patient was brought to the yard laborer MELISSA. Transesophageal echocardiogram was performed under [...] P/Lola Navarrete MD Date Trans: 01/10/2019 07:43 A/mmo [id number] Normal [facility] MAGNESIUM BLOODon 01-10-2019 Magnesium [Mass/Vol] 2.2 mg/dL Normal 1.9-2.7 [facility] Comment on above: Order Comment: No: D o not add to previous draw Performed By: #### 0 0071, 59820, 02836, 49696, 66332 #### [facility] [address] [place] [address], [facility] POC GLUCOSE LABon 01-10-2019 Glucose [Mass/Vol] 88 mg/dL Normal 70-100 [facility] Comment on above: Performed By: #### 0 0071, 56228, 12254, 66452, 57588 #### [facility] [address] [place] [address], [place] Glucose [Mass/Vol] 91 mg/dL Normal 70-100 [facility] Comment on above: Performed By: #### 0 0071, 08712, 93049, 29282, 44722 #### [facility] [address] [place] [address], [place] Glucose [Mass/Vol] 97 mg/dL Normal 70-100 [facility] Comment on above: Performed By: #### 0 0071, 05232, 87460, 32814, 49353 #### [facility] [address] [place] [address], [place] Glucose [Mass/Vol] 121 mg/dL High 70-100 [facility] Comment on above: Performed By: #### 0 0071, 11591, 54771, 33353, 11987 #### [facility] [address] [place] [address], [facility] UFH HEPARIN ASSAYon 01-11-20 19 UNFRACTIONATED HEPARIN 0.55 IU/mL Normal 0.30-0.70 [facility] Comment on above: Result Comment: [place] roxaban and Apixaban will interfere with the anti Xa assay used to monitor UFH and LMWH. Performed By: #### 0 0071, 46437, 52787, 19825, 57700 #### [facility] [address] [place] [address], [facility] APTTon 01-09-2019 aPTT Coag (Bld) [Time] 27.6 s Normal 25.0-35.0 [facility] Comment on above: Order Comment: No: [...] THIS PURPOSE. Performed By: #### 5 6101, 16168 #### [facility] [address] [place] [address], [facility] BASIC METABOLIC PANELon 08-0 Calcium [Mass/Vol] 9.5 mg/dL Normal 8.6-10.3 [facility] Comment on above: Order Comment: No: D o not add to previous draw Performed By: #### 0 0071, 14710, 33409, 50900, 34087 #### [facility] [address] [place] [address], [facility] Chloride [Moles/Vol] 103 mmol/L Normal 98-107 [facility] Comment on above: Order Comment: No: D o not add to previous draw Performed By: #### 0 0071, 69813, 91341, 49071, 38437 #### [facility] [address] [place] [address], [facility] CO2 [Moles/Vol] 23 mmol/L Normal 21-31 [facility] Comment on above: Order Comment: No: D o not add to previous draw Performed By: #### 0 0071, 19999, 91501, 54613, 66782 #### [facility] [address] [place] [address], [facility] Creatinine [Mass/Vol] 1.04 mg/dL Normal 0.60-1.20 [facility] Comment on above: Order Comment: No: D o not add to previous draw Performed By: #### 0 0071, 85185, 95665, 13812, 38284 #### [facility] [address] [place] [address], [facility] GFR/1.73 sq M predicted among blacks MDRD (S/P/Bld) [Vol rate/Area] mL/min/{1.73_m2} Normal >60 [facility] Comment on above: Order Comment: No: D o not add to previous draw Performed By: #### 0 0071, 19631, 10561, 67326, 19830 #### [facility] [address] [place] [address], [place] GFR/1.73 sq M predicted among non-blacks MDRD (S/P/Bld) [Vol rate/Area] 53 ml/min/1.73sq m Abnormal >60 [facility] Comment on above: Order Comment: No: D o not add to previous draw Performed By: #### 0 0071, 46527, 25231, 29075, 55807 #### [facility] [address] [place] [address], [place] Glucose [Mass/Vol] 93 mg/dL Normal 70-100 [facility] Comment on above: Order Comment: No: D o not add to previous draw Performed By: #### 0 0071, 85047, 46841, 14956, 45510 #### [facility] [address] [place] [address], [place] Potassium [Moles/Vol] 4.3 mmol/L Normal 3.5-5.1 [facility] Comment on above: Order Comment: No: D o not add to previous draw Performed By: #### 0 0071, 14498, 00662, 12545, 27404 #### [facility] [address] [place] [address], [place] Sodium [Moles/Vol] 134 mmol/L Low 136-145 [facility] Comment on above: Order Comment: No: D o not add to previous draw Performed By: #### 0 0071, 34956, 88124, 37622, 94619 #### [facility] [address] [place] [address], [place] Urea nitrogen [Mass/Vol] 24 mg/dL Normal 7-25 [facility] Comment on above: Order Comment: No: D o not add to previous draw Performed By: #### 0 0071, 93998, 76053, 22493, 96123 #### [facility] [address] BNP (B-TYPE NATRIURETIC PEPT JOSE)on 01-09-2019 Natriuretic peptide B (Bld) [Mass/Vol] 123 pg/mL High 0-100 [facility] Comment on above: Order Comment: No: D o not add to previous draw Result Comment: Give n the appropriate clinical setting a BNP result of >100 pg/mL indicates congestive heart failure. Performed By: #### 8 5123, 05796 #### [facility] [address] CBC W/DIFFon 01-09-2019 ABS BASOPHILS 0.0 10*3/uL Normal 0.0-0.2 [facility] Comment on above: Order Comment: No: D o not add to previous draw Performed By: #### 5 0103 #### [facility] [address] ABS IMM GRANS 0.0 10*3/uL Normal 0.0-0.2 [facility] Comment on above: Order Comment: No: D o not add to previous draw Performed By: #### 5 0103 #### [facility] [address] ABS NEUTROPHILS 6.3 10*3/uL Normal 1.6-7.6 [facility] Comment on above: Order Comment: No: D o not add to previous draw Performed By: #### 5 0103 #### [facility] [address] Basophils/100 WBC (Bld) 0.4 % Normal 0.0-1.0 [facility] Comment on above: Order Comment: No: D o not add to previous draw Performed By: #### 5 0103 #### [facility] [address] [place] [address], [facility] Eosinophils (Bld) [#/Vol] 0.4 10*3/uL Normal 0.0-0.5 [facility] Comment on above: Order Comment: No: D o not add to previous draw Performed By: #### 5 0103 #### [facility] [address] [place] [address], [facility] Eosinophils/100 WBC (Bld) 3.6 % Normal 0.0-6.0 [facility] Comment on above: Order Comment: No: D o not add to previous draw Performed By: #### 5 0103 #### [facility] [address] [facility] [address] Erythrocyte distribution width (RBC) [Ratio] 14.5 % Normal 11.5-15.0 [facility] Comment on above: Order Comment: No: D o not add to previous draw Performed By: #### 5 0103 #### [facility] [address] Hematocrit (Bld) [Volume fraction] 40.6 % Normal 36.0-45.0 [facility] Comment on above: Order Comment: No: D o not add to previous draw Performed By: #### 5 0103 #### [facility] [address] [place] [address], [facility] Hemoglobin (Bld) [Mass/Vol] 13.1 g/dL Normal 12.0-15.0 [facility] Comment on above: Order Comment: No: D o not add to previous draw Performed By: #### 5 0103 #### [facility] [address] [place] [address], [facility] IMMATURE GRANS 0.3 % Normal 0.0-1.0 [facility] Comment on above: Order Comment: No: D o not add to previous draw Performed By: #### 5 3 #### [facility] [address] [place], [place] [address] Lymphocytes (Bld) [#/Vol] 2.6 10*3/uL Normal 1.2-4.0 [facility] Comment on above: Order Comment: No: D o not add to previous draw Performed By: #### 5 0103 #### [facility] [address] [place] [address], [facility] Lymphocytes/100 WBC (Bld) 24.4 % Normal 20.0-45.0 [facility] Comment on above: Order Comment: No: D o not add to previous draw Performed By: #### 5 0103 #### [facility] [address] MCH (RBC) [Entitic mass] 28.2 pg Normal 27.0-33.0 [facility] Comment on above: Order Comment: No: D o not add to previous draw Performed By: #### 5 0103 #### [facility] [address] MCHC (RBC) [Mass/Vol] 32.3 g/dL Normal 32.0-35.0 [facility] Comment on above: Order Comment: No: D o not add to previous draw Performed By: #### 5 0103 #### [facility] [address] [place] [address], [facility] MCV (RBC) [Entitic vol] 87.3 fL Normal 82.0-98.0 T [facility] Comment on above: Order Comment: No: D o not add to previous draw Performed By: #### 5 0103 #### [facility] [address] [place] [address], [facility] Monocytes (Bld) [#/Vol] 1.2 10*3/uL High 0.1-1.0 [facility] Comment on above: Order Comment: No: D o not add to previous draw Performed By: #### 5 0103 #### [facility] [address] [place] [address], [facility] MONOS 11.7 % Normal 5.0-12.0 [facility] Comment on above: Order Comment: No: D o not add to previous draw Performed By: #### 5 0103 #### [facility] [address] [place] [address], [facility] Neutrophils/100 WBC (Bld) 59.6 % Normal 40.0-72.0 [facility] Comment on above: Order Comment: No: D o not add to previous draw Performed By: #### 5 0103 #### [facility] [address] [place] [address], [facility] Nucleated RBC/100 WBC (Bld) [Ratio] 0 % Normal 0-0 [facility] Comment on above: Order Comment: No: D o not add to previous draw Performed By: #### 5 0103 #### [facility] [address] [place] [id number], [facility] PLAT CNT 294 10*3/uL Normal 150-400 [facility] Comment on above: Order Comment: No: D o not add to previous draw Performed By: #### 5 0103 #### [facility] [address] [facility] [place] [id number], [facility] RBC (Bld) [#/Vol] 4.65 10*6/uL Normal 3.80-5.00 [facility] Comment on above: Order Comment: No: D o not add to previous draw Performed By: #### 5 0103 #### [facility] [address] [place] [address], [place] WBC (Bld) [#/Vol] 10.52 10*3/uL Normal 4.00-10.60 [facility] Comment on above: Order Comment: No: D o not add to previous draw Performed By: #### 5 0103 #### [facility] [address] [place] [id number], [facility] HEMOGLOBIN A1Con 01-09-2019 HbA1c (Bld) [Mass fraction] 111 mg/dL Normal 70-126 [facility] Comment on above: Order Comment: No: D o not add to previous draw Performed By: #### 8 5123, 99846 #### [facility] [address] [place] [address], [facility] HbA1c (Bld) [Mass fraction] 5.5 % Normal 4.0-6.0 [facility] Comment on above: Order Comment: No: D o not add to previous draw Performed By: #### 8 5123, 78256 #### [facility] [address] [place] [address], [facility] LIVER BATTERYon 01-09-2019 Albumin [Mass/Vol] 3.5 g/dL Normal 3.5-5.7 [facility] Comment on above: Order Comment: No: D o not add to previous draw Performed By: #### 0 0071, 09697, 98246, 79222, 58799 #### [facility] [address] [place] [address], [facility] ALKALINE PHOSPH 84 IU/L Normal 34-104 [facility] Comment on above: Order Comment: No: D o not add to previous draw Performed By: #### 0 0071, 31113, 03082, 26564, 39200 #### [facility] [address] [place] [address], [place] ALT [Catalytic activity/Vol] 17 U/L Normal 7-52 [facility] Comment on above: Order Comment: No: D o not add to previous draw Performed By: #### 0 0071, 40053, 40126, 52611, 96034 #### [facility] [address] [place] [address], [place] AST [Catalytic activity/Vol] 19 U/L Normal 13-39 [facility] Comment on above: Order Comment: No: D o not add to previous draw Performed By: #### 0 0071, 06516, 78208, 35424, 21532 #### [facility] [address] [place] [address], [place] Bilirubin [Mass/Vol] 0.6 mg/dL Normal 0.3-1.0 [facility] Comment on above: Order Comment: No: D o not add to previous draw Performed By: #### 0 0071, 73511, 61817, 11414, 33899 #### [facility] [address] [place] [address], [place] Bilirubin.direct [Mass/Vol] 0.2 mg/dL Normal 0.0-0.2 [facility] Comment on above: Order Comment: No: D o not add to previous draw Performed By: #### 0 0071, 72692, 10509, 76071, 17814 #### [facility] [address] [place] [address], [place] Protein [Mass/Vol] 7.0 g/dL Normal 6.0-8.3 [facility] Comment on above: Order Comment: No: D o not add to previous draw Performed By: #### 0 0071, 32749, 15213, 81727, 74748 #### [facility] [address] [place] [address], [place] MAGNESIUM BLOODon 01-09-2019 Magnesium [Mass/Vol] 2.1 mg/dL Normal 1.9-2.7 [facility] Comment on above: Order Comment: No: D o not add to previous draw Performed By: #### 0 0071, 76770, 12559, 78863, 53890 #### [facility] [address] [place] [address], [place] POC GLUCOSE LABon 01-09-2019 Glucose [Mass/Vol] 147 mg/dL High 70-100 [facility] Comment on above: Performed By: #### 0 0071, 34254, 80845, 74082, 22674 #### [facility] [address] [place] [address], [place] Glucose [Mass/Vol] 88 mg/dL Normal 70-100 [facility] Comment on above: Performed By: #### 0 0071, 34512, 36167, 82596, 80895 #### [address] [address], [facility] PORTABLE CHEST 1 VIEWon PORTABLE CHEST 1 VIEW [facility] Department of Radiology [address] [place] [id number] Patient Name: SIVA NICOLAS : 1950 Sex: F Age: Race: White Pt. Location: [address] [place] [address] Patient Status: I Ordered Date: 01/09/2019 1:45:00 [...] findings. Electronically signed by:Deneen Nicholas. Transcribed by: [email or web address], User Resident: LINDA CARPENTER Electronically Signed by: DENEEN NICHOLAS @ 01/12/2019 08:56 AM I personally read this/these film(s) with this resident Normal [facility] Comment on above: Order Comment: No: D o not add to previous draw PROTHROMBIN TIMEon 9 INR Coag (PPP) [Relative time] 1.13 {INR} Normal 0.91-1.16 [facility] Comment on above: Order Comment: No: [...] CHEST 1995;[id number]. Performed By: #### 5 6101, 17668 #### [facility] [address] PT Coag (PPP) [Time] 14.6 s Normal 12.3-14.8 [facility] Comment on above: Order Comment: No: D o not add to previous draw Result Comment: ALL RESULTS MUST BE INTERPRETED WITH RESPECT TO BLOOD DRAWING ARTIFACT OR DILUTION ERROR OF ANTICOAGULANT AT THE TIME OF SAMPLING. Performed By: #### 5 6101, 17063 #### [facility] [address] TROPONIN-Ion 01-09-2019 Troponin I.cardiac [Mass/Vol] 0.06 ng/mL High 0.00-0.04 [facility] Comment on above: Order Comment: No: D o not add to previous draw Result Comment: REFE RENCE RANGES: 0.00 - 0.04 ng/ml NORMAL 0.05 - 0.50 ng/ml INDETERMINATE > 0.50 ng/ml CONSISTENT WITH AN M.I. Performed By: #### 0 0071, 66450, 88583, 33327, 90689 #### [facility] [address] TSH3on 01-09-2019 TSH 3RD GENERATION 3.44 uIU/mL Normal 0.34-5.60 [facility] Comment on above: Order Comment: No: D o not add to previous draw Performed By: #### 0 0071, 44662, 79606, 88863, 88950 #### [facility] [address] [facility] [address] UFH HEPARIN ASSAYon 01-10-20 19 UNFRACTIONATED HEPARIN 0.67 IU/mL Normal 0.30-0.70 [facility] Comment on above: Result Comment: [place] roxaban and Apixaban will interfere with the anti Xa assay used to monitor UFH and LMWH. Performed By: #### 0 0071, 62918, 81172, 38937, 63263 #### [facility] [address] Vital Signs Date Time Vital Sign Value Performing Clinician Facility 08-13-2024 09:28-0400 Body height 156.21 cm Jared Rodgers MD [facility] 08-13-2024 09:28-0400 Body mass index (BMI) [Ratio] 46.3 kg/m2 Jared Rodgers MD [facility] 08-13-2024 09:28-0400 Body weight 112.94 kg Jared Rodgers MD [facility] 08-13-2024 09:28-0400 Diastolic blood pressure 77 mm[Hg] Jared Rodgers MD [facility] 08-13-2024 09:28-0400 Heart rate 55 /min Jared Rodgers MD [facility] 08-13-2024 09:28-0400 SaO2% (BldA) [Mass fraction] 92 % Jared Rodgers MD [facility] 08-13-2024 09:28-0400 Systolic blood pressure 132 mm[Hg] Jared Rodgers MD [facility] 08-10-2024 11:04-0400 Body height 157.5 cm Edi Cosby MD Work Phone: [facility] 08-10-2024 11:04-0400 Body mass index (BMI) [Ratio] 46.2 kg/m2 Edi Cosby MD Work Phone: [facility] 08-10-2024 11:04-0400 Body weight 114.58 kg Edi Cosby MD Work Phone: [facility] 08-10-2024 11:04-0400 Diastolic blood pressure 70 mm[Hg] Edi Cosby MD Work Phone: [facility] 08-10-2024 11:04-0400 Heart rate 48 /min Edi Cosby MD Work Phone: [facility] 08-10-2024 11:04-0400 Systolic blood pressure 120 mm[Hg] Edi Cosby MD Work Phone: [facility] 12-17-2023 13:58-0400 Body height 156.21 cm MD Jared Rodgers [facility] 12-17-2023 13:58-0400 Body mass index (BMI) [Ratio] 46.3 kg/m2 [facility] 12-17-2023 13:58-0400 Body weight 112.94 kg MD [facility] 12-17-2023 13:58-0400 Diastolic blood pressure 77 mm[Hg] [facility] 12-17-2023 13:58-0400 Heart rate 60 /min MD [facility] 12-17-2023 13:58-0400 Systolic blood pressure 130 mm[Hg] MD [facility] 10-08-2023 14:53-0400 Body height 157.5 cm Edi Cosby MD Work Phone: [facility] 10-08-2023 14:53-0400 Body mass index (BMI) [Ratio] 45.73 kg/m2 Edi Cosby MD Work Phone: [facility] 10-08-2023 14:53-0400 Body weight 113.4 kg Edi Cosby MD Work Phone: [facility] 10-08-2023 14:53-0400 Diastolic blood pressure 80 mm[Hg] Edi Cosby MD Work Phone: [facility] 10-08-2023 14:53-0400 Heart rate 52 /min Edi Cosby MD Work Phone: [facility] 10-08-2023 14:53-0400 Systolic blood pressure 120 mm[Hg] Edi Cosby MD Work Phone: [facility] 09-16-2023 14:33-0400 Body height 156.21 cm MD [facility] 09-16-2023 14:33-0400 Body mass index (BMI) [Ratio] 46.4 kg/m2 [facility] 09-16-2023 14:33-0400 Body weight 113.39 kg [facility] 09-16-2023 14:33-0400 Diastolic blood pressure 76 mm[Hg] [facility] 09-16-2023 14:33-0400 Heart rate 52 /min [facility] 09-16-2023 14:33-0400 Systolic blood pressure 118 mm[Hg] [facility] 01-03-2023 14:50-0400 Body height 157.48 cm Nicole Guzman Work Phone: [facility] 250 DO Work Phone: 01-03-2023 14:50-0400 Body mass index (BMI) [Ratio] 44.63 kg/m2 Nicole Guzman Work Phone: [facility] 250 DO Work Phone: 01-03-2023 14:50-0400 Body surface area Derived from formula 2.08 m2 Nicole Guzman Work Phone: [facility] 250 DO Work Phone: 01-03-2023 14:50-0400 Body weight 110.68 kg Nicole Guzman Work Phone: [facility] 250 DO Work Phone: 01-03-2023 14:50-0400 Diastolic blood pressure 62 mm[Hg] Nicole Guzman Work Phone: [facility] 250 DO Work Phone: 01-03-2023 14:50-0400 Heart rate 62 /min Nicole Guzman Work Phone: [facility] 250 DO Work Phone: 01-03-2023 14:50-0400 Systolic blood pressure 108 mm[Hg] Nicole Guzman Work Phone: [facility] 250 DO Work Phone: 11-26-2022 13:45-0400 Body height 156.21 cm Nicole Guzman Other [email or web address] Other 11-26-2022 13:45-0400 Body mass index (BMI) [Ratio] 46.28 kg/m2 Nicole Guzman Other [email or web address] Other 11-26-2022 13:45-0400 Body weight 112.95 kg Nicole Guzman Other [email or web address] Other 11-26-2022 13:45-0400 Diastolic blood pressure 79 mm[Hg] Nicole Guzman Other [email or web address] Other 11-26-2022 13:45-0400 SaO2% (BldA) [Mass fraction] 89 % Nicole Guzman Other [email or web address] Other 11-26-2022 13:45-0400 Systolic blood pressure 149 mm[Hg] Nicole Guzman Other [email or web address] Other 08-23-2022 14:45-0400 Body height 156.21 cm Nicole Guzman Other [email or web address] Other 08-23-2022 14:45-0400 Body mass index (BMI) [Ratio] 47.95 kg/m2 Nicole Guzman Other [email or web address] Other 08-23-2022 14:45-0400 Body weight 117.03 kg Nicole Guzman Other [email or web address] Other 08-23-2022 14:45-0400 Diastolic blood pressure 82 mm[Hg] Nicole Guzman Other [email or web address] Other 08-23-2022 14:45-0400 SaO2% (BldA) [Mass fraction] 90 % Nicole Guzman Other [email or web address] Other 08-23-2022 14:45-0400 Systolic blood pressure 114 mm[Hg] Nicole Guzman Other [email or web address] Other 06-18-2022 14:30-0500 Body height 156.21 cm Nicole Guzman Other [email or web address] Other 06-18-2022 14:30-0500 Body mass index (BMI) [Ratio] 47.77 kg/m2 Nicole Guzman Other [email or web address] Other 06-18-2022 14:30-0500 Body weight 116.58 kg Nicole Guzman Other [email or web address] Other 06-18-2022 14:30-0500 Diastolic blood pressure 70 mm[Hg] Nicole Guzman Other [email or web address] Other 06-18-2022 14:30-0500 SaO2% (BldA) [Mass fraction] 90 % Nicole Guzman Other [email or web address] Other 06-18-2022 14:30-0500 Systolic blood pressure 146 mm[Hg] Nicole Guzman Other [email or web address] Other 05-14-2022 14:14-0500 Body height 157.48 cm Nicole Guzman Work Phone: [employer] [address] DO Work Phone: 05-14-2022 14:14-0500 Body mass index (BMI) [Ratio] 47.74 kg/m2 Nicole Guzman Work Phone: [facility] 250 DO Work Phone: 05-14-2022 14:14-0500 Body surface area Derived from formula 2.14 m2 Nicole Guzman Work Phone: [facility] 250 DO Work Phone: 05-14-2022 14:14-0500 Body weight 118.39 kg Nicole Guzman Work Phone: [facility] 250 DO Work Phone: 05-14-2022 14:14-0500 Diastolic blood pressure 86 mm[Hg] Nicole Guzman Work Phone: [facility] 250 DO Work Phone: 05-14-2022 14:14-0500 Heart rate 62 /min Nicole Guzman Work Phone: [facility] 250 DO Work Phone: 05-14-2022 14:14-0500 Systolic blood pressure 122 mm[Hg] Nicole Guzman Work Phone: [facility] 250 DO Work Phone: 12-19-2021 13:42-0400 Body height 157.48 cm Nicole Guzman Work Phone: [facility] 250 DO Work Phone: 12-19-2021 13:42-0400 Body mass index (BMI) [Ratio] 45.73 kg/m2 Nicole Guzman Work Phone: [facility] 250 DO Work Phone: 12-19-2021 13:42-0400 Body surface area Derived from formula 2.1 m2 Nicole Guzman Work Phone: [facility] 250 DO Work Phone: 12-19-2021 13:42-0400 Body weight 113.4 kg Nicole Guzman Work Phone: [facility] 250 DO Work Phone: 12-19-2021 13:42-0400 Diastolic blood pressure 76 mm[Hg] Niocle E Thomas Work Phone: [facility] [employer] 250 DO Work Phone: 12-19-2021 13:42-0400 Heart rate 61 /min Nicole Thakkar Thomas Work Phone: [facility] [employer] 250 DO Work Phone: 12-19-2021 13:42-0400 Systolic blood pressure 130 mm[Hg] Nicole E Thomas Work Phone: [facility] [employer] 250 DO Work Phone: 08-31-2021 16:00-0400 Body height 165.1 cm Renzo Hein Other [email or web address] Other 08-31-2021 16:00-0400 Body mass index (BMI) [Ratio] 41.66 kg/m2 Renzo Hein Other [email or web address] Other 08-31-2021 16:00-0400 Body weight 113.58 kg Renzo Hein Other [email or web address] Other 08-31-2021 16:00-0400 Diastolic blood pressure 88 mm[Hg] Renzo Hein Other [email or web address] Other 08-31-2021 16:00-0400 SaO2% (BldA) [Mass fraction] 88 % Renzo Hein Other [email or web address] Other 08-31-2021 16:00-0400 Systolic blood pressure 140 mm[Hg] Renzo Hein Other [email or web address] Other 08-14-2021 14:15-0400 Body height 165.1 cm Renzo Hein Other [email or web address] Other 08-14-2021 14:15-0400 Body mass index (BMI) [Ratio] 41.56 kg/m2 Renzo Hein Other [email or web address] Other 08-14-2021 14:15-0400 Body weight 113.31 kg Renzo Hein Other [email or web address] Other 08-14-2021 14:15-0400 Diastolic blood pressure 80 mm[Hg] Renzo Hein Other [email or web address] Other 08-14-2021 14:15-0400 SaO2% (BldA) [Mass fraction] 97 % Renzo Hein Other [email or web address] Other 08-14-2021 14:15-0400 Systolic blood pressure 130 mm[Hg] Renzo Hein Other [email or web address] Other 07-26-2021 14:15-0500 Body height 165.1 cm Renzo Hein Other [email or web address] Other 07-26-2021 14:15-0500 Body mass index (BMI) [Ratio] 41.93 kg/m2 Renzo Hein Other [email or web address] Other 07-26-2021 14:15-0500 Body weight 114.31 kg Renzo Hein Other [email or web address] Other 07-26-2021 14:15-0500 SaO2% (BldA) [Mass fraction] 91 % Renzo Hein Other [email or web address] Other 06-22-2021 16:00-0500 Body height 165.1 cm Renzo Hein Other [email or web address] Other 06-22-2021 16:00-0500 Body mass index (BMI) [Ratio] 42.26 kg/m2 Renzo Hein Other [email or web address] Other 06-22-2021 16:00-0500 Body weight 115.21 kg Renzo Hein Other [email or web address] Other 06-22-2021 16:00-0500 Diastolic blood pressure 90 mm[Hg] Renzo Hein Other [email or web address] Other 06-22-2021 16:00-0500 SaO2% (BldA) [Mass fraction] 93 % Renzo Hein Other [email or web address] Other 06-22-2021 16:00-0500 Systolic blood pressure 140 mm[Hg] Renzo Hein Other [email or web address] Other 06-21-2021 13:24-0500 Diastolic blood pressure 76 mm[Hg] Nicole Gu[facility]man [facility] Phone: [facility] [employer] 250 DO Work Phone: 06-21-2021 13:24-0500 Systolic blood pressure 139 mm[Hg] Nicole Guz[facility] [employer] 250 DO Work Phone: 06-21-2021 13:11-0500 Body height 157.48 cm Nicole Guzman [facility] [employer] 250 DO Work Phone: 06-21-2021 13:11-0500 Body mass index (BMI) [Ratio] 46.46 kg/m2 Nicole Guzman Work Phone: [facility] 250 DO Work Phone: 06-21-2021 13:11-0500 Body surface area Derived from formula 2.12 m2 Nicole Guzman Work Phone: [facility] 250 DO Work Phone: 06-21-2021 13:11-0500 Body weight 115.21 kg Nicole Guzman Work Phone: [facility] 250 DO Work Phone: 06-21-2021 13:11-0500 Diastolic blood pressure 90 mm[Hg] Nicole Guzman Work Phone: [facility] 250 DO Work Phone: 06-21-2021 13:11-0500 Heart rate 55 /min Nicole Guzman Work Phone: [facility] 250 DO Work Phone: 06-21-2021 13:11-0500 Systolic blood pressure 142 mm[Hg] Nicole Guzman Work Phone: [facility] 250 DO Work Phone: Encounters Encounter Date Encounter Type Care Provider Facility Start: 08-13-2024 Patient encounter status Jared Rodgers MD [facility] Start: 08-13-2024 End: 08-13-2024 ambulatory Jared Rodgers MD [facility] Work Phone: Start: 08-13-2024 End: 08-13-2024 Patient encounter procedure Jared Rodgers MD [facility] Work Phone: Start: 08-10-2024 End: 08-10-[address] [facility] Start: 08-10-2024 End: 08-10-2024 Office outpatient visit 25 minutes Edi Cosby MD Work Phone: [facility] Comment on above: Paroxysmal atrial fi brillation (Multi) (Primary Dx); CAD, multiple vessel; Mixed hyperlipidemia; Essential hypertension; Anticoagulated; Localized edema; Bradycardia; BMI 45.0-49.9, adult (Multi); Former smoker Start: 12-17-2023 End: 12-17-2023 ambulatory MD Jared Rodgers [facility] Work Phone: Start: 12-17-2023 End: 12-17-2023 Patient encounter procedure MD Jared Rodgers [facility] Work Phone: Start: 10-08-2023 End: 10-08-2023 Office outpatient visit 25 minutes Edi Cosby MD Work Phone: [facility] Comment on above: CAD, multiple vessel (Primary Dx); Mixed hyperlipidemia; Essential hypertension; Paroxysmal atrial fibrillation (Multi); Anticoagulated; Chronic obstructive pulmonary disease, unspecified COPD type (Multi); BMI 45.0-49.9, adult (Multi); Former smoker Start: 10-08-2023 End: 10-08-[address] [facility] Start: 09-16-2023 Patient encounter procedure MD Jared Rodgers [facility] Start: 09-16-2023 End: 09-16-2023 ambulatory MD Jared Rodgers [facility] Work Phone: Start: 09-16-2023 End: 09-16-2023 Patient encounter procedure MD Jared Rodgers [facility] Work Phone: Start: 08-05-2023 Non-patient / Non-visit MD Jared Rodgers [facility] Work Phone: Start: 04-24-2023 End: 04-24-2023 ambulatory Nicole Guzman Other [employer] Other Start: 04-24-2023 Telephone encounter Nicole Guzman [facility] Start: 03-25-2023 End: 03-25-2023 ambulatory Nicole Guzman Facility:[facility] Start: 03-25-2023 End: 03-25-2023 ambulatory MD Nicole Guzman Work Phone: [facility] Work Phone: Start: 03-25-2023 End: 03-25-2023 Patient encounter procedure MD Nicole Guzman Work Phone: [facility] Work Phone: Start: 02-27-2023 End: 02-27-2023 ambulatory Nicole Guzman Other [email or web address] Other Start: 02-27-2023 Telephone encounter Nicole Guzman [facility] Start: 02-13-2023 Rx Renewal Nicole Guzman Work Phone: [facility] 250 DO Work Phone: Start: 02-11-2023 End: 02-11-2023 ambulatory Nicole Guzman Other [facility] [employer] Other Start: 02-11-2023 Telephone encounter Nicole Guzman [facility] Start: 01-03-[address] Nicole Guzman Facility: Start: 01-03-2023 FUV, Provider: Edi Cosby, Status: Pen, Time: 2:10 PM Nicole Guzman Work Phone: [facility] 250 DO Work Phone: Start: 01-03-2023 Office outpatient vi sit 25 minutes Nicole Guzman Work Phone: [facility] 250 DO Work Phone: Start: 01-01-2023 Chart Update Nicole Guzman Work Phone: [facility] 250 DO Work Phone: Start: 01-01-2023 End: 01-01-2023 ambulatory Edi Cosby Facility:[facility] Start: 01-01-2023 End: 01-01-2023 ambulatory MD Nicole Guzman Work Phone: [facility] Work Phone: Start: 01-01-2023 End: 01-01-2023 Patient encounter procedure MD Nicole Guzman Work Phone: [facility] Work Phone: Start: 11-27-2022 End: 11-27-2022 ambulatory Nicole Guzman Other [email or web address] Other Start: 11-27-2022 Telephone encounter Nicole Guzman [facility] Start: 11-26-2022 End: 11-26-2022 ambulatory Nicole Guzman Other [email or web address] Other Start: 11-26-2022 Office outpatient vi sit 15 minutes Nicole Guzman [facility] Start: 11-01-[address] NICOLE GUZMAN Facil ity:H1 Start: 10-11-2022 End: 10-11-2022 ambulatory Nicole Guzman Other [email or web address] Other Start: 10-11-2022 Telephone encounter Nicole Guzman [facility] Start: 10-09-2022 End: 10-09-2022 ambulatory Nicole Guzman Other [email or web address] Other Start: 10-09-2022 Telephone encounter Nicole Guzman [facility] Start: 08-23-2022 End: 08-23-2022 ambulatory Nicole Guzman Other [email or web address] Other Start: 08-23-2022 Office outpatient vi sit 15 minutes Nicole Guzman [facility] Start: 06-18-2022 End: 06-18-2022 ambulatory Nicole Guzman Other [email or web address] Other Start: 06-18-2022 Office outpatient vi sit 15 minutes Nicole Guzman [facility] Start: 05-14-2022 Office outpatient vi sit 25 minutes Nicole Guzman Work Phone: [facility] 250 DO Work Phone: Start: 05-14-[address] Edi Cosby Facility:[id number] Start: 04-16-[address] NICOLE GUZMAN [facility] ity:H1 Start: 03-30-2022 End: 03-31-2022 ambulatory KRISTOPHER MELCHOR . Facility:[facility] Start: 03-27-2022 Adult health examination Nicole Guzman Other [facility] [employer] Other Start: 02-19-2022 End: 02-19-[address] SVETLANA CHAPMAN Facility:[facility] Start: 02-14-2022 End: 02-15-2022 ambulatory KRISTOPHER MELCHOR . Facility:[facility] Start: 12-19-2021 Office outpatient vi sit 25 minutes Nicole Guzman Work Phone: [facility] 250 DO Work Phone: Start: 12-12-2021 Encounter for genera l adult medical examination without abnormal findings DR EDI COSBY [facility] Start: 12-08-2021 End: 12-09-[address] EDI COSBY Facility:[facility]1 Start: 12-08-2021 End: 12-09-2021 Encounter for general adult medical examination without abnormal findings DR EDI COSBY Facility:[facility] Start: 11-17-2021 End: 11-18-[address] SVETLANA CHAPMAN Facility:[facility] Start: 11-14-2021 Telephone encounter Nicole [facility]ierrez [facility] [place] Work Phone: Start: 11-08-2021 End: 11-09-[address] NICOLE GUZMAN Facility:[facility] Start: 09-22-2021 End: 09-23-[address] NICOLE GUZMAN Facility:[facility] Start: 09-06-2021 End: 09-23-[address] NICOLE GUZMAN Facility:[facility] Start: 08-31-2021 End: 08-31-2021 ambulatory Renzo Angel Luis Other [email or web address] Other Start: 08-31-2021 Office outpatient vi sit 25 minutes Renzo Angel Luis [facility] Start: 08-14-2021 End: 08-14-2021 ambulatory Renzo Angel Luis Other [email or web address] Other Start: 08-14-2021 Office outpatient vi sit 25 minutes Renzo Angel Luis [facility] Start: 07-26-2021 End: 07-26-2021 ambulatory Renzo Angel Luis Other [email or web address] Other Start: 07-26-2021 Office outpatient vi sit 25 minutes Renzo Angel Luis [facility] Start: 06-22-2021 End: 06-22-2021 ambulatory Renzo Angel Luis Other [email or web address] Other Start: 06-22-2021 Office consultation new/estab patient 60 min Renzo Angel Luis [facility] Start: 06-21-2021 Office outpatient vi sit 25 minutes Nicole Guzman Work Phone: [facility] 250 DO Work Phone: Start: 01-09-2019 End: 01-12-2019 Evaluation and management of inpatient Manju Blackwell Facility:[facility] Start: 12-20-2003 Evaluation and management of inpatient MD Nicole Guzman Work Phone: [facility] Work Phone: Procedures Date Procedure Procedure Detail Performing Clinician Start: 08-10-2024 Ecg routine ecg w/le ast 12 lds w/i&r Edi Cosby MD Work Phone: Start: 01-09-2019 Quaker of Cardi ac Rhythm, Single MOSHRIK ABD ALAMIR Colonoscopy Nicole Guzman Work Phone: Depression screening Nicole Guzman Other Oophorectomy Nicole Guzman Work Phone: Operative procedure on ankle Nicole Thakkar Thomas Work Phone: Percutaneous translu radha coronary angioplasty Nicole Guzman Work Phone: Plan of Treatment Date Care Activity Detail Author Start: 04-04-2033 DTaP/Tdap/Td Vaccines (2 - Td or Tdap) DTaP/Tdap/Td Vaccines (2 - Td or Tdap) [facility] Start: 06-18-2025 End: 06-18-2025 Patient encounter procedure 06/18/2025 10:20 AM EST Office Visit [facility] [address] [place] [id number] Edi Cosby MD [address] [place] [address] [facility] Start: 07-17-2024 End: 07-17-2024 Patient encounter procedure 07/17/2024 11:20 AM EST Office Visit [facility] [address] [place] [id number] Edi Cosby MD [address] [place] [address] [facility] Start: 02-02-2024 COVID-19 Vaccine ( season) COVID-19 Vaccine () [facility] Start: 10-08-2023 FUV, Provider: Edi Cosby, Status: Pen, Time: 2:40 PM FUV, Provider: Edi Cosby, Status: Pen, Time: 2:40 PM [facility] 250 DO Work Phone: Start: 08-03-2023 COVID-19 Vaccine ( season) COVID-19 Vaccine () [facility] Start: 03-25-2023 Screening mammography of bilateral breasts MM screening mammo BI w/CAD [facility] Start: 11-13-2022 FUV, Provider: Edi Cosby, Status: Pen, Time: 2:50 PM FUV, Provider: Edi Cosby, Status: Pen, Time: 2:50 PM [facility] 250 DO Work Phone: Start: 05-22-2022 FUV, Provider: Edi Cosby, Status: Pen, Time: 2:20 PM FUV, Provider: Edi Cosby, Status: Pen, Time: 2:20 PM -[facility] 250 DO Work Phone: Start: 12-19-2021 FUV, Provider: Edi Cosby, Status: Pen, Time: 1:30 PM FUV, Provider: Edi Cosby, Status: Pen, Time: 1:30 PM -[facility] 250 DO Work Phone: Start: 1998 Zoster Vaccines (1 of 2) Zoster Vaccines (1 of 2) [facility] Start: 1988 Screening for malignant neoplasm of breast Mammogram [facility] Start: 11-21-1967 Urine screening for protein Diabetes: Urine Protein Screening [facility] Start: 1966 Hepatitis C screening Hepatitis C Screening [facility] Start: 1958 Diabetic foot examination Diabetes: Foot Exam [facility] Start: 1958 Glaucoma screening Diabetes: Retinopathy Screening [facility] Start: 1948 Hemoglobin A1c measurement Diabetes: Hemoglobin A1C [facility] Start: 1948 Lipid panel Lipid Panel [facility] Start: 1948 Medicare Annual Wellness Visit Medicare Annual Wellness Visit (AWV) [facility] Start: 1948 Screening for malignant neoplasm of colon [facility] Start: 1948 Screening for osteoporosis Bone Density Scan [facility] Start: 1948 Thyroid stimulating hormone measurement TSH Level [facility] Start: 1948 Urine screening for protein Diabetes: Urine Protein Screening [facility] Comprehensive metabo lic 2000 panel - Serum or Plasma [facility] Immunizations Immunization Date Immunization Notes Care Provider Rodrick maier 03-03-2024 influenza, seasonal, injectable Edi Cosby MD Work Phone: [facility] 03-13-2022 COVID-19 Pfizer (Pediatric) Nicole Guzman Other [facility] 03-13-2022 Pfizer COVID-19 Vac Bivalent 30 MCG/0.3ML Intramuscular Suspension Nicole E Guzman Work Phone: [facility] [employer] 250 DO Work Phone: 03-09-2022 Fluad Quadrivalent 0 .5 ML Intramuscular Prefilled Syringe Nicole E Guzman Work Phone: [employer] 250 DO Work Phone: 03-09-2022 influenza virus vaccine, split virus (incl. purified surface antigen) Nicole Guzman Other [employer] [facility] [employer] Other 03-09-2022 influenza virus vaccine, unspecified formulation MD [facility] 04-17-2021 Moderna COVID-19 Vaccine 100 MCG/0.5ML Intramuscular Suspension Nicole E Guzman Work Phone: [facility] 250 DO Work Phone: 02-21-2021 Fluad Quadrivalent 0 .5 ML Intramuscular Prefilled Syringe [facility] Work Phone: 02-21-2021 influenza virus vaccine, split virus (incl. purified surface antigen) Nicole Guzman Other [facility] [employer] Other 02-21-2021 influenza virus vaccine, unspecified formulation MD [facility] 08-09-2020 Moderna COVID-19 Vaccine 100 MCG/0.5ML Intramuscular Suspension Nicole Guzman Work Phone: [place] [address] DO Work Phone: 07-11-2020 Moderna COVID-19 Vaccine 100 MCG/0.5ML Intramuscular Suspension Nicole E hTomas Work Phone: [place] [address] DO Work Phone: 02-15-2020 influenza virus vaccine, split virus (incl. purified surface antigen) Nicole Guzman Other [facility] [employer] Other 02-15-2020 influenza virus vaccine, unspecified formulation MD [facility] 02-15-2020 influenza, injectabl e, quadrivalent, preservative free Nicole Guzman Work Phone: [place] [address] DO Work Phone: 02-02-2020 influenza, high dose seasonal, preservative-free Nicole Guzman Work Phone: [place] [address] DO Work Phone: 03-20-2019 Seasonal trivalent influenza vaccine, adjuvanted, preservative free Nicole Guzman Work Phone: [place] [address] DO Work Phone: 05-05-2018 influenza virus vaccine, split virus (incl. purified surface antigen) Nicole Guzman Other [facility] [employer] Other 05-05-2018 influenza virus vaccine, unspecified formulation MD [facility] 05-05-2018 pneumococcal polysaccharide vaccine, 23 valent Nicole Guzman Work Phone: [facility] 05-05-2018 Seasonal trivalent influenza vaccine, adjuvanted, preservative free Nicole E Thomas Work Phone: [place] [address] DO Work Phone: 03-02-2018 pneumococcal conjuga te vaccine, 13 valent Nicole Guzman Work Phone: [facility] 250 DO Work Phone: 04-02-2017 pneumococcal conjuga te vaccine, 13 valjaqueline Guzman Other [facility] 03-15-2017 influenza, high dose seasonal, preservative-free Nicole Guzman Work Phone: [facility] 250 DO Work Phone: 03-15-2017 pneumococcal conjuga te vaccine, 13 valjaqueline Guzman Work Phone: [facility] 250 DO Work Phone: 03-15-2016 influenza, high dose seasonal, preservative-free Nicole Guzman Work Phone: [facility] 250 DO Work Phone: Payers Date Payer Category Payer Medicare (Managed Care) [facility] [id number] 2024 Medicare [id number] 2023 Unknown 2023 Self-pay [id number] 2020 Unknown [id number] 1959 Medicare [id number] [id number] 1959 Self-pay [id number] 1948 Unknown [id number] 2.16.840.1.416448.3.579.2. 647 1948 Unknown [id number] 2.16.840.1.449967.3.579.2. 593 1948 Unknown [id number] 2.16.840.1.641315.3.579.2. 593 1948 Unknown [id number] 2.16.840.1.014096.3.579.2. 593 1948 Unknown [id number] 2.16.840.1.261340.3.579.2. 593 1948 Unknown [id number] 2.16.840.1.042497.3.579.2. 593 1948 Unknown [id number] 2.16.840.1.094791.3.579.2. 593 1948 Unknown [id number] 2.840.1.507568.3.579.2. 593 1948 Unknown [id number] 2.840.1.949163.3.579.2. 593 1948 Unknown [id number] 2.840.1.606763.3.579.2. 593 1948 Unknown [id number] 2.16840.1.045687.3.579.2. 356 1948 Unknown [id number] 2.840.1.219810.3.579.2. 356 1948 Unknown [id number] 2.16840.1.320850.3.579.2. 1244 1948 Unknown [id number] 2.840.1.986340.3.579.2. 1244 Medicare [id number] Medicare [id number] 2.840.1.329028.19 Private Health Insurance [facility] [id number] Unknown [id number] Unknown [id number] 2..840.1.448461.3.579.2. 593 Unknown [id number] 2.16.840.1.717956.3.579.2. 531 Unknown [id number] 2.16.840.1.288286.3.579.2. 531 Unknown Regular Insurance [id number] Social History Date Type Detail Facility Start: 10-08-2023 Social alcohol use Social alcohol us e -[facility] 250 DO Work Phone: Comment on above: 1 cup of caffeine da bill; quit 2011 1.5 ppd; Start: 10-08-2023 Sex Assigned At N [facility] [employer] Other Start: 01-06-2019 End: 11-26-2022 Tobacco smoking status NHIS Ex-smoker (finding) [facility] Start: 1950 Sex Assigned At Female F [facility] History of tobacco use Current smoker [facility] Work Phone: History of tobacco use Cigarette Smoker [facility] Work Phone: Start: 10-08-2023 Tobacco use and exposure Smokeless tobacco non-user [facility] Work Phone: Start: 10-08-2023 End: 08-10-2024 Alcoholic beverage intake Lifetime non-drinker (finding) [facility] Work Phone: Start: 1950 Sex assigned at Not on file [facility] Work Phone: Start: 09-28-2023 End: 08-10-2024 Exposure to SARS-CoV-2 (event) Not sure [facility] Start: 08-13-2024 Sex Female (finding) [facility] Medical Equipment Procedure Code Equipment Code Equipment [...] by mouth once daily., Disp: , Rfl: kglpleduvnf-slwqplkce-omutsbrr (Trelegy Ellipta) 200-62.5-25 mcg blister with device, [...] Attestation By signing my name below, I, Paris Booker attest that this documentation has been prepared [...] discussion and plan. documented in this encounter [facility] Work Phone: 08-10-2024 Instructions Rylee Cevallos LPN [...] be sent through Care Everywhere.Heart Healthy Diet (Gibraltarian)documented in this encounter [facility] Work Phone: 10-08-2023 History of Present illness [...] by mouth once daily., Disp: , Rfl: limibsdfiqk-ratmoceyw-wjvuuiqo (Trelegy Ellipta) 200-62.5-25 mcg blister with device, [...] discussion and plan. documented in this encounter [facility] Work Phone: 10-08-2023 Instructions Carey Portillo LPN [...] on dietary changes. documented in this encounter [facility] Work Phone: 04-24-2023 Evaluation note Encounter Date Diagnosis Assessment Notes Apr, COVID-19 (ICD-10 - U07.1) Apr, Nausea (ICD-10 - R11.0) [email or web address] Other 09-27-2023 Evaluation note* Encounter Date Diagnosis Assessment Notes Treatment Notes Treatment Clinical Notes Feb, Screening mammogram for breast cancer (ICD-10 - Z12.31) [email or web address] Other 06-27-2023 Evaluation note* Encounter Date Diagnosis Assessment Notes Treatment Notes Treatment Clinical Notes Nov, Type 2 diabetes mellitus with hyperglycemia, without long-term current use of insulin (ICD-10 - E11.65) [email or web address] Other 06-26-2023 Evaluation note* Encounter Date Diagnosis [...] exercising at [facility] and as tolerated. [email or web address] Other 05-11-2023 Evaluation note* Encounter Date Diagnosis Assessment Notes Treatment Notes Treatment Clinical Notes October, Type 2 diabetes mellitus with hyperglycemia, without long-term current use of insulin (ICD-10 - E11.65) [email or web address] Other 05-09-2023 Evaluation note* Encounter Date Diagnosis Assessment Notes Treatment Notes Treatment Clinical Notes October, Type 2 diabetes mellitus with hyperglycemia, without long-term current use of insulin (ICD-10 - E11.65) [email or web address] Other 03-23-2023 Evaluation note* Encounter Date Diagnosis Assessment Notes Treatment Notes Treatment Clinical Notes Aug, Type 2 diabetes mellitus with hyperglycemia, without long-term current use of insulin (ICD-10 - E11.65) Start new med - f/u [address] to adminster alexsander and gave instructions Aug, Hypothyroidism (ICD-10 - E03.9) due for labs - chronic problem Aug, Hyperlipidemia (ICD-10 - E78.5) has improved diet - check lab Aug, COPD (chronic obstructive pulmonary disease) (ICD-10 - J44.9) doing pulm rehab 3x/week - on O2 - keep followup appt w Dr. Melchor [email or web address] Other 01-16-2023 Evaluation note* Encounter Date Diagnosis Assessment Notes Treatment Notes Treatment Clinical Notes Jun, De Quervain's tenosynovitis, left (ICD-10 - M65.4) Potential injection and thumb would be helpful Jun, COPD (chronic obstructive pulmonary disease) (ICD-10 - J44.9) Clear on present medicines continue pulmonary rehab as able. Jun, Morbid obesity (ICD-10 - E66.01) Encouraged healthy diet and exercise for weight loss [email or web address] Other 05-02-2022 NoteTRAUMA CONSULT / H&P Patient [...] vomiting, no? diarrhea, n (more content not included)...[facility]Result Comment: Electronically Signed By: Lori Francois PA-C\.br\Date and Time Signed: 09/27/21 13:31 EDT\.br\Electronically Co-Signed By: Param HO, Vesta Lyons\.br\Date and Time Co-Signed: 10/01/21 22:11 [id number] Evaluation note* Encounter Date Diagnosis Assessment Notes [...] Proceed with physical therapy at this time. [email or web address] Other 03-14-2022 Evaluation note* Encounter Date Diagnosis [...] (ICD-10 - G89.29) Continue medications as prescribed [email or web address] Other 02-23-2022 Evaluation note* Encounter Date Diagnosis [...] (ICD-10 - G89.29) Continue medications as prescribed [email or web address] Other 01-20-2022 Evaluation note* Encounter Date Diagnosis [...] has been recently seeing pain management in [place] where she is receiving injections. Prior to [...] pain. In the meantime, I will prescribe [place] 5325mg up to twice daily as needed. [...] pain (ICD-10 - G89.29) UDS performed through [employer] today, will await confirmatory results. Patient has continued need for [place]. OARRS report processed and reviewed and shows no violations. Patient was educated on the risks and benefits of skilled nursing opioid use.[place] was refilled today, opioid risk assessment was [...] negative findings were considered in medical decision-making. [email or web address] Other Evaluation noteNo assessment information available [facility] Work Phone: Evaluation noteNo InformationNortBrooke [facility] [employer] Other Evaluation note* Diagnosis Onset Date Resolution Status Medicare annual wellness visit, subsequent acute Type II diabetes mellitus ac [place] [facility] Work Phone: Evaluation note* Diagnosis CAD, multiple vessel- Primary Mixed hyperlipidemia Essential hypertension Unspecified essential hypertension Paroxysmal atrial fibrillation (Multi) Atrial fibrillation Anticoagulated Encounter for long-term (current) use of anticoagulants Chronic obstructive pulmonary disease, unspecified COPD type (Multi) BMI 45.0-49.9, adult (Multi) Former smoker Personal history of tobacco use, presenting hazards to health documented in this encounter [facility] Work Phone: Evaluation note* Diagnosis Paroxysmal atrial fibrillation (Multi)- Primary Atrial fibrillation CAD, multiple vessel Mixed hyperlipidemia Essential hypertension Unspecified essential hypertension Anticoagulated Encounter for long-term (current) use of anticoagulants Localized edema Edema Bradycardia Other specified cardiac dysrhythmias BMI 45.0-49.9, adult (Multi) Former smoker Personal history of tobacco use, presenting hazards to health documented in this encounter [facility] Work Phone: Evaluation note* Diagnosis Onset Date Resolution Status Admit Date Hypertension acute August 13, 2024 9:19am Hypothyroidism acute August 9:19am Type II diabetes mellitus acute August 13, 2024 9:19am [facility] Work Phone: His[facility] general Narrative - Reported* Type Description Date Medical History COPD Medical History Diabietes Medical History high cholestrol Medical History hypertension Medical History left ankle fracture Medical History PA Medical History DEPRESSION Medical History HYPERLIPIDEMIA Medical History MORBID OBESITY Medical History hypothyroidism Medical History GERD Medical History DIVERTICULOSIS Medical History OSTEOARTHRITIS KNEE Surgical History heart stents Surgical History right ankle Surgical History lumbar surgery Surgical History right ovary removed Surgical History left tubal removal Hospitalization History see above Hospitalization History PA Hospitalization History hypertension Hospitalization History dehydration [place] [employer] Other [facility] general Narrative - Reported* Type Description Date [...] removal Hospitalization History see above Hospitalization History PA Hospitalization History hypertension Hospitalization History dehydration [email or web address] Other History of Present illness Narrative* Patient [...] We will see her back in 6-month [facility] 250 DO Work Phone: History of Present [...] She did have her labs done at [facility]. She denies com plaint of chest [...] We will see her back in 6-month [facility] 250 DO Work Phone: History of [...] We will see her back in 6-month [place] [address] DO Work Phone: History of Present illness [...] I congratulated her on her weight loss [place] [address] DO Work Phone: Reason for referral (narrative)* Consultation (Routine) - Authorized Specialty Diagnoses / Procedures Referred By Brianna romano Referred To Contact Cardiology Diagnoses CAD, multiple vessel Procedures Follow Up In Cardiology Edi Cosby MD [address] [facility] 2, [address] [address] Edi Cosby MD [facility], [address] [place] [address] Referral ID Status Reason Start Date Expiration Date V isits Requested Visits Authorized [id number] Authorized 10/08/2023 10/07/2024 1 1 [facility] Work Phone: Summary Purpose Family History Unknown [...] Date/ Time Advance Directives No September 25 9:21am Hospital Course Note MR#: [id number] I [facility] Pt. Name: Siva Nicolas Admitted: 01/09/2019 Discharged: [...] Quervain's tenosy novitis, left (M65.4) Referral Organization [facility] fletcher Referring Provider First Name Nicole Referring Provider Last Name Thomas Referring Provider Specialty [facility] Referred Organization [facility] Referred Provider Margot Valles Referred Address [address] [facility],[phone] Referred Provider Specialty Orthopedic S urgery Referral [...] Chief Complaint ^ 3 month follow up Chief Complaint Admit Date ^ December 20, 2003 8:40 am BW Order/Check Up August 13, 2024 9:1 9am Reason for Visit Admit Date Hypertension August 13, 2024 9:1 9am Hypothyroidism August 13, 2024 9:1 9am Type II diabetes mellitus August 13 9:19am Additional Source Comments INFORMATION SOURCE (unrecogn ized section and content) DATE CREATED AUTHOR 02/20/2019 [facility] DATE CREATED AUTHOR AUTHOR'S ORGANIZ ATION 10/09/2021 Martinez Maverick [facility] DATE CREATED AUTHOR AUTHOR'S ORGANIZ ATION 09/05/2022 [facility] DATE CREATED AUTHOR AUTHOR'S ORGANIZ ATION 01/04/2023 [facility] DATE CREATED AUTHOR AUTHOR'S ORGANIZ ATION 01/04/2023 [employer] DATE CREATED AUTHOR AUTHOR'S ORGANIZ ATION 04/06/2023 [facility] DATE CREATED AUTHOR AUTHOR'S ORGANIZ ATION 08/11/2024 [facility] REASON FOR VISIT (unrecogniz ed section and content) Reason Comments Follow-up 9 months Reason Comments Follow-up 9m with EKG for CAD Specialty Diagnoses / Procedures Referred By Brianna t Referred To Contact Cardiology Diagnoses CAD, multiple vessel Procedures Follow Up In Cardiology Edi Cosby MD [address] [place] [address], [place] [address] Phone: tel: fax: Edi Cosby MD [address] [place] [address] 2, [address] [address] Phone: tel: fax: Referral ID Status Reason Start Date Expiration Date V isits Requested Visits Authorized [id number] Pending Review 10/08/2023 10/07/2024 1 1 Care [...] Nicole Guzman MD Primary Care Provider, Attending P rovider Active Team Status: Active Member Role Status [...] September 16, 2023 End: September 16, 2023 Cutter Inspector Relationship Specialty Start Date End Date Nicole Guzman MD PCP - General 06/03/99 Team Status: Inactive Member Role Status Dates Nicole Guzman MD Primary Care Provide r, Attending Provider Active Start: December 17, 2023 End: December 17, 2023 Cutter Inspector Relationship Specialty Start Date End Date Nicole Guzman MD [address] [place] [address] PCP - General 06/03/99 Team Status: Inactive Member Role Status Dates Nicole Guzman MD Primary Care Provide r, Attending Provider Active Start: August 13, 2024 End: August 13, 2024 Goals (unrecognized section and content) Goals may [...] BE BASED ON THE PRIMARY CLINICAL RECORDS. [facility] [employer] provides no warranty or guarantee of the accuracy or completeness of information in this document.
--- NOTE | 2024-08-28 09:56 | RT_ITS ---
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 Findings were considered accurate and reproducible, with exception of DLCO which did not meet ATS standards. Both pre- and post-bronchodilator values utilized for spirometry. Spirometry (based on pre-bronchodilator values): -FEV1/FVC: Reduced @ 58% -FEV1: Normal @ 95% -FVC: Normal @ 121% -CQB55-52%: Reduced @ 48% -There is a positive bronchodilator resposne in ZBW21-62%, but diagnostic and clinical significance is unclear. Lung volumes by plethysmography: -RV: Normal @ 98% -TLC: Normal @ 117% Diffusion capacity: -DLCO: Severe reduction @ 45% when corrected for Hb 14.3g/dL Impressions: -Spirometry suggests mild obstruction without a significant bronchodilator response. Normal lung volumes. Severe diffusion impairment. Overall study is compatible with COPD/emphysema. The decrease in DLCO is out of proportion in relationship to the mild obstruction in spirometry - this may be due to the patient's inability to perform DLCO according to ATS standards. Clinical correlation required. Electronically Signed On 09-03-2024 16:19:51 EDT by Elmo Meyers
[2024-08-28] MEDS: ALBUTEROL SULFATE 2.5 MG/3 ML VIAL NEB IH (09:58)
== END 2024-08-28 08:52 | disposition home or self-care (01) ==
LOC: CARD 08:53
PROVIDERS: PCP Family Medicine; Visit Provider Internal Medicine
DX: J43.2 Centrilobular emphysema (principal)
CPT/HCPCS: 94060; 94726; 94729

== ENCOUNTER 2024-10-01 13:16 | Outpatient (OUT) | payer MEDICARE, SELFPAY ==
--- NOTE | 2024-10-05 12:57 | W.PM.PROCNOT ---
Procedure: 6-Minute Walk (6MW) Date of 6MW: 10/01/2024 Indication: Centrilobular emphysema MMRC: 2 Resting data: -HR: 56 -BP: 152/77 -SpO2: 91% -FiO2: Room air -Ronda: 0.5 Protocol: -6MW was initiated according to standard protocol. After 1 minute of ambulation, SpO2 dropped to 82% on room air. This 6MW was stopped and 3L/min O2 was applied. After resting for 10 minutes, a second 6MW was initiated according to standard protocol, starting at her baseline 3L/min with her POC. She desaturated to 87%, and flow was increased to 4L/min. At 4L/min on her POC, SpO2 dropped to 83%. She was then changed to 2L/min continuous O2. Despite this, she desaturated further, requiring O2 flow up to 6L/min with ambulation to maintain SpO2 >89%. Total walk duration was 6 minutes. Highest Ronda was 5. Recovery data: -HR: 64 -BP: 127/68 -SpO2: 94% -FiO2: 6L/min -Ronda: 0 Number of stops: None Total walk distance: 229m, which is 38% of predicted walk distance. Impressions: -Significant desaturations with ambulation. Her POC is insufficient for her O2 needs, requiring 6L/min O2 continuous. Recommendations: -6L/min O2 continuous. Recommend against continued use of POC. Clinical correlation required.
== END 2024-10-01 13:17 | disposition home or self-care (01) ==
LOC: CARD 13:17
PROVIDERS: PCP Family Medicine; Visit Provider Internal Medicine
DX: J43.2 Centrilobular emphysema (principal)
CPT/HCPCS: 94618

== ENCOUNTER 2025-03-11 10:15 | Outpatient (OUT) | payer MEDICARE, SELFPAY ==
--- NOTE | 2025-03-11 10:19 | CT_ITS ---
[address] [address] Patient Name: SIVA CASILLAS MRN: [id number] date: 1950 Sex: F Assigned Patient Location: CT Current Patient Location: CT Accession/Order Number: [id number] Exam Date: 03/11/2025 11:01 Report Date: 03/11/2025 14:18 At the request of: KRISTOPHER MELCHOR DO Procedure: CT lung screening low-dose CT CHEST WITHOUT CONTRAST, LOW DOSE SCREENING: CLINICAL DATA: A 74-year old former smoker, smoking for 50 pack-years. COMPARISON: None TECHNIQUE: Noncontrast axial CT scan images of the chest were obtained under the low dose screening CT protocol. Coronal and sagittal reconstructed images were also submitted. FINDINGS: Mediastinum : Suboptimal evaluation due to low-dose technique. Thoracic aorta appears normal in caliber. Pulmonary trunk appears nondilated. No pericardial effusion. No lymphadenopathy. The esophagus is grossly unremarkable. Lungs: No focal consolidation, pneumothorax or pleural effusion. Trachea and distal airways appear patent. Emphysema. Diffuse bronchial wall thickening. Mild lung scarring. No suspicious noncalcified pulmonary nodule or mass. Upper abdomen: No acute findings. Bony thorax and chest wall: Soft tissues surrounding the chest wall demonstrate no acute findings. Osseous structures demonstrate degenerative change. CT/CT lung screening low-dose IMPRESSION: NO SUSPICIOUS PULMONARY NODULE OR MASS. LUNG - RADS Version 1.0 Assessment: Category 1, Negative (No nodules and definitely benign nodules). Management: Continue annual lung screening with LDCT in 12 months. Impression dictated by: Saman Benites Jr. DAsuncionOAsuncion 03/11/2025 2:18 PM Dictation Location: [place] [address] Electronically authenticated by: [id number] Y Date: 03/11/2025 14:18
--- OUTSIDE RECORDS SUMMARY | 2025-03-11 10:33 | XMS_ITS | CCD ---
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 Name Role Phone Manju Blackwell Admitting Unavailable CHANA OBRIEN Attending Unavailable NICOLE GUZMAN Unavailable NICOLE GUZMAN Primary Care Unavailable HARITHA HI Surgeon Unavailable AL Procedure Practitioner Unavailab Nicole Sprague Unavailable Unavailable Unavailable Unavailable Unavailable Renzo Hein Unavailable Nicole Guzman Unavailable DR SVETLANA CHAPMAN Consulting Unavailable THOMAS, DR NICOLE Thakkar Attending Unavailable THOMAS, DR NICOLE Thakkar Admitting Unavailable DR NICOLE GUZMAN Primary Care Unavailable DR NICOLE GUZMAN Consulting Unavailable DR NICOLE UGZMAN Primary Care Unavailable SAMSA ., KRISTOPHER Admitting Unavailable SAMSA ., KRISTOPHER Attending Unavailable THOMAS, DR NICOLE Thakkar Primary Care Unavailable RENZO HEIN Admitting Unavailable RENZO HEIN Attending Unavailable THOMAS, DR NICOLE Thakkar Primary Care Unavailable THOMAS, DR NICOLE Thakkar Attending Unavailable THOMAS, DR NICOLE Thakkar Admitting Unavailable SAMSA ., KRISTOPHER Admitting Unavailable SAMSA ., KRISTOPHER Consulting Unavailable RUIZ ., KRISTOPHER Attending Unavailable DR NICOLE GUZMAN Primary Care Unavailable DR NICOLE GUZMAN Primary Care Unavailable DR NICOLE GUZMAN Consulting Unavailable THOMAS, DR NICOLE Thakkar Attending Unavailable DR NICOLE GUZMAN Admitting Unavailable Mikaela, Damian Consulting Unavailable THOMAS, DR NICOLE Thakkar Primary Care Unavailable THOMAS, DR NICOLE Thakkar Attending Unavailable THOMAS, DR NICOLE Thakkar Admitting Unavailable THOMAS, DR NICOLE Thakkar Consulting Unavailable DR SVETLANA CHAPMAN Consulting Unavailable THOMAS, DR NICOLE Thakkar Primary Care Unavailable THOMAS, DR NICOLE Thakkar Attending Unavailable THOMAS, DR NICOLE Thakkar Admitting Unavailable THOMAS, DR NICOLE Thakkar Consulting Unavailable TRABOULSSI, DR DALEY Attending Unavailab le TRABOULSSI, DR DALEY Admitting Unavailab le TRABOULCELIA, DR DALEY Consulting Unavailab le GUZMAN, DR NICOLE Thakkar Primary Care Unavailable SAMSA ., KRISTOPHER Admitting Unavailable SAMSA ., KRISTOPHER Attending Unavailable ZIEBRONALD, DR SVETLANA Alfaro Consulting Unavailable GUZMAN, DR NICOLE Thakkar Primary Care Unavailable SAMSA ., KRISTOPHER Consulting Unavailable Alea, Dr. Daley Referring Unavaila ble Traboulssi, Dr. Daley Attending Unavaila ble Guzman, Dr. Nicole Charles Primary Care Unav ailable Guzman, Dr. Nicole Charles Primary Care Unav ailable Alea, Dr. Daley Referring Unavaila ble Traboulssi, Dr. Daley Attending Unavaila ble MD Jared [...] Unavailable Jared Rodgers MD Attending Provider Unavailable Nicole Guzman MD Primary Care Provider Nicole Guzman MD Attending Provider Allergies Allergy Classification Reported Allergen(s) Allergy Type Date of Onset Reaction(s) Facility (10 sources) Ibuprofen; 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: [IBUPROFEN] Drug Allergy 3 Rash [facility] Repository (3 sources) Naproxen Drug Allergy 5 [facility] Repository (20 sources) Ibuprofen; 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: [Advil] Drug Allergy 9 Rash [facility] [facility] DO Work Phone: (20 sources) Naproxen; 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: [Aleve] Drug Allergy Unknown, Rash, Other [facility] 250 DO Work Phone: (1 source) Ibuprofen Drug Allergy 5 [facility] Repository (9 sources) Naproxen; 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: [naproxen] Drug Allergy 9 [facility] (4 sources) Alendronate Drug Allergy 9 [facility] Comment:Freete xt Needs Updated. [employer] Other (4 sources) Allergies Reconciled Propensity to adverse reactions Unknown [employer] Other (4 sources) patient allergy list reviewed by nurse or physicia Propensity to adverse reactions 9 Comment:Done [employer] Other (1 source) Ibuprofen Drug Allergy 9 [facility] Repository (3 sources) Naproxen; 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: [NAPROXEN SODIUM] Drug Allergy 4 [facility] Work Phone: Medications Current Medications Medication Drug [...] Ordered: 07-Jun-2021 DO Start : 07-Jun-2021 Complete [id number] 200 actuat albuterol 0.09 mg/actuat metered dose inhaler (20 sources) beta2-Adrenergic Agonist Start: 01-25-2025 Albut mark Sulfate (Ventolin Hfa) 90 mcg/actuation HFA aerosol inhaler Active 1 INH INHALATION Every 6 hours January 25, 2025 12:00am Complies with drug therapy albuterol (Ervin leeroy HFA) 90 mcg/actuation inhaler Inhale. As directed. Active Ventolin HFA 108 (90 Base) MCG/ACT Inhalation Aerosol Solution As directed. Quantity: 0 Refills: 0 Ordered: 19-Dec-2021 DO Active Ventolin HFA Act italia Aspir-81 (14 sources) Aspir-81 Active aspirin 81 mg delayed release oral tablet (17 sources) Platelet Aggregation Inhibitor, Nonsteroidal Anti-inflammatory Drug Start: 06-21-2021 aspirin 81 mg EC tablet Take by mouth 2 times a week. 06/21/2021 Active Start: 01-08-2019 take 1 tablet by danisha th once daily Aspirin 81 mg Tablet,Delayed Release (Dr/Ec) Active 81 MG PO Daily 0 January 08, 2019 12:00am Complies with drug therapy atorvastatin 80 mg oral tablet (20 sources) HMG-CoA Reductase Inhibitor Start: 01-06-2019 End: 01-08-2025 take 1 tablet by mouth once daily Atorvastatin 80 mg tablet Active 80 MG PO Daily January 08, 2025 2:03pm Complies with drug therapy baclofen 10 mg oral tablet (20 sources) gamma-Aminobutyr ic Acid-ergic Agonist Start: 10-07-2023 End: 01-19-2025 Baclofen 10 mg tablet Active 0 .ROUTE .COMPLEX January 19, 2025 11:47am TAKE 1 AND 1/2 TABLETS AT BEDTIME NEEDED FOR MUSCLE SPASM Complies with drug therapy Start: 10-07-2023 End: 07-23-2024 Baclofen 10 mg [...] (Freest yle Gale 2 Plus Sensor) device (8 sources) Start: 07-07-2024 Blood-Glucose Sensor (Freestyle Gale 2 Plus Sensor) device Active 0 .Route 1 July 07, 2024 3:35pm As directed Start: 07-07-2024 End: 07-07-2024 Blood-Glucose Sensor (Freest yle Gale 2 Plus Sensor) device Discontinued 0 .Route 1 July 07, 2024 1:00am July 07, 2024 3:35pm As directed cholecalciferol 0.05 mg oral capsule (3 sources) [...] mouth once daily. 10/08/2023 Discontinued (Therapy completed) Ensifentrine (1 source) Start: 09-30-2024 take 1 mL by inhalation twice daily Ensifentrine (Ohtuvayre) 3 mg/2.5 mL suspension for nebulization Active 2.5 ML INHALATION Twice daily September 30, 2024 12:00am Complies with drug therapy Flash Glucose Scanning Colton (Freestyle Gale 2 Colton) misc (9 sources) Start: 12-31-2024 Flash Glucose Scanning Colton (Freestyle Gale 2 Colton) misc Active 0 .ROUTE .COMPLEX 2 December 31, 2024 10:00am USE DIRECTED Start: 08-11-2024 End: 12-31-2024 Flash Glucose Scanning Reade r (Freestyle Gale 2 Colton) misc Discontinued 0 .ROUTE .COMPLEX 2 August 11, 2024 10:18am December 31, 2024 10:00am USE DIRECTED Start: 08-11-2024 Flash Glucose Scanning Colton (Freestyle Gale 2 Colton) misc Active 0 .ROUTE .COMPLEX 2 August 11, 2024 10:18am USE DIRECTED Start: 08-10-2024 End: 08-11-2024 Flash Glucose Scanning Reade r (Freestyle Gale 2 Colton) misc Discontinued 0 .Route 1 August 10, 2024 12:00am August 11, 2024 10:18am As directed Flash Glucose Sensor (Freest yle Gale 2 Sensor) kit (4 sources) Start: 07-07-2024 Flash Glucose Sensor (Freestyle Gale 2 Sensor) kit Active 0 .Route 1 July 07, 2024 1:00am change q 15 days Fwqvnzccrfj-Pnxxarxqn-Yglbqy er (10 sources) Start: 11-19-2024 Fluticasone-Um eclidin-Vilanter (Trelegy Ellipta) 200-62.5-25 mcg blister with device Active 0 .ROUTE .COMPLEX November 19, 2024 8:08am USE 1 INHALATION ORALLY DAILY Complies with drug therapy Start: 10-02-2024 End: 11-19-2024 Rtnkjvvqiod-Jcwfppeme-Zieqas er (Trelegy Ellipta) 200-62.5-25 mcg blister with device Discontinued 0 .ROUTE .COMPLEX October 02, 2024 11:45am November 19, 2024 8:08am USE 1 INHALATION ORALLY DAILY Start: 12-18-2023 End: 10-02-2024 Gbfvatskgof-Aepfywacf-Lhvvsa er (Trelegy Ellipta) 200-62.5-25 mcg blister with device Discontinued 0 .ROUTE .COMPLEX 60 December 18, 2023 2:17pm October 02, 2024 11:45am USE 1 INHALATION ORALLY DAILY Start: 12-18-2023 Fluticasone-Um eclidin-Vilanter (Trelegy Ellipta) 200-62.5-25 mcg blister with device Active 0 .ROUTE .COMPLEX 60 December 18, 2023 2:17pm USE 1 INHALATION ORALLY DAILY Start: 12-18-2023 End: 12-18-2023 Iigjawuvecd-Vosutpfua-Docejf er (Trelegy Ellipta) 200-62.5-25 mcg blister with device Discontinued 1 INH INHALATION Daily December 18, 2023 12:00am December 18, 2023 2:17pm weqmuddovft-dgctfqyrj-qfvnol er (Trelegy Ellipta) 200-62.5-25 mcg blister with device (2 sources) fluticasone-umec lidin-vilanter (Trelegy Ellipta) 200-62.5-25 mcg blister with device Inhale if needed. As directed Active furosemide 40 mg oral tablet (20 sources) Loop Diuretic St ar t: En d: take 1 tablet by mouth once daily Furosemide 40 mg tablet Active 0 .ROUTE .COMPLEX 90 January 04, 2025 2:02pm TAKE 1 TABLET BY MOUTH EVERY DAY Complies with drug therapy Start: 11-14-2021 End: 02-21-2024 take 1 tablet [...] 12-Oct-2021 Complete hydroCHLOROthiazide 25 mg oral tablet (8 sources) Thiazide Diuretic Start: 01-06-2019 take 1 tablet by mouth once daily Hydrochlorothiazide 25 mg tablet Active 25 MG PO Daily January 06, 2019 12:00am Complies with drug therapy levothyroxine sodium 0.1 mg oral tablet (20 sources) l-Thyroxine Start: 12-28-2024 End: 01-08-2025 Levothyroxine (Synthroid) 100 mcg tablet Active 50 MCG PO Daily January 08, 2025 12:55pm Complies with drug therapy Start: 02-04-2024 End: 12-28-2024 Levothyroxine (Synthroid) 10 0 mcg tablet Discontinued 0 .ROUTE .COMPLEX October 07, 2024 2:06pm December 28, 2024 4:33pm TAKE 1 TABLET DAILY Start: 12-05-2021 End: [...] MC G TAKE 1 TABLET DAILY for Active take 1 tablet by danisha once daily in the morning Levothyroxine Sodium 112 MCG 1 tablet in the morning on an empty stomach Orally daily Active losartan potassium 50 mg oral tablet (20 sources) Angiotensin 2 Receptor Elisabet Start: 09-23-2024 take 1 tablet by mouth once daily Losartan 50 mg tablet Active 50 MG PO Daily September 23, 2024 11:12am Complies with drug therapy Start: 08-13-2024 End: 09-23-2024 Losartan 100 mg tablet Disco ntinued 50 MG PO Daily August 13, 2024 9:33am September 23, 2024 11:12am Start: 05-25-2024 End: 08-13-2024 Losartan 100 mg [...] mg Tablet Discontinued 100 MG PO Daily 60 January 08, 2019 12:00am November 15, 2023 4:16pm Start: 01-08-2019 End: 11-15-2023 take 100 mg by mouth once daily Losartan Discontinued 100 MG PO Daily 60 January 08, 2019 12:00am November 15, 2023 4:16pm Losartan Potassi um 50 MG TAKE 1 TABLET DAILY for 90 Active meclizine hydrochloride 12.5 mg oral tablet (1 source) Antiemetic Start: 01-25-2025 take 1 tablet by mouth three times daily as needed for dizziness Meclizine 12.5 mg tablet Active 12.5 MG PO Three times daily as needed for dizziness January 25, 2025 12:00am Complies with drug therapy 24 hr metoprolol succinate 25 mg extended release oral tablet (20 sources) beta-Adrenergic Elisabet Start: 09-21-2024 take 1 tablet by mouth once daily Metoprolol Succinate 25 mg tablet extended release 24 hr Active 0 .ROUTE .COMPLEX 90 September 21, 2024 2:02pm TAKE 1 TABLET BY MOUTH EVERY DAY Complies with drug therapy Start: 08-13-2024 End: 09-21-2024 take 2 tablets by mouth once daily Metoprolol Succinate 25 mg tablet extended release 24 hr Discontinued 12.5 MG PO Daily August 13, 2024 9:33am September 21, 2024 2:03pm Start: 08-10-2024 End: 08-10-2025 take 0.5 tablet [...] 24 hr Discontinued 25 MG PO Daily June 24, 2024 9:34am August 13, 2024 9:34am Start: 01-08-2019 End: 09-16-2023 Metoprolol Tartrate 25 mg Ta blet Discontinued 12.5 MG PO Twice daily January [...] mL) pen injector (2 sources) Start: End: Ozempic 0.25 mg or 0.5 mg (2 [...] 1mg Subcutaneous weekly for 90 days Active Tirzepatide (4 sources) Start: 10-08-2024 Tirzepatide 5 mg/0.5 mL pen injector Active 5 MG SUBCUT every week October 08, 2024 2:24pm Complies with drug therapy Start: 09-16-2024 End: 09-16-2024 Tirzepatide (Mounjaro) 5 mg/ 0.5 mL pen injector Discontinued 5 MG SUBCUT every week September 16, 2024 12:00am September 16, 2024 10:27am vit A/vit C/vit E/zinc/coppe r (PRESERVISION AREDS ORAL) (2 sources) take 1 capsule by [facility] twice daily vit A/vit [...] Ordered: 11-Jul-2021 DO Start : 11-Jul-2021 Complete apixaban 5 mg oral tablet (20 sources) Factor Xa Inhibitor Start: 08-05-2023 End: 09-02-2024 Apixaban (Eliquis) 5 mg tablet Discontinued 0 .ROUTE .COMPLEX 180 July 07, 2024 3:35pm September 02, 2024 11:06am TAKE 1 TABLET 2 TIMES DAILYAS DIRECTED Start: 06-21-2021 End: 08-05-2023 take 1 tablet by mouth twice daily Apixaban 5 mg tablet Discontinued 5 MG PO Twice daily August 05, 2023 1:00am August 05, 2023 11:07am arformoterol 0.0075 mg/ml inhalation solution (3 sources) [...] Ordered: 03-May-2022 DO Start : 03-May-2022 Complete 120 actuat budesonide 0.16 mg/actuat / formoterol fumarate 0.0045 mg/actuat metered dose inhaler (8 sources) Corticosteroid, beta2-Adrenergic Agonist Start: 01-06-2019 End: 10-02-2024 Budesonide-Formoterol 160-4.5 mcg/actuation HFA aerosol inhaler Discontinued 0 .ROUTE .COMPLEX January 06, 2019 12:00am October 02, 2024 11:45am 4.5 - 160 mcg inhaled cefdinir 300 mg oral capsule (4 sources) Cephalosporin Antibacterial Start: 05-04-2024 End: 09-16-2024 take 1 capsule by mouth twice daily Cefdinir 300 mg capsule Discontinued 300 MG PO Twice daily May 04, 2024 1:00am September 16, 2024 10:00am citalopram 40 mg oral tablet (20 sources) Serotonin Reuptake Inhibitor Start: 12-24-2023 End: 09-04-2024 Citalopram 40 mg tablet Discontinued 0 .ROUTE .COMPLEX September 04, 2024 8:29am September 04, 2024 12:22pm TAKE 1 TABLET DAILY Start: 12-24-2023 End: [...] DO Active clopidogrel 75 mg oral tablet (8 sources) [id number] Platelet Inhibitor Start: 01-08-2019 End: [...] Active metFORMIN hydrochloride 500 mg oral tablet (8 sources) Biguanide Start: 01-06-2019 End: 09-16-2023 take [...] 21-Jul-2021 DO Start : 20-Jul-2021 Complete Semaglutide (20 sources) Start: 03-16-2024 End: 05-04-2024 Semaglutide (Ozempic) [...] injector Discontinued 0.25 MG SUBCUT every week 3 January 03, 2024 8:27am January 24, 2024 11:33am 0.25mg weekly Start: 01-03-2024 End: 01-03-2024 Semaglutide (Ozempic) 0.25 m g or 0.5 mg (2 mg/3 mL) pen injector Discontinued 0.25 MG SUBCUT every week 3 January 03, 2024 8:26am January 03, 2024 8:27am 0.25mg weekly Start: 09-16-2023 End: 01-03-2024 Semaglutide (Ozempic) 0.25 m g or 0.5 mg (2 mg/3 mL) pen injector Discontinued 0.25 MG SUBCUT every week 3 September 16, 2023 12:00am January 03, 2024 8:26am 0.25mg weekly Start: 09-16-2023 Semaglutide (O zempic) 0.25 mg or 0.5 mg (2 mg/3 mL) pen injector Active 0.25 MG SUBCUT every week 3 September 16, 2023 12:00am 0.25mg weekly Semaglutide (Weight Loss) (3 sources) Start: 08-14-2024 End: 09-16-2024 Semaglutide (Weight Loss) (Wegovy) 0.25 mg/0.5 mL pen injector Discontinued 0.25 MG SUBCUT every week 2 August 14, 2024 12:00am September 16, 2024 10:03am administer weeks 1 through 4 of therapy spironolactone 25 mg oral tablet (20 sources) Aldosterone Antagonist Start: 10-29-2023 End: 09-01-2024 Spironolactone 25 mg tablet Discontinued 12.5 MG PO Daily May 04, 2024 9:41am September 01, 2024 10:39am Start: 10-29-2023 End: 11-18-2023 take 12.5 mg by mouth once daily Spironolactone Active 12.5 MG PO Daily 90 Ifeoma 17th, 2024 8:29am take 0.5 tablet by m outh once daily spironolactone (Aldactone) 25 mg tablet Take 0.5 tablets (12.5 mg) by mouth once daily. Active take 1 tablet by danisha th once daily Spironolactone 25 MG Oral Tablet TAKE 1 TABLET DAILY. Quantity: 90 Refills: 3 Ordered: 21-Jun-2021 DO Active Tirzepatide (4 sources) Start: 10-07-2024 End: 10-08-2024 Tirzepatide 2.5 mg/0.5 mL pe n injector Discontinued 2.5 MG SUBCUT every week 2 October 07, 2024 2:06pm October 08, 2024 2:25pm Start: 09-16-2024 End: 10-07-2024 Tirzepatide 2.5 mg/0.5 mL pe n injector Discontinued 2.5 MG SUBCUT every week 2 September 16, 2024 10:26am October 07, 2024 2:06pm Start: 09-16-2024 Tirzepatide 2. 5 mg/0.5 mL pen injector Active 2.5 MG SUBCUT every week 2 September 16, 2024 10:26am Trelegy Ellipta 200-62.5-25 MCG/ACT Inhalation Aerosol Powder [...] pain] Onset: 11-11-2021 Episodic Acute myocardial infarction (18 sources) Acute myocardial infarction; 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: [Acute myocardial [...] Chronic Chronic obstructive pulmonary disease and bronchiectasis (4 sources) Bronchitis; 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: [Bronchitis, not specified as acute or chronic] 05-13-2024 Episodic Congestive heart failure; nonhypertensive (4 sources) Chronic systolic heart failure; 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: [Chronic systolic (congestive) heart failure] Chronic Coronary atherosclerosis and other heart disease (20 sources) Multi vessel coronary artery disease; 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: [Coronary atherosclerosis of unspecified type of vessel, [place] or graft] Onset: 08-13-2018 10-08-2023 Chronic Diabetes mellitus with complications (15 sources) Type 2 diabetes mellitus; 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: [Type [...] of unspecified breast] Onset: 08-13-2018 Chronic Osteoarthritis (20 sources) Bilateral arthritis of knees; 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: [Bilateral primary osteoarthritis of knee] Onset: 08-13-2018 09-16-2024 Chronic Osteoporosis (8 sources) Age-related osteoporosis without current pathological fracture; 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: [Primary osteoporosis] Onset: 02-19-2022 Chronic Other aftercare (11 sources) Drug therapy finding; 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: [Long-term (current) use of anticoagulants] Onset: 07-12-2023 10-08-2023 Episodic Other aftercare (4 sources) Long-term current use of inhaled steroid; 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: [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 of 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] Episodic Other aftercare (4 sources) Long-term current use of anticoagulant; 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: [correction (current) use of anticoagulants] Episodic Other circulatory [...] 45.0-49.9, adult (Multi)] Onset: 10-08-2023 Chronic Other nutritional; endocrine; and metabolic disorders (1 source) Severe obesity; 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: [Class 3 severe obesity with body mass index (BMI) of 45.0 to 49.9 in adult] 09-30-2024 Chronic Other nutritional; endocrine; and metabolic disorders (1 source) Obesity caused by energy imbalance; 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: [Morbid (severe) obesity due to excess calories] 09-30-2024 Chronic Other screening for suspected conditions (not mental disorders or infectious disease) (9 sources) Screening for malignant neoplasm of respiratory [...] 08-10-2024 Episodic Respiratory failure; insufficiency; arrest (adult) (7 sources) Chronic respiratory failure; 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: [Chronic respiratory failure with hypoxia] 09-30-2024 Chronic Retinal detachments; defects; vascular occlusion; and [...] Onset: 01-06-2019 Episodic Other aftercare (2 sources) correction (current) use of anticoagulants; 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: [correction (current) use of anticoagulants] Onset: 07-12-2023 Episodic [...] Test Name Value Interpretation Reference Range Facility Basophils Auto (Bld) [#/Vol] on 08-13-2024 Basophils (Bld) [#/Vol] Automated basoph il count 0.0-0.1 [facility] Basophils/100 WBC Auto (Bld) on 08-13-2024 Basophils/100 WBC (Bld) Automated basophil % 0. 2-2.0 [facility] Cholesterol in LDL Calc [Mas s/Vol]on 08-13-2024 Cholesterol in LDL [Mass/Vol] Cholesterol in LDL [Mass/volume] in Serum or Plasma by calculation [facility] Comment on above: <100 mg/dl [id number] 0-129 mg/dl NEAR OR ABOVE [id number] mg/dl BORDERLINE [id number] mg/dl HIGH>190 mg/dl VERY HIGH Cholesterol in VLDL Calc [Ma ss/Vol]on 08-13-2024 Cholesterol in VLDL [Mass/Vol] Cholesterol in VLDL [Mass/volume] in Serum or Plasma by calculation [facility] Eosinophils/100 WBC Auto (Bl d)on 08-13-2024 Eosinophils/100 WBC (Bld) Automated eosinophil % 0.9-7.0 [facility] Erythrocyte distribution wid th Auto (RBC) [Ratio]on 08-13-2024 Erythrocyte distribution width (RBC) [Ratio] Erythrocyte distribution width [Ratio] by Automated count 11.0-15.0 [facility] Estimated glomerular filtrat ion rate (GFR) non- Americanon 08-13-2024 GFR/1.73 sq M.predicted among non-blacks MDRD (S/P/Bld) [Vol rate/Area] Estimated glomerular filtration rate (GFR) non- Low >=60 mL/min/1.73m 2 [facility] Globulin Calc (S) [Mass/Vol] on 08-13-2024 Globulin (S) [Mass/Vol] Serum globulin measurement by calculation (mass/volume) [facility] Glucose mean value [Mass/vol ume] in Blood Estimated from glycated hemoglobinon 08-13-2024 Average glucose Estimated from glycated hemoglobin (Bld) [Mass/Vol] Glucose mean value [Mass/volume] in Blood Estimated from glycated hemoglobin [facility] Hematocrit Auto (Bld) [Volum e fraction]on 08-13-2024 Hematocrit (Bld) [Volume fraction] Hematocrit [Volume Fraction] of Blood by Automated count 36.0-48.0 [facility] Hemoglobin A1c percentageon 08-13-2024 HbA1c (Bld) [Mass fraction] Hemoglobin A1c percentage 4.5-6.2 [facility] Comment on above: ADA RECOMMENDED LIMI T 4.0 - 6.0ADA THERAPEUTIC TARGET < 7.0ACTION SUGGESTED> 7.0 Hemoglobin [Mass/volume] in Bloodon 08-13-2024 Hemoglobin (Bld) [Mass/Vol] Hemoglobin [Mass/volume] in Blood 12.0-16.0 [facility] Laboratory - Chemistry and C hemistry - challengeon 08-13-2024 Albumin [Mass/Vol] 3.6 g/dL 3.4-5.0 [facility] ALP [Catalytic activity/Vol] 127 U/L High 46-116 [facility] ALT [Catalytic activity/Vol] 30 U/L 14-59 [facility] AST [Catalytic activity/Vol] 26 U/L 15-37 [facility] Bilirubin [Mass/Vol] 0.5 mg/dL 0.2-1.0 [facility] Calcium [Mass/Vol] 9.5 mg/dL 8.5-10.1 [facility] Chloride [Moles/Vol] 105 mmol/L 98-107 [facility] Cholesterol [Mass/Vol] 120 mg/dL <=200 [facility] Cholesterol in HDL [Mass/Vol] 58 mg/dL 40-60 [facility] Comment on above: > or =60 mg/dl - LOW CARDIOVASCULAR RISK<40 mg/dl - HIGH CARDIOVASCULAR RISK CO2 [Moles/Vol] 25.1 mmol/L 21.0-32.0 [facility] Creatinine [Mass/Vol] 1.06 mg/dL High 0.55-1.02 [facility] Free T4 [Mass/Vol] 0.96 ng/dL 0.76-1.46 [facility] GFR/1.73 sq M.predicted MDRD (S/P/Bld) [Vol rate/Area] mL/min/{1.73_m2} >=60 mL/min/1.73m 2 [facility] Glucose [Mass/Vol] 94 mg/dL 74-106 [facility] Potassium [Moles/Vol] 4.2 mmol/L 3.5-5.1 [facility] Protein [Mass/Vol] 7.5 g/dL 6.4-8.2 [facility] Sodium [Moles/Vol] 139 mmol/L 136-145 [facility] Triglyceride [Mass/Vol] 85 mg/dL <=[address] [facility] TSH Qn 2.553 m[IU]/L 0.358-3.740 [facility] Urea nitrogen [Mass/Vol] 25.0 mg/dL High 7.0-18.0 [facility] Urea nitrogen/Creatinine [Mass ratio] 23.6 mg/mg [facility] Laboratory - Hematology and Cell countson 08-13-2024 Immature granulocytes/100 WBC (Bld) 0.4 % 0.0-0.5 [facility] Leukocytes [#/volume] correc desmond for nucleated erythrocytes in Blood by Automated counon 08-13-2024 WBC corrected for nucl RBC Auto (Bld) [#/Vol] Leukocytes [#/volume] corrected for nucleated erythrocytes in Blood by Automated coun 4.0-11.0 [facility] Lymphocytes Auto (Bld) [#/Vo l]on 08-13-2024 Lymphocytes (Bld) [#/Vol] Lymphocytes [#/volume] in Blood by Automated count 1.2-3.8 [facility] Lymphocytes/100 WBC Auto (Bl d)on 08-13-2024 Lymphocytes/100 WBC (Bld) Lymphocytes/100 leukocytes in Blood by Automated count 20.5-60.0 [facility] MCH Auto (RBC) [Entitic mass ]on 08-13-2024 MCH (RBC) [Entitic mass] MCH [Entitic mass] by Automated count 26.7-34.0 [facility] MCHC Auto (RBC) [Mass/Vol]on 08-13-2024 MCHC (RBC) [Mass/Vol] MCHC [Mass/volume] by Automated count 29.9-35.2 [facility] MCV Auto (RBC) [Entitic vol] on 08-13-2024 MCV (RBC) [Entitic vol] MCV [Entitic vol ume] by Automated count 81.0-99.0 [facility] Microalbumin [Mass/volume] i n Urineon 08-13-2024 Albumin DL <= 20 mg/L (U) [Mass/Vol] Microalbumin [Mass/volume] in Urine <=30.0 [facility] Monocytes Auto (Bld) [#/Vol] on 08-13-2024 Monocytes (Bld) [#/Vol] Automated blood monocyte count High 0.3-0.8 [facility] Monocytes/100 WBC Auto (Bld) on 08-13-2024 Monocytes/100 WBC (Bld) Automated monocyte % 1. 7-12.0 [facility] Neutrophils Auto (Bld) [#/Vo l]on 08-13-2024 Neutrophils (Bld) [#/Vol] Neutrophils [#/volume] in Blood by Automated count 1.4-6.5 [facility] Neutrophils/100 WBC Auto (Bl d)on 08-13-2024 Neutrophils/100 WBC (Bld) Automated neutrophil % 43.0-75.0 [facility] No Panel Informationon 08-13 Eosinophils # (Auto) 0.3 10 3/uL 0.0-0.7 [facility] Immature Granulocyte # (Auto) 0.03 10 3/uL 0.00-0.03 [facility] Urine Random Creatinine 188.99 mg/dL 20.00-300. 00 [facility] Platelet mean volume Auto (B ld) [Entitic vol]on 08-13-2024 Platelet mean volume (Bld) [Entitic vol] Platelet mean volume [Entitic volume] in Blood by Automated count 9.5-13.5 [facility] Platelets Auto (Bld) [#/Vol] on 08-13-2024 Platelets (Bld) [#/Vol] Platelets [#/vol ume] in Blood by Automated count 150-450 [facility] RBC Auto (Bld) [#/Vol]on RBC (Bld) [#/Vol] Erythrocytes [#/volume] in Blood by Automated count 4.20-5.40 [facility] Serum or plasma albumin/glob ulin mass ratioon 08-13-2024 Albumin/Globulin [Mass ratio] Serum or plasma albumin/globulin mass ratio [facility] Serum or plasma anion gap de terminationon 08-13-2024 Anion gap [Moles/Vol] Serum or plasma an ion gap determination [facility] Serum or plasma total choles terol/high density lipoprotein (HDL) cholesterol mass amado 08-13-2024 Cholesterol.total/Stacey sterol in HDL [Mass ratio] Serum or plasma total cholesterol/high density lipoprotein (HDL) cholesterol mass rat [facility] Comment on above: 3.3 - 4.4 LOW RISK4. 4 - 7.1 AVERAGE RISK7.1 - 11.0 MODERATE RISK>11.0 HIGH RISK Urine microalbumin/creatinin e mass ratioon 08-13-2024 Albumin/Creatinine DL <= 20 mg/L (U) [Mass ratio] Urine microalbumin/creatini ne mass ratio 0.0-29.9 [facility] Comment on above: NO MICROALBUMINURIA 0-29 MG/GCLINICAL MICROALBUMINURIA 30-300 MG/GMACROALBUMINURIA >300 MG/G ECG 12 Leadon 08-10-2024 Sinus bradycardia with heart rate 48 [facility] Work Phone: MM screening mammo BI w/CADo n 03-26-2023 MM screening mammo BI w/CAD [facility] [place] [address] [place] [address] Mammography Report Signed Patient: Siva Nicolas MR#: [id number] : 1950 Acct:[id number] Age/Sex: 72 / F ADM Date: 03/25/23 Loc: [place] Room: Type: [facility] Attending Dr: Nicole Guzman MD Copies [...] Betito Hampton M.D.03/26/2023 9:03 AM Dictation Location: [facility] Transcribed By: DANIELITO 10/24/23 0903 Dictated By: Betito Hampton DO 03/26/23 0857 Signed By: 03/26/23902 [facility] Office Visit (Cardiology)on 01-03-2023 Follow-up visit Diagnoses/Problems [...] Weight Tips; Status:Complete - Retrospective Authorization; Done: [id number] Some eating tips that can help you lose weight.; Status:Complete - Retrospective Authorization; Done: [id number] Paroxysmal atrial fibrillation IO EKG Electrocardiogram- 12 Lead; Status:Complete; Done: [id number] SocHx: Former smoker Tobacco Use Screening; Status:Complete; Done: [id number] Patient Instructions Please bring all medicines, vitamins, [...] Signs Recorded: 03Jan2023 02:50PM Heart Rate62, Apical [id number], LUE, Sitting Kqqrgotqx34, LUE, Sit (more content not included)... Normal [employer] Tobacco Screening.on 023 Adult depression screening assessment [facility] Work Phone: Fall risk assessment a) No falls within the last year [facility] [employer] DO Work Phone: Tobacco use status [facility]PH[facility] b) No [facility] Work Phone: Alanine Aminotransferaseon 0 01-01-2023 ALT [Catalytic activity/Vol] 42 U/L Normal [facility] Comment on above: Performed By: #### C BC, AST, BMP, ALT, LIPID #### [facility] [address] Alanine aminotransferase [En zymatic activity/volume] in Serum or PlasmaOrdered By: Edi Cosby on 01-01-2023 ALT [Catalytic activity/Vol] 42 U/L [facility] Aspartate Amino Transferaseo n 01-01-2023 AST [Catalytic activity/Vol] 36 U/L Normal 13-39 [facility] Comment on above: Performed By: #### C BC, AST, BMP, ALT, LIPID #### [facility] [address] [place] [id number] [facility] Aspartate aminotransferase [ Enzymatic activity/volume] in Serum or PlasmaOrdered By: Edi Cosby on 01-01-2023 AST [Catalytic activity/Vol] 36 U/L 13-39 [facility] Basic Metabolic Panelon 08-0 Anion gap [Moles/Vol] 8.6 mmol/L Normal 6.0-15.0 [facility] Comment on above: Performed By: #### C BC, AST, BMP, ALT, LIPID #### [facility] [address] Calcium [Mass/Vol] 9.4 mg/dL Normal 8.6-10.3 [facility] Comment on above: Performed By: #### C BC, AST, BMP, ALT, LIPID #### [facility] [address] Chloride [Moles/Vol] 109 mmol/L High 98-107 [facility] Comment on above: Performed By: #### C BC, AST, BMP, ALT, LIPID #### [facility] [address] CO2 [Moles/Vol] 27.0 mmol/L Normal 21.0-31.0 [facility] Comment on above: Performed By: #### C BC, AST, BMP, ALT, LIPID #### [facility] [address] Creatinine [Mass/Vol] 0.91 mg/dL Normal 0.60-1.20 [facility] Comment on above: Performed By: #### C BC, AST, BMP, ALT, LIPID #### [place] [address] [place] GFR/1.73 sq M.predicted MDRD (S/P/Bld) [Vol rate/Area] mL/min/{1.73_m2} Normal [facility] Comment on above: Performed By: #### C BC, AST, BMP, ALT, LIPID #### [facility] [address] Glucose [Mass/Vol] 102 mg/dL High 70-100 [facility] Comment on above: Result Comment: [facility] Glucose Reference Range is dependent on time and content of last meal. Glucose of more than 200 mg/dL in a nonstressed, ambulatory subject supports the diagnosis of Diabetes Mellitus. ADA recommended reference range Performed By: #### C BC, AST, BMP, ALT, LIPID #### [facility] [address] Potassium [Moles/Vol] 4.6 mmol/L Normal 3.5-5.1 [facility] Comment on above: Performed By: #### C BC, AST, BMP, ALT, LIPID #### [facility] [address] Sodium [Moles/Vol] 140 mmol/L Normal 136-145 [facility] Comment on above: Performed By: #### C BC, AST, BMP, ALT, LIPID #### [facility] [address] Urea nitrogen [Mass/Vol] 28 mg/dL High 7-25 [facility] Comment on above: Performed By: #### C BC, AST, BMP, ALT, LIPID #### [facility] [address] [place] [address] Basophils Auto (Bld) [#/Vol] Ordered By: Edi Cosby on 01-01-2023 Basophils (Bld) [#/Vol] 0.1 10*3/uL 0.0-0.2 [facility] Basophils/100 WBC Auto (Bld) Ordered By: Edi Cosby on 01-01-2023 Basophils/100 WBC (Bld) 0.6 % . [facility] Calcium [Mass/volume] in Ser um or PlasmaOrdered By: Edi Cosby on 01-01-2023 Calcium [Mass/Vol] 9.4 mg/dL 8.6-10.3 [facility] Carbon dioxide, total [Moles /volume] in Serum or PlasmaOrdered By: Edi Cosby on 01-01-2023 CO2 [Moles/Vol] 27.0 mmol/L 21.0-31.0 [facility] Chloride [Moles/volume] in S anirudh or PlasmaOrdered By: Edi Cosby on 01-01-2023 Chloride [Moles/Vol] 109 mmol/L 98-107 [facility] Cholesterol [Mass/volume] in Serum or PlasmaOrdered By: Edi Cosby on 01-01-2023 Cholesterol [Mass/Vol] 101 mg/dL 140-200 [facility] Comment on above: Chol less than 200 m g/dl low riskChol 201-239 mg/dl borderline riskChol 240 mg/dl and greater high risk Cholesterol in LDL Calc [Mas s/Vol]Ordered By: Edi Cosby on 01-01-2023 Cholesterol in LDL [Mass/Vol] 43 mg/dL 0-100 [facility] Comment on above: LDL ATP III CLASSIFI CATIONLDL less than 100 mg/dL OptimalLDL 100-129 mg/dL Near or above optimalLDL 130-159 mg/dL Borderline highLDL 160-189 mg/dL HighLDL greater than 189 mg/dL Very high Cholesterol in VLDL Calc [Ma ss/Vol]Ordered By: Edi Cosby on 01-01-2023 Cholesterol in VLDL [Mass/Vol] 17 mg/dL [facility] Complete Blood Count Auto Di ffon 01-01-2023 Basophils (Bld) [#/Vol] 0.1 10*3/uL Normal 0.0-0.2 [facility] Comment on above: Result Comment: PERF ORMED BY: [place] [address] PATHOLOGIST GLASS SILVERER EUGENE BORDEN M.D. Performed By: #### C BC, AST, BMP, ALT, LIPID #### [facility] [address] Basophils/100 WBC (Bld) 0.6 % Normal . [facility] Comment on above: Performed By: #### C BC, AST, BMP, ALT, LIPID #### [facility] [address] Eosinophils (Bld) [#/Vol] 0.3 10*3/uL Normal 0.0-0.45 [facility] Comment on above: Performed By: #### C BC, AST, BMP, ALT, LIPID #### [address] Eosinophils/100 WBC (Bld) 3.4 % Normal . [facility] Comment on above: Performed By: #### C BC, AST, BMP, ALT, LIPID #### [address] Erythrocyte distribution width (RBC) [Ratio] 14.4 % Normal 11.9-15.3 [facility] Comment on above: Performed By: #### C BC, AST, BMP, ALT, LIPID #### [address] Hematocrit (Bld) [Volume fraction] 40.1 % Normal 34.0-46.4 [facility] Comment on above: Performed By: #### C BC, AST, BMP, ALT, LIPID #### [address] Hemoglobin (Bld) [Mass/Vol] 13.4 g/dL Normal 11.8-15.4 [facility] Comment on above: Performed By: #### C BC, AST, BMP, ALT, LIPID #### [address] Lymphocytes (Bld) [#/Vol] 2.1 10*3/uL Normal 1.00-4.8 [facility] Comment on above: Performed By: #### C BC, AST, BMP, ALT, LIPID #### [address] Lymphocytes/100 WBC (Bld) 23.7 % Normal . [facility] Comment on above: Performed By: #### C BC, AST, BMP, ALT, LIPID #### [address] MCH (RBC) [Entitic mass] 30.1 pg Normal 24.7-34.3 [facility] Comment on above: Performed By: #### C BC, AST, BMP, ALT, LIPID #### [address] MCV (RBC) [Entitic vol] 90.0 fL Normal 80-[address] [facility] Comment on above: Performed By: #### C BC, AST, BMP, ALT, LIPID #### [address] Mean Corpuscular HGB Conc 33.5 g/dL Normal 32.0-35.0 [facility] Comment on above: Performed By: #### C BC, AST, BMP, ALT, LIPID #### [place] [address] [place] Monocytes (Bld) [#/Vol] 0.8 10*3/uL Normal 0.0-0.8 [facility] Comment on above: Performed By: #### C BC, AST, BMP, ALT, LIPID #### [address] Monocytes/100 WBC (Bld) 9.3 % Normal . [facility] Comment on above: Performed By: #### C BC, AST, BMP, ALT, LIPID #### [address] Neutrophils (Bld) [#/Vol] 5.5 10*3/uL Normal 1.8-7.7 [facility] Comment on above: Performed By: #### C BC, AST, BMP, ALT, LIPID #### [address] Neutrophils/100 WBC (Bld) 63.0 % Normal . [facility] Comment on above: Performed By: #### C BC, AST, BMP, ALT, LIPID #### [place] [address] [place] NRBC% 0.0 /100{WBC} Normal 0-0.5 [facility] Comment on above: Performed By: #### C BC, AST, BMP, ALT, LIPID #### [place] [address] [place] Platelet mean volume (Bld) [Entitic vol] 8.3 fL Normal 6.3-10.7 [facility] Comment on above: Performed By: #### C BC, AST, BMP, ALT, LIPID #### [facility] [address] Platelets (Bld) [#/Vol] 189 10*3/uL Normal 150-450 [facility] Comment on above: Performed By: #### C BC, AST, BMP, ALT, LIPID #### [facility] [address] RBC (Bld) [#/Vol] 4.45 10*6/uL Normal 3.60-5.00 [facility] Comment on above: Performed By: #### C BC, AST, BMP, ALT, LIPID #### [facility] [address] WBC (Bld) [#/Vol] 8.7 10*3/uL Normal 3.8-11.6 [facility] Comment on above: Performed By: #### C BC, AST, BMP, ALT, LIPID #### [facility] [address] Creatinine [Mass/volume] in Serum or PlasmaOrdered By: Edi Cosby on 01-01-2023 Creatinine [Mass/Vol] 0.91 mg/dL 0.60-1.20 [facility] Eosinophils Auto (Bld) [#/Vo l]Ordered By: Edi Cosby on 01-01-2023 Eosinophils (Bld) [#/Vol] 0.3 10*3/uL 0.0-0.45 [facility] Eosinophils/100 WBC Auto (Bl d)Ordered By: Edi Cosby on 01-01-2023 Eosinophils/100 WBC (Bld) 3.4 % . [facility] Erythrocyte distribution wid th Auto (RBC) [Ratio]Ordered By: Edi Cosby on 01-01-2023 Erythrocyte distribution width (RBC) [Ratio] 14.4 % 11.9-15.3 [facility] Glucose [Mass/volume] in Ser um or PlasmaOrdered By: Edi Cosby on 01-01-2023 Glucose [Mass/Vol] 102 mg/dL 70-100 [facility] Comment on above: ADA recommended refe rence rangeRandom Glucose Reference Range is dependent on time and content of last meal. Glucose of more than 200 mg/dL in a nonstressed, ambulatory subject supports the diagnosis of Diabetes Mellitus. Hematocrit Auto (Bld) [Volum e fraction]Ordered By: Edi Cosby on 01-01-2023 Hematocrit (Bld) [Volume fraction] 40.1 % 34.0-46.4 [facility] Hemoglobin [Mass/volume] in BloodOrdered By: Edi Cosby on 01-01-2023 Hemoglobin (Bld) [Mass/Vol] 13.4 g/dL 11.8-15.4 [facility] Laboratory - Chemistry and C hemistry - challengeon 01-01-2023 Cholesterol [Mass/Vol] 101\S\101 below low threshold 140-200 [facility] [place] [address] DO Work Phone: Comment on above: Chol less than 200 m g/dl low risk Chol 201-239 mg/dl borderline risk Chol 240 mg/dl and greater high risk Cholesterol in LDL [Mass/Vol] 43\S\43 Normal 0-100 [facility] [employer] [place] [address] DO Work Phone: Comment on [...] RBC Auto (Bld) [#/Vol] 8.7 10*3/uL 3.8-11.6 [facility] Lipid Panelon 01-01-2023 Cholesterol [Mass/Vol] 101 mg/dL Low 140-200 [facility] Comment on above: Result Comment: Chol less than 200 mg/dl low risk Chol 201-239 mg/dl borderline risk Chol 240 mg/dl and greater high risk Performed By: #### C BC, AST, BMP, ALT, LIPID #### [facility] [address] Cholesterol in HDL [Mass/Vol] 41 mg/dL Normal 23-92 [facility] Comment on above: Result Comment: HDL CHOL ATP-III CLASSIFICATION Cardiovascular Risk HDL > or equal to 60 mg/dL LOW HDL < 40 mg/dL HIGH Performed By: #### C BC, AST, BMP, ALT, LIPID #### [address] Cholesterol.total/Stacey sterol in HDL [Mass ratio] 2.5 {ratio} Normal <5.0 [facility] Comment on above: Result Comment: PERF ORMED BY: [place] [address] PATHOLOGIST GLASS SILVERER EUGENE BORDEN M.D. Performed By: #### C BC, AST, BMP, ALT, LIPID #### [address] LDL Cholesterol,Calculated 43 mg/dL Normal 0-100 [facility] Comment on above: Result Comment: LDL ATP III CLASSIFICATION LDL less than 100 mg/dL Optimal LDL 100-129 mg/dL Near or above optimal LDL 130-159 mg/dL Borderline high LDL 160-189 mg/dL High LDL greater than 189 mg/dL Very high Performed By: #### C BC, AST, BMP, ALT, LIPID #### [address] Triglyceride w/Reflex 86 mg/dL Normal 0-149 [facility] Comment on above: Result Comment: TRIG ATP III CLASSIFICATION TRIG less than 150 mg/dL Normal TRIG 150-199 mg/dL Borderline high TRIG 200-500 mg/dL High TRIG greater than 500 mg/dL Very high Standard traceable to the Center for Disease Conrtrol and Prevention (CDC) test method. Performed By: #### C BC, AST, BMP, ALT, LIPID #### [facility] [address] VLDL CHOLESTEROL 17 mg/dL Normal [facility] Comment on above: Performed By: #### C BC, AST, BMP, ALT, LIPID #### [facility] [address] [place] [address] [facility] Lymphocytes Auto (Bld) [#/Vo l]Ordered By: Edi Cosby on 01-01-2023 Lymphocytes (Bld) [#/Vol] 2.1 10*3/uL 1.00-4.8 [facility] Lymphocytes/100 WBC Auto (Bl d)Ordered By: Edi Cosby on 01-01-2023 Lymphocytes/100 WBC (Bld) 23.7 % . [facility] MCH Auto (RBC) [Entitic mass ]Ordered By: Edi Cosby on 01-01-2023 MCH (RBC) [Entitic mass] 30.1 pg 24.7-34.3 [facility] MCHC Auto (RBC) [Mass/Vol]Or dered By: Edi Cosby on 01-01-2023 MCHC (RBC) [Mass/Vol] 33.5 g/dL 32.0-35.[address] [facility] MCV Auto (RBC) [Entitic vol] Ordered By: Edi Cosby on 01-01-2023 MCV (RBC) [Entitic vol] 90.0 fL 80-[address] [facility] Monocytes Auto (Bld) [#/Vol] Ordered By: Edi Cosby on 01-01-2023 Monocytes (Bld) [#/Vol] 0.8 10*3/uL 0.0-0.8 [facility] Monocytes/100 WBC Auto (Bld) Ordered By: Edi Cosby on 01-01-2023 Monocytes/100 WBC (Bld) 9.3 % . [facility] Neutrophils Auto (Bld) [#/Vo l]Ordered By: Edi Cosby on 01-01-2023 Neutrophils (Bld) [#/Vol] 5.5 10*3/uL 1.8-7.7 [facility] Neutrophils/100 WBC Auto (Bl d)Ordered By: Edi Cosby on 01-01-2023 Neutrophils/100 WBC (Bld) 63.0 % . [facility] No Panel InformationOrdered By: Edi Cosby on 01-01-2023 Estimated GFR (CKD-EPI) > 60.0 mL/Min [facility] Creatinine Clearance (Chem N/A [facility] No Panel Informationon 01-01 0.1\S\0.1 Normal 0.0-0.2 [facility] [place] [address] DO Work Phone: [phone] Comment on above: PERFORMED BY:[facility] [place], [place] [id number] MEDICAL DIRECTOREUGENE BORDEN M.D. 0.3\S\0.3 Normal 0.0-0.45 [facility] [place] [address] DO Work Phone: 0.8\S\0.8 Normal 0.0-0.8 [facility] [place] [address] DO Work Phone: 2.1\S\2.1 Normal 1.00-4.8 [facility] [place] [address] DO Work Phone: 5.5\S\5.5 Normal 1.8-7.7 [facility] [place] [address] DO Work Phone: 0.0\S\0.0 Normal 0-0.5 [facility] [place] [address] DO Work Phone: 0.6\S\0.6 Normal . [facility] [place] [address] DO Work Phone: 3.4\S\3.4 Normal . [facility] [place] [address] DO Work Phone: 9.3\S\9.3 Normal . [facility] [place] [address] DO Work Phone: 23.7\S\23.7 Normal . [facility] [place] [address] DO Work Phone: 63.0\S\63.0 Normal . [facility] [place] [address] DO Work Phone: 8.3\S\8.3 Normal 6.3-10.7 [facility] [place] [address] DO Work Phone: 189\S\189 Normal 150-450 [facility] [place] [address] DO Work Phone: 14.4\S\14.4 Normal 11.9-15.3 [facility] [place] [address] DO Work Phone: 33.5\S\33.5 Normal 32.0-35.0 [facility] [address] DO Work Phone: 30.1\S\30.1 Normal 24.7-34.3 [facility] [place] [address] DO Work Phone: 90.0\S\90.0 Normal 80-100 [facility] [address] DO Work Phone: 40.1\S\40.1 Normal 34.0-46.4 [facility] [place] [address] DO Work Phone: 13.4\S\13.4 Normal 11.8-15.4 [facility] [place] [address] DO Work Phone: 4.45\S\4.45 Normal 3.60-5.00 [facility] [place] [address] DO Work Phone: 8.7\S\8.7 Normal 3.8-11.6 [facility] [address] DO Work Phone: > 60.0 Normal [facility] [address] DO Work Phone: 8.6\S\8.6 Normal 6.0-15.0 [facility] [address] DO Work Phone: 9.4\S\9.4 Normal 8.6-10.3 [facility] [address] DO Work Phone: 27.0\S\27.0 Normal 21.0-31.0 [facility] Masha s[place] 250 DO Work Phone: 109\S\109 above high threshold 98-107 [facility] [place] [place] 250 DO Work Phone: 4.6\S\4.6 Normal 3.5-5.1 [facility] [place] [place] [address] DO Work Phone: 140\S\140 Normal 136-145 [facility] M[address] 250 DO Work Phone: 0.91\S\0.91 Normal 0.60-1.20 [facility] M[address]y 250 DO Work Phone: 28\S\28 above high threshold 7-25 [facility] Masha [address]y 250 DO Work Phone: 102\S\102 above high threshold 70-100 [facility] Masha Stephenson DO Work Phone: Comment on above: Random Glucose Refer ence Range is dependent on time and content of last meal. Glucose of more than 200 mg/dL in a nonstressed, ambulatory subject supports the diagnosis of Diabetes Mellitus. ADA recommended reference range 36\S\36 Normal 13-39 [facility] Masha Stephenson DO Work Phone: 42\S\42 Normal 7-52 [facility] Masha Stephenson DO Work Phone: 2.5\S\2.5 Normal <5.0 [facility] Masha Stephenson DO Work Phone: Comment on above: PERFORMED BY:[place] [address] [place], [place] [phone] MEDICAL DIRECTOREUGENE BORDEN M.D. 17\S\17 Normal [facility] M[address] DO Work Phone: 86\S\86 Normal 0-149 [facility] Masha Stephenson DO Work Phone: Comment on above: TRIG ATP III CLASSIF ICATION TRIG less than 150 mg/dL Normal TRIG 150-199 mg/dL Borderline high TRIG 200-500 mg/dL High TRIG greater than 500 mg/dL Very high Standard traceable to the Center for Disease Conrtrol and Prevention (CDC) test method. 41\S\41 Normal -[facility] [place] [address] DO Work Phone: Comment on above: HDL CHOL ATP-III CLA SSIFICATION Cardiovascular Risk HDL > or equal to 60 mg/dL LOW HDL < 40 mg/dL HIGH Nucleated erythrocytes [Pres ence] in Blood by Automated countOrdered By: Edi Cosby on 01-01-2023 Nucleated RBC Auto Ql (Bld) 0.0 /100{WBC} 0-0.5 [facility] Platelet mean volume Auto (B ld) [Entitic vol]Ordered By: Edi Cosby on 01-01-2023 Platelet mean volume (Bld) [Entitic vol] 8.3 fL 6.3-10.7 [facility] Platelets Auto (Bld) [#/Vol] Ordered By: Edi Cosby on 01-01-2023 Platelets (Bld) [#/Vol] 189 10*3/uL 150-450 [facility] Potassium [Moles/volume] in Serum or PlasmaOrdered By: Edi Cosby on 01-01-2023 Potassium [Moles/Vol] 4.6 mmol/L 3.5-5.1 [facility] RBC Auto (Bld) [#/Vol]Ordere d By: Edi Cosby on 01-01-2023 RBC (Bld) [#/Vol] 4.45 10*6/uL 3.60-5.00 [facility] Serum or plasma anion gap de terminationOrdered By: Edi Cosby on 01-01-2023 Anion gap [Moles/Vol] 8.6 mmol/L 6.0-15.0 [facility] Serum or plasma high density lipoprotein (HDL) cholesterol measurementOrdered By: Edi Cosby on 01-01-2023 Cholesterol in HDL [Mass/Vol] 41 mg/dL [facility] Comment on above: HDL CHOL ATP-III CLA SSIFICATION Cardiovascular RiskHDL > or equal to 60 mg/dL LOWHDL < 40 mg/dL HIGH Serum or plasma total choles terol/high density lipoprotein (HDL) cholesterol mass ratOrdered By: Edi Cosby on 01-01-2023 Cholesterol.total/Stacey sterol in HDL [Mass ratio] 2.5 {ratio} <5.0 [facility] Sodium [Moles/volume] in Ser um or PlasmaOrdered By: Edi Cosby on 01-01-2023 Sodium [Moles/Vol] 140 mmol/L 136-145 [facility] Triglyceride [Mass/volume] i n Serum or PlasmaOrdered By: Edi Cosby on 01-01-2023 Triglyceride [Mass/Vol] 86 mg/dL 0-[address] [facility] Comment on above: TRIG ATP III CLASSIF ICATIONTRIG less than 150 mg/dL NormalTRIG 150-199 mg/dL Borderline highTRIG 200-500 mg/dL High TRIG greater than 500 mg/dL Very highStandard traceable to the Center for Disease Conrtrol and Prevention (CDC) test method. Urea nitrogen [Mass/volume] in Serum or PlasmaOrdered By: Edi Cosby on 01-01-2023 Urea nitrogen [Mass/Vol] 28 mg/dL 7-25 [facility] WBC Auto (Bld) [#/Vol]Ordere d By: Edi Cosby on 01-01-2023 WBC (Bld) [#/Vol] 8.7 10*3/uL 3.8-11.6 [facility] Office Visit (Cardiology)on 05-14-2022 Follow-up [...] Weight Tips; Status:Complete - Retrospective Authorization; Done: [id number] Some eating tips that can help you lose weight.; Status:Complete - Retrospective Authorization; Done: [id number] SocHx: Former smoker Tobacco Use Screening; Status:Complete; Done: [id number] Patient Instructions Please bring all medicines, vitamins, [...] Systems Constitu (more content not included)... Normal [employer] Tobacco Screening.on 022 Fall risk assessment a) No falls within the last year [facility] [email or web address] [address] DO Work Phone: Tobacco use status CPHS b) No [facility] [email or web address] [address] DO Work Phone: HEMOGLOBINon 03-30-2022 Hemoglobin (Bld) [Mass/Vol] 13.9 g/dL Normal 12.0-16.0 [facility] Comment on above: Performed By: #### H GB #### [facility] [address] [address] [address] Gena Lopes XR DEXA BONE DENSITYon [...] SVETLANA CHAPMAN Date: 2022-02-19 10:41 Normal [facility] CT CHEST WO CONon 02-14-2022 CT [...] by: SVETLANA CHAPMAN Date: 2022-02-14 14:33 Normal [facility] Tobacco Screening.on 022 Adult depression screening assessment No [facility] [employer] 250 DO Work Phone: Fall risk assessment a) No falls within the last year [facility] [employer] [place] [employer] DO Work Phone: Tobacco use status CPHS b) No M [facility] [employer] [place] [address] DO Work Phone: BNPon 12-08-2021 Natriuretic peptide B (Bld) [Mass/Vol] 337.0 pg/mL Normal <=900.0 [facility] Comment on above: Performed By: #### B MP, BNP ####[facility] [address] [address]DrAsuncion Lopes PROF CHEM 8 (BAS METB)on Anion gap [Moles/Vol] 10.8 mmol/L Normal [facility] Comment on above: Performed By: #### B MP, BNP ####[facility] [address] [address]Dr. Gena Lopes Calcium [Mass/Vol] 9.1 mg/dL Normal 8.5-10.1 [facility] Comment on above: Performed By: #### B MP, BNP ####[facility] [address] [address]Dr. Gena Lopes Chloride [Moles/Vol] 105 mmol/L Normal 98-107 [facility] Comment on above: Performed By: #### B MP, BNP ####[facility] [address] [address]Dr. Gena Lopes CO2 [Moles/Vol] 27.1 mmol/L Normal 21.0-32.0 [facility] Comment on above: Performed By: #### B MP, BNP ####[facility] [address] [address]Dr. Gena Lopes Creatinine [Mass/Vol] 1.02 mg/dL Normal 0.55-1.02 [facility] Comment on above: Performed By: #### B MP, BNP ####[facility] [address] [place], [place] [address]Dr. Gena Lopes EGFR-AF MAURITIAN >60 Normal >=60 [facility] Comment on above: Performed By: #### B MP, BNP ####[facility] [address] [place], [place] [address]Dr. Gena Lopes EGFR-NON AF MAURITIAN 53 mL/min/1.73m2 Critically low >=60 [facility] Comment on above: Performed By: #### B MP, BNP ####[facility] [address] [place], [place] [address]Dr. Gena Lopes Glucose [Mass/Vol] 198 mg/dL Critically high 74-106 [facility] Comment on above: Performed By: #### B MP, BNP ####[facility] [address] [address]Dr. Gena Lopes Potassium [Moles/Vol] 3.9 mmol/L Normal 3.5-5.1 [facility] Comment on above: Performed By: #### B MP, BNP ####[facility] [address] [place], [place] [address]Dr. Doradacia Lopes Sodium [Moles/Vol] 139 mmol/L Normal 136-145 [facility] Comment on above: Performed By: #### B MP, BNP ####[facility] [address] [place], [place] [address]Yi. Gena Lopes Urea nitrogen [Mass/Vol] 18.0 mg/dL Normal 7.0-18.0 [facility] Comment on above: Performed By: #### B MP, BNP ####[facility] [address] [place], [place] [address]Zv. Gena Lopes Urea nitrogen/Creatinine [Mass ratio] 17.6 mg/mg Normal [facility] Comment on above: Performed By: #### B MP, BNP ####[facility] [address] [place], [place] [address]. [address] ABD/PELV W CONon 11-18-19 [...] by: SVETLANA CHAPMAN Date: 2021-11-17 17:29 Normal [facility] BNPon 11-08-2021 Natriuretic peptide B (Bld) [Mass/Vol] 188.0 pg/mL Normal <=900.0 [facility] Comment on above: Performed By: #### C MP, BNP, TSH #### [facility] [address] [place] [address] Dr. eGna Lopes CBC AUTO DIFFon 11-08-2021 BASO # 0.0 103/ul Normal 0.0-0.1 [facility] Comment on above: Performed By: #### C BC #### [facility] [address] [place] [address] Dr. Gena Lopes Basophils/100 WBC (Bld) 0.5 % Normal 0.2-2.0 [facility] Comment on above: Performed By: #### C BC #### [facility] [address] [place] [address] Dr. Gena Lopes EO # 0.3 103/ul Normal 0.0-0.7 [facility] Comment on above: Performed By: #### C BC #### [facility] [address] [place] [address] Dr. Gena Lopes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 77131, 25675, 04143, 83188 #### [facility] [address] [place] [address], [facility] Nucleated RBC/100 WBC (Bld) [Ratio] 0 % Normal 0-0 [facility] Comment on above: Order Comment: No: D o not add to previous draw Performed By: #### 0 0071, 87072, 43000, 26104, 37152 #### [facility] [address] [facility] [place] [address], [facility] PLAT CNT 273 10*3/uL Normal 150-400 [facility] Comment on above: Order Comment: No: D o not add to previous draw Performed By: #### 0 0071, 07437, 60937, 21959, 37485 #### [facility] [address] [facility] [place] [address], [facility] RBC (Bld) [#/Vol] 4.27 10*6/uL Normal 3.80-5.00 [facility] Comment on above: Order Comment: No: D o not add to previous draw Performed By: #### 0 0071, 57484, 27084, 48524, 72847 #### [facility] [address] [facility] [place] [address], [place] WBC (Bld) [#/Vol] 9.48 10*3/uL Normal 4.00-10.60 [facility] Comment on above: Order Comment: No: D o not add to previous draw Performed By: #### 0 0071, 17073, 22989, 56733, 54063 #### [facility] [address] [facility] Cardiovascular Lab Reporton 01-10-2019 Cardiovascular Lab Report [facility] Patient Name: Siva Nicolas [facility] Shlomo Toribio MR #: [id number] Department of Physician: Haritha Catalan MD Division of Service Date: 01/09/2019 Cardiology Birthdate: 1950 Adult Cardiovascular Room #: 3AB [id number] [facility] [address] [place] [address] Cardiovascular Laboratory Report PROCEDURE PERFORMED: Transesophageal echocardiogram and cardioversion. INDICATION: Atrial fibrillation. FELLOW DOCTOR: Tawnya Navarrete M.D. PROCEDURE IN DETAIL: Informed consent was obtained from the patient after explaining indication, risks, benefits, and alternatives. The patient understood and agreed and signed the consent form. The patient was brought to the senior cytogenetics laboratory director MELISSA. Transesophageal echocardiogram was performed under [...] Navarrete MD Date Trans: 01/10/2019 07:43 A/kel [id number] Normal [facility] MAGNESIUM BLOODon 01-10-2019 Magnesium [Mass/Vol] 2.2 mg/dL Normal 1.9-2.7 [facility] Comment on above: Order Comment: No: D o not add to previous draw Performed By: #### 0 0071, 96352, 61511, 82536, 76040 #### [facility] [address] [place] [address], [facility] POC GLUCOSE LABon 01-10-2019 Glucose [Mass/Vol] 88 mg/dL Normal 70-100 [facility] Comment on above: Performed By: #### 0 0071, 31333, 68877, 57627, 79290 #### [facility] [address] [place] [address], [place] Glucose [Mass/Vol] 91 mg/dL Normal 70-100 [facility] Comment on above: Performed By: #### 0 0071, 03209, 57822, 02115, 68040 #### [facility] [address] [place] [address], [place] Glucose [Mass/Vol] 97 mg/dL Normal 70-100 [facility] Comment on above: Performed By: #### 0 0071, 19612, 23103, 47494, 70376 #### [facility] [address] [place] [address], [place] Glucose [Mass/Vol] 121 mg/dL High 70-100 [facility] Comment on above: Performed By: #### 0 0071, 72242, 41380, 03899, 35342 #### [facility] [address] [facility] [place] [address], [facility] UFH HEPARIN ASSAYon 01-11-20 19 UNFRACTIONATED HEPARIN 0.55 IU/mL Normal 0.30-0.70 [facility] Comment on above: Result Comment: [place] roxaban and Apixaban will interfere with the anti Xa assay used to monitor UFH and LMWH. Performed By: #### 0 0071, 57371, 79166, 44030, 99010 #### [facility] [address] [place] [address], [facility] APTTon 01-09-2019 aPTT Coag (Bld) [Time] 27.6 s Normal 25.0-35.0 [facility] Comment on above: Order Comment: [...] THIS PURPOSE. Performed By: #### 5 6101, 79610 #### [facility] [address] [place] [address], [facility] BASIC METABOLIC PANELon 08-0 Calcium [Mass/Vol] 9.5 mg/dL Normal 8.6-10.3 [facility] Comment on above: Order Comment: No: D o not add to previous draw Performed By: #### 0 0071, 17642, 95309, 01450, 22958 #### [facility] [address] [place] [address], [facility] Chloride [Moles/Vol] 103 mmol/L Normal 98-107 [facility] Comment on above: Order Comment: No: D o not add to previous draw Performed By: #### 0 0071, 86255, 62392, 97670, 33448 #### [facility] [address] [place] [address], [place] CO2 [Moles/Vol] 23 mmol/L Normal 21-31 [facility] Comment on above: Order Comment: No: D o not add to previous draw Performed By: #### 0 0071, 38001, 80343, 09085, 76666 #### [facility] [address] [place] [address], [place] Creatinine [Mass/Vol] 1.04 mg/dL Normal 0.60-1.20 [facility] Comment on above: Order Comment: No: D o not add to previous draw Performed By: #### 0 0071, 50993, 74673, 92782, 14355 #### [facility] [address] [place] [address], [place] GFR/1.73 sq M predicted among blacks MDRD (S/P/Bld) [Vol rate/Area] mL/min/{1.73_m2} Normal >60 [facility] Comment on above: Order Comment: No: D o not add to previous draw Performed By: #### 0 0071, 41563, 84917, 19258, 54243 #### [facility] [address] [place] [address], [place] GFR/1.73 sq M predicted among non-blacks MDRD (S/P/Bld) [Vol rate/Area] 53 ml/min/1.73sq m Abnormal >60 [facility] Comment on above: Order Comment: No: D o not add to previous draw Performed By: #### 0 0071, 95094, 83716, 73347, 27316 #### [facility] [address] [place] [address], [place] Glucose [Mass/Vol] 93 mg/dL Normal 70-100 [facility] Comment on above: Order Comment: No: D o not add to previous draw Performed By: #### 0 0071, 99885, 61527, 66262, 41337 #### [facility] [address] [place] [address], [place] Potassium [Moles/Vol] 4.3 mmol/L Normal 3.5-5.1 [facility] Comment on above: Order Comment: No: D o not add to previous draw Performed By: #### 0 0071, 87685, 04416, 92447, 52379 #### [facility] [address] [place] [address], [place] Sodium [Moles/Vol] 134 mmol/L Low 136-145 [facility] Comment on above: Order Comment: No: D o not add to previous draw Performed By: #### 0 0071, 01748, 48450, 13422, 23968 #### [facility] [address] [place] [address], [facility] Urea nitrogen [Mass/Vol] 24 mg/dL Normal 7-25 [facility] Comment on above: Order Comment: No: D o not add to previous draw Performed By: #### 0 0071, 74272, 87990, 34951, 45209 #### [facility] [address] [facility] BNP (B-TYPE NATRIURETIC PEPT JOSE)on 01-09-2019 Natriuretic peptide B (Bld) [Mass/Vol] 123 pg/mL High 0-100 [facility] Comment on above: Order Comment: No: D o not add to previous draw Result Comment: Give n the appropriate clinical setting a BNP result of >100 pg/mL indicates congestive heart failure. Performed By: #### 8 5123, 07843 #### [facility] [address] [place] [address], [facility] CBC W/DIFFon 01-09-2019 ABS BASOPHILS 0.0 10*3/uL Normal 0.0-0.2 [facility] Comment on above: Order Comment: No: D o not add to previous draw Performed By: #### 5 0103 #### [facility] [address] [place] [address], [facility] ABS IMM GRANS 0.0 10*3/uL Normal 0.0-0.2 [facility] Comment on above: Order Comment: No: D o not add to previous draw Performed By: #### 5 0103 #### [facility] [address] [place] [address], [facility] ABS NEUTROPHILS 6.3 10*3/uL Normal 1.6-7.6 [facility] Comment on above: Order Comment: No: D o not add to previous draw Performed By: #### 5 0103 #### [facility] [address] [place] [address], [facility] Basophils/100 WBC (Bld) 0.4 % Normal 0.0-1.0 T abraham [facility] Comment on above: Order Comment: No: D o not add to previous draw Performed By: #### 5 0103 #### [facility] [address] [place] [address], [facility] Eosinophils (Bld) [#/Vol] 0.4 10*3/uL Normal 0.0-0.5 [facility] Comment on above: Order Comment: No: D o not add to previous draw Performed By: #### 5 0103 #### [facility] [address] [place] [address], [facility] Eosinophils/100 WBC (Bld) 3.6 % Normal 0.0-6.0 [facility] Comment on above: Order Comment: No: D o not add to previous draw Performed By: #### 5 0103 #### [facility] [address] [facility] Erythrocyte distribution width (RBC) [Ratio] 14.5 % Normal 11.5-15.0 [facility] Comment on above: Order Comment: No: D o not add to previous draw Performed By: #### 5 0103 #### [facility] [address] [place] [address], [facility] Hematocrit (Bld) [Volume fraction] 40.6 % Normal 36.0-45.0 [facility] Comment on above: Order Comment: No: D o not add to previous draw Performed By: #### 5 0103 #### [facility] [address] [facility] [place] [address], [facility] Hemoglobin (Bld) [Mass/Vol] 13.1 g/dL Normal 12.0-15.0 [facility] Comment on above: Order Comment: No: D o not add to previous draw Performed By: #### 5 0103 #### [facility] [address] [place] [address], [facility] IMMATURE GRANS 0.3 % Normal 0.0-1.0 [facility] Comment on above: Order Comment: No: D o not add to previous draw Performed By: #### 5 0103 #### [facility] [address] [place] [address], [facility] Lymphocytes (Bld) [#/Vol] 2.6 10*3/uL Normal 1.2-4.0 [facility] Comment on above: Order Comment: No: D o not add to previous draw Performed By: #### 5 0103 #### [facility] [address] [place] [address], [facility] Lymphocytes/100 WBC (Bld) 24.4 % Normal 20.0-45.0 [facility] Comment on above: Order Comment: No: D o not add to previous draw Performed By: #### 5 0103 #### [facility] [address] [place] [address], [facility] MCH (RBC) [Entitic mass] 28.2 pg Normal 27.0-33.0 [facility] Comment on above: Order Comment: No: D o not add to previous draw Performed By: #### 5 0103 #### [facility] [address] [place] [address], [facility] MCHC (RBC) [Mass/Vol] 32.3 g/dL Normal 32.0-35.0 [facility] Comment on above: Order Comment: No: D o not add to previous draw Performed By: #### 5 0103 #### [facility] [address] [place] [address], [facility] MCV (RBC) [Entitic vol] 87.3 fL Normal 82.0-98.0 [facility] Comment on above: Order Comment: No: D o not add to previous draw Performed By: #### 5 0103 #### [facility] [address] [place] [address], [facility] Monocytes (Bld) [#/Vol] 1.2 10*3/uL High 0.1-1.0 [facility] Comment on above: Order Comment: No: D o not add to previous draw Performed By: #### 5 0103 #### [facility] [address] [place] [address], [facility] MONOS 11.7 % Normal 5.0-12.0 [facility] Comment on above: Order Comment: No: D o not add to previous draw Performed By: #### 5 0103 #### [facility] [address] [place] [address], [facility] Neutrophils/100 WBC (Bld) 59.6 % Normal 40.0-72.0 [facility] Comment on above: Order Comment: No: D o not add to previous draw Performed By: #### 5 0103 #### [facility] [address] [place] [address], [facility] Nucleated RBC/100 WBC (Bld) [Ratio] 0 % Normal 0-0 [facility] Comment on above: Order Comment: No: D o not add to previous draw Performed By: #### 5 0103 #### [facility] [address] [place] [address], [place] PLAT CNT 294 10*3/uL Normal 150-400 [facility] Comment on above: Order Comment: No: D o not add to previous draw Performed By: #### 5 0103 #### [facility] [address] [place] [address], [facility] RBC (Bld) [#/Vol] 4.65 10*6/uL Normal 3.80-5.00 [facility] Comment on above: Order Comment: No: D o not add to previous draw Performed By: #### 5 0103 #### [facility] [address] [place] [address], [place] WBC (Bld) [#/Vol] 10.52 10*3/uL Normal 4.00-10.60 [facility] Comment on above: Order Comment: No: D o not add to previous draw Performed By: #### 5 0103 #### [facility] [address] [place] [address], [place] HEMOGLOBIN A1Con 01-09-2019 HbA1c (Bld) [Mass fraction] 111 mg/dL Normal 70-126 [facility] Comment on above: Order Comment: No: D o not add to previous draw Performed By: #### 8 5123, 60108 #### [facility] [address] [place] [address], [place] HbA1c (Bld) [Mass fraction] 5.5 % Normal 4.0-6.0 [facility] Comment on above: Order Comment: No: D o not add to previous draw Performed By: #### 8 5123, 56298 #### [facility] [address] [place] [address], [place] LIVER BATTERYon 01-09-2019 Albumin [Mass/Vol] 3.5 g/dL Normal 3.5-5.7 [facility] Comment on above: Order Comment: No: D o not add to previous draw Performed By: #### 0 0071, 74530, 26472, 38086, 38154 #### [facility] [address] [place] [address], [place] ALKALINE PHOSPH 84 IU/L Normal 34-104 [facility] Comment on above: Order Comment: No: D o not add to previous draw Performed By: #### 0 0071, 44919, 32302, 41378, 41017 #### [facility] [address] [place] [address], [place] ALT [Catalytic activity/Vol] 17 U/L Normal 7-52 [facility] Comment on above: Order Comment: No: D o not add to previous draw Performed By: #### 0 0071, 35802, 99467, 15916, 43138 #### [facility] [address] [place] [address], [place] AST [Catalytic activity/Vol] 19 U/L Normal 13-39 [facility] Comment on above: Order Comment: No: D o not add to previous draw Performed By: #### 0 0071, 09608, 87365, 99750, 73686 #### [facility] [address] [place] [address], [place] Bilirubin [Mass/Vol] 0.6 mg/dL Normal 0.3-1.0 [facility] Comment on above: Order Comment: No: D o not add to previous draw Performed By: #### 0 0071, 71418, 97074, 07546, 29297 #### [facility] [address] [place] [address], [facility] Bilirubin.direct [Mass/Vol] 0.2 mg/dL Normal 0.0-0.2 [facility] Comment on above: Order Comment: No: D o not add to previous draw Performed By: #### 0 0071, 26819, 41891, 23668, 52786 #### [facility] [address] [place] [address], [facility] Protein [Mass/Vol] 7.0 g/dL Normal 6.0-8.3 [facility] Comment on above: Order Comment: No: D o not add to previous draw Performed By: #### 0 0071, 99468, 09276, 45519, 29073 #### [facility] [address] [place] [address], [facility] MAGNESIUM BLOODon 01-09-2019 Magnesium [Mass/Vol] 2.1 mg/dL Normal 1.9-2.7 [facility] Comment on above: Order Comment: No: D o not add to previous draw Performed By: #### 0 0071, 94394, 37528, 01339, 30291 #### [facility] [address] [place] [address], [place] POC GLUCOSE LABon 01-09-2019 Glucose [Mass/Vol] 147 mg/dL High 70-100 [facility] Comment on above: Performed By: #### 0 0071, 16164, 82286, 72894, 18212 #### [facility] [address] [place] [address], [facility] Glucose [Mass/Vol] 88 mg/dL Normal 70-100 [facility] Comment on above: Performed By: #### 0 0071, 39272, 55581, 66295, 48970 #### [facility] [address] [place], [place] [id number] [place] [address] PORTABLE CHEST 1 VIEWon PORTABLE CHEST 1 VIEW [facility] Department of Radiology [address] [place] [address] Patient Name: SIVA NICOLAS : 1950 Sex: F Age: Race: White Pt. Location: [address] [place] [address] Patient Status: I Ordered Date: 01/09/2019 1:45:00 [...] findings. Electronically signed by:Deneen Nicholas. Transcribed by: [email or web address], User Resident: LINDA CARPENTER Electronically Signed by: DENEEN NICHOLAS @ 01/12/2019 08:56 AM I personally read this/these film(s) with this resident Normal [facility] Comment on above: Order Comment: No: D o not add to previous draw PROTHROMBIN TIMEon 9 INR Coag (PPP) [Relative time] 1.13 {INR} Normal 0.91-1.16 [facility] Comment on above: Order Comment: [...] CHEST 1995;[id number]. Performed By: #### 5 6101, 22981 #### [facility] [address] PT Coag (PPP) [Time] 14.6 s Normal 12.3-14.8 [facility] Comment on above: Order Comment: No: D o not add to previous draw Result Comment: ALL RESULTS MUST BE INTERPRETED WITH RESPECT TO BLOOD DRAWING ARTIFACT OR DILUTION ERROR OF ANTICOAGULANT AT THE TIME OF SAMPLING. Performed By: #### 5 6101, 25418 #### [facility] [address] [facility] [address] TROPONIN-Ion 01-09-2019 Troponin I.cardiac [Mass/Vol] 0.06 ng/mL High 0.00-0.04 [facility] Comment on above: Order Comment: No: D o not add to previous draw Result Comment: REFE RENCE RANGES: 0.00 - 0.04 ng/ml NORMAL 0.05 - 0.50 ng/ml INDETERMINATE > 0.50 ng/ml CONSISTENT WITH AN M.I. Performed By: #### 0 0071, 01755, 39169, 81334, 85414 #### [facility] [address] [facility]. [address] TSH3on 01-09-2019 TSH 3RD GENERATION 3.44 uIU/mL Normal 0.34-5.60 [facility] Comment on above: Order Comment: No: D o not add to previous draw Performed By: #### 0 0071, 18717, 08837, 57730, 66765 #### [facility] [address] [facility] [address] UFH HEPARIN ASSAYon 01-10-20 19 UNFRACTIONATED HEPARIN 0.67 IU/mL Normal 0.30-0.70 [facility] Comment on above: Result Comment: Sommer roxaban and Apixaban will interfere with the anti Xa assay used to monitor UFH and LMWH. Performed By: #### 0 0071, 77622, 43860, 23594, 87540 #### [place] [address] [address] Vital Signs Date Time Vital Sign Value Performing Clinician Facility 01-25-2025 15:21-0400 Body height 156.21 cm Nicole Guzman MD Work Phone: [facility] 01-25-2025 15:21-0400 Body mass index (BMI) [Ratio] 44.8 kg/m2 Nicole Guzman MD Work Phone: [facility] 01-25-2025 15:21-0400 Body weight 109.31 kg Nicole Guzman MD Work Phone: [facility] 01-25-2025 15:21-0400 Diastolic blood pressure 69 mm[Hg] Nicole Guzman MD Work Phone: [facility] 01-25-2025 15:21-0400 Heart rate 65 /min Nicole Guzman MD Work Phone: [facility] 01-25-2025 15:21-0400 Systolic blood pressure 132 mm[Hg] Nicole Guzman MD Work Phone: [facility] 09-30-2024 09:51-0400 Body height 156.21 cm Jared Rodgers MD [facility] 09-30-2024 09:51-0400 Body mass index (BMI) [Ratio] 46.3 kg/m2 Jared Rodgers MD [facility] 09-30-2024 09:51-0400 Body weight 112.94 kg Jared Rodgers MD [facility] 09-30-2024 09:51-0400 Diastolic blood pressure 61 mm[Hg] Jared Rodgers MD [facility] 09-30-2024 09:51-0400 Heart rate 65 /min Jared Rodgers MD [facility] 09-30-2024 09:51-0400 SaO2% (BldA) [Mass fraction] 89 % Jared Rodgers MD [facility] 09-30-2024 09:51-0400 Systolic blood pressure 107 mm[Hg] Jared Rodgers MD [facility] 09-16-2024 09:59-0400 Body height 156.21 cm Jared Rodgers MD [facility] 09-16-2024 09:59-0400 Body mass index (BMI) [Ratio] 46.5 kg/m2 Jared Rodgers MD [facility] 09-16-2024 09:59-0400 Body weight 113.56 kg Jared Rodgers MD [facility] 09-16-2024 09:59-0400 Diastolic blood pressure 68 mm[Hg] Jared Rodgers MD [facility] 09-16-2024 09:59-0400 Heart rate 57 /min Jared Rodgers MD [facility] 09-16-2024 09:59-0400 Respiratory rate 14 /min Jared Rodgers MD [facility] 09-16-2024 09:59-0400 SaO2% (BldA) [Mass fraction] 93 % Jared Rodgers MD [facility] 09-16-2024 09:59-0400 Systolic blood pressure 109 mm[Hg] Jared Rodgers MD [facility] 08-13-2024 09:28-0400 Body height 156.21 cm Jared Rodgers MD [facility] 08-13-2024 09:28-0400 Body mass index (BMI) [Ratio] 46.3 kg/m2 Jared Rodgers MD [facility] 08-13-2024 09:28-0400 Body weight 112.94 kg Jared Rodgers MD [facility] 08-13-2024 09:28-0400 Diastolic blood pressure 77 mm[Hg] Jared Rodgers MD [facility] 08-13-2024 09:28-0400 Heart rate 55 /min Jared Rodgers MD [facility] 08-13-2024 09:28-0400 SaO2% (BldA) [Mass fraction] 92 % Jared Rodgers MD [facility] 08-13-2024 09:28-0400 Systolic blood pressure 132 mm[Hg] Jared Rodgers MD [facility] 08-10-2024 11:04-0400 Body height 157.5 cm Edi Cosby MD Work Phone: [facility] 08-10-2024 11:04-0400 Body mass index (BMI) [Ratio] 46.2 kg/m2 Edi Cosby MD Work Phone: [facility] 08-10-2024 11:04-0400 Body weight 114.58 kg Edi Cosby MD Work Phone: [facility] 08-10-2024 11:04-0400 Diastolic blood pressure 70 mm[Hg] Edi Cosby MD Work Phone: [facility] 08-10-2024 11:04-0400 Heart rate 48 /min Edi Cosby MD Work Phone: [facility] 08-10-2024 11:04-0400 Systolic blood pressure 120 mm[Hg] Edi Cosby MD Work Phone: [facility] 12-17-2023 13:58-0400 Body height 156.21 cm [facility] 12-17-2023 13:58-0400 Body mass index (BMI) [Ratio] 46.3 kg/m2 [facility] 12-17-2023 13:58-0400 Body weight 112.94 kg [facility] 12-17-2023 13:58-0400 Diastolic blood pressure 77 mm[Hg] [facility] 12-17-2023 13:58-0400 Heart rate 60 /min [facility] 12-17-2023 13:58-0400 Systolic blood pressure 130 mm[Hg] [facility] 10-08-2023 14:53-0400 Body height 157.5 cm Edi Cosby MD Work Phone: [facility] 10-08-2023 14:53-0400 Body mass index (BMI) [Ratio] 45.73 kg/m2 Edi Cosby MD Work Phone: [facility] 10-08-2023 14:53-0400 Body weight 113.4 kg Edi Cosby MD Work Phone: [facility] 10-08-2023 14:53-0400 Diastolic blood pressure 80 mm[Hg] Edi Cosby MD Work Phone: [facility] 10-08-2023 14:53-0400 Heart rate 52 /min Edi Cosby MD Work Phone: [facility] 10-08-2023 14:53-0400 Systolic blood pressure 120 mm[Hg] Edi Cosby MD Work Phone: [facility] 09-16-2023 14:33-0400 Body height 156.21 cm [facility] 09-16-2023 14:33-0400 Body mass index (BMI) [Ratio] 46.4 kg/m2 [facility] 09-16-2023 14:33-0400 Body weight 113.39 kg [facility] 09-16-2023 14:33-0400 Diastolic blood pressure 76 mm[Hg] [facility] 09-16-2023 14:33-0400 Heart rate 52 /min [facility] 09-16-2023 14:33-0400 Systolic blood pressure 118 mm[Hg] [facility] 01-03-2023 14:50-0400 Body height 157.48 cm [facility]man [facility] Work Phone: 01-03-2023 14:50-0400 Body mass index (BMI) [Ratio] 44.63 kg/m2 Nicole Guzman Work Phone: [facility] Work Phone: 01-03-2023 14:50-0400 Body surface area Derived from formula 2.08 m2 Nicole Guzman Work Phone: [facility] 250 DO Work Phone: 01-03-2023 14:50-0400 Body weight 110.68 kg Nicole Guzman Work Phone: [facility] 250 DO Work Phone: 01-03-2023 14:50-0400 Diastolic blood pressure 62 mm[Hg] Nicole Guzman Work Phone: [facility] [employer] 250 DO Work Phone: 01-03-2023 14:50-0400 Heart rate 62 /min Nicole Guzman Work Phone: [facility] 250 DO Work Phone: 01-03-2023 14:50-0400 Systolic blood pressure 108 mm[Hg] Nicole Guzman Work Phone: [facility] [employer] 250 DO Work Phone: 11-26-2022 13:45-0400 Body height 156.21 cm Nicole Guzman Other [employer] Other 11-26-2022 13:45-0400 Body mass index (BMI) [Ratio] 46.28 kg/m2 Nicole Guzman Other [employer] Other 11-26-2022 13:45-0400 Body weight 112.95 kg Nicole Guzman Other [employer] Other 11-26-2022 13:45-0400 Diastolic blood pressure 79 mm[Hg] Nicole Guzman Other [employer] Other 11-26-2022 13:45-0400 SaO2% (BldA) [Mass fraction] 89 % Nicole Guzman Other [employer] Other 11-26-2022 13:45-0400 Systolic blood pressure 149 mm[Hg] Nicole Guzman Other [employer] Other 08-23-2022 14:45-0400 Body height 156.21 cm Nicole Guzman Other [employer] Other 08-23-2022 14:45-0400 Body mass index (BMI) [Ratio] 47.95 kg/m2 Nicole Guzman Other [employer] Other 08-23-2022 14:45-0400 Body weight 117.03 kg Nicole Guzman Other [employer] Other 08-23-2022 14:45-0400 Diastolic blood pressure 82 mm[Hg] Nicole Guzman Other [employer] Other 08-23-2022 14:45-0400 SaO2% (BldA) [Mass fraction] 90 % Nicole Guzman Other [employer] Other 08-23-2022 14:45-0400 Systolic blood pressure 114 mm[Hg] Nicole Guzman Other [employer] Other 06-18-2022 14:30-0500 Body height 156.21 cm Nicole Guzman Other [employer] Other 06-18-2022 14:30-0500 Body mass index (BMI) [Ratio] 47.77 kg/m2 Nicole Guzman Other [employer] Other 06-18-2022 14:30-0500 Body weight 116.58 kg Nicole Guzman Other [employer] Other 06-18-2022 14:30-0500 Diastolic blood pressure 70 mm[Hg] Nicole Guzman Other [employer] Other 06-18-2022 14:30-0500 SaO2% (BldA) [Mass fraction] 90 % Nicole Guzman Other [employer] Other 06-18-2022 14:30-0500 Systolic blood pressure 146 mm[Hg] Nicole Guzman Other [employer] Other 05-14-2022 14:14-0500 Body height 157.48 cm Nicole Guzman Work Phone[facility] DO Work Phone: 05-14-2022 14:14-0500 Body mass index (BMI) [Ratio] 47.74 kg/m2 Nicole Guzman Work Phone: [facility] DO Work Phone: 05-14-2022 14:14-0500 Body surface area Derived from formula 2.14 m2 Nicole Guzman Work Phone: [facility] 250 DO Work Phone: 05-14-2022 14:14-0500 Body weight 118.39 kg Nicole Guzman Work Phone: [facility] 250 DO Work Phone: 05-14-2022 14:14-0500 Diastolic blood pressure 86 mm[Hg] Nicole Guzman Work Phone: [facility] 250 DO Work Phone: 05-14-2022 14:14-0500 Heart rate 62 /min Nicole Guzman Work Phone: [facility] 250 DO Work Phone: 05-14-2022 14:14-0500 Systolic blood pressure 122 mm[Hg] Nicole Guzman Work Phone: [facility] DO Work Phone: 12-19-2021 13:42-0400 Body height 157.48 cm Nicole Guzman Work Phone: [facility] 250 DO Work Phone: 12-19-2021 13:42-0400 Body mass index (BMI) [Ratio] 45.73 kg/m2 Nicole Guzman Work Phone: [facility] 250 DO Work Phone: 12-19-2021 13:42-0400 Body surface area Derived from formula 2.1 m2 Nicole Guzman Work Phone: [facility] 250 DO Work Phone: 12-19-2021 13:42-0400 Body weight 113.4 kg Nicole Guzman Work Phone: [facility] 250 DO Work Phone: 12-19-2021 13:42-0400 Diastolic blood pressure 76 mm[Hg] Nicole Guzman Work Phone: [facility] 250 DO Work Phone: 12-19-2021 13:42-0400 Heart rate 61 /min Nicole Guzman Work Phone: [facility] 250 DO Work Phone: 12-19-2021 13:42-0400 Systolic blood pressure 130 mm[Hg] Nicole Guzman Work Phone: [facility] 250 DO Work Phone: 08-31-2021 16:00-0400 Body height 165.1 cm Renzo Hein Other [employer] Other 08-31-2021 16:00-0400 Body mass index (BMI) [Ratio] 41.66 kg/m2 Renzo Hein Other [employer] Other 08-31-2021 16:00-0400 Body weight 113.58 kg Renzo Hein Other [employer] Other 08-31-2021 16:00-0400 Diastolic blood pressure 88 mm[Hg] Renzo Angel Luis Other [employer] Other 08-31-2021 16:00-0400 SaO2% (BldA) [Mass fraction] 88 % Renzo Hein Other [employer] Other 08-31-2021 16:00-0400 Systolic blood pressure 140 mm[Hg] Renzo Hein Other [employer] Other 08-14-2021 14:15-0400 Body height 165.1 cm Renzo Hein Other [employer] Other 08-14-2021 14:15-0400 Body mass index (BMI) [Ratio] 41.56 kg/m2 Renzo Hein Other [employer] Other 08-14-2021 14:15-0400 Body weight 113.31 kg Renzo Hein Other [employer] Other 08-14-2021 14:15-0400 Diastolic blood pressure 80 mm[Hg] Renzo Hein Other [employer] Other 08-14-2021 14:15-0400 SaO2% (BldA) [Mass fraction] 97 % Renzo Hein Other [employer] Other 08-14-2021 14:15-0400 Systolic blood pressure 130 mm[Hg] Renzo Hein Other [employer] Other 07-26-2021 14:15-0500 Body height 165.1 cm Renzo Hein Other [employer] Other 07-26-2021 14:15-0500 Body mass index (BMI) [Ratio] 41.93 kg/m2 Rezno Hein Other [employer] Other 07-26-2021 14:15-0500 Body weight 114.31 kg Renzo Hein Other [employer] Other 07-26-2021 14:15-0500 SaO2% (BldA) [Mass fraction] 91 % Renzo Hein Other [employer] Other 06-22-2021 16:00-0500 Body height 165.1 cm Renzo Hein Other [employer] Other 06-22-2021 16:00-0500 Body mass index (BMI) [Ratio] 42.26 kg/m2 Renzo Hein Other [employer] Other 06-22-2021 16:00-0500 Body weight 115.21 kg Renzo Hein Other [employer] Other 06-22-2021 16:00-0500 Diastolic blood pressure 90 mm[Hg] Renzo Hein Other [employer] Other 06-22-2021 16:00-0500 SaO2% (BldA) [Mass fraction] 93 % Renzo Hein Other [employer] Other 06-22-2021 16:00-0500 Systolic blood pressure 140 mm[Hg] Renzo Hein Other [facility] [employer] Other 06-21-2021 13:24-0500 Diastolic blood pressure 76 mm[Hg] Nicole Guzman Work Phone: [facility] 250 DO Work Phone: 06-21-2021 13:24-0500 Systolic blood pressure 139 mm[Hg] Nicole Guzman Work Phone: [facility] 250 DO Work Phone: 06-21-2021 13:11-0500 Body height 157.48 cm Nicole Guzman Work Phone: [facility] 250 DO Work Phone: 06-21-2021 13:11-0500 Body mass index (BMI) [Ratio] 46.46 kg/m2 Nicole Guzman Work Phone: [facility] 250 DO Work Phone: 06-21-2021 13:11-0500 Body surface area Derived from formula 2.12 m2 Nicole Guzman Work Phone: [facility] 250 DO Work Phone: 06-21-2021 13:11-0500 Body weight 115.21 kg Nicole Guzman Work Phone: [facility] 250 DO Work Phone: 06-21-2021 13:11-0500 Diastolic blood pressure 90 mm[Hg] Nicole Guzman Work Phone: [facility] 250 DO Work Phone: 06-21-2021 13:11-0500 Heart rate 55 /min Nicole Guzman Work Phone: [facility] 250 DO Work Phone: 06-21-2021 13:11-0500 Systolic blood pressure 142 mm[Hg] Nicole Guzman Work Phone: -[facility] 250 DO Work Phone: Encounters Encounter Date Encounter Type Care Provider Facility Start: 01-25-2025 End: 01-25-2025 ambulatory Nicole Guzman MD Work Phone: [facility] Work Phone: Start: 01-25-2025 End: 01-25-2025 Patient encounter procedure Nicole Guzman MD -[facility] Work Phone: Start: 09-30-2024 End: 09-30-2024 ambulatory Jared Rodgers MD [facility] Work Phone: Start: 09-30-2024 End: 09-30-2024 Patient encounter procedure Jared Rodgers MD [facility] Physician [facility] Work Phone: Start: 09-16-2024 End: 09-16-2024 ambulatory Jared Rodgers MD [facility] Work Phone: Start: 09-16-2024 End: 09-16-2024 Patient encounter procedure Jared Rodgers MD [facility] Work Phone: Start: 08-13-2024 Patient encounter status Jared Rodgers MD [facility] Start: 08-13-2024 End: 08-13-2024 ambulatory Jared Rodgers MD [facility] Work Phone: Start: 08-13-2024 End: 08-13-2024 Patient encounter procedure Jared Rodgers MD [facility] Work Phone: Start: 08-10-2024 End: 08-10-2024 ambulatory [facility] Ambulatory Start: 08-10-2024 End: 08-10-2024 Office outpatient visit 25 minutes Edi Cosby MD Work Phone: [facility] Comment on above: Paroxysmal atrial fi brillation (Multi) (Primary Dx); CAD, multiple vessel; Mixed hyperlipidemia; Essential hypertension; Anticoagulated; Localized edema; Bradycardia; BMI 45.0-49.9, adult (Multi); Former smoker Start: 12-17-2023 End: 12-17-2023 ambulatory MD Jared Rodgers [facility] Work Phone: Start: 12-17-2023 End: 12-17-2023 Patient encounter procedure MD Jared Rodgers [facility] Work Phone: Start: 10-08-2023 End: 10-08-2023 Office outpatient visit 25 minutes Edi Cosby MD Work Phone: [facility] Comment on above: CAD, multiple vessel (Primary Dx); Mixed hyperlipidemia; Essential hypertension; Paroxysmal atrial fibrillation (Multi); Anticoagulated; Chronic obstructive pulmonary disease, unspecified COPD type (Multi); BMI 45.0-49.9, adult (Multi); Former smoker Start: 10-08-2023 End: 10-08-2023 ambulatory [facility] Ambulatory Start: 09-16-2023 Patient encounter procedure MD Jared Rodgers [facility] Start: 09-16-2023 End: 09-16-2023 ambulatory MD Jared Rodgers [facility] Work Phone: Start: 09-16-2023 End: 09-16-2023 Patient encounter procedure MD Jared Rodgers [facility] Physician [facility] Work Phone: Start: 08-05-2023 Non-patient / [facility] [place] Work Phone: Start: 04-24-2023 End: 04-24-2023 ambulatory Nicole Guzman Other [facility] [employer] Other Start: 04-24-2023 Telephone encounter Nicole Guzman [facility] Start: 03-25-2023 End: 03-25-2023 ambulatory Nicole Guzman Facility:[facility] Start: 03-25-2023 End: 03-25-2023 ambulatory MD Nicole Guzman Work Phone: [facility] Work Phone: Start: 03-25-2023 End: 03-25-2023 Patient encounter procedure MD Nicole Guzman Work Phone: [facility] Work Phone: Start: 02-27-2023 End: 02-27-2023 ambulatory Nicole Guzman Other [employer] Other Start: 02-27-2023 Telephone encounter Nicole Guzman [facility] [facility] Start: 02-13-2023 Rx Renewal Nicole Guzman Work Phone: [facility] 250 DO Work Phone: Start: 02-11-2023 End: 02-11-2023 ambulatory Nicole Guzman Other [employer] Other Start: 02-11-2023 Telephone encounter Nicole Guzman [facility] Start: 01-03-[address] Nicole Guzman Facility: Start: 01-03-2023 FUV, Provider: Edi Cosby, Status: Pen, Time: 2:10 PM Nicole Guzman Work Phone: [facility] 250 DO Work Phone: Start: 01-03-2023 Office outpatient vi sit 25 minutes Nicole Guzman Work Phone: [facility] 250 DO Work Phone: Start: 01-01-2023 Chart Update Nicole Guzman Work Phone: [facility] 250 DO Work Phone: Start: 01-01-2023 End: 01-01-2023 ambulatory Edi Cosby Facility:[facility] Start: 01-01-2023 End: 01-01-2023 ambulatory MD Nicole Guzman Work Phone: [facility] Work Phone: Start: 01-01-2023 End: 01-01-2023 Patient encounter procedure MD Nicole Guzman Work Phone: [facility] [place] Work Phone: Start: 11-27-2022 End: 11-27-2022 ambulatory Nicole Guzman Other [employer] Other Start: 11-27-2022 Telephone encounter Nicole Guzman [facility] Start: 11-26-2022 End: 11-26-2022 ambulatory Nicole Guzman Other [employer] Other Start: 11-26-2022 Office outpatient vi sit 15 minutes Nicole Guzman [facility] Start: 11-01-[address] NICOLE GUZMAN Facil ity:H1 Start: 10-11-2022 End: 10-11-2022 ambulatory Nicole Guzman Other [employer] Other Start: 10-11-2022 Telephone encounter Nicole Guzman [facility] Start: 10-09-2022 End: 10-09-2022 ambulatory Nicole Guzman Other [employer] Other Start: 10-09-2022 Telephone encounter Nicole Guzman [facility] Start: 08-23-2022 End: 08-23-2022 ambulatory Nicole Guzman Other [employer] Other Start: 08-23-2022 Office outpatient vi sit 15 minutes Nicole Guzman [facility] Start: 06-18-2022 End: 06-18-2022 ambulatory Nicole Guzman Other [employer] Other Start: 06-18-2022 Office outpatient vi sit 15 minutes Nicole Guzman [facility] Start: 05-14-2022 Office outpatient vi sit 25 minutes [facility] Work Phone: Start: 05-14-[address] Edi Cosby Facility: Start: 04-16-[address] NICOLE GUZMAN [facility] ity:H1 Start: 03-30-2022 End: 03-31-2022 ambulatory KRISTOPHERLIONEL MELCHOR . Facility:H1 Start: 03-27-2022 Adult health examination Nicole Guzman Other [facility] [employer] Other Start: 02-19-2022 End: 02-19-[address] SVETLANA CHAPMAN Facility:H1 Start: 02-14-2022 End: 02-15-2022 ambulatory KRISTOPHERLIONEL MELCHOR . Facility:H1 Start: 12-19-2021 Office outpatient vi sit 25 minutes Nicole Guzman Work Phone: [facility] 250 DO Work Phone: Start: 12-12-2021 Encounter for genera l adult medical examination without abnormal findings DR EDI COSBY [facility] Start: 12-08-2021 End: 12-09-[address] EDI COSBY Facility:H1 Start: 12-08-2021 End: 12-09-2021 Encounter for general adult medical examination without abnormal findings DR EDI COSBY Facility:H1 Start: 11-17-2021 End: 11-18-[address] SVETLANA CHAPMAN Facility:H1 Start: 11-14-2021 Telephone encounter Nicole gutierrez Work Phone: [facility] [place] Work Phone: Start: 11-08-2021 End: 11-09-[address] NICOLE GUZMAN Facility:H1 Start: 09-22-2021 End: 09-23-[address] NICOLE GUZMAN Facility:H1 Start: 09-06-2021 End: 09-23-[address] NICOLE GUZMAN Facility:H1 Start: 08-31-2021 End: 08-31-2021 ambulatory Renzo Angel Luis Other [employer] Other Start: 08-31-2021 Office outpatient vi sit 25 minutes Renzo Angel Luis [facility] Start: 08-14-2021 End: 08-14-2021 ambulatory Renzo Angel Luis Other [employer] Other Start: 08-14-2021 Office outpatient vi sit 25 minutes Renzo Angel Luis [facility] Start: 07-26-2021 End: 07-26-2021 ambulatory Renzo Angel Luis Other [employer] Other Start: 07-26-2021 Office outpatient vi sit 25 minutes Renzo Angel Luis [facility] Start: 06-22-2021 End: 06-22-2021 ambulatory Renzo Angel Luis Other [employer] Other Start: 06-22-2021 Office consultation new/estab patient 60 min Renzo Angel Luis [facility] Start: 06-21-2021 Office outpatient vi sit 25 minutes Nicole Guzman Work Phone: [facility] 250 DO Work Phone: Start: 01-09-2019 End: 01-12-2019 Evaluation and management of inpatient Manju Blackwell Facility:[facility] Start: 12-20-2003 Evaluation and management of inpatient MD Nicole Guzman Work Phone: [facility] Work Phone: Procedures Date Procedure Procedure Detail Performing Clinician Start: 08-10-2024 Ecg routine ecg w/le ast 12 lds w/i&r Edi Cosby MD Work Phone: Start: 01-09-2019 [facility] Cardi ac Rhythm, Single MOSHRIK ABD [...] DTaP/Tdap/Td Vaccines (2 - Td or Tdap) [facility] Start: 06-18-2025 End: 06-18-2025 Patient encounter procedure 06/18/2025 10:20 AM EST Office Visit [facility] [address] [place] [address] Edi Cosby MD [address] [place] [address] [facility] Start: 07-17-2024 End: 07-17-2024 Patient encounter procedure 07/17/2024 11:20 AM EST Office Visit [facility] [address] [place] [address] Edi Cosby MD [address] [place] [address] [facility] Start: 02-02-2024 COVID-19 Vaccine () COVID-19 Vaccine () [facility] Start: 10-08-2023 FUV, Provider: Edi Cosby, Status: Pen, Time: 2:40 PM FUV, Provider: Edi Cosby, Status: Pen, Time: 2:40 PM [facility] 250 DO Work Phone: Start: 08-03-2023 COVID-19 Vaccine ( season) COVID-19 Vaccine () [facility] Start: 03-25-2023 Screening mammography of bilateral breasts MM screening mammo BI w/CAD [facility] Start: 11-13-2022 FUV, Provider: Edi Cosby, Status: Pen, Time: 2:50 PM FUV, Provider: Edi Cosby, Status: Pen, Time: 2:50 PM [facility] [employer] 250 DO Work Phone: Start: 05-22-2022 FUV, Provider: Edi Cosby, Status: Pen, Time: 2:20 PM FUV, Provider: Edi Cosby, Status: Pen, Time: 2:20 PM [facility] [employer] 250 DO Work Phone: Start: 12-19-2021 FUV, Provider: Edi Cosby, Status: Pen, Time: 1:30 PM FUV, Provider: Edi Cosby, Status: Pen, Time: 1:30 PM [facility] [employer] 250 DO Work Phone: Start: 1998 Zoster Vaccines (1 of 2) Zoster Vaccines (1 of 2) [facility] Start: 1988 Screening for malignant neoplasm of breast Mammogram [facility] Start: 11-21-1967 Urine screening for protein Diabetes: Urine Protein Screening [facility] Start: 1966 Hepatitis C screening Hepatitis C Screening [facility] Start: 1958 Diabetic foot examination Diabetes: Foot Exam [facility] Start: 1958 Glaucoma screening Diabetes: Retinopathy Screening [facility] Start: 1948 Hemoglobin A1c measurement Diabetes: Hemoglobin A1C [facility] Start: 1948 Lipid panel Lipid Panel [facility] Start: 1948 Medicare Annual Wellness Visit Medicare Annual Wellness Visit (AWV) [facility] Start: 1948 Screening for malignant neoplasm of colon [facility] Start: 1948 Screening for osteoporosis Bone Density Scan [facility] Start: 1948 Thyroid stimulating hormone measurement TSH Level [facility] Start: 1948 Urine screening for protein Diabetes: Urine Protein Screening [facility] Comprehensive metabo lic 2000 panel - Serum or Plasma [facility] Patient Education Exercises (man euvers) for benign paroxysmal positional vertigo [facility] Work Phone: [facility] Immunizations Immunization Date Immunization Notes Care Provider Fa cility 03-03-2024 influenza, seasonal, injectable Edi Cosby MD Work Phone: [facility] 03-13-2022 COVID-19 Pfizer (Pediatric) Nicole Guzman Other [facility] 03-13-2022 Pfizer COVID-19 Vac Bivalent 30 MCG/0.3ML Intramuscular Suspension Nicole Guzman Work Phone: [facility] [employer] 250 DO Work Phone: 03-09-2022 Fluad Quadrivalent 0 .5 ML Intramuscular Prefilled Syringe Nicole Guzman Work Phone: [facility] [employer] 250 DO Work Phone: 03-09-2022 influenza virus vaccine, split virus (incl. purified surface antigen) Nicole Guzman Other [employer] Other 03-09-2022 influenza virus vaccine, unspecified formulation MD Jared Rodgers [facility] 04-17-2021 Moderna COVID-19 Vaccine 100 MCG/0.5ML Intramuscular Suspension Nicole Guzman Work Phone: [facility] [employer] 250 DO Work Phone: 02-21-2021 Fluad Quadrivalent 0 .5 ML Intramuscular Prefilled Syringe Nicole E Guzman [facility] Work Phone: 02-21-2021 influenza virus vaccine, split virus (incl. purified surface antigen) Nicole Guzman Other [employer] Other 02-21-2021 influenza virus vaccine, unspecified formulation MD [facility] 08-09-2020 Moderna COVID-19 Vaccine 100 MCG/0.5ML Intramuscular Suspension Nicole E Guzman Work Phone: [place] [address] DO Work Phone: 07-11-2020 Moderna COVID-19 Vaccine 100 MCG/0.5ML Intramuscular Suspension Nicole E Guzman Work Phone: [place] [address] DO Work Phone: 02-15-2020 influenza virus vaccine, split virus (incl. purified surface antigen) Nicole Guzman Other [facility] [employer] Other 02-15-2020 influenza virus vaccine, unspecified formulation MD [facility] 02-15-2020 influenza, injectabl e, quadrivalent, preservative free Nicole E Guzman Work Phone: [place] [address] DO Work Phone: 02-02-2020 influenza, high dose seasonal, preservative-free Nicole E Guzman Work Phone: [place] [address] DO Work Phone: 03-20-2019 Seasonal trivalent influenza vaccine, adjuvanted, preservative free Nicole E Guzman Work Phone: [place] [address] DO Work Phone: 05-05-2018 influenza virus vaccine, split virus (incl. purified surface antigen) Nicole Guzman Other [facility] [employer] Other 05-05-2018 influenza virus vaccine, unspecified formulation MD [facility] 05-05-2018 pneumococcal polysaccharide vaccine, 23 valent Nicole Guzman Work Phone: [facility] 05-05-2018 Seasonal trivalent influenza vaccine, adjuvanted, preservative free Nicole E Guzman Work Phone: [facility] DO Work Phone: 03-02-2018 pneumococcal conjuga te vaccine, 13 valent Nicole E Guzman Work Phone: [facility] 250 DO Work Phone: 04-02-2017 pneumococcal conjuga te vaccine, 13 valent Nicole Guzman Other [facility] 03-15-2017 influenza, high dose seasonal, preservative-free Nicole E Guzman Work Phone: [facility] 250 DO Work Phone: 03-15-2017 pneumococcal conjuga te vaccine, 13 valent Nicole E Guzman Work Phone: [facility] DO Work Phone: 03-15-2016 influenza, high dose seasonal, preservative-free Nicole E Guzman Work Phone: [facility] 250 DO Work Phone: Payers Date Payer Category Payer Medicare (Managed Care) [facility] [employer] [id number] 2024 Medicare [id number] 2023 Unknown 2023 Self-pay [id number] 2020 Unknown [id number] 1959 Medicare [id number] 1959 Self-pay [id number] 1948 Unknown [id number] 2.16.840.1.730673.3.579.2. 647 1948 Unknown [id number] 2.16.840.1.056375.3.579.2. 593 1948 Unknown [id number] 2.16.840.1.939972.3.579.2. 593 1948 Unknown [id number] 2.16.840.1.045477.3.579.2. 593 1948 Unknown [id number] 2.16.840.1.269556.3.579.2. 593 1948 Unknown [id number] 2.16.840.1.292110.3.579.2. 593 1948 Unknown [id number] 2.16.840.1.175848.3.579.2. 593 1948 Unknown [id number] 2.16.840.1.054182.3.579.2. 593 1948 Unknown [id number] 2.16.840.1.297714.3.579.2. 593 1948 Unknown [id number] 2.16.840.1.343221.3.579.2. 593 1948 Unknown [id number] 2.16.840.1.405899.3.579.2. 356 1948 Unknown [id number] 2.16.840.1.781589.3.579.2. 356 1948 Unknown [id number] 2.16.840.1.325820.3.579.2. 1244 1948 Unknown [id number] 2.16.840.1.746349.3.579.2. 1244 Medicare [id number] Medicare [id number] [id number] Private Health Insurance [facility] [id number] Unknown [id number] Unknown [id number] 2.16.840.1.862481.3.579.2. 593 Unknown [id number] 2.16.840.1.858449.3.579.2. 531 Unknown [id number] 2.16.840.1.825285.3.579.2. 531 Unknown Regular Insurance [id number] Social History Date Type Detail Facility Start: 10-08-2023 Social alcohol use Social alcohol e -[facility] 250 DO Work Phone: Comment on above: 1 cup of caffeine da bill; quit 2011 1.5 ppd; Start: 10-08-2023 Sex Assigned At [facility] [employer] Other Start: 01-06-2019 End: 11-26-2022 Tobacco smoking status NHIS Ex-smoker (finding) [facility] Start: 1950 Sex Assigned At Female F [facility] History of tobacco use Current smoker [facility] Work Phone: History of tobacco use Cigarette Smoker [facility] Work Phone: Start: 10-08-2023 Tobacco use and exposure Smokeless tobacco non-user [facility] Work Phone: Start: 10-08-2023 End: 08-10-2024 Alcoholic beverage intake Lifetime non-drinker (finding) [facility] Work Phone: Start: 1950 Sex assigned at Not on file [facility] Work Phone: Start: 09-28-2023 End: 08-10-2024 Exposure to SARS-CoV-2 (event) Not sure [facility] Start: 08-13-2024 End: 09-30-2024 Sex Female (finding) [facility] Medical Equipment Procedure Code Equipment Code Equipment [...] FDA Start: 01-06-2019 Clinical Notes 06-22-2021 to 08-13-2024 Note Date & Type Note Facility 08-13-2024 Evaluation note Diagnosis Onset Date Resolution COPD (chronic obstructive pulmonary disease) acute August 13, 2024 9:19am Hypertension acute August 13, 2024 9:19am Hypothyroidism acute August 9:19am Type II diabetes mellitus acute August 13, 2024 9:19am COPD (chronic obstructive pulmonary disease) acute September 16, 2024 9:57am Hypertension acute September 16, 2024 9:57am Localized osteoarthritis of left knee acute September 16, 2024 9:57am Medicare annual wellness visit, subsequent acute September 16 9:57am Type II diabetes mellitus acute September 16, 2024 9:57am [facility] Work Phone: 1(750) 866-510103-13-2025 Evaluation note* Diagnosis Onset Date Resolution Status Admit Date COPD (chronic obstructive pulmonary disease) acute August 13, 2 025 9:19am Hypertension acute August 13, 2024 9:19am Hypothyroidism acute August 9:19am Type II diabetes mellitus acute August 13, 2024 9:19am COPD (chronic obstructive pulmonary disease) acute September 16, 2 025 9:57am Hypertension acute September 16, 2024 9:57am Localized osteoarthritis of left knee acute September 16, 2024 9:57am Medicare annual wellness vis it, subsequent acute September 16, 2024 9:57am Type II diabetes mellitus acute September 16, 2024 9:57am Oxygen dependent acute September 302024 9:48am [facility] Work Phone: 1(344) 383-150303-10-2025 History of Present illness Narrative* Edi Cosby MD - 08/10/2024 10:00 AM EDT Subjective Siva Nicolas is a 73 y.o. [...] sinus bradycardia she reports she could not tolerateOzempic on Eliquis. No recent recurrence 3. Morbid [...] by mouth once daily at bedtime., Disp: ,Rfl: cholecalciferol (Vitamin D3) 50 mcg (2,000 unit) capsule, Take 1 capsule (50 mcg) by mouth early inthe morning.., Disp: , Rfl: citalopram (CeleXA) 40 mg tablet, Take 1 tablet (40 mg) by mouth once daily., Disp: , Rfl: qilhjrcchnz-letlaubsk-upumjqbo (Trelegy Ellipta) 200-62.5-25 mcg blister with device, [...] 1 tablet (25 mg) by mouth once daily.,Disp: , Rfl: multivitamin tablet, Take 1 tablet [...] the direction and in the presence of MD Pamella. Provider Attestation - Scribe documentation All medical record entries made by the Scribe were at my direction and personally dictated by me. Ihave reviewed the chart and agree that the record accurately reflects my personal performance of the history, physical exam, discussion and plan. documented in this [facility] Work Phone: 1(671) 541-753403-10-2025 Instructions* Patient Instructions* Rylee Cevallos LPN - 08/10/2024 10:00 AM [...] 88.9 Lbs Provided instructions on dietary changes. * Attachments The following attachments cannot be sent through Care Everywhere. * Heart Healthy Diet (Moroccan) documented in this [facility] Work Phone: 1(140) 753-981105-07-2024 History of Present illness Narrative* Edi Cosby MD - 10/08/2023 2:40 PM EDT Subjective Siva Nicolas is a 72 y.o. [...] by mouth once daily at bedtime., Disp: ,Rfl: cholecalciferol (Vitamin D3) 50 mcg (2,000 unit) capsule, Take 1 capsule (50 mcg) by mouth early inthe morning.., Disp: , Rfl: citalopram (CeleXA) 40 mg tablet, Take 1 tablet (40 mg) by mouth once daily., Disp: , Rfl: njtoliccwrj-wcnbbdpfj-znaerros (Trelegy Ellipta) 200-62.5-25 mcg blister with device, [...] 1 tablet (25 mg) by mouth once daily.,Disp: , Rfl: multivitamin tablet, Take 1 tablet [...] the direction and in the presence of MD Pamella. Provider Attestation - Scribe documentation All medical record entries made by the Scribe were at my direction and personally dictated by me. Ihave reviewed the chart and agree that the record accurately reflects my personal performance of the history, physical exam, discussion and plan. documented in this [facility] Work Phone: [phone]) 449-873105-07-2024 Instructions* Patient Instructions* Carey Portillo LPN - 10/08/2023 2:40 PM [...] instructions on dietary changes. documented in this [facility] Work Phone: 1(731) 718-748111-22-2023 Evaluation note* Encounter Date Diagnosis Assessment Notes Treatment Notes Treatment Clinical Notes Apr, COVID-19 (ICD-10 - U07.1) Apr, Nausea (ICD-10 - R11.0) [employer] Other 09-27-2023 Evaluation note* Encounter Date Diagnosis Assessment Notes Treatment Notes Treatment Clinical Notes Feb, Screening mammogram for breast cancer (ICD-10 - Z12.31) [employer] Other 06-27-2023 Evaluation note* Encounter Date Diagnosis Assessment Notes Treatment Notes Treatment Clinical Notes Nov, Type 2 diabetes mellitus with hyperglycemia, without long-term current use of insulin (ICD-10 - E11.65) [employer] Other 06-26-2023 Evaluation note* Encounter Date Diagnosis [...] exercising at [facility] and as tolerated. [employer] Other 05-11-2023 Evaluation note* Encounter Date Diagnosis Assessment Notes Treatment Notes Treatment Clinical Notes October, Type 2 diabetes mellitus with hyperglycemia, without long-term current use of insulin (ICD-10 - E11.65) [employer] Other 05-09-2023 Evaluation note* Encounter Date Diagnosis Assessment Notes Treatment Notes Treatment Clinical Notes October, Type 2 diabetes mellitus with hyperglycemia, without long-term current use of insulin (ICD-10 - E11.65) [employer] Other 03-23-2023 Evaluation note* Encounter Date Diagnosis [...] - keep followup appt w Dr. Melchor [employer] Other 01-16-2023 Evaluation note* Encounter Date Diagnosis Assessment Notes Treatment Notes Treatment Clinical Notes Jun, De Quervain's tenosynovitis, left (ICD-10 - M65.4) Potential injection and thumb would be helpful Jun, COPD (chronic obstructive pulmonary disease) (ICD-10 - J44.9) Clear on present medicines continue pulmonary rehab as able. Jun, Morbid obesity (ICD-10 - E66.01) Encouraged healthy diet and exercise for weight loss [employer] Other 05-02-2022 NoteTRAUMA CONSULT / H&P Patient [...] in 2011 (03/24/2019 14:13 - Varun, Cynthia Toribio) Psychosocial History No active psychosocial history has [...] vomiting, no? diarrhea, n (more content not included)...[facility]Result Comment: Electronically Signed By: Lori Francois PA-C\.br\Date and Time Signed: 09/27/21 13:31 EDT\.br\Electronically Co-Signed By: Param HO, Vesta Lyons\.br\Date and Time Co-Signed: 10/01/21 22:11 [id number] Evaluation note* Encounter Date Diagnosis Assessment Notes [...] Proceed with physical therapy at this time. [employer] Other 03-14-2022 Evaluation note* Encounter Date Diagnosis [...] (ICD-10 - G89.29) Continue medications as prescribed [employer] Other 02-23-2022 Evaluation note* Encounter Date Diagnosis [...] (ICD-10 - G89.29) Continue medications as prescribed [employer] Other 01-20-2022 Evaluation note* Encounter Date Diagnosis [...] has been recently seeing pain management in [place] where she is receiving injections. Prior to [...] pain. In the meantime, I will prescribe Osceola 5325mg up to twice daily as needed. [...] pain (ICD-10 - G89.29) UDS performed through [employer] today, will await confirmatory results. Patient has continued need for [place]. OARRS report processed and reviewed and shows no violations. Patient was educated on the risks and benefits of fdc opioid use.Osceola was refilled today, opioid risk assessment was [...] negative findings were considered in medical decision-making. [employer] Other Evaluation noteNo assessment information available [facility] Work Phone: Evaluation noteNo InformationNort [employer] Other Evaluation note* Diagnosis Onset Date Resolution Status Medicare annual wellness visit, subsequent acute Type II diabetes mellitus ac [employer] [facility] Work Phone: Evaluation note* Diagnosis CAD, multiple vessel- Primary Mixed hyperlipidemia Essential hypertension Unspecified essential hypertension Paroxysmal atrial fibrillation (Multi) Atrial fibrillation Anticoagulated Encounter for long-term (current) use of anticoagulants Chronic obstructive pulmonary disease, unspecified COPD type (Multi) BMI 45.0-49.9, adult (Multi) Former smoker Personal history of tobacco use, presenting hazards to health documented in this encounter [facility] Work Phone: Evaluation note* Diagnosis Paroxysmal atrial fibrillation (Multi)- Primary Atrial fibrillation CAD, multiple vessel Mixed hyperlipidemia Essential hypertension Unspecified essential hypertension Anticoagulated Encounter for long-term (current) use of anticoagulants Localized edema Edema Bradycardia Other specified cardiac dysrhythmias BMI 45.0-49.9, adult (Multi) Former smoker Personal history of tobacco use, presenting hazards to health documented in this encounter [facility] Work Phone: Evaluation note* Diagnosis Onset Date Resolution Status Admit Date Hypertension acute August 13, 2024 9:19am Hypothyroidism acute August 9:19am Type II diabetes mellitus acute August 13, 2024 9:19am [facility] Work Phone: [facility] general Narrative - Reported* Type Description Date Medical History COPD Medical History Diabietes Medical History high cholestrol Medical History hypertension Medical History left ankle fracture Medical History DC Medical History DEPRESSION Medical History HYPERLIPIDEMIA Medical History MORBID OBESITY Medical History hypothyroidism Medical History GERD Medical History DIVERTICULOSIS Medical History OSTEOARTHRITIS KNEE Surgical History heart stents Surgical History right ankle Surgical History lumbar surgery Surgical History right ovary removed Surgical History left tubal removal Hospitalization History see above Hospitalization History DC Hospitalization History hypertension Hospitalization History dehydration [employer] Other Hisqezh general Narrative - Reported* Type Description Date [...] removal Hospitalization History see above Hospitalization History DC Hospitalization History hypertension Hospitalization History dehydration [employer] Other History of Present illness Narrative* Patient [...] We will see her back in 6-month [facility] 250 DO Work Phone: History of [...] She did have her labs done at [facility]. She denies com plaint of [...] We will see her back in 6-month [place] [address] DO Work Phone: History of Present illness [...] We will see her back in 6-month [facility] 250 DO Work Phone: History of [...] I congratulated her on her weight loss [facility] 250 DO Work Phone: Reason for referral (narrative)* Consultation (Routine) - Authorized Specialty Diagnoses / Procedures Referred By Brianna romano Referred To Contact Cardiology Diagnoses CAD, multiple vessel Procedures Follow Up In Cardiology Edi Cosby MD [address] [facility] 2, [address] [address] Edi Cosby MD [address] [facility] [address], [address] [address] Referral ID Status Reason Start Date Expiration Date V isits Requested Visits Authorized [id number] Authorized 10/08/2023 10/07/2024 1 1 [facility] Work Phone: Reason for referral (narrative)No reason for referral information [facility]: Summary Purpose Family History Unknown [...] 25 9:21am Hospital Course Note MR#: [id number] [facility] Pt. Name: Siva Nicolas Admitted: 01/09/2019 Discharged: [...] hydrochl (more content not included)... Chief Complaint SIVANGOC NICOLAS is being seen for a 9 month follow-up of.SIVA NICOLAS is being seen for a 6 +EKG month follow-up of.SIVA NICOLAS is being seen for a 6 month follow-up of.SIVA NICOLAS is being seen for a 6 month follow-up of. 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) Referral Organization [facility] Referring Provider First Name Nicole Referring Provider Last Name Thomas Referring Provider Specialty [facility] Referred Organization [facility] Referred Provider Margot Valles Referred Address [address] [facility] [facility],[address] Referred Provider Specialty Orthopedic S urgery Referral [...] Type II diabetes mellitus August 13 9:19am Chief Complaint Admit Date ^ December 20, 2003 8:40 am BW Order/Check Up August 13, 2024 9:1 9am wellness September 16, 2024 9:5 7am Reason for Visit Admit Date COPD (chronic obstructive pulmonary dise ase) August 13, 2024 9:19am Hypertension August 13, 2024 9:1 9am Hypothyroidism August 13, 2024 9:1 9am Type II diabetes mellitus August 13 9:19am COPD (chronic obstructive pulmonary dise ase) September 16, 2024 9:57am Hypertension September 16, 2024 9:5 7am Localized osteoarthritis of left knee Ap ril 2024 9:57am Medicare annual wellness visit, subseque nt September 16, 2024 9:57am Type II diabetes mellitus September 16 9:57am Chief Complaint Admit Date ^ December 20, 2003 8:40 am BW Order/Check Up August 13, 2024 9:1 9am wellness September 16, 2024 9:5 7am Knee Injection September 30, 2024 9:4 8am Reason for Visit Admit Date COPD (chronic obstructive pulmonary dise ase) August 13, 2024 9:19am Hypertension August 13, 2024 9:1 9am Hypothyroidism August 13, 2024 9:1 9am Type II diabetes mellitus August 13 9:19am COPD (chronic obstructive pulmonary dise ase) September 16, 2024 9:57am Hypertension September 16, 2024 9:5 7am Localized osteoarthritis of left knee Ap ril 2024 9:57am Medicare annual wellness visit, subseque nt September 16, 2024 9:57am Type II diabetes mellitus September 16 9:57am Oxygen dependent September 30, 2024 9:4 8am Chief Complaint Admit Date ^ December 20, 2003 8:40 am dizzy spells January 25, 2025 3: 13pm Additional Source Comments INFORMATION SOURCE (unrecogn ized section and content) DATE CREATED AUTHOR 02/20/2019 [facility] DATE CREATED AUTHOR 'S MANUEL ATRAMIRO 10/09/[address] [facility] DATE CREATED AUTHOR AUTHOR'S ORGANIZ ATION 09/05/2022 [facility] DATE CREATED AUTHOR AUTHOR'S ORGANIZ ATION 01/04/2023 [facility] DATE CREATED AUTHOR AUTHOR'S ORGANIZ ATION 01/04/2023 [employer] DATE CREATED AUTHOR AUTHOR'S ORGANIZ ATION 04/06/2023 [facility] DATE CREATED AUTHOR AUTHOR'S ORGANIZ ATION 08/11/2024 [facility] REASON FOR VISIT (unrecogniz ed section and content) Reason Comments Follow-up 9 months Reason Comments Follow-up 9m with EKG for CAD Specialty Diagnoses / Procedures Referred By Contac t Referred To Contact Cardiology Diagnoses CAD, multiple vessel Procedures Follow Up In Cardiology Edi Cosby MD [address] [place] [address] 2, [place] [address] Phone: tel: fax: Edi Cosby MD [address] [place] [address] 2, [place] [address] Phone: tel: fax: Referral ID Status Reason Start Date Expiration Date V isits Requested Visits Authorized [id number] Pending Review 10/08/2023 10/07/2024 1 1 Care [...] MD Attending Provider Active Start: Jesus Manuel 2003 Team Status: Active Member Role Status Dates Nicole Guzman MD Primary Care Provider Active Start: August 05, 2023 TRISTON Ross Attending Provider Active Start : August 05, 2023 Team Status: Inactive Member Role Status Dates Nicole Guzman MD Primary Care Provide r, Attending Provider Active Start: September 16, 2023 End: September 16, 2023 [employer] Relationship Specialty Start Date End Date Nicole Guzman MD PCP - General 06/03/99 Team Status: Inactive Member Role Status Dates Nicole Guzman MD Primary Care Provide r, Attending Provider Active Start: December 17, 2023 End: December 17, 2023 [employer]ch [employer]er Relationship Specialty Start Date End Date Nicole Guzman MD [address] [place] [address] PCP - General 06/03/99 Team Status: Inactive Member Role Status Dates Nicole Guzman MD Primary Care Provide r, Attending Provider Active Start: August 13, 2024 End: August 13, 2024 Team Status: Inactive Member Role Status Dates Nicole Guzman MD Primary Care Provide r, Attending Provider Active Start: September 16, 2024 End: September 16, 2024 Team Status: Inactive Member Role Status Dates Nicole Guzman MD Primary Care Provide r, Attending Provider Active Start: September 30, 2024 End: September 30, 2024 Team Status: Inactive Member Role Status Dates Nicole Guzman MD Primary Care Provider Active Start: January 25, 2025 End: January 25, 2025 Nicole Guzman MD Attending Provider Active St art: January 25, 2025 End: January 25, 2025 Goals (unrecognized section and content) Goals may [...] BE BASED ON THE PRIMARY CLINICAL RECORDS. [facility] [employer] [facility]. provides no warranty or guarantee of the accuracy or completeness of information in this document.
== END 2025-03-11 10:16 | disposition home or self-care (01) ==
LOC: CT 10:15
PROVIDERS: PCP Family Medicine; Visit Provider Internal Medicine
DX: Z87.891 Personal history of nicotine dependence (principal); Z12.2 Encounter for screening for malignant neoplasm of respiratory organs
CPT/HCPCS: 71271